=== PATIENT | female | born 1950 | race Caucasian/White ===

== ENCOUNTER 2020-08-22 07:05 | Outpatient (NON) | payer MEDICARE, BC, SELFPAY ==
[2020-08-22 18:30] LABS: SARS-CoV-2 RNA PCR Negative
== END 2020-08-22 07:06 ==
LOC: ANHCOVIDDT 07:19
PROVIDERS: Visit Provider Nurse Practitioner Adult Health
DX: R68.89 Other general symptoms and signs (principal); Z20.828 Contact with and (suspected) exposure to other viral communicable diseases
CPT/HCPCS: 87635; C9803; U0003

== ENCOUNTER → 2021-06-17 14:33 | Outpatient (CLI) | payer MEDICARE, BC, SELFPAY ==
--- NOTE | ~2021-06-17 | CT_ITS ---
EXAMINATION: CT lung screening DATE: 06/17/2021 14:50 INDICATION: Personal history of nicotine dependence, prior smoker with 96 pack year history and histo ry of prior left upper lobectomy TECHNIQUE: Computed tomography (CT) of the chest was performed without intravenous contrast. The dose -length product (DLP) was 138.64 mGy-cm. 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 COMPARISON: None FINDINGS: There are changes of left upper lobectomy. Scattered pulmonary nodules are present which me asure up to 3 mm in the right lung apex on image 20. There is moderate emphysema. The lungs are free of focal airspace opacities. There is no pleural effusion or pneumothorax. No pathologically enlarged thoracic lymph nodes are identified. The heart size is normal. Calcified coronary artery atheroscler osis is noted. There is moderate thoracic spondylosis. IMPRESSION: 1. Lung-RADS category 2: Benign appearance or behavior. Continue annual screening with noncontrast lo w-dose chest CT in 12 months. Reviewed, dictated and finalized at location A. IMPRESSION: 1. Lung-RADS category 2: Benign appearance or behavior. Continue annual screeni ng with noncontrast low-dose chest CT in 12 months.
== END ==
PROVIDERS: Visit Provider Nurse Practitioner
DX: Z12.2 Encounter for screening for malignant neoplasm of respiratory organs (principal); Z87.891 Personal history of nicotine dependence
CPT/HCPCS: 71271

== ENCOUNTER 2021-07-11 08:09 | Outpatient (CLI) | payer MEDICARE, BC, SELFPAY ==
--- NOTE | ~2021-07-11 | CT_ITS ---
EXAMINATION: CT sinus wo con DATE: 07/11/2021 08:30 INDICATION: Chronic sinusitis TECHNIQUE: Computed tomography (CT) of the paranasal sinuses was performed without intravenous contra st. The dose-length product was 286.08 mGy-cm. Automated exposure control and iterative reconstructio n technique were employed. COMPARISON: None FINDINGS: There is a small mucous retention cyst of the left maxillary sinus. There are surgical eden ges consistent with previous ostiomeatal unit resection. No air-fluid levels. No significant mucoperi osteal reaction. Rightward nasal septal deviation. Mastoids are pneumatized. IMPRESSION: 1. Small mucous retention cyst left maxillary sinus. Reviewed, dictated and finalized at location B.
== END 2021-07-11 08:10 | disposition home or self-care (01) ==
LOC: ANHIMG 08:15
PROVIDERS: PCP Nurse Practitioner Adult Health; Visit Provider Nurse Practitioner
DX: J32.9 Chronic sinusitis, unspecified (principal); J34.1 Cyst and mucocele of nose and nasal sinus
CPT/HCPCS: 70486

== ENCOUNTER 2021-12-20 06:36 | Emergency (ER) | payer MEDICARE, SELFPAY ==
[2021-12-20] VITALS (28 sets, daily range): BP systolic 73–195; BP diastolic 41–110; PULSE 68–106; RESP 8–23; TEMP 36.4; O2SAT 80–100
--- NOTE | 2021-12-20 06:47 | ECG_ITS ---
Measurements Intervals [place] Rate: 91 P: 74 MT: 165 QRS: 24 QRSD: 92 T: 52 QT: 371 QTc: 457 Interpretive Statements SINUS RHYTHM LOW QRS VOLTAGE IN PRECORDIAL LEADS [QRS DEFLECTION < 1.0 mV IN CHEST LEADS] INFERIOR MYOCARDIAL INFARCTION , PROBABLY OLD [40+ ms Q WAVE AND/OR ST/T ABNORMALITY IN II/aVF] ABNORMAL ECG NO PREVIOUS ECG AVAILABLE FOR COMPARISON Electronically Signed On 12-20-2021 16:54:17 CDT by Jose Perez M.D.
[2021-12-20] MEDS: ONDANSETRON INJ 4 MG/2 ML VIAL IV PUSH (06:58)
[2021-12-20] MEDS: SODIUM CHLORIDE 0.9% IV 1,000 ML 999 ML IV CONT ×2 (06:58→07:39)
--- NOTE | 2021-12-20 07:17 | PC.NURSE ---
Patient report received from ARMEN Mejia. All questions answered and care of patient assumed.
--- NOTE | 2021-12-20 07:21 | PC.NURSE ---
EDP at bedside to assess pt.
[2021-12-20 07:23] LABS: Alanine Aminotransferase 18 U/L (4-35); Albumin Level 4.2 g/dL (3.5-5.1); Alkaline Phosphatase 92 U/L (38-126); Anion Gap 7 mmol/L (8-16); Aspartate Amino Transferase 27 U/L (14-36); Bilirubin,Total 0.6 mg/dL (0.2-1.3); Blood Urea Nitrogen 31 mg/dL (7-17); Calcium 9.3 mg/dL (8.4-10.2); Carbon Dioxide 30 mmol/L (22-30); Chloride 99 mmol/L (98-107); Estimated CRCL calculation 37 ml/min; Estimated Glomerular Filt Rate 40; Glucose 195 mg/dL (65-110); Lipase 232 U/L (23-300); Sodium 136 mmol/L (137-145)
--- NOTE | 2021-12-20 07:23 | ED.NAVMDI ---
HPI - Nausea/Vomiting/Diarrhea General Chief complaint: Nausea/Vomiting/Diarrhea Stated complaint: N/V/D Time Seen by Provider: 12/20/21 06:55 History of Present Illness HPI Narrative: 71-year-old female presents to emergency room secondary to vomiting and diarrhea. She went to bed in her normal state of health last night. She woke up this morning went to the bathroom began having episodes of vomiting which was followed by diarrhea. She is extremely diaphoretic at the time. Her is here with her. He is not sick. She denies any chest pain or shortness of breath. No chills or fevers. She has had a prior hysterectomy as well as cholecystectomy. Denies any chills or fevers. Related Data Allergies Allergy/AdvReac Type Severity Reaction Status Date / Time Beta-Blockers Allergy Intermediate VASCULAR Verified 12/20/21 08:28 (Beta-Adrenergic Bloc MIGRAINES EYES cefdinir Allergy Intermediate HIVES Verified 12/20/21 08:28 doxycycline Allergy Intermediate DIFFICULTY Verified 12/20/21 08:28 BREATHING Penicillins Allergy Intermediate BREATHING Verified 12/20/21 08:28 DIFFICULTY hydrocodone Allergy Mild severe Verified 12/20/21 08:28 headache levofloxacin Allergy Mild DESTROYS Verified 12/20/21 08:28 GOOD COLON BACTERIA furosemide Allergy Unknown DEPLETES Verified 12/20/21 08:28 POTASSIUM COLON CLEANSES Allergy Intermediate CHRONIC Uncoded 01/17/18 10:01 KIDNEY DIS. Review of Systems Review of Systems: CONSTITUTIONAL: Denies fever, chills, or sweats. EYES: Denies visual changes, redness, or discharge. ENT: Denies rhinorrhea, congestion, sore throat, or otalgia. CARDIOVASCULAR: Denies chest pain, palpitations, or edema. RESPIRATORY: Denies cough or dyspnea. GASTROINTESTINAL: Patient denies any abdominal pain should get nausea, vomiting, and diarrhea. No blood in her stool or in her vomit.. GENITOURINARY: Denies dysuria or hematuria. SKIN: Denies rash or itching. MUSCULOSKELETAL: Denies back pain, joint pain, or myalgia. NEUROLOGIC: Denies headache, numbness, or weakness. PSYCHIATRIC: Denies anxiety or depression. [facility] Past Medical History Medical History (Updated 12/20/21 @ 08:32 by Castillo Phillip DO) Coronary artery disease FH: cholecystectomy Hypertension Surgical History Surgical History (Updated 12/20/21 @ 07:25 by Castillo Phillip DO) H/O: hysterectomy Social History Social History (Updated 12/20/21 @ 07:25 by Castillo Phillip DO) Social History: Patient denies smoking or alcohol Exam Narrative: APPEARANCE: No acute distress, nontoxic, resting in bed EYES: EOMI HEENT: Normocephalic, atraumatic, OMM RESPIRATORY: No respiratory distress Clear to auscultation bilaterally with no rhonchi wheezing or rales. CARDIOVASCULAR: Regular rate and rhythm without murmurs rubs or gallops. ABDOMINAL: Soft, nontender, nondistended, no rebound or guarding MUSCULOSKELETAl: Moves all extremities. No clubbing, cyanosis or edema. NEURO: Awake and alert. Following commands, speech normal, no focal deficits SKIN:: Warm, dry. No rashes lesions or abrasions PSYCHIATRIC: Normal affect/mood, Course Course Emergency Course: Patient given 2 L of normal saline IV. She had a slight episode of some hypotension which rebounded promptly with the IV fluids. She had one episode of vomiting after she arrived in emergency department. She was given IV Zofran as had no additional vomiting. Reevaluated the patient and she feels much better and eager to go home at this time. Explained to the patient that her potassium is little low. She is on a diuretic. We will give her some potassium supplements to help increase potassium over the next week. Vital Signs Vital signs: Vital Signs Temperature 97.6 F 12/20/21 06:37 Pulse Rate 105 H 12/20/21 06:37 Respiratory Rate 22 H 12/20/21 06:37 Pulse Oximetry 97 12/20/21 06:37 Temperature 97.6 F 12/20/21 06:37 Pulse Rate 87 04
[2021-12-20 07:26] LABS: Basophils Absolute Auto 0.1 K/mm3 (0.0-0.1); Eosinophils Absolute Auto 0.2 K/mm3 (0-0.3); Eosinophils Percent Auto 1.4 % (0-4.4); Hematocrit 50.5 % (37.0-47.0); Hemoglobin 15.8 g/dL (12.0-15.0); Immature Granulocyte Percent A 0.9 % (0-0.5); Lymphocytes Percent Auto 24.1 % (18.3-44.2); Mean Corpuscular HGB Conc 31.3 g/dl (32-36); Mean Corpuscular Hemoglobin 27.1 pg (26-34); Mean Corpuscular Volume 86.5 fl (80-100); Mean Platelet Volume 10.4 fl (7.4-10.4); Monocytes Absolute Auto 0.5 K/mm3 (0.1-0.6); Monocytes Percent Auto 4.2 % (2.6-8.5); Neutrophils Percent Auto 68.4 % (45.5-73.1); Platelet Count Result 452 k/mm3 (150-375); Red Blood Count 5.84 M/mm3 (4.2-5.4); Red Cell Distribution Width 14.8 % (11.5-14.5); White Blood Count 11.6 K/mm3 (4.5-10.0)
--- NOTE | 2021-12-20 07:40 | PC.NURSE ---
BP of 70s/80s systolic. MD made aware and verbal order received for second NS bolus.
--- NOTE | 2021-12-20 08:28 | PC.NURSE ---
Patient ambulatory with steady gait to the bathroom. Urine sample obtained.
[2021-12-20 08:35] LABS: Add Urine Microscopic? YES; Appearance Urine Cloudy (Clear); Bacteria Urine Trace /hpf; Bilirubin Urine Negative (Negative); Blood Urine Negative (Negative); Color Urine Yellow (Yellow); Glucose Urine UA Negative (Negative); Ketones Urine Negative (Negative); Leukocyte Esterase Ur 2+ LEU/UL (Negative); Nitrate Urine Negative (Negative); Protein Urine 2+ mg/dL (Negative); RBC Urine 0-2 /hpf (0-2); Specific Grav Ur 1.013 (1.001-1.035); Squamous Epithelial Cell Urine Many /hpf (Few); Urobilinogen Urine Negative mg/dL (<2.0)
== END 2021-12-20 09:05 | disposition home or self-care (01) ==
LOC: ANHED 08:43
PROVIDERS: Emergency Medicine; Emergency Provider Emergency Medicine; PCP Nurse Practitioner Adult Health
DX: K52.9 Noninfective gastroenteritis and colitis, unspecified (principal); E87.6 Hypokalemia; I25.10 Atherosclerotic heart disease of native coronary artery without angina pectoris; I10 Essential (primary) hypertension; R94.31 Abnormal electrocardiogram [ECG] [EKG]
CPT/HCPCS: 36415; 80053; 81001; 83690; 85025; 93005; 96361; 96374; 99284; J2405; J7030

== ENCOUNTER 2022-02-18 10:38 | Outpatient (CLI) | payer MEDICARE, SELFPAY ==
--- NOTE | 2022-02-18 17:34 | WPDPFTINT ---
PFT Procedure Performed PFT Procedure Performed Spirometry with Pre/Post Bronchodilator Plethysmography (Lung Vol) Diffusing Cap (DLCO) Flow Vol Loop PFT Interpretation This is a pulmonary function test with pre and post-bronchodilator spirometry, plethysmography and diffusing capacity. The test was performed and results interpreted in accordance with the 2019 and 2005 ATS/ERS Task Force guidelines respectively using the Global Lung Function Initiative-2012 reference equations. Patient demonstrated good effort and cooperation. Reproducibility criteria were met. The quality of the pre bronchodilator spirometry maneuver was Grade A and post bronchodilator spirometry maneuver was Grade A. Findings: Spirometry: There is decreased maximal expiratory airflow at all lung volumes with concave expiratory flow tracing. The contour the inspiratory flow tracing is normal. The pre bronchodilator FVC is 2.37 L, 85% predicted. The pre bronchodilator FEV1 is 1.17 L, 55% predicted. The pre bronchodilator FEV1: FVC ratio is 50%. The post bronchodilator FVC is 2.34 L, representing 1% decrease. The post bronchodilator FEV1 is 1.33 L, representing a 160 mL increase which corresponds to a 13% increase. Plethysmography: The total lung capacity is 4.83 L, 95% predicted. The functional residual capacity is 2.80 L, 96% predicted. The residual volume is 2.46 L, 109% predicted. Diffusing capacity: The diffusing capacity unadjusted for hemoglobin and carboxyhemoglobin is 12.2, 60% predicted. The diffusing capacity adjusted for alveolar volume is 3.71, 81% predicted. Impression: There is a moderately severe obstructive abnormality without significant improvement after inhaling a single dose of albuterol as the absolute increase in FEV1 was less than 200 mL. the lung volumes are normal. The diffusing capacity unadjusted for hemoglobin and carboxyhemoglobin is moderately decreased and normalizes when adjusted for alveolar volume. There are no prior studies for comparison
== END 2022-02-18 10:39 | disposition home or self-care (01) ==
LOC: ANHPFT 10:43
PROVIDERS: PCP Nurse Practitioner Adult Health; Visit Provider Nurse Practitioner
DX: J44.9 Chronic obstructive pulmonary disease, unspecified (principal)
CPT/HCPCS: 94060; 94726; 94729

== ENCOUNTER → 2022-07-01 08:40 | Outpatient (CLI) | payer MEDICARE, SELFPAY ==
--- NOTE | ~2022-07-01 | CT_ITS ---
EXAMINATION:CT diagnostic chest wo con DATE: 07/01/2022 09:07 INDICATION: Other nonspecific abnormal finding of lung field. Lung nodules. TECHNIQUE: Computed tomography (CT) of the chest was performed without intravenous contrast. Automate d exposure control and iterative reconstruction technique were employed. The dose-length product (DLP ) was 340.28 mGy-cm. COMPARISON: Chest CT 06/17/2021 FINDINGS: There is mild emphysema. There are changes of left upper lobectomy. There is mild atelectas is bilaterally. Again seen is a 3 mm nodule in right upper lobe. Again seen is a 3 mm nodule in right lower lobe. No pleural effusion. The heart size is normal. There are coronary artery calcifications. No pericardial effusion. There is a small sliding hiatal hernia. There is diffuse hepatic steatosis. There is severe thoracic spondylosis. There is mild chronic anterior wedging of multiple vertebral b odies. IMPRESSION: 1. Stable lung nodules, likely benign. 2. Mild emphysema. 3. Left upper lobectomy. Reviewed, dictated and finalized at location A.
== END ==
PROVIDERS: PCP Nurse Practitioner Adult Health; Visit Provider Nurse Practitioner
DX: R91.8 Other nonspecific abnormal finding of lung field (principal); R91.1 Solitary pulmonary nodule; J43.9 Emphysema, unspecified; Z90.2 Acquired absence of lung [part of]; K76.0 Fatty (change of) liver, not elsewhere classified; K44.9 Diaphragmatic hernia without obstruction or gangrene; I25.10 Atherosclerotic heart disease of native coronary artery without angina pectoris
CPT/HCPCS: 71250

== ENCOUNTER 2022-10-16 16:10 | Inpatient (IN) | payer MEDICARE, SELFPAY ==
[2022-10-16] VITALS (8 sets, daily range): BP systolic 120–135; BP diastolic 73–86; PULSE 75–97; RESP 13–20; TEMP 36.6–36.8; O2SAT 92–97; BMI 32.8
--- NOTE | 2022-10-16 16:32 | ED.GENADULT ---
HPI - General Adult General Chief complaint: Recheck/Abnormal Lab/Rx Stated complaint: abnormal labs, low potassium Time Seen by Provider: 10/16/22 16:19 History of Present Illness HPI narrative: 71-year-old female history of hypokalemia presenting to the emergency department for evaluation of low potassium. Patient reports that she had outpatient labs drawn on Wednesday and her potassium was 2.5. Patient was treated with p.o. potassium as outpatient and had a recheck potassium was up to 2.7. Patient was instructed to present to the emergency department for further evaluation. Patient reports she has had some issues with abdominal cramping but denies any chest pain shortness of breath or heart palpitations. Patient denies any other complaints. Patient states she has not having any abdominal cramping at this time. Patient denies any associated nausea or vomiting Related Data Allergies Allergy/AdvReac Type Severity Reaction Status Date / Time Beta-Blockers Allergy Intermediate VASCULAR Verified 12/20/21 08:28 (Beta-Adrenergic Bloc MIGRAINES EYES cefdinir Allergy Intermediate HIVES Verified 12/20/21 08:28 doxycycline Allergy Intermediate DIFFICULTY Verified 12/20/21 08:28 BREATHING Penicillins Allergy Intermediate BREATHING Verified 12/20/21 08:28 DIFFICULTY hydrocodone Allergy Mild severe Verified 12/20/21 08:28 headache levofloxacin Allergy Mild DESTROYS Verified 12/20/21 08:28 GOOD COLON BACTERIA furosemide Allergy Unknown DEPLETES Verified 12/20/21 08:28 POTASSIUM COLON CLEANSES Allergy Intermediate CHRONIC Uncoded 01/17/18 10:01 KIDNEY DIS. Review of Systems Review of Systems: CONSTITUTIONAL: Denies fever, chills, or sweats. EYES: Denies visual changes, redness, or discharge. ENT: Denies rhinorrhea, congestion, sore throat, or otalgia. CARDIOVASCULAR: Denies chest pain, palpitations, or edema. RESPIRATORY: Denies cough or dyspnea. GASTROINTESTINAL: Denies abdominal pain, nausea, vomiting, or diarrhea. GENITOURINARY: Denies dysuria or hematuria. SKIN: Denies rash or itching. MUSCULOSKELETAL: Denies back pain, joint pain, or myalgia. NEUROLOGIC: Denies headache, numbness, or weakness. [facility] Past Medical History Medical History (Updated 10/16/22 @ 17:47 by Quinton Phillip MD) Coronary artery disease FH: cholecystectomy Hypertension Surgical History Surgical History (Updated 12/20/21 @ 07:25 by Castillo Phillip DO) H/O: hysterectomy Social History Social History (Updated 12/20/21 @ 07:25 by Castillo Phillip DO) Social History: Patient denies smoking or alcohol Exam Narrative: APPEARANCE: Well appearing, no pain, no distress, well-nourished. HEAD: normocephalic, atraumatic. EYES: PERRLA/EOMI, conjunctivae clear. NOSE: Normal no drainage NECK: Supple. No adenopathy, no masses. RESPIRATORY: Airway patent, respirations nonlabored. Clear to auscultation bilaterally, no rales, rhonchi, wheezing. CARDIOVASCULAR: Regular rate and rhythm without murmurs rubs or gallops. ABDOMINAL: Soft, nontender, nondistended, normal bowel sounds MUSCULOSKELETAL: Moves all extremities. Strength/ROM intact, No edema, No calf tenderness. NEURO: Alert. Cranial nerves II through XII intact. Grossly intact SKIN: Warm, dry. Normal Color Course Course Emergency Course: Patient did fail outpatient treatment. Patient was ordered p.o. and IV potassium. EKG shows normal sinus rhythm. Patient's mag was also replaced as well. Case was discussed with hospitalist patient was admitted to [facility] with telemetry. Patient was updated on results of the work-up and plan for admission. All questions and concerns were addressed. Patient was stable at time of admission to telemetry. Vital Signs Vital signs: Vital Signs Temperature 98.2 F 10/16/22 16:14 Pulse Rate 97 10/16/22 16:14 Respiratory Rate 20 10/16/22 16:14 Blood Pressure 135/75 10/16/22 16:14 Pulse Oximetry
[2022-10-16 16:52] LABS: Basophils Absolute Auto 0.1 K/mm3 (0.0-0.1); Basophils Percent Auto 0.7 % (0.2-1.2); Eosinophils Absolute Auto 0.1 K/mm3 (0-0.3); Eosinophils Percent Auto 0.9 % (0-4.4); Hematocrit 36.1 % (37.0-47.0); Hemoglobin 11.9 g/dL (12.0-15.0); Immature Granulocyte Absolute 0.04 K/mm3 (0.00-0.031); Immature Granulocyte Percent A 0.4 % (0-0.5); Lymphocytes Percent Auto 17.4 % (18.3-44.2); Mean Corpuscular Hemoglobin 27.5 pg (26-34); Mean Corpuscular Volume 83.6 fl (80-100); Monocytes Absolute Auto 0.6 K/mm3 (0.1-0.6); Monocytes Percent Auto 5.9 % (2.6-8.5); Neutrophils Absolute Auto 7.3 K/mm3 (1.3-6.7); Neutrophils Percent Auto 74.7 % (45.5-73.1); Platelet Count Result 294 k/mm3 (150-375); Red Blood Count 4.32 M/mm3 (4.2-5.4); Red Cell Distribution Width 15.3 % (11.5-14.5); White Blood Count 9.8 K/mm3 (4.5-10.0)
[2022-10-16 16:55] LABS: Chloride 87 mmol/L (98-107)
[2022-10-16 16:56] LABS: Magnesium 1.7 mg/dL (1.6-2.3)
[2022-10-16 17:09] LABS: Anion Gap 7 mmol/L (8-16); Blood Urea Nitrogen 21 mg/dL (7-17); Calcium 8.9 mg/dL (8.4-10.2); Carbon Dioxide 38 mmol/L (22-30); Estimated CRCL calculation 37 ml/min; Estimated Glomerular Filt Rate 40; Glucose 251 mg/dL (65-110); Potassium 2.6 mmol/L (3.4-5.0); Sodium 132 mmol/L (137-145)
--- NOTE | 2022-10-16 17:09 | ECG_ITS ---
Measurements Intervals [place] Rate: 83 P: 76 [place]: 170 QRS: 10 QRSD: 101 T: 54 QT: 394 QTc: 464 Interpretive Statements SINUS RHYTHM LOW QRS VOLTAGE IN PRECORDIAL LEADS CONSIDER INFERIOR INFARCT, AGE INDETERMINATE BORDERLINE ST-T WAVE ABNORMALITY- ANT/HIGH LAT LEADS BASELINE ARTIFACT- II, III, AVR, AVL, AVF ABNORMAL ECG COMPARED TO ECG 12/20/2021 06:55:03 NO SIGNIFICANT CHANGES Electronically Signed On 10-16-2022 17:48:03 [employer]IRTUAL REALITY SPECIALIST by Andrea Chacon D.O.
[2022-10-16] MEDS: POTASSIUM CHLORIDE 20 MEQ PACKET (FOR LIQUID) 40 MEQ PO (17:36)
[2022-10-16] MEDS: MAGNESIUM SULF 1 GM/D5W 100 ML 1 GM/100 ML BAG IVPB (17:36)
[2022-10-16] MEDS: KCL 40 MEQ/WATER 100 ML 100 ML 25 ML IVPB (17:36)
[2022-10-16] MEDS: SODIUM CHLORIDE 0.9% IV 1,000 ML 999 ML IV CONT (17:47)
--- NOTE | 2022-10-16 18:03 | ADMGEN ---
This patient, Paty Lainez, was admitted to 2 Medical Room 258-01. Patient/family oriented to hospital policies and general routines including ID bracelet, bed and alarms, visiting hours, pain management, procedures, bathroom and other care routines, personal items, smoking policy, room service/diet, and visiting hours. Information on how to activate the Rapid Response Team has been discussed. Patient/Family are encouraged to report perceived risks to care and to ask questions if they do not understand what they are told or what they should do.
[2022-10-16 18:32] LABS: Influenza A QL RT-PCR Negative (Negative); Influenza B QL RT-PCR Negative (Negative); RSV RNA, RT-PCR Negative (Negative); SARS-CoV-2 RNA PCR Negative
[2022-10-17] VITALS (11 sets, daily range): BP systolic 133–137; BP diastolic 81–88; PULSE 74–106; RESP 14–20; TEMP 36.5–36.9; O2SAT 94–98
--- NOTE | 2022-10-17 00:03 | PM.IMHP ---
H&P: HPI History of Present Illness Date/Time: 10/16/22 2300 Chief Complaint: Abnormal labs Narrative: This is a 71-year-old female patient who has chronic hypokalemia. The patient has been taking oral supplements at home. However she still is having difficulty getting her potassium to rise up. The patient had outpatient labs drawn on Wednesday in her potassium is 2.5. She was treated with p.o. potassium outpatient and her potassium levels recheck on and was 2.7. The patient was instructed to go to the emergency room to have her potassium rechecked. Patient reports that she had some abdominal cramping. She denies any nausea vomiting or diarrhea. The patient stated she is not on any diuretics. Her H&H today is 11.9 and 36.1. Sodium 132 potassium 2.6. Creatinine 1.3 BUN is 21. Estimated GFR is 40 glucose is 251. The patient has 2+ leukocyte esterase in 4-6 wbc's but she has many squamous epithelial cells. So I suspect that this is a contaminant. The patient was negative for influenza A/B and COVID. The patient was given p.o. potassium and IV potassium and magnesium and IV fluids in the emergency room. The patient is being admitted to inpatient status on the date of service 10/16/2022 Review of Systems Review of Systems: See HPI All systems reviewed & are unremarkable except as noted in HPI and below Constitutional: Constitutional: Reports as per HPI and Reports no additional constitutional complaints Eyes: Eyes: Reports as per HPI and Reports no additional eye complaints ENT: Reports system reviewed and no additional complaints, except as documented and Reports Normal hearing present Cardiovascular: Cardiovascular: Reports no additional cardiovascular complaints Respiratory: Respiratory: Reports no additional respiratory complaints and Reports no additional respiratory complaints Gastrointestinal: Gastrointestinal: Reports as per HPI and Reports no additional gastrointestinal complaints Musculoskeletal: Musculoskeletal: Reports no additional musculoskeletal complaints Integumentary/Breasts: Skin/Breast: Reports system reviewed and no additional complaints, except as docu and Reports as per HPI Neurologic: Reports system reviewed and no additional complaints, except as documented, Reports as per HPI and Reports Normal hearing present Psychiatric: Psychiatric: Reports no additional psychiatric complaints and Reports as per HPI Endocrine: Endocrine: Reports no additional endocrine complaints Hematologic/Lymphatic: Hematologic/Lymphatic: Reports no additional hematologic/lymphatic complaints Allergic/Immunologic: Allergic/Immunologic: Reports no additional allergic/immunologic complaints PMFSH Past Medical History Medical History (Updated 10/17/22 @ 00:29 by Karley John NP) Acute hypokalemia Anxiety Chronic GERD Chronic renal disease COPD (chronic obstructive pulmonary disease) Coronary artery disease Degenerative disc disease Dementia Hyperlipidemia Hypertension Myocardial infarction No intervention. The patient stated that she grew collateral. The patient stated that she had 2 heart attacks but I believe that she had coronary order disease without any intervention. Osteoporosis Shingles Surgical History Surgical History (Updated 10/17/22 @ 00:29 by Karley John NP) H/O arthroscopic knee surgery H/O cardiac catheterization H/O hand surgery H/O: hysterectomy History of bladder surgery History of laparoscopic cholecystectomy History of lobectomy of lung Left upper lung due to benign nodules History of total knee arthroplasty S/P tonsillectomy and adenoidectomy Family History Family History (Updated 10/17/22 @ 00:17 by Karley John NP) Sibling Cancer Diabetes mellitus Hypertension Thyroid disease Father Cancer Mother COPD (chronic obstructive pulmonary disease) Social History Social History (Updated 10/17/22 @ 00:19 by Karley John NP) Social History: P
[2022-10-17] MEDS: DONEPEZIL HCL 10 MG TABLET PO ×2 (00:44→08:11)
[2022-10-17] MEDS: DULoxetine HCL 20 MG CAPSULE.DR PO ×3 (00:44→21:18)
[2022-10-17] MEDS: MEMANTINE 10 MG TABLET PO ×3 (00:44→16:45)
--- NOTE | 2022-10-17 01:39 | ECG_ITS ---
Measurements Intervals [place] Rate: 68 P: 83 [place]: 185 QRS: 17 QRSD: 104 T: 68 QT: 435 QTc: 463 Interpretive Statements SINUS RHYTHM ATRIAL PREMATURE COMPLEXES BORDERLINE T WAVE ABNORMALITY- ANTERIOR LEADS BASELINE WANDER- I, II, III, AVR, AVL, AVF, V1-V3 BORDERLINE ECG COMPARED TO ECG 10/16/2022 17:38:13 NO SIGNIFICANT CHANGES Electronically Signed On 10-17-2022 8:04:47 BASEBOARD HEATING INSTALLER by Andrea Chacon D.O.
[2022-10-17 01:48] LABS: Anion Gap 6 mmol/L (8-16); Blood Urea Nitrogen 23 mg/dL (7-17); Calcium 8.3 mg/dL (8.4-10.2); Carbon Dioxide 35 mmol/L (22-30); Chloride 93 mmol/L (98-107); Estimated CRCL calculation 47 ml/min; Estimated Glomerular Filt Rate 54; Glucose 305 mg/dL (65-110); Potassium 3.1 mmol/L (3.4-5.0); Sodium 134 mmol/L (137-145)
[2022-10-17 06:02] LABS: Basophils Absolute Auto 0.1 K/mm3 (0.0-0.1); Basophils Percent Auto 0.9 % (0.2-1.2); Eosinophils Absolute Auto 0.1 K/mm3 (0-0.3); Eosinophils Percent Auto 1.7 % (0-4.4); Hematocrit 34.1 % (37.0-47.0); Hemoglobin 10.9 g/dL (12.0-15.0); Immature Granulocyte Absolute 0.05 K/mm3 (0.00-0.031); Immature Granulocyte Percent A 0.6 % (0-0.5); Lymphocytes Absolute Auto 1.66 K/mm3 (0.9-3.2); Lymphocytes Percent Auto 20.3 % (18.3-44.2); Mean Corpuscular Hemoglobin 26.6 pg (26-34); Mean Corpuscular Volume 83.2 fl (80-100); Mean Platelet Volume 10.4 fl (7.4-10.4); Monocytes Absolute Auto 0.5 K/mm3 (0.1-0.6); Monocytes Percent Auto 6.1 % (2.6-8.5); Neutrophils Absolute Auto 5.8 K/mm3 (1.3-6.7); Neutrophils Percent Auto 70.4 % (45.5-73.1); Platelet Count Result 257 k/mm3 (150-375); Red Cell Distribution Width 15.3 % (11.5-14.5); White Blood Count 8.2 K/mm3 (4.5-10.0)
[2022-10-17 06:31] LABS: Alanine Aminotransferase 22 U/L (6-35); Albumin Level 3.5 g/dL (3.5-5.1); Alkaline Phosphatase 103 U/L (38-126); Anion Gap 7 mmol/L (8-16); Aspartate Amino Transferase 23 U/L (14-36); Bilirubin,Total 0.4 mg/dL (0.2-1.3); Blood Urea Nitrogen 21 mg/dL (7-17); Calcium 8.9 mg/dL (8.4-10.2); Carbon Dioxide 36 mmol/L (22-30); Chloride 95 mmol/L (98-107); Estimated CRCL calculation 47 ml/min; Estimated Glomerular Filt Rate 54; Glucose 197 mg/dL (65-110); Potassium 2.7 mmol/L (3.4-5.0); Sodium 138 mmol/L (137-145)
[2022-10-17] MEDS: POTASSIUM CHLORIDE 20 MEQ TABLET 40 MEQ PO (06:45)
[2022-10-17] MEDS: ASPIRIN 81 MG CHEWABLE TABLET PO (08:09)
[2022-10-17] MEDS: FAMOTIDINE 20 MG TABLET 40 MG PO (08:10)
[2022-10-17] MEDS: dilTIAZem HCL 30 MG TABLET PO (08:10)
[2022-10-17] MEDS: TORSEMIDE 20 MG TABLET 40 MG PO (08:10)
[2022-10-17] MEDS: POTASSIUM CHLORIDE 20 MEQ TABLET.ER PO ×2 (08:11)
[2022-10-17] MEDS: ROSUVASTATIN 10 MG TABLET PO (08:11)
--- NOTE | 2022-10-17 08:33 | PM.IMPN ---
Progress Note: A&P Assessment and Plan (1) Hypokalemia: Code(s): E87.6 - Hypokalemia Status: Acute Assessment and Plan: Potassium 2.5 on outpatient labs, 2.6 on admission. She was given 40 mEQ IV and PO in the ED. EKG without changes or abnormalities related to hypokalemia K 2.7 today 10/16/22. Patient is on chronic torsemide. Hold torsemide for now. Give 40 mEQ IV KCl x1, 60 mEQ PO KCl then increase home dose potassium 40 mEQ PO BID. Repeat potassium level 1400 and adjust medications as needed. (2) Dementia: Code(s): F03.90 - Unspecified dementia, unspecified severity, without behavioral disturbance, psychotic disturbance, mood disturbance, and anxiety Status: Chronic Assessment and Plan: Chronic, continue donepezil and memantine (3) Anxiety: Code(s): F41.9 - Anxiety disorder, unspecified Status: Chronic Assessment and Plan: Chronic, continue Cymbalta (4) Chronic GERD: Code(s): K21.9 - Gastro-esophageal reflux disease without esophagitis Status: Chronic Assessment and Plan: Chronic, continue famotidine (5) Hypertension: Code(s): I10 - Essential (primary) hypertension Status: Chronic Assessment and Plan: Chronic, stable. Monitor vital sign continue Cardizem. Hold torsemide as above. (6) Hyperlipidemia: Code(s): E78.5 - Hyperlipidemia, unspecified Status: Chronic Assessment and Plan: Chronic, continue Crestor (7) Chronic renal disease: Code(s): N18.9 - Chronic kidney disease, unspecified Status: Chronic Assessment and Plan: Chronic, stage 3b, renal function at baseline Monitor I/O Avoid nephrotoxic agents and control BP (8) COPD (chronic obstructive pulmonary disease): Code(s): J44.9 - Chronic obstructive pulmonary disease, unspecified Status: Chronic Assessment and Plan: as noted on PFT testing 03/11. Patient is not on maintenance and rescue inhalers. Not in acute exacerbation. Monitor respiratory status. Former smoker (9) Coronary artery disease: Code(s): I25.10 - Atherosclerotic heart disease of [place] coronary artery without angina pectoris Status: Chronic Assessment and Plan: Chronic, reportedly no coronary stents placed due to collateral perfusion Continue aspirin, crestor, and BP management. Patient is not on a beta-harman Time Spent With Patient Time with patient: 25 - 35 minutes Subjective Date/time seen: 10/17/22 08:33 Patient is a 71 yo female with hypertension, hyperlipidemia, COPD, GERD and dementia. She presented to the ED for evaluation of abnormal potassium level. She was found to have potassium level of 2.6 and was admitted for close monitoring. She denies muscle cramps currently, but does report issues with leg cramping for the past several months. No palpitations or arrhythmia on telemetry. She has severe arm pain when receiving IV KCl. She also reports 3 small loose stools today. No recently antibiotic therapy. No abd pain, N/V or constipation. Review of Systems Review of Systems: All systems reviewed & are unremarkable except as noted in HPI and below Exam Narrative: General: No acute distress.? Well-developed adult female lying in bed. Mental Status/Psych: Awake, alert and oriented x3 with clear speech. Neutral mood and affect. Pleasant and cooperative. Skin: Skin fair, warm, dry and intact without rashes or lesions. No open wounds. Good turgor.? HEENT: Normocephalic.Sclera is non-icteric. EOM intact. PERRL. Grossly normal hearing. Oral mucosa pink and moist. Tongue midline. Oropharynx within normal limits. Neck: Supple. Thyroid without nodularity. Trachea midline. No JVD. Heart: S1 and S2 regular rate and rhythm. No murmurs, gallops, or rubs auscultated. Chest: Respirations even and unlabored. Lung sounds are clear to auscultation in all lobes bilaterally without wheezes, rhonchi, or rales
[2022-10-17] MEDS: POTASSIUM CHLORIDE 20 MEQ TABLET PO (10:08)
[2022-10-17 14:19] LABS: Potassium 3.2 mmol/L (3.4-5.0)
[2022-10-17] MEDS: POTASSIUM CHLORIDE 20 MEQ TABLET.ER 40 MEQ PO (16:45)
[2022-10-18] VITALS (7 sets, daily range): BP systolic 141–142; BP diastolic 82–84; PULSE 65–87; RESP 16–18; TEMP 36.3–36.8; O2SAT 95–96
[2022-10-18 05:00] LABS: Anion Gap 6 mmol/L (8-16); Blood Urea Nitrogen 22 mg/dL (7-17); Calcium 8.7 mg/dL (8.4-10.2); Carbon Dioxide 33 mmol/L (22-30); Chloride 99 mmol/L (98-107); Estimated CRCL calculation 52 ml/min; Estimated Glomerular Filt Rate > 60; Glucose 216 mg/dL (65-110); Magnesium 1.8 mg/dL (1.6-2.3); Potassium 3.1 mmol/L (3.4-5.0); Sodium 138 mmol/L (137-145)
[2022-10-18] MEDS: MAGNESIUM SULF 1 GM/D5W 100 ML 1 GM/100 ML BAG IVPB (08:30)
[2022-10-18] MEDS: ROSUVASTATIN 10 MG TABLET PO (08:31)
[2022-10-18] MEDS: ASPIRIN 81 MG CHEWABLE TABLET PO (08:31)
[2022-10-18] MEDS: FAMOTIDINE 20 MG TABLET 40 MG PO (08:31)
[2022-10-18] MEDS: MEMANTINE 10 MG TABLET PO (08:31)
[2022-10-18] MEDS: POTASSIUM CHLORIDE 20 MEQ TABLET.ER 40 MEQ PO ×2 (08:31→12:23)
[2022-10-18] MEDS: dilTIAZem HCL 30 MG TABLET PO (08:32)
[2022-10-18] MEDS: SACCHAROMYCES BOULARDII 250 MG CAPSULE PO (08:32)
[2022-10-18] MEDS: DONEPEZIL HCL 10 MG TABLET PO (08:32)
[2022-10-18] MEDS: DULoxetine HCL 20 MG CAPSULE.DR PO (08:32)
[2022-10-18 09:04] LABS: Hemoglobin A1C 8.3 % (<5.7)
[2022-10-18 09:26] LABS: Toxigenic C. Diff NEGATIVE (NEGATIVE)
[2022-10-18 13:22] LABS: Potassium 3.3 mmol/L (3.4-5.0)
--- NOTE | 2022-10-18 15:34 | PM.DS ---
DS: Admitting Diagnosis Discharge Date 10/18/2022 1534 Admitting Diagnosis Hypokalemia DS: Discharge Diagnosis Discharge Diagnosis (1) Hypokalemia: Code(s): E87.6 - Hypokalemia Status: Acute Assessment and Plan: Potassium 2.5 on outpatient labs, 2.6 on admission. She was given 40 mEQ IV and PO in the ED. EKG without changes or abnormalities related to hypokalemia K 2.7 on 10/16/22. Patient is on chronic torsemide. Held torsemide inpatient Gave 40 mEQ IV KCl x1, 60 mEQ PO KCl then increase home dose potassium 40 mEQ PO BID 10/17/22. Repeat potassium level at 1400 3.2. 10/18 K 3.1, magnesium 1.8. increased KCl 40 mEQ TID PO. Given 1 gram Mag sulfate IVPB. Repeat K 3.3. Resume torsemide in 24-48 hours with repeat BMP in 2 days. c/o loose stool. cdiff negative. cultures pending. Appears chronic. (2) Dementia: Code(s): F03.90 - Unspecified dementia, unspecified severity, without behavioral disturbance, psychotic disturbance, mood disturbance, and anxiety Status: Chronic Assessment and Plan: Chronic, continue donepezil and memantine (3) Anxiety: Code(s): F41.9 - Anxiety disorder, unspecified Status: Chronic Assessment and Plan: Chronic, continue Cymbalta (4) Chronic GERD: Code(s): K21.9 - Gastro-esophageal reflux disease without esophagitis Status: Chronic Assessment and Plan: Chronic, continue famotidine (5) Hypertension: Code(s): I10 - Essential (primary) hypertension Status: Chronic Assessment and Plan: Chronic, stable. Monitor vital sign continue Cardizem. Hold torsemide as above. (6) Hyperlipidemia: Code(s): E78.5 - Hyperlipidemia, unspecified Status: Chronic Assessment and Plan: Chronic, continue Crestor (7) Chronic renal disease: Code(s): N18.9 - Chronic kidney disease, unspecified Status: Chronic Assessment and Plan: Chronic, stage 3b, renal function at baseline Monitor I/O Avoid nephrotoxic agents and control BP (8) COPD (chronic obstructive pulmonary disease): Code(s): J44.9 - Chronic obstructive pulmonary disease, unspecified Status: Chronic Assessment and Plan: as noted on PFT testing 03/11. Patient is not on maintenance and rescue inhalers. Not in acute exacerbation. Monitor respiratory status. Former smoker (9) Coronary artery disease: Code(s): I25.10 - Atherosclerotic heart disease of [place] coronary artery without angina pectoris Status: Chronic Assessment and Plan: Chronic, reportedly no coronary stents placed due to collateral perfusion Continue aspirin, crestor, and BP management. Patient is not on a beta-harman DS: Summary Hospital Course Reason for hospitalization: Abnormal labs Hospital Course: Paty Lainez is a 71-year-old female patient with COPD, HTN, HLD, CAD, anxiety, dementia and GERD. She presented to the ED for evaluation of abnormal potassium level. The patient reports recently starting to take oral supplements from her PCP starting 2-3 days prior to admission due to low potassium level 2.5. Her potassium level was recheck 2 days later and was 2.7.? The patient was instructed to go to the emergency room to have her potassium rechecked.? Patient reported that she had some abdominal and lower extremity cramping.? She denied nausea, vomiting, or diarrhea.? She takes furosemide PO daily. Her H&H today is 11.9 and 36.1.? Sodium 132 potassium 2.6.? Creatinine 1.3 BUN is 21.? Estimated GFR is 40 glucose is 251.? The patient has 2+ leukocyte esterase in 4-6 wbc's but she has many squamous epithelial cells; likely contaminated.?She was negative for influenza A/B and COVID.? She was given 40 mEQ p.o. potassium and IV potassium and magnesium and IV fluids in the emergency room.? She was admitted for further evaluation of hypokalemia. Telemetry was monitored and without arrhythmia or ectopy. K levels we
== END 2022-10-18 16:35 | disposition home or self-care (01) | DRG 641 ==
LOC: ANHED 17:47 → ANH2MED 17:56
PROVIDERS: Emergency Medicine; Nurse Practitioner; Physician Assistant; Admitting Provider Chiropractor; Emergency Provider Emergency Medicine; PCP Family Medicine; Visit Provider Nurse Practitioner Family
DX: E87.6 Hypokalemia (principal); I25.10 Atherosclerotic heart disease of native coronary artery without angina pectoris; I12.9 Hypertensive chronic kidney disease with stage 1 through stage 4 chronic kidney disease, or unspecified chronic kidney disease; N18.32 Chronic kidney disease, stage 3b; J44.9 Chronic obstructive pulmonary disease, unspecified; E78.5 Hyperlipidemia, unspecified; K21.9 Gastro-esophageal reflux disease without esophagitis; M81.0 Age-related osteoporosis without current pathological fracture; F41.9 Anxiety disorder, unspecified; F03.90 Unspecified dementia, unspecified severity, without behavioral disturbance, psychotic disturbance, mood disturbance, and anxiety; Z96.659 Presence of unspecified artificial knee joint; Z20.822 Contact with and (suspected) exposure to COVID-19; I25.2 Old myocardial infarction; Z90.2 Acquired absence of lung [part of]; Z87.891 Personal history of nicotine dependence; Z79.82 Long term (current) use of aspirin
CPT/HCPCS: 36415; 80048; 80053; 83036; 83735; 84132; 84443; 85025; 87045; 87269; 87272; 87427; 87493; 87637; 89055; 93005; 99285; A9270; J3475; J3480; J7030

== ENCOUNTER 2023-08-29 18:33 | Emergency (ER) | payer MEDICARE, SELFPAY ==
--- NOTE | ~2023-08-29 | CT_ITS ---
EXAMINATION: CT abdomen pelvis w con DATE: 08/29/2023 21:25 INDICATION: Vomiting TECHNIQUE: Computed tomography (CT) of the abdomen and pelvis was performed UK intravenous contrast. Automated exposure control and iterative reconstruction technique were employed. The dose-length prod uct was 859.54 mGy-cm. COMPARISON: 06/14/2015; CT chest 07/01/2022; PET/CT 10/21/2016. FINDINGS: Lower thorax: Dependent atelectasis/scar Liver: Diffuse fatty infiltration and hepatomegaly Biliary/Gallbladder: Gallbladder is absent. No bile duct dilation. Pancreas: No mass or duct dilation. Spleen: Normal. Adrenals:No mass. Kidneys: No suspicious mass, obstructing stone, or hydronephrosis. Bilateral cortical thinning. Simpl e exophytic left lower pole cyst GI tract: Distal esophageal and gastric wall edema No small or large bowel dilation. Normal appendix. Mesentery/Peritoneum: No ascites, mass, or free air. Retroperitoneum: No mass. Atherosclerotic abdominal aortic and/or arterial calcifications. Pelvis: Distended urinary bladder without wall thickening. Absent uterus.. Soft Tissues: Soft tissues and body wall unremarkable. Bones: No acute osseous finding. IMPRESSION: Mild esophagitis/gastritis. Hepatomegaly with steatosis. Distended urinary bladder, correlate for findings of urinary retention. Reviewed, dictated and finalized at location K. SHINGLER
[2023-08-29 18:34] VITALS: BP 156/101; PULSE 86; RESP 18; TEMP 36.1; O2SAT 99
--- NOTE | 2023-08-29 19:30 | ECG_ITS ---
Measurements Intervals [place] Rate: 75 P: 76 [place]: 183 QRS: 4 QRSD: 104 T: 49 QT: 317 QTc: 355 Interpretive Statements SINUS RHYTHM ST DEVIATION AND MODERATE T-WAVE ABNORMALITY, CONSIDER LATERAL ISCHEMIA [-0.1+ mV T WAVE IN I/aVL/V5/V6] ABNORMAL ECG COMPARED TO ECG 10/17/2022 07:51:24 NO SIGNIFICANT CHANGES Electronically Signed On 08-30-2023 12:44:08 SECOND FACING BASTER by Master Stout M.D.
--- NOTE | 2023-08-29 19:32 | ED.NAVMDI ---
HPI - Nausea/Vomiting/Diarrhea General Chief complaint: Nausea/Vomiting/Diarrhea Stated complaint: n/v/d Time Seen by Provider: 08/29/23 19:19 History of Present Illness HPI Narrative: This is a 72-year-old female, with history of coronary artery disease, GERD, COPD and presents emergency department with quick onset nausea and vomiting beginning approximately 4 hours ago. Patient states she was in her usual state of health she sat to eat. Shortly after beginning her meal she broke out into a cold sweat began vomiting without blood repeatedly. This was associated with abdominal cramping but no other pain. she states she has been able to pass gas and has had some loose, nonbloody stools. Related Data Home Medications Medication Instructions Recorded Confirmed aspirin 81 mg PO DAILY 10/16/22 08/29/23 cetirizine 10 mg PO DAILY 10/16/22 08/29/23 diltiazem HCl 30 mg tablet 30 mg PO DAILY 10/16/22 08/29/23 donepezil 10 mg tablet 10 mg PO DAILY 10/16/22 08/29/23 duloxetine 20 mg capsule,delayed 20 mg PO BID 10/16/22 08/29/23 release famotidine 40 mg tablet 40 mg PO DAILY 10/16/22 08/29/23 memantine 10 mg tablet 10 mg PO BID 10/16/22 08/29/23 rosuvastatin 10 mg tablet 10 mg PO DAILY 10/16/22 08/29/23 torsemide 20 mg tablet 40 mg PO DAILY 10/16/22 08/29/23 quetiapine 50 mg tablet 10 mg PO 08/29/23 Allergies Allergy/AdvReac Type Severity Reaction Status Date / Time Beta-Blockers Allergy Intermediate VASCULAR Verified 08/29/23 19:27 (Beta-Adrenergic Bloc MIGRAINES EYES cefdinir Allergy Intermediate HIVES Verified 08/29/23 19:27 doxycycline Allergy Intermediate DIFFICULTY Verified 08/29/23 19:27 BREATHING Penicillins Allergy Intermediate BREATHING Verified 08/29/23 19:27 DIFFICULTY hydrocodone Allergy Mild severe Verified 08/29/23 19:27 headache levofloxacin Allergy Mild DESTROYS Verified 08/29/23 19:27 GOOD COLON BACTERIA furosemide Allergy Unknown DEPLETES Verified 08/29/23 19:27 POTASSIUM COLON CLEANSES Allergy Intermediate CHRONIC Uncoded 01/17/18 10:01 KIDNEY DIS. Review of Systems Review of Systems: CONSTITUTIONAL: Denies fever, chills, or sweats. CARDIOVASCULAR: Denies chest pain, palpitations, or edema. RESPIRATORY: Denies cough or dyspnea. GASTROINTESTINAL: abdominal cramping, nausea and nonbloody vomiting Denies diarrhea. GENITOURINARY: Denies dysuria or hematuria. SKIN: Denies rash or itching. MUSCULOSKELETAL: Denies back pain, joint pain, or myalgia. NEUROLOGIC: Denies headache, numbness, dizziness, or weakness. PSYCHIATRIC: Denies anxiety or depression. [facility] Past Medical History Medical History Acute hypokalemia Anxiety Chronic GERD Chronic renal disease COPD (chronic obstructive pulmonary disease) Coronary artery disease Degenerative disc disease Dementia Hyperlipidemia Hypertension Myocardial infarction No intervention. The patient stated that she grew collateral. The patient stated that she had 2 heart attacks but I believe that she had coronary order disease without any intervention. Osteoporosis Shingles Surgical History Surgical History H/O arthroscopic knee surgery H/O cardiac catheterization H/O hand surgery H/O: hysterectomy History of bladder surgery History of laparoscopic cholecystectomy History of lobectomy of lung Left upper lung due to benign nodules History of total knee arthroplasty S/P tonsillectomy and adenoidectomy Family History Family History Sibling Cancer Diabetes mellitus Hypertension Thyroid disease Father Cancer Mother COPD (chronic obstructive pulmonary disease) Social History Social History Social History: Patient denies smoking or alcohol. The patient is . The patient has 3 c
[2023-08-29] MEDS: SODIUM CHLORIDE 0.9% IV 1,000 ML 999 ML IV CONT (19:43)
[2023-08-29 19:50] LABS: Basophils Absolute Auto 0.1 K/mm3 (0.0-0.1); Basophils Percent Auto 0.6 % (0.2-1.2); Eosinophils Percent Auto 0.3 % (0-4.4); Hematocrit 43.5 % (37.0-47.0); Hemoglobin 13.8 g/dL (12.0-15.0); Immature Granulocyte Absolute 0.05 K/mm3 (0.00-0.031); Immature Granulocyte Percent A 0.5 % (0-0.5); Lymphocytes Absolute Auto 1.17 K/mm3 (0.9-3.2); Lymphocytes Percent Auto 10.9 % (18.3-44.2); Mean Corpuscular HGB Conc 31.7 g/dl (32-36); Mean Corpuscular Hemoglobin 26.6 pg (26-34); Mean Corpuscular Volume 83.8 fl (80-100); Monocytes Absolute Auto 0.5 K/mm3 (0.1-0.6); Monocytes Percent Auto 4.4 % (2.6-8.5); Neutrophils Percent Auto 83.3 % (45.5-73.1); Platelet Count Result 246 k/mm3 (150-375); Red Blood Count 5.19 M/mm3 (4.2-5.4); Red Cell Distribution Width 14.5 % (11.5-14.5); White Blood Count 10.8 K/mm3 (4.5-10.0)
[2023-08-29 20:03] LABS: Lipase 113 U/L (23-300)
[2023-08-29 20:05] LABS: Lactic Acid Reflex 2.6 mmol/L (0.7-2.0)
[2023-08-29 20:13] LABS: Alanine Aminotransferase 44 U/L (6-35); Albumin Level 4.7 g/dL (3.5-5.1); Alkaline Phosphatase 116 U/L (38-126); Anion Gap 8 mmol/L (8-16); Aspartate Amino Transferase 50 U/L (14-36); Blood Urea Nitrogen 15 mg/dL (7-17); Calcium 9.3 mg/dL (8.4-10.2); Carbon Dioxide 37 mmol/L (22-30); Chloride 94 mmol/L (98-107); Estimated CRCL calculation 57 ml/min; Estimated Glomerular Filt Rate > 60; Glucose 332 mg/dL (65-110); Magnesium 1.5 mg/dL (1.6-2.3); Potassium 3.2 mmol/L (3.4-5.0); Sodium 139 mmol/L (137-145)
[2023-08-29 20:16] LABS: Troponin I < 0.012 ng/mL (0.000-0.034)
[2023-08-29 20:27] LABS: Influenza A QL RT-PCR Negative (Negative); Influenza B QL RT-PCR Negative (Negative); SARS-CoV-2 RNA PCR Negative (Negative)
[2023-08-29] MEDS: MAGNESIUM SULF 2 GM/WATER 50ML 2 GM/50 ML BAG IVPB (20:29)
--- NOTE | 2023-08-29 21:20 | PC.NURSE ---
Fluids and mag stopped at this time for pt to go to CT.
[2023-08-29 22:00] VITALS: BP 163/73; PULSE 92; RESP 20; O2SAT 95
[2023-08-29 22:48] LABS: Reflex Lactic Acid Yes or No Add Lactic
== END 2023-08-29 22:40 | disposition home or self-care (01) ==
PROVIDERS: Emergency Provider Preventive Medicine Aerospace Medicine; PCP Family Medicine
DX: K52.9 Noninfective gastroenteritis and colitis, unspecified (principal); E87.6 Hypokalemia; Z20.822 Contact with and (suspected) exposure to COVID-19; F03.90 Unspecified dementia, unspecified severity, without behavioral disturbance, psychotic disturbance, mood disturbance, and anxiety; I25.10 Atherosclerotic heart disease of native coronary artery without angina pectoris; I12.9 Hypertensive chronic kidney disease with stage 1 through stage 4 chronic kidney disease, or unspecified chronic kidney disease; N18.9 Chronic kidney disease, unspecified; J44.9 Chronic obstructive pulmonary disease, unspecified; I25.2 Old myocardial infarction; E78.5 Hyperlipidemia, unspecified; K21.9 Gastro-esophageal reflux disease without esophagitis; M81.0 Age-related osteoporosis without current pathological fracture; F41.9 Anxiety disorder, unspecified; Z87.891 Personal history of nicotine dependence; Z90.710 Acquired absence of both cervix and uterus; Z90.2 Acquired absence of lung [part of]
CPT/HCPCS: 36415; 74177; 80053; 83605; 83690; 83735; 84484; 85025; 87636; 93005; 96360; 96361; 99284; J3475; J7030; Q9967

== ENCOUNTER 2023-11-11 14:10 | Observation (INO) | payer MEDICARE, SELFPAY ==
[2023-11-11] VITALS (18 sets, daily range): BP systolic 107–159; BP diastolic 74–119; PULSE 87–132; RESP 13–24; TEMP 36.3–36.9; O2SAT 93–100
--- NOTE | ~2023-11-11 | XR_ITS ---
EXAMINATION: XR chest 1V portable DATE: 11/11/2023 15:19 INDICATION: Chronic obstructive pulmonary disease exacerbation. TECHNIQUE: A single frontal view of the chest was obtained. COMPARISON: Chest CT 07/01/2022, chest single view 11/11/2011 FINDINGS: There are changes of left upper lobectomy. No pneumonia, pleural effusion, or pneumothorax. The heart size is normal. IMPRESSION: 1. Left upper lobectomy. Reviewed, dictated and finalized at location E. ORARY RECEPTIONIST IMPRESSION: 1. Left upper lobectomy.
[2023-11-11 14:18] LABS: Glucose Point of Care > 500 mg/dl (65-105)
[2023-11-11 14:53] LABS: Basophils Absolute Auto 0.1 K/mm3 (0.0-0.1); Basophils Percent Auto 0.3 % (0.2-1.2); Eosinophils Absolute Auto 0.1 K/mm3 (0-0.3); Eosinophils Percent Auto 0.6 % (0-4.4); Hematocrit 46.9 % (37.0-47.0); Hemoglobin 15.6 g/dL (12.0-15.0); Immature Granulocyte Absolute 0.13 K/mm3 (0.00-0.031); Immature Granulocyte Percent A 0.8 % (0-0.5); Lymphocytes Absolute Auto 3.07 K/mm3 (0.9-3.2); Lymphocytes Percent Auto 18.7 % (18.3-44.2); Mean Corpuscular HGB Conc 33.3 g/dl (32-36); Mean Corpuscular Hemoglobin 27.2 pg (26-34); Mean Corpuscular Volume 81.7 fl (80-100); Mean Platelet Volume 11.1 fl (7.4-10.4); Monocytes Absolute Auto 0.8 K/mm3 (0.1-0.6); Monocytes Percent Auto 4.7 % (2.6-8.5); Neutrophils Absolute Auto 12.3 K/mm3 (1.3-6.7); Neutrophils Percent Auto 74.9 % (45.5-73.1); Platelet Count Result 345 k/mm3 (150-375); Red Blood Count 5.74 M/mm3 (4.2-5.4); Red Cell Distribution Width 14.5 % (11.5-14.5); White Blood Count 16.4 K/mm3 (4.5-10.0)
--- NOTE | 2023-11-11 14:54 | ED.GENADULT ---
HPI - General Adult General Chief complaint: Recheck/Abnormal Lab/Rx <Marquise Vargas PA-C - Last Filed: 11/11/23 19:30> Stated complaint: elv bs <Marquise Vargas PA-C - Last Filed: 11/11/23 19:30> Time Seen by Provider: 11/11/23 14:38 <Marquise Vargas PA-C - Last Filed: 11/11/23 19:30> Source: patient <Marquise Vargas PA-C - Last Filed: 11/11/23 19:30> Mode of arrival: ambulatory <Marquise Vargas PA-C - Last Filed: 11/11/23 19:30> Limitations: no limitations <Marquise Vargas PA-C - Last Filed: 11/11/23 19:30> History of Present Illness HPI narrative: This is a 72-year-old female with history of dementia who presents to the ED with chief complaint of nausea with elevated blood sugars. Patient reports she was diagnosed with type 2 diabetes about 6 weeks ago in [place]. She has been following up with her PCP has started weekly Ozempic injections and she is not on any other DM medications. Patient reports that she has been dealing with ?lung infection? over the past couple of weeks and has been on 2 different rounds of antibiotics and steroids per PCP. Reports she was told that she has bronchitis. She notes that her sugars have been over 600 at home and have not been under control ever since starting the Ozempic. Endorses wheezing, productive cough, nausea but no vomiting. Denies abdominal pain, chest pain, syncope, numbness, weakness, palpitations, leg swelling, fevers or chills. Former smoker quit in 2006. Has been using Trelegy and albuterol for known COPD with some relief. <Marquise Vargas PA-C - Last Filed: 11/11/23 19:30> Related Data Home medications: Home Medications Medication Instructions Recorded Confirmed aspirin 81 mg PO DAILY 10/16/22 08/29/23 cetirizine 10 mg PO DAILY 10/16/22 08/29/23 diltiazem HCl 30 mg tablet 30 mg PO DAILY 10/16/22 08/29/23 donepezil 10 mg tablet 10 mg PO DAILY 10/16/22 08/29/23 duloxetine 20 mg capsule,delayed 20 mg PO BID 10/16/22 08/29/23 release famotidine 40 mg tablet 40 mg PO DAILY 10/16/22 08/29/23 memantine 10 mg tablet 10 mg PO BID 10/16/22 08/29/23 rosuvastatin 10 mg tablet 10 mg PO DAILY 10/16/22 08/29/23 torsemide 20 mg tablet 40 mg PO DAILY 10/16/22 08/29/23 quetiapine 50 mg tablet 10 mg PO 08/29/23 <Marquise Vargas PA-C - Last Filed: 11/11/23 19:30> Allergies/adverse reactions: Allergies Allergy/AdvReac Type Severity Reaction Status Date / Time Beta-Blockers Allergy Intermediate VASCULAR Verified 11/11/23 14:23 (Beta-Adrenergic Bloc MIGRAINES EYES cefdinir Allergy Intermediate HIVES Verified 11/11/23 14:23 doxycycline Allergy Intermediate DIFFICULTY Verified 11/11/23 14:23 BREATHING Penicillins Allergy Intermediate BREATHING Verified 11/11/23 14:23 DIFFICULTY hydrocodone Allergy Mild severe Verified 11/11/23 14:23 headache levofloxacin Allergy Mild DESTROYS Verified 11/11/23 14:23 GOOD COLON BACTERIA furosemide Allergy Unknown DEPLETES Verified 11/11/23 14:23 POTASSIUM COLON CLEANSES Allergy Intermediate CHRONIC Uncoded 01/17/18 10:01 KIDNEY DIS. <Marquise Vargas PA-C - Last Filed: 11/11/23 19:30> Review of Systems Review of Systems: All systems as dictated in HPI <Marquise Vargas PA-C - Last Filed: 11/11/23 19:30> [facility] Past Medical History Medical History: Medical History Acute hypokalemia Anxiety Chronic GERD Chronic renal disease COPD (chronic obstructive pulmonary disease) Coronary artery disease Degenerative disc disease Dementia Hyperlipidemia Hypertension Myocardial infarction No intervention. The patient stated that she grew collateral. The patient stated that she had 2 heart attacks but I believe that she had coronary order disease without any intervention. Osteoporosis Shingles <Marquise Vargas PA-C - Last Filed: 11/11/23 19:30> Surgical History Surgical History: Surgic
[2023-11-11] MEDS: SODIUM CHLORIDE 0.9% IV 1,000 ML 999 ML IV CONT ×3 (15:05→18:06)
[2023-11-11 15:06] LABS: Alanine Aminotransferase 86 U/L (6-35); Albumin Level 4.4 g/dL (3.5-5.1); Alkaline Phosphatase 168 U/L (38-126); Anion Gap 10 mmol/L (8-16); Aspartate Amino Transferase 36 U/L (14-36); Bilirubin,Total 1.3 mg/dL (0.2-1.3); Blood Urea Nitrogen 32 mg/dL (7-17); Calcium 9.8 mg/dL (8.4-10.2); Carbon Dioxide 34 mmol/L (22-30); Chloride 83 mmol/L (98-107); Estimated CRCL calculation 39 ml/min; Estimated Glomerular Filt Rate 44; Glucose 584 mg/dL (65-110); Phosphorus 3.7 mg/dL (2.5-4.5); Potassium 3.3 mmol/L (3.4-5.0); Sodium 127 mmol/L (137-145)
[2023-11-11] MEDS: ALBUTEROL SULFATE NEB 2.5 MG/3 ML INH 10 MG INHALATION (15:36)
[2023-11-11] MEDS: IPRATROPIUM BR 0.02% INH SOLN 0.5 MG/2.5 ML VIAL 2 MG INHALATION (15:36)
[2023-11-11 15:43] LABS: Beta-Hydroxybutyrate/Acetoacetate 1.03 mmol/L (0.02-0.27)
[2023-11-11 16:22] LABS: Appearance Urine Clear (Clear); Bilirubin Urine Negative (Negative); Blood Urine Negative (Negative); Color Urine Yellow (Yellow); Glucose Urine UA 3+ mg/dL (Negative); Ketones Urine Negative (Negative); Leukocyte Esterase Ur Negative LEU/UL (Negative); Nitrate Urine Negative (Negative); Protein Urine Negative (Negative); Specific Grav Ur 1.016 (1.001-1.035); Urobilinogen Urine 0.2 mg/dL (<2.0)
[2023-11-11 16:30] LABS: Glucose Point of Care 441 mg/dl (65-105)
[2023-11-11 16:33] LABS: Add Urine Microscopic? NO
[2023-11-11 17:00] LABS: Glucose Point of Care 464 mg/dl (65-105)
[2023-11-11 17:43] LABS: Influenza A QL RT-PCR Negative (Negative); Influenza B QL RT-PCR Negative (Negative); RSV RNA, RT-PCR Negative (Negative); SARS-CoV-2 RNA PCR Negative (Negative)
--- NOTE | 2023-11-11 17:53 | ECG_ITS ---
Measurements Intervals [place] Rate: 109 P: 65 [place]: 148 QRS: 0 QRSD: 93 T: 72 QT: 359 QTc: 484 Interpretive Statements SINUS TACHYCARDIA INFERIOR MYOCARDIAL INFARCTION , OF INDETERMINATE AGE [40+ ms Q WAVE AND/OR ST/T ABNORMALITY IN II/aVF] NONSPECIFIC ST AND T ABNORMALITY ABNORMAL ECG COMPARED TO ECG 08/29/2023 19:48:53 HEART RATE IS INCREASED, NO OTHER SIGNIFICANT CHANGE Electronically Signed On 11-12-2023 12:28:54 STAFFING DIRECTOR by Mick Villa M.D.
[2023-11-11] MEDS: POTASSIUM CHLORIDE 20 MEQ PACKET (FOR LIQUID) 40 MEQ PO (18:06)
[2023-11-11 18:07] LABS: Alveolar/Arterial O2 Gradient 41.3 mmHg; Base Excess ABG 3.4 mEq/l (+/-2.0); Fractional Inspired Oxygen 21 %; HCO3 ABG 27.5 mEq/l (22.0-26.0); Oxygen Content ABG 19.5 %vol (16.0-22.0); Oxygen Saturation ABG 92.4 % (95.0-100.0); Oxyhemoglobin 89.6 % THb (90.0-100.0); PO2 ABG 60.5 mmHg (80.0-100.0); PO2 FiO2 Ratio Arterial Blood 2.88 %; Total Hemoglobin 15.5 g/dL (12.0-18.0); pH ABG 7.455 (7.350-7.450)
[2023-11-11] MEDS: INSULIN HUMAN REGULAR (*BKC) 100 UNITS/ML 10 UNITS IV PUSH (18:07)
[2023-11-11 18:09] LABS: Device ROOM AIR; Site Drawn RIGHT BRACHIAL
--- NOTE | 2023-11-11 18:25 | ECG_ITS ---
Measurements Intervals [place] Rate: 106 P: 66 [place]: 155 QRS: 11 QRSD: 91 T: 68 QT: 310 QTc: 412 Interpretive Statements SINUS TACHYCARDIA PREVIOUS iNFERIOR MYOCARDIAL INFARCTION , PROBABLY OLD [35 ms Q WAVE IN II/aVF] ABNORMAL ECG COMPARED TO ECG 11/11/2023 18:08:59 NO SIGNIFICANT CHANGES Electronically Signed On 11-12-2023 12:29:18 CUSTOMER SOLUTIONS ARCHITECT by Mick Villa M.D.
[2023-11-11 19:15] LABS: Glucose Point of Care 342 mg/dl (65-105)
[2023-11-11] MEDS: SODIUM CHLORIDE 0.9% IV 1,000 ML 125 ML IV CONT (19:44)
[2023-11-11] MEDS: IPRATROPIUM BR 0.02% INH SOLN 0.5 MG/2.5 ML VIAL INHALATION (20:59)
[2023-11-11] MEDS: ALBUTEROL SULFATE NEB 2.5 MG/3 ML INH INHALATION (20:59)
--- NOTE | 2023-11-11 22:26 | ADMGEN ---
This patient, Paty Lainez, was admitted to 3 [facility] Surg Room 324-02. Patient/family oriented to hospital policies and general routines including ID bracelet, bed and alarms, visiting hours, pain management, procedures, bathroom and other care routines, personal items, smoking policy, room service/diet, and visiting hours. Information on how to activate the Rapid Response Team has been discussed. Patient/Family are encouraged to report perceived risks to care and to ask questions if they do not understand what they are told or what they should do.
[2023-11-12] VITALS (18 sets, daily range): BP systolic 123–161; BP diastolic 71–83; PULSE 80–96; RESP 16–22; TEMP 36.6; O2SAT 94–99
[2023-11-12] MEDS: IPRATROPIUM BR 0.02% INH SOLN 0.5 MG/2.5 ML VIAL INHALATION ×2 (02:55→09:00)
[2023-11-12] MEDS: ALBUTEROL SULFATE NEB 2.5 MG/3 ML INH INHALATION ×2 (02:55→09:00)
[2023-11-12] MEDS: SODIUM CHLORIDE 0.9% IV 1,000 ML 125 ML IV CONT ×2 (03:44→12:53)
[2023-11-12 08:02] LABS: Glucose Point of Care 313 mg/dl (65-105)
[2023-11-12] MEDS: INSULIN ASPART (*BKC) 100 UNITS/ML SUB-Q ×4 (08:59→17:06)
[2023-11-12 11:08] LABS: Glucose Point of Care 321 mg/dl (65-105)
[2023-11-12 11:39] LABS: Fractional Inspired Oxygen 21 %; PO2 VBG 29.3 mmHg (35.0-45.0)
[2023-11-12 11:41] LABS: Device ROOM AIR
[2023-11-12 11:48] LABS: pH VBG 7.432 (7.300-7.400)
[2023-11-12 12:06] LABS: Basophils Percent Auto 0.2 % (0.2-1.2); Eosinophils Absolute Auto 0.1 K/mm3 (0-0.3); Eosinophils Percent Auto 1.5 % (0-4.4); Hematocrit 38.9 % (37.0-47.0); Hemoglobin 12.3 g/dL (12.0-15.0); Immature Granulocyte Absolute 0.08 K/mm3 (0.00-0.031); Immature Granulocyte Percent A 0.9 % (0-0.5); Lymphocytes Absolute Auto 1.95 K/mm3 (0.9-3.2); Lymphocytes Percent Auto 22.3 % (18.3-44.2); Mean Corpuscular HGB Conc 31.6 g/dl (32-36); Mean Corpuscular Hemoglobin 27.1 pg (26-34); Mean Corpuscular Volume 85.7 fl (80-100); Mean Platelet Volume 11.1 fl (7.4-10.4); Monocytes Absolute Auto 0.5 K/mm3 (0.1-0.6); Monocytes Percent Auto 5.3 % (2.6-8.5); Neutrophils Absolute Auto 6.1 K/mm3 (1.3-6.7); Neutrophils Percent Auto 69.8 % (45.5-73.1); Platelet Count Result 192 k/mm3 (150-375); Red Blood Count 4.54 M/mm3 (4.2-5.4); Red Cell Distribution Width 14.7 % (11.5-14.5); White Blood Count 8.7 K/mm3 (4.5-10.0)
[2023-11-12 12:16] LABS: Lactic Acid Reflex 2.1 mmol/L (0.7-2.0)
[2023-11-12 12:18] LABS: Alanine Aminotransferase 52 U/L (6-35); Albumin Level 3.2 g/dL (3.5-5.1); Alkaline Phosphatase 117 U/L (38-126); Anion Gap 2 mmol/L (8-16); Aspartate Amino Transferase 29 U/L (14-36); Bilirubin,Total 0.8 mg/dL (0.2-1.3); Blood Urea Nitrogen 18 mg/dL (7-17); Calcium 8.6 mg/dL (8.4-10.2); Carbon Dioxide 33 mmol/L (22-30); Chloride 97 mmol/L (98-107); Estimated CRCL calculation 51 ml/min; Estimated Glomerular Filt Rate > 60; Glucose 315 mg/dL (65-110); Magnesium 2.1 mg/dL (1.6-2.3); Sodium 132 mmol/L (137-145)
[2023-11-12 12:25] LABS: Hemoglobin A1C > 14.0 % (<5.7)
[2023-11-12 12:54] LABS: Procalcitonin 0.2 ng/mL
[2023-11-12] MEDS: IPRATROPIUM 0.5 MG/ALBUTEROL SULFATE 2.5 MG AMPUL.NEB 3 ML INHALATION ×2 (13:52→21:26)
[2023-11-12 15:05] LABS: Reflex Lactic Acid Yes or No Add Lactic
--- NOTE | 2023-11-12 15:41 | PM.IMHP ---
H&P: HPI History of Present Illness Date/Time: 11/12/23 15:41 Chief Complaint: Nausea vomiting shortness of breath cough wheezing sputum production Narrative: This is a pleasant 72-year-old female with a history of dementia, anxiety, coronary artery disease, GERD, hypertension, hyperlipidemia, COPD, recent diagnosis [id number] type 2 diabetes mellitus, prior lobectomy. The patient is accompanied by her . Within the recent months she was diagnosed with diabetes and was started on Ozempic. There were aware that her sugars are still not controlled so metformin was added but they were not able to start that just yet. She has had uncontrolled COPD exacerbation with cough wheezing and sputum production as well. She had been receiving steroids and antibiotics. She vomited once and has had nausea. Upon evaluation in room 324 she is sitting upright in bed eating and very comfortable. She and the reports her symptomatology she has greatly improved since she has been admitted. Review of Systems Review of Systems: All systems reviewed & are unremarkable except as noted in HPI and below (Subjective) [facility] Past Medical History Medical History (Updated 11/12/23 @ 15:47 by Mia Nails MD) Acute hypokalemia Anxiety Chronic GERD Chronic renal disease COPD (chronic obstructive pulmonary disease) Coronary artery disease Degenerative disc disease Dementia Diabetes mellitus Hyperlipidemia Hypertension Myocardial infarction No intervention. The patient stated that she grew collateral. The patient stated that she had 2 heart attacks but I believe that she had coronary order disease without any intervention. Osteoporosis Shingles Surgical History Surgical History H/O arthroscopic knee surgery H/O cardiac catheterization H/O hand surgery H/O: hysterectomy History of bladder surgery History of laparoscopic cholecystectomy History of lobectomy of lung Left upper lung due to benign nodules History of total knee arthroplasty S/P tonsillectomy and adenoidectomy Family History Family History Sibling Cancer Diabetes mellitus Hypertension Thyroid disease Father Cancer Mother COPD (chronic obstructive pulmonary disease) Social History Social History Social History: Patient denies smoking or alcohol. The patient is . The patient has 3 children. However she helped to raise her youngest sibling. Her is a durable power real estate associate attorney for healthcare. The patient is retired. She is a former smoker. Code status full code Smoking packs per day: 1 Smoking cigarettes per day: 20.0 Smoking status: Former smoker Tobacco type: cigarettes Alcohol intake: never Substance use: never Do You Feel Safe in your Home?: Yes Lack of Transportation: No Lack of Food: Never True Current Housing: I Have Housing Concerned About Future Housing: No Difficulty Paying Gas/Electric Bills: No Difficulty Paying for Meds: No Currently Unemployed: No Education: Don't Know Difficulty w/ Childcare or Family Care: No Spiritual care concerns: No Meds Home Medications and Allergies Home Medications Medication Instructions Recorded Confirmed Type diltiazem HCl 30 mg tablet 30 mg PO DAILY 10/16/22 11/11/23 History donepezil 10 mg tablet 10 mg PO DAILY 10/16/22 11/11/23 History duloxetine 20 mg capsule,delayed 20 mg PO BID 10/16/22 11/11/23 History release memantine 10 mg tablet 10 mg PO BID 10/16/22 11/11/23 History rosuvastatin 10 mg tablet 10 mg PO DAILY 10/16/22 11/11/23 History torsemide 20 mg tablet 40 mg PO DAILY 10/16/22 11/11/23 History quetiapine 50 mg tablet 50 mg PO DAILY 08/29/23 11/11/23 History aspirin 81 mg tablet 81 mg PO HS 11/11/23 11/11/23 History cetirizine 10 mg tablet 10 mg P
[2023-11-12 15:43] LABS: Lactic Acid 1.7 mmol/L (0.7-2.0)
[2023-11-12 16:23] LABS: Glucose Point of Care 301 mg/dl (65-105)
[2023-11-12] MEDS: MEMANTINE 10 MG TABLET PO (17:05)
[2023-11-12] MEDS: DULoxetine HCL 20 MG CAPSULE.DR PO (17:05)
[2023-11-12] MEDS: POTASSIUM CHLORIDE 20 MEQ ER TABLET 40 MEQ PO (17:05)
--- NOTE | 2023-11-12 20:08 | PC.NURSE ---
On 11/12/23, the RACE ENGINE BUILDER, Camelia, provided care and completed [employer] documentation on this patient. I have reviewed the RACE ENGINE BUILDER's documentation and agree with the findings.
[2023-11-12 20:38] LABS: Glucose Point of Care 203 mg/dl (65-105)
[2023-11-12] MEDS: ACETAMINOPHEN 500 MG TABLET PO (21:05)
[2023-11-12] MEDS: SENNA/DOCUSATE SODIUM TABLET 1 TAB PO (21:06)
[2023-11-12] MEDS: INSULIN GLARGINE (*BKC) 100 UNITS/ML 13 UNITS SUB-Q (21:06)
[2023-11-12] MEDS: QUEtiapine FUMARATE 25 MG TABLET 50 MG PO (21:06)
[2023-11-13] VITALS (18 sets, daily range): BP systolic 124–141; BP diastolic 86–97; PULSE 80–118; RESP 14–26; TEMP 36–36.7; O2SAT 98–100
[2023-11-13] MEDS: IPRATROPIUM 0.5 MG/ALBUTEROL SULFATE 2.5 MG AMPUL.NEB 3 ML INHALATION ×4 (03:02→20:01)
[2023-11-13 06:25] LABS: Hematocrit 39.6 % (37.0-47.0); Hemoglobin 12.3 g/dL (12.0-15.0); Mean Corpuscular HGB Conc 31.1 g/dl (32-36); Mean Corpuscular Hemoglobin 27.2 pg (26-34); Mean Corpuscular Volume 87.4 fl (80-100); Mean Platelet Volume 11.1 fl (7.4-10.4); Platelet Count Result 150 k/mm3 (150-375); Red Blood Count 4.53 M/mm3 (4.2-5.4); Red Cell Distribution Width 14.8 % (11.5-14.5); White Blood Count 5.8 K/mm3 (4.5-10.0)
[2023-11-13 06:56] LABS: Alanine Aminotransferase 46 U/L (6-35); Albumin Level 3.1 g/dL (3.5-5.1); Alkaline Phosphatase 110 U/L (38-126); Anion Gap 4 mmol/L (8-16); Aspartate Amino Transferase 31 U/L (14-36); Blood Urea Nitrogen 12 mg/dL (7-17); Calcium 8.8 mg/dL (8.4-10.2); Carbon Dioxide 30 mmol/L (22-30); Chloride 101 mmol/L (98-107); Estimated CRCL calculation 51 ml/min; Estimated Glomerular Filt Rate > 60; Glucose 202 mg/dL (65-110); Magnesium 2.1 mg/dL (1.6-2.3); Sodium 135 mmol/L (137-145)
[2023-11-13] MEDS: FLUTICASONE/UMECLIDIN/VILANTER 100-62.5-25 MCG ELLIPTA 1 PUFF INHALATION (07:39)
[2023-11-13 07:50] LABS: Glucose Point of Care 202 mg/dl (65-105)
[2023-11-13] MEDS: TORSEMIDE 20 MG TABLET 40 MG PO (08:31)
[2023-11-13] MEDS: MEMANTINE 10 MG TABLET PO ×2 (08:32→16:39)
[2023-11-13] MEDS: DONEPEZIL HCL 10 MG TABLET PO (08:32)
[2023-11-13] MEDS: AZITHROMYCIN 250 MG TABLET PO (08:32)
[2023-11-13] MEDS: dilTIAZem HCL 30 MG TABLET PO (08:32)
[2023-11-13] MEDS: CHOLECALCIFEROL 1,000 UNITS TABLET 1000 UNITS PO (08:32)
[2023-11-13] MEDS: LORATADINE 10 MG TABLET PO (08:32)
[2023-11-13] MEDS: ROSUVASTATIN 10 MG TABLET PO (08:33)
[2023-11-13] MEDS: POTASSIUM CHLORIDE 20 MEQ ER TABLET 40 MEQ PO ×2 (08:33→16:39)
[2023-11-13] MEDS: DULoxetine HCL 20 MG CAPSULE.DR PO ×2 (08:33→16:39)
[2023-11-13] MEDS: INSULIN ASPART (*BKC) 100 UNITS/ML SUB-Q ×6 (08:36→16:45)
[2023-11-13 11:36] LABS: Glucose Point of Care 331 mg/dl (65-105)
[2023-11-13] MEDS: POTASSIUM CHLORIDE 20 MEQ ER TABLET PO (12:34)
--- NOTE | 2023-11-13 12:46 | PM.IMPN ---
Progress Note: A&P Assessment and Plan (1) Chronic obstructive pulmonary disease with (acute) exacerbation: Code(s): J44.1 - Chronic obstructive pulmonary disease with (acute) exacerbation Status: Acute (2) Diabetes mellitus: Code(s): E11.9 - Type 2 diabetes mellitus without complications Status: Acute (3) Hyperglycemia: Code(s): R73.9 - Hyperglycemia, unspecified Status: Acute (4) Coronary artery disease: Code(s): I25.10 - Atherosclerotic heart disease of [place] coronary artery without angina pectoris Status: Chronic (5) Hypokalemia: Code(s): E87.6 - Hypokalemia Status: Acute (6) Chronic GERD: Code(s): K21.9 - Gastro-esophageal reflux disease without esophagitis Status: Chronic (7) Dementia: Code(s): F03.90 - Unspecified dementia, unspecified severity, without behavioral disturbance, psychotic disturbance, mood disturbance, and anxiety Status: Chronic (8) Anxiety: Code(s): F41.9 - Anxiety disorder, unspecified Status: Chronic (9) Hypertension: Code(s): I10 - Essential (primary) hypertension Status: Chronic (10) External hemorrhoid: Code(s): K64.4 - Residual hemorrhoidal skin tags Status: Acute Plan This is a pleasant 72-year-old female with a history of dementia, anxiety, coronary artery disease, GERD, hypertension, hyperlipidemia, COPD, recent diagnosis quy-odoosyo-irkaagrov type 2 diabetes mellitus, prior lobectomy.? The patient is accompanied by her .? Within the recent months she was diagnosed with diabetes and was started on Ozempic.? There were aware that her sugars are still not controlled so metformin was added but they were not able to start that just yet.? She has had uncontrolled COPD exacerbation with cough wheezing and sputum production as well.? She had been receiving steroids and antibiotics.? She vomited once and has had nausea. In the ER she received fluid resuscitation potassium replacement Zofran DuoNebs and 10 units regular insulin. She presents with metabolic alkalosis which is likely due to her vomiting.? She also has a beta hydroxybutyrate of 1.03 however lactic acid is 2.1 and the urinalysis demonstrates 3+ glucose but no ketones.? Will continue to treat as hyperglycemia.? The patient's hemoglobin A1c is 14% so obviously it is very under controlled and will start insulin 4 units t.i.d. and 13 units Lantus q.h.s..? She and the were in agreement to this. On 11/13 her metabolic alkalosis is improved. Increase insulin to 5 units t.i.d. and 15 units Lantus q.h.s. continue to monitor sugars her improvement. Continue to replace potassium and recheck in the morning. She is on torsemide. Continue telemetry. As for her COPD exacerbation is currently not wheezing but has diminished lung sounds and they report yellow productive sputum which is still persistent.? DC Zofran and start azithromycin 250 mg.? Will hold off on steroids in light of her hyperglycemia.? Continue DuoNebs scheduled. On 11/13 she is improving with scheduled nebs and azithromycin. Continue current treatment. Multiple skin tags and external hemorrhoid on rectal exam. He is not having active bleeding however we will institute Sitz baths and high-fiber diet. Continue Senokot. Advised weight loss as well. Hypertension controlled. Continue current management. FEN:? Saline lock IV, cardiac diabetic diet. GI prophylaxis:? Documented GERD but she is not complaining and she does not take PPI at home.? We can hold this for now. DVT prophylaxis:? Heparin 5000 units b.i.d. Lines:? Peripheral IV Code Status:? Full code Dispo:? Stable.? Continue telemetry. Home when sugars are controlled. She lives with . Subjective Date/time seen: 11/13/23 12:46 Interval history: No acute overnight events. Patient is accompanied by her and daughter in the room. She reports her breathing is better and
[2023-11-13 16:29] LABS: Glucose Point of Care 234 mg/dl (65-105)
[2023-11-13] MEDS: ACETAMINOPHEN 500 MG TABLET PO (16:39)
[2023-11-13 20:05] LABS: Glucose Point of Care 175 mg/dl (65-105)
[2023-11-13] MEDS: SENNA/DOCUSATE SODIUM TABLET 1 TAB PO (20:05)
[2023-11-13] MEDS: HEPARIN SODIUM 5,000 UNITS/ML VIAL 5000 UNITS SUB-Q (20:05)
[2023-11-13] MEDS: ASPIRIN 81 MG CHEWABLE TABLET PO (20:05)
[2023-11-13] MEDS: QUEtiapine FUMARATE 25 MG TABLET 50 MG PO (20:05)
[2023-11-13] MEDS: INSULIN GLARGINE (*BKC) 100 UNITS/ML 15 UNITS SUB-Q (20:10)
[2023-11-14] VITALS (16 sets, daily range): BP systolic 111–131; BP diastolic 77–83; PULSE 85–111; RESP 14–20; TEMP 35.7–36.8; O2SAT 96–100
[2023-11-14] MEDS: IPRATROPIUM 0.5 MG/ALBUTEROL SULFATE 2.5 MG AMPUL.NEB 3 ML INHALATION ×4 (02:43→20:46)
[2023-11-14 06:39] LABS: Basophils Percent Auto 0.5 % (0.2-1.2); Eosinophils Absolute Auto 0.1 K/mm3 (0-0.3); Eosinophils Percent Auto 1.4 % (0-4.4); Hematocrit 38.4 % (37.0-47.0); Hemoglobin 12.1 g/dL (12.0-15.0); Immature Granulocyte Absolute 0.09 K/mm3 (0.00-0.031); Immature Granulocyte Percent A 1.5 % (0-0.5); Lymphocytes Absolute Auto 1.88 K/mm3 (0.9-3.2); Lymphocytes Percent Auto 32.1 % (18.3-44.2); Mean Corpuscular HGB Conc 31.5 g/dl (32-36); Mean Corpuscular Hemoglobin 26.9 pg (26-34); Mean Corpuscular Volume 85.3 fl (80-100); Mean Platelet Volume 10.6 fl (7.4-10.4); Monocytes Absolute Auto 0.3 K/mm3 (0.1-0.6); Monocytes Percent Auto 5.5 % (2.6-8.5); Neutrophils Absolute Auto 3.5 K/mm3 (1.3-6.7); Platelet Count Result 156 k/mm3 (150-375); Red Cell Distribution Width 14.8 % (11.5-14.5); White Blood Count 5.9 K/mm3 (4.5-10.0)
[2023-11-14 07:03] LABS: Anion Gap 5 mmol/L (8-16); Blood Urea Nitrogen 18 mg/dL (7-17); Calcium 8.6 mg/dL (8.4-10.2); Carbon Dioxide 30 mmol/L (22-30); Chloride 97 mmol/L (98-107); Estimated CRCL calculation 51 ml/min; Estimated Glomerular Filt Rate > 60; Glucose 191 mg/dL (65-110); Magnesium 1.8 mg/dL (1.6-2.3); Potassium 2.9 mmol/L (3.4-5.0); Sodium 132 mmol/L (137-145)
[2023-11-14 07:34] LABS: Glucose Point of Care 212 mg/dl (65-105)
[2023-11-14] MEDS: HEPARIN SODIUM 5,000 UNITS/ML VIAL 5000 UNITS SUB-Q ×2 (07:35→21:05)
[2023-11-14] MEDS: TORSEMIDE 20 MG TABLET 40 MG PO (07:36)
[2023-11-14] MEDS: DULoxetine HCL 20 MG CAPSULE.DR PO ×2 (07:36→16:14)
[2023-11-14] MEDS: AZITHROMYCIN 250 MG TABLET PO (07:36)
[2023-11-14] MEDS: dilTIAZem HCL 30 MG TABLET PO (07:36)
[2023-11-14] MEDS: LORATADINE 10 MG TABLET PO (07:36)
[2023-11-14] MEDS: CHOLECALCIFEROL 1,000 UNITS TABLET 1000 UNITS PO (07:36)
[2023-11-14] MEDS: POTASSIUM CHLORIDE 20 MEQ ER TABLET 40 MEQ PO (07:36)
[2023-11-14] MEDS: MEMANTINE 10 MG TABLET PO ×2 (07:37→16:14)
[2023-11-14] MEDS: INSULIN ASPART (*BKC) 100 UNITS/ML SUB-Q ×5 (07:37→16:13)
[2023-11-14] MEDS: ROSUVASTATIN 10 MG TABLET PO (07:37)
[2023-11-14] MEDS: DONEPEZIL HCL 10 MG TABLET PO (07:37)
[2023-11-14] MEDS: FLUTICASONE/UMECLIDIN/VILANTER 100-62.5-25 MCG ELLIPTA 1 PUFF INHALATION (08:05)
[2023-11-14 11:38] LABS: Glucose Point of Care 176 mg/dl (65-105)
--- NOTE | 2023-11-14 13:47 | PM.IMPN ---
Progress Note: A&P Assessment and Plan (1) Chronic obstructive pulmonary disease with (acute) exacerbation: Code(s): J44.1 - Chronic obstructive pulmonary disease with (acute) exacerbation Status: Acute (2) Diabetes mellitus: Code(s): E11.9 - Type 2 diabetes mellitus without complications Status: Acute (3) Hyperglycemia: Code(s): R73.9 - Hyperglycemia, unspecified Status: Acute (4) Coronary artery disease: Code(s): I25.10 - Atherosclerotic heart disease of [place] coronary artery without angina pectoris Status: Chronic (5) Hypokalemia: Code(s): E87.6 - Hypokalemia Status: Acute (6) Chronic GERD: Code(s): K21.9 - Gastro-esophageal reflux disease without esophagitis Status: Chronic (7) Dementia: Code(s): F03.90 - Unspecified dementia, unspecified severity, without behavioral disturbance, psychotic disturbance, mood disturbance, and anxiety Status: Chronic (8) Anxiety: Code(s): F41.9 - Anxiety disorder, unspecified Status: Chronic (9) Hypertension: Code(s): I10 - Essential (primary) hypertension Status: Chronic (10) External hemorrhoid: Code(s): K64.4 - Residual hemorrhoidal skin tags Status: Acute Plan This is a pleasant 72-year-old female with a history of dementia, anxiety, coronary artery disease, GERD, hypertension, hyperlipidemia, COPD, recent diagnosis wgu-hissplc-spvgayoao type 2 diabetes mellitus, prior lobectomy.? The patient is accompanied by her .? Within the recent months she was diagnosed with diabetes and was started on Ozempic.? There were aware that her sugars are still not controlled so metformin was added but they were not able to start that just yet.? She has had uncontrolled COPD exacerbation with cough wheezing and sputum production as well.? She had been receiving steroids and antibiotics.? She vomited once and has had nausea. In the ER she received fluid resuscitation potassium replacement Zofran DuoNebs and 10 units regular insulin. She presents with metabolic alkalosis which is likely due to her vomiting.? She also has a beta hydroxybutyrate of 1.03 however lactic acid is 2.1 and the urinalysis demonstrates 3+ glucose but no ketones.? Will continue to treat as hyperglycemia.? The patient's hemoglobin A1c is 14% so obviously it is very under controlled and will start insulin 4 units t.i.d. and 13 units Lantus q.h.s..? She and the were in agreement to this. On 11/13 her metabolic alkalosis is improved. Increase insulin to 5 units t.i.d. and 15 units Lantus q.h.s. continue to monitor sugars her improvement. Continue to replace potassium and recheck in the morning. She is on torsemide. Continue telemetry. As for her COPD exacerbation is currently not wheezing but has diminished lung sounds and they report yellow productive sputum which is still persistent.? DC Zofran and start azithromycin 250 mg.? Will hold off on steroids in light of her hyperglycemia.? Continue DuoNebs scheduled. On 11/13 she is improving with scheduled nebs and azithromycin. Continue current treatment. Multiple skin tags and external hemorrhoid on rectal exam. He is not having active bleeding however we will institute Sitz baths and high-fiber diet. Continue Senokot. Advised weight loss as well. Hypertension controlled. Continue current management. November 14, 2023 update -the patient has persistent hypokalemia. Change KCL 40 mEq b.i.d. to 60 mEq p.o. b.i.d.. Patient refuses IV potassium. Stop torsemide. She had issues with hypokalemia in a previous admission to which torsemide was stopped and the hypokalemia resolved. It is unclear why she takes torsemide other than for blood pressure. Given this has been difficult to manage with adverse effect of hypokalemia it will be prudent to stop the torsemide ongoing. Blood pressure is well controlled so other blood pressure lowering medications c
[2023-11-14 15:30] LABS: Glucose Point of Care 206 mg/dl (65-105)
[2023-11-14] MEDS: POTASSIUM CHLORIDE 20 MEQ ER TABLET 60 MEQ PO (16:15)
[2023-11-14] MEDS: ACETAMINOPHEN 500 MG TABLET PO (18:08)
[2023-11-14] MEDS: QUEtiapine FUMARATE 25 MG TABLET 50 MG PO (21:04)
[2023-11-14] MEDS: SENNA/DOCUSATE SODIUM TABLET 1 TAB PO (21:05)
[2023-11-14] MEDS: ASPIRIN 81 MG CHEWABLE TABLET PO (21:05)
[2023-11-14] MEDS: INSULIN GLARGINE (*BKC) 100 UNITS/ML 15 UNITS SUB-Q (21:06)
[2023-11-14 21:17] LABS: Glucose Point of Care 228 mg/dl (65-105)
[2023-11-15] VITALS (10 sets, daily range): BP systolic 118–121; BP diastolic 69–80; PULSE 82–100; RESP 18–20; TEMP 35.9–36.5; O2SAT 96–99; BMI 31.7
[2023-11-15] MEDS: IPRATROPIUM 0.5 MG/ALBUTEROL SULFATE 2.5 MG AMPUL.NEB 3 ML INHALATION ×3 (02:28→13:34)
[2023-11-15 07:01] LABS: Anion Gap 6 mmol/L (8-16); Blood Urea Nitrogen 17 mg/dL (7-17); Calcium 8.7 mg/dL (8.4-10.2); Carbon Dioxide 30 mmol/L (22-30); Chloride 99 mmol/L (98-107); Estimated CRCL calculation 50 ml/min; Estimated Glomerular Filt Rate > 60; Glucose 176 mg/dL (65-110); Magnesium 1.8 mg/dL (1.6-2.3); Potassium 3.1 mmol/L (3.4-5.0); Sodium 135 mmol/L (137-145)
[2023-11-15 07:58] LABS: Glucose Point of Care 174 mg/dl (65-105)
[2023-11-15] MEDS: FLUTICASONE/UMECLIDIN/VILANTER 100-62.5-25 MCG ELLIPTA 1 PUFF INHALATION (08:47)
[2023-11-15] MEDS: POTASSIUM CHLORIDE 20 MEQ ER TABLET 60 MEQ PO (09:25)
[2023-11-15] MEDS: CHOLECALCIFEROL 1,000 UNITS TABLET 1000 UNITS PO (09:25)
[2023-11-15] MEDS: LORATADINE 10 MG TABLET PO (09:25)
[2023-11-15] MEDS: DONEPEZIL HCL 10 MG TABLET PO (09:26)
[2023-11-15] MEDS: MEMANTINE 10 MG TABLET PO (09:26)
[2023-11-15] MEDS: HEPARIN SODIUM 5,000 UNITS/ML VIAL 5000 UNITS SUB-Q (09:26)
[2023-11-15] MEDS: dilTIAZem HCL 30 MG TABLET PO (09:26)
[2023-11-15] MEDS: ROSUVASTATIN 10 MG TABLET PO (09:26)
[2023-11-15] MEDS: AZITHROMYCIN 250 MG TABLET PO (09:26)
[2023-11-15] MEDS: DULoxetine HCL 20 MG CAPSULE.DR PO (09:26)
[2023-11-15] MEDS: POTASSIUM CHLORIDE INJ 40 MEQ in SODIUM CHLORIDE 0.9% IV 500 ML 130 MEQ IVPB (09:27)
[2023-11-15] MEDS: SODIUM CHLORIDE 0.9% IV 250 ML BAG 30 ML IVPB (09:27)
[2023-11-15] MEDS: INSULIN ASPART (*BKC) 100 UNITS/ML SUB-Q ×3 (09:34→12:59)
[2023-11-15 11:29] LABS: Glucose Point of Care 242 mg/dl (65-105)
[2023-11-15 15:07] LABS: Anion Gap 5 mmol/L (8-16); Blood Urea Nitrogen 15 mg/dL (7-17); Carbon Dioxide 28 mmol/L (22-30); Chloride 105 mmol/L (98-107); Estimated CRCL calculation 46 ml/min; Estimated Glomerular Filt Rate 54; Glucose 140 mg/dL (65-110); Magnesium 1.8 mg/dL (1.6-2.3); Potassium 3.7 mmol/L (3.4-5.0); Sodium 138 mmol/L (137-145)
--- NOTE | 2023-11-15 15:50 | PM.DS ---
DS: Admitting Diagnosis Discharge Date November 15, 2023 Admitting Diagnosis Nausea DS: Discharge Diagnosis Discharge Diagnosis (1) External hemorrhoid: Code(s): K64.4 - Residual hemorrhoidal skin tags Status: Acute (2) Diabetes mellitus: Code(s): E11.9 - Type 2 diabetes mellitus without complications Status: Acute (3) Chronic obstructive pulmonary disease with (acute) exacerbation: Code(s): J44.1 - Chronic obstructive pulmonary disease with (acute) exacerbation Status: Acute (4) Hyperglycemia: Code(s): R73.9 - Hyperglycemia, unspecified Status: Acute (5) Hypokalemia: Code(s): E87.6 - Hypokalemia Status: Acute (6) Dementia: Code(s): F03.90 - Unspecified dementia, unspecified severity, without behavioral disturbance, psychotic disturbance, mood disturbance, and anxiety Status: Chronic DS: Summary Hospital Course Hospital Course: This is a pleasant 72-year-old female with a history of dementia, anxiety, coronary artery disease, GERD, hypertension, hyperlipidemia, COPD, recently diagnosed uyw-dehnxmc-knddtijel type 2 diabetes mellitus, prior lobectomy. The patient lives at home with her . She reports within the last few months he was diagnosed with diabetes and started on Ozempic which she has been taking. She was aware that her sugars were elevated still and was advised to start taking metformin but they did not have the chance to pick that up and subsequently the patient presented to [facility]. Patient reported 1 episode of large vomitus and persistent nausea as well. She had also been taking prednisone on 2 separate occasions in the past month for uncontrolled COPD exacerbation/bronchitis. She complained of some shortness of breath on admission as well. In the ER the patient was found to be in metabolic alkalosis along with a beta hydroxybutyrate of 1.03 and lactic acid 2.1 along with glucose in the urinalysis. Her blood sugar at that time over 500. Over the next few days it was evident that the patient would need insulin and she was up titrated to 15 units Lantus q.h.s. and 5 units lispro t.i.d.. Her hemoglobin A1c demonstrating greater than 14%. Oddly enough, her A1c in September of 2022 was 8.3. The patient and her family members were educated on keeping logs of her sugars and returning to PCP for further management on insulin, Ozempic, and metformin use. She was heavily educated on lifestyle management. She had been eating a lot of candy. On 11/15 she is stable for discharge to home with sugars much better controlled. Of note, the patient complained of a transient episode of bright red blood while wiping. Rectal exam conducted with nurse at bedside revealed multiple skin tags and external hemorrhoid. After instituting high-fiber diet along with laxative and Sitz bath she reported looser bowel movements and this did not occur again. Should be followed up with PCP. Of note, the patient had difficult to manage acute hypokalemia. She was on torsemide and KCl 40 mEq b.i.d. at home. On a previous admission this issue was prevalent as well and it resolved after torsemide was stopped but for some reason it was restarted. Upon further chart review the only reason for torsemide would be high blood pressure. I advised them with this being so difficult to manage that we should stop this and they were in agreement and will follow-up with cardiology. The hypokalemia did resolve upon discontinuation of torsemide and she will continue home with her usual KCl 40 mEq p.o. b.i.d. they were advised to keep blood pressure logs and if her blood pressure did elevate to high to notify PCP or Cardiology. As for her COPD exacerbation it did resolve rapidly with scheduled DuoNebs and azithromycin. Prednisone was avoided due to her hyperglycemia. She will be prescribed 1 more dose of azithromycin 250 mg p.o. to finish a 5 day course. Patient was full code during
[2023-11-15 16:32] LABS: Glucose Point of Care 127 mg/dl (65-105)
== END 2023-11-15 17:10 | disposition home or self-care (01) ==
LOC: ANHED 19:22 → ANH3MEDSUR 22:30
PROVIDERS: Emergency Medicine; Admitting Provider Internal Medicine; Emergency Provider Physician Assistant; PCP Family Medicine; Visit Provider General Practice
DX: E11.65 Type 2 diabetes mellitus with hyperglycemia (principal); J44.1 Chronic obstructive pulmonary disease with (acute) exacerbation; E87.6 Hypokalemia; I25.10 Atherosclerotic heart disease of native coronary artery without angina pectoris; I25.2 Old myocardial infarction; M81.0 Age-related osteoporosis without current pathological fracture; K21.9 Gastro-esophageal reflux disease without esophagitis; I12.9 Hypertensive chronic kidney disease with stage 1 through stage 4 chronic kidney disease, or unspecified chronic kidney disease; E11.22 Type 2 diabetes mellitus with diabetic chronic kidney disease; N18.9 Chronic kidney disease, unspecified; F03.90 Unspecified dementia, unspecified severity, without behavioral disturbance, psychotic disturbance, mood disturbance, and anxiety; E78.5 Hyperlipidemia, unspecified; F41.9 Anxiety disorder, unspecified; Z20.822 Contact with and (suspected) exposure to COVID-19; Z90.2 Acquired absence of lung [part of]; Z87.891 Personal history of nicotine dependence; Z79.82 Long term (current) use of aspirin; K64.4 Residual hemorrhoidal skin tags; Z79.51 Long term (current) use of inhaled steroids
CPT/HCPCS: 36415; 36600; 71045; 80048; 80053; 81003; 82010; 82803; 82805; 82948; 83036; 83605; 83735; 84100; 84145; 85025; 85027; 87637; 93005; 94640; 96361; 96372; 96374; 96375; 99285; A9270; G0378; J1644; J1815; J3480; J7030; J7040; J7050

== ENCOUNTER 2024-09-21 13:22 | Outpatient (CLI) | payer MEDICARE, SELFPAY ==
--- NOTE | ~2024-09-21 | US_ITS ---
CAROTID ULTRASOUND Ordering provider: Leatha Mckeon, IRRIGATOR GRAVITY FLOW History: . Occlusion and stenosis . Comparison: None. Technique: Grayscale and color Doppler ultrasound examination of the carotid and vertebral artery sys tems bilaterally. Maximum peak systolic velocity (PSV) / end diastolic velocity (EDV) measurements we re obtained. FINDINGS: RIGHT: --COMMON CAROTID ARTERY: PSV is 66.9 cm/s. EDV is 18.8 cm/s. --EXTERNAL CAROTID ARTERY: PSV is 106.2 cm/s. EDV is: 25.9 cm/S --INTERNAL CAROTID ARTERY PROXIMAL: PSV is 50.5 cm/s. EDV is 18.8 cm/s. --INTERNAL CAROTID ARTERY DISTAL: PSV is 57.1 cm/s. EDV is 22.1 cm/s. --VERTEBRAL ARTERY: PSV is 51.7 cm/s. EDV is 13.7 cm/S. Antegrade flow with normal waveform. --SYSTOLIC ICA/CCA: 0.9. LEFT: --COMMON CAROTID ARTERY: PSV is 7 3.5 cm/s. EDV is 19.6 cm/s. --EXTERNAL CAROTID ARTERY: PSV is 49.4 cm/s. --INTERNAL CAROTID ARTERY PROXIMAL: PSV is 60.3 cm/s. EDV is 23.5 cm/s. --INTERNAL CAROTID ARTERY DISTAL: PSV is 62.7 cm/s. EDV is 23.5 cm/s. --VERTEBRAL ARTERY: PSV is 40.9 cm/s. EDV 13.4 cm/S. Antegrade flow with normal waveform. --SYSTOLIC ICA/CCA: 0.9 --OTHER: None. IMPRESSION: 1. No significant Stenosis in both carotids. 2. Antegrade flow demonstrated within both vertebral arteries. Reviewed, dictated and finalized at location A. LE ENGINEER
== END 2024-09-21 13:23 | disposition home or self-care (01) ==
PROVIDERS: PCP Nurse Practitioner Family; Visit Provider Nurse Practitioner Family
DX: I65.29 Occlusion and stenosis of unspecified carotid artery (principal)
CPT/HCPCS: 93880

== ENCOUNTER 2025-01-01 07:46 | Outpatient (CLI) | payer MEDICARE, SELFPAY ==
--- NOTE | ~2025-01-01 | MM_ITS ---
EXAMINATION: MM screening albert BI w zee HISTORY: Screening TECHNIQUE: Craniocaudal and mediolateral oblique 3-D tomosynthesis images were obtained and synthetic 2-D images were generated. CAD analysis was submitted and interpreted. COMPARISON: No prior mammogram is available for comparison at this institution. BREAST PARENCHYMAL COMPOSITION: Dense: The breasts are heterogeneously dense, which may obscure small masses FINDINGS: There is a small focal hyperdense asymmetry in the right breast laterally, anterior-middle depth on CC view. There is a low-density mass inferiorly in the right breast on MLO view, middle thir d. The left breast is unremarkable without evidence for malignancy. IMPRESSION: 1. Focal right breast asymmetry and low-density mass. 2. Additional mammographic views and possible breast ultrasound are recommended. BI-RADS Category 0: Incomplete: Needs additional imaging evaluation. Reviewed, dictated and finalized at location [] IMPRESSION: 1. Focal right breast asymmetry and low-density mass. 2. Additional mammographic views and possible breast ultrasound are recommended . BI-RADS Category 0: Incomplete: Needs additional imaging evaluation.
--- NOTE | ~2025-01-01 | DEXA_ITS ---
Bone Density Report Name: JIMMY RASHEED Age: 74 Sex: Female Ethnicity: White Date of : 1950 Indication: postmenopausal; screening for osteoporosis; height loss; hysterectomy; Referring Provider: ARMANDO, RESHMA Study: Bone densitometry was performed. Exam Date: January 01, 2025 Accession number: [id number] Bone Density: Region BMD T-score Z-score Classification AP Spine(L1-L4) 1.315 2.4 4.9 Normal Femoral Neck (Left) 0.979 1.2 3.3 Normal Total Hip (Left) 1.087 1.2 3.0 Normal Femoral Neck (Right) 0.955 1.0 3.1 Normal Total Hip (Right) 1.156 1.8 3.6 Normal Femoral Neck Mean 0.967 1.1 3.2 Normal Total Hip Mean 1.121 1.5 3.3 Normal World Health Organization criteria for BMD impression classify patients as: Normal (T-score at or above -1.0), Osteopenia (T-score between -1.0 and -2.5), or Osteoporosis (T-score at or below -2.5). 10-year Fracture Risk: FRAX not reported because: All T-scores for Spine Total, Hip Total, Femoral Neck at or above -1.0 Clinical Information Provided by Patient: Has used the following medications: Calcium Has the following medical conditions: Hysterectomy Patient maximum height was 65 Menopause Age: 48 No regular weight bearing exercise Drinks caffeinated beverages Onset of menses at age 14 Number of children 3 Impression: The patient has normal bone mass. Discussion: LOW RISK OF FRACTURE; BONE DENSITY IS WELL ABOVE THE MINIMUM DESIRABLE LEVEL AND ABOVE AVERAGE FOR AGE AND SEX AT ALL SKELETAL SITES TESTED. This person's bone density is above expected limits for age and sex. This is rarely clinically significant, but should be pursued if there are significant musculoskeletal complaints. The patient should follow a healthful lifestyle (good nutrition with adequate calcium and vitamin D, and appropriate weight-bearing exercise). Follow-Up: Consider repeating this study in 5 years or sooner if there is some new clinical indication. Reported by: ETHAN on 01/01/2025 8:29:00 AM. Reviewed, dictated and finalized at location A.
--- OUTSIDE RECORDS SUMMARY | 2025-01-01 07:53 | XMS_ITS | Clinical Summary ---
Author Organization [facility] Address [address] [place] [address] Phone Care Team Providers Care Molding Press Operator Name Role Phone Minerva Luu MD Primary Care Provider [phone] Allergies Active Allergy Reactions Criticality Noted Date Comments Codeine Headache Low 05/30/2010 Doxycycline Shortness of Breath/Wheezing High 05/30/2010 Furosemide Other (See Comments) 05/30/2010 Drops K+--too much Levofloxacin Diarrhea Low 05/30/2010 Mold Extracts Shortness of Breath/Wheezing High 05/26/2012 Penicillins Shortness of Breath/Wheezing High 05/30/2010 Unclassified Drug Renal Dysfunctions High 08/18/2011 Anti inflammatories effects kidney functions Medications albuterol (VENTOLIN) 90 mcg/Actuation Inhalation Aero Take 2 Puffs by inhalation every 6 hours as needed. Active flunisolide (AEROBID) 250 mcg/Actuation Inhalation Aero Take 2 Puffs by inhalation 2 times daily. Active metoprolol succinate ER 24 hour (TOPROL XL) 25 mg Oral tablet Take 25 mg by mouth daily after lunch. 0 Active lisinopril (PRINIVIL) 5 mg Oral tablet Take 5 mg by mouth daily at bedtime. 0 Active diltiazem SR 24 hour (DILACOR XR) 120 mg Oral capsule Take 120 mg by mouth daily. Active triamterene-hydro chlorothiazide (DYAZIDE) 37.5-25 mg Oral capsule Take 1 Cap by mouth daily director food safety. Active rosuvastatin (CRESTOR) 10 mg Oral tablet Take 10 mg by mouth daily at bedtime. Active ALPRAZolam (XANAX) 0.5 mg Oral tablet Take 0.5 mg by mouth 3 times daily. 0 Active clopidogrel (PLAVIX) 75 mg Oral Tab Take 75 mg by mouth daily. Takes every other day Active Metronidazole (NORITATE) 1 % Topical Crea Apply to affected area. Active nitroglycerin (NITROLINGUAL) 0.4 mg/Dose TL [place] [address] 1 [place] under tongue every 5 minutes as needed. Active calcium-vitamin D3 (CALCIUM 600 + D,3,) 600 mg(1,500mg) -200 unit Oral Tab Take by mouth daily. 0 Active multivitamin (DAILY-MEENAKSHI) Oral tablet Take 1 Tab by mouth daily. Active BECLOMETHASONE DIPROPIONATE (QVAR INHALATION) Take by inhalation 2 times daily. Active dextromethorphan- guaiFENesin (MUCINEX DM) 30-600 mg Oral Tb12 Take 1 Tab by mouth 2 times daily as needed. Active Cholecalciferol, Vitamin D3, 2,000 unit Oral Cap Take 1 Tab by mouth daily. Active cetirizine (ZYRTEC) 10 mg Oral tablet Take 10 mg by mouth 1 time daily as needed. Active Fiber Oral Cap Take 1 Tab by mouth daily. Active fluticasone (FLONASE) 50 mcg/spray Both Nostril SpSn Administer 2 Sprays in each nostril daily. Active cyclobenzaprine (FLEXERIL) 10 mg tablet Take 10 mg by mouth 3 times daily as needed for Spasm. Active cycloSPORINE (RESTASIS) 0.05 % emulsion 1 Drop 2 times daily. Active oxyCODONE-acetami nophen (PERCOCET) 5-325 mg tablet Take 1-2 Tabs by mouth every 4 hours as needed for Pain. 1 Tab 0 3 Active warfarin (COUMADIN) 2 mg tablet Take 3 Tabs by mouth Daily LATE. 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 Immunizations Immunization Administration Dates Next Due (PREVNAR 13)(6 WKS UP) PNEUM OCOCCAL CONJUGATE (PCV13) 0.5 ML, IM 11/19/2007 Influenza Seasonal Unspecified Formulation IM Social History Tobacco Use Types Packs/Day Years Used Date Smoking Tobacco: Former Cigarettes 2 48 0 02/10/1959 - 02/10/2007 Smokeless Tobacco: Never Alcohol Use Standard Drinks/Week Comments No 0 (1 standard drink = 0.6 oz pur e alcohol) Comments No Sex and Gender Information Value Date Recorded Sex Assigned at Not on file Legal Sex Female 5:55 AM PLANT CONTROL AIDE Gender Identity Not on file Sexual Orientation Not on file Occupation Industry Job Start Date Job End Date Not on file Not on file Not on file Not on file Not on file Not on file Not on file Not on file Last Filed Vital Signs Vital Sign Reading Time Taken Comments Blood Pressure 117/67 09/08/2013 5:22 AM PLANT CONTROL AIDE Pulse 82 09/08/2013 5:22 AM PLANT CONTROL AIDE Temperature 36.9 C (98.5 F) 09/08/2013 5:22 AM PLANT CONTROL AIDE Respiratory Rate 12 09/08/2013 9:25 AM PLANT CONTROL AIDE Oxygen Saturation 97% 09/08/2013 5:22 AM PLANT CONTROL AIDE Inhaled Oxygen Concentration - - Weight 84.4 kg (186 lb) 09/06/2013 9:04 AM PLANT CONTROL AIDE Height 163.8 cm (5' 4.5 ) 08/31/2013 10:46 AM CS T Body Mass Index 31.43 08/31/2013 10:46 AM PLANT CONTROL AIDE Plan of Treatment Health Maintenance Due Date Last Done Comments DTAP/TDAP/TD VACCINES (1 - Tdap) 12/10/1967 COLORECTAL SCREENING 1993 Colorectal Cancer Screening 1993 FIT-DNA Q 3 years 1993 FIT/FOBT Q 1 year 1993 Flex Sig/CT Colonography Q 5 years 1993 ZOSTER VACCINE (1 of 2) 1998 PNEUMOCOCCAL VACCINE 50+ YEARS (2 of 2 - PPSV23) 11/1811/19/2007 OSTEOPOROSIS SCREENING 2013 RSV VACCINE (60+ or ) (1 - 1-dose 75+ series) 12/10/2023 INFLUENZA VACCINE (#1) 2024 07/03/2013 Medical Devices Implanted Type Area Top Executive Device Identifier Shelf Expiration Date Model / Serial / Lot Cement [place] G-Hv 40g [id number] - [id number] Implanted:Qty: 1 on 09/06/2013 by Mick Hamilton MD at [facility] Cement Right: Knee [employer] 03/09/2015 [id number] / / [id number] Comp Fem Vngrd Cr Intrlk Rt 65mm [id number] - [id number] Implanted:Qty: 1 on 09/06/[address] [facility] Knee Right: Knee [employer] 07/19/2023 [id number] / / [id number] Button Patella 31mm 1peg [id number] - [id number] Implanted:Qty: 1 on 09/06/[address] [facility] Knee Right: Knee [employer] 05/19/[id number] / / [id number] Comp Tib Cocr Finned 71mm [id number] - [id number] Implanted:Qty: 1 on 09/06/[address] [facility] Knee Right: Knee [employer] 07/19/2023 [id number] / / [id number] Brng Tib Vngrd Epoly As [id number] - [id number] Implanted:Qty: 1 on 09/06/[address] [facility] Knee Right: Knee [employer] 08/19/2018 [id number] / / [id number] Insurance [email or web address] PPO Advance Directives For more information, please contact: [phone] * Full Code (Latest Code Status on File) Date Activated Date Inactivated Comments 09/06/2013 1:54 PM 09/08/2013 3:54 PM * Full Code Date Activated Date Inactivated Comments 09/06/2013 8:57 AM 09/06/2013 1:54 PM * Full Code Date Activated Date Inactivated Comments 09/06/2013 8:51 AM 09/06/2013 8:57 AM * Full Code Date Activated Date Inactivated Comments 06/07/2012 10:25 AM 06/07/2012 3:55 PM * Full Code Date Activated Date Inactivated Comments 06/07/2012 8:05 AM 06/07/2012 10:25 AM Care Teams Molding Press Operator Relationship Specialty Start Date End Date Minerva Luu MD [address] [phone] PCP - General 09/06/15
--- OUTSIDE RECORDS SUMMARY | 2025-01-01 07:53 | XMS_ITS | Clinical Summary ---
Author Organization [facility] Address [address] [place] [address] Care Team Providers Care Micro Lab Analyst Name Role Phone Minerva Luu MD Primary Care Provider Source Comments [facility],non-owned Affiliates and Associated Physician Practices is amultiple site organization consisting of ambulatory clinics and hospital sitesin [place], [place], [place] and [place]. This disclosure is being madepursuant to the Care Everywhere program and may not contain all information available regarding this patient. Last updated 18.[facility] Allergies Active Allergy Reactions Criticality Noted Date Comments Penicillins Itching 09/24/2023 Medications * Be aware that medications may not be up to date on this document. Alwaysverify current medications with the patient. metFORMIN ER 24hr (Glucophage XR) 500 MG tablet Take 1 (one) tablet by mouth daily with dinner 15 tablet 09/24/2023 Active Social History Tobacco Use Types Packs/Day Years Used Date Smoking Tobacco: Never Assessed Comments Unknown Sex and Gender Information Value Date Recorded Sex Assigned at Not on file Legal Sex Female 7:16 PM JOB SERVICE SPECIALIST Gender Identity Not on file Sexual Orientation Not on file Last Filed Vital Signs Vital Sign Reading Time Taken Comments Blood Pressure 152/96 09/24/2023 12:35 PM JOB SERVICE SPECIALIST Pulse 93 09/24/2023 12:35 PM JOB SERVICE SPECIALIST Temperature 36.6 C (97.9 F) 09/24/2023 12:35 PM JOB SERVICE SPECIALIST Respiratory Rate 18 09/24/2023 12:35 PM JOB SERVICE SPECIALIST Oxygen Saturation 95% 09/24/2023 12:35 PM JOB SERVICE SPECIALIST Inhaled Oxygen Concentration - - Weight 83.7 kg (184 lb 8 oz) 09/24/2023 12:35 PM JOB SERVICE SPECIALIST Height 162.6 cm (5' 4 ) 09/24/2023 12:35 PM JOB SERVICE SPECIALIST Body Mass Index 31.67 09/24/2023 12:35 PM JOB SERVICE SPECIALIST Plan of Treatment Health Maintenance Due Date Last Done Comments BONE DENSITY TESTING 1948 COLOGUARD (AGES 45-75) - COLON CA SCREENING 1948 COLON MONITORING 1948 COLONOSCOPY - COLON CA SCREENING 1948 CT COLONOGRAPHY - COLON CA SCREENING 1948 Colorectal Cancer Screening 1948 FIT - COLON CA SCREENING 1948 FLEX SIG - COLON CA SCREENING 1948 LIPID TESTING 1948 HEPATITIS C SCREENING 12/05/1966 DTAP/TDAP/TD VACCINES (1 - Tdap) 12/10/1967 PNEUMOCOCCAL VACCINE 50+ (1 of 1 - PCV) 1998 ZOSTER VACCINE (1 of 2) 1998 MAMMOGRAM 08/25/2020 08/25/2018, 05/22, 06/05/2016, Additional history exists Respiratory Syncytial Virus (RSV) Vaccine Pt: or over 60 yrs (1 - 1-dose 75+ series) 12/10/2023 COVID-19 VACCINE ( season) 2024 07/14/2023, 08/31/2022, 04/05/2022, Additional history exists DEPRESSION SCREENING 09/20/2024 MEDICARE AWV CALENDAR YEAR 2024 INFLUENZA VACCINE (Season Ended) 2025 06/20/2023, 07/29/2022, 06/19/2021, Additional history exists HEPATITIS B VACCINE Aged Out No longe r eligible based on patient's age to complete this topic HIB VACCINE Aged Out No longer eligi ble based on patient's age to complete this topic HPV VACCINE Aged Out No longer eligi ble based on patient's age to complete this topic MENINGOCOCCAL (Group B) VACCINE SHARED DECISION-MAKING Aged Out No longer eligible based on patient's age to complete this topic MENINGOCOCCAL GROUPS A/C/Y/W VACCINE Aged Out No longer eligible based on patient's age to complete this topic Insurance [facility] MANAGED MEDICARE ADV Care Teams Micro Lab Analyst Relationship Specialty Start Date End Date Minerva Luu MD [address] [place] [phone] PCP - General 01/28/10
--- OUTSIDE RECORDS SUMMARY | 2025-01-01 07:54 | XMS_ITS | CONTINUITY OF CARE DOCUMENT ---
Author Name gilbetr hunt Address Unknown Organization [facility] Address [address] [place] [address] Phone [phone] Care Team Providers Care Administrative Assistant Receptionist Name Role Phone Jerel HANSEN, Alexandra Unavailable Mike PIECE WORKER, Alli Unavailable Mike PIECE WORKER, Alli Unavailable PROBLEMS Condition Status Date Provider Notes Dyslipidemia active Marcelino Issa MD C O P D active Alisia Herzog DYSLIPIDEMIA completed - Alexandra Beltrán MD TOBACCO ABUSE, quit 2006 active Alexandra antony MD CAD 100% RCA ON CATH IN 99,I NF WALL ISCHEMIA ON STRESS 2017 active Alexandra Beltrán MD HTN--03/11/21 ECHO EF 60% active Alexandra antony MD OBESITY active Alexandra Beltrán MD RENAL DISEASE, CHRONIC, MILD active Alexandra Beltrán MD Family History of Hypertension: completed - To kieran Beltrán MD Migraine active Alexandra Beltrán MD Lung nodule left upper lobe nodule benign s/p vats active Alexandra Beltrán MD Fluid retention active Alexandra Beltrán MD Alzheimer's dementia active Alexandra Beltrán MD Diabetes mellitus, type 2 active Alexandra haile MD Cardiology examination active Haider Gaytan ENCOUNTERS Date Type Provider Location Encounter Diag nosis - In-person encounter Office Visit Alexnadra Beltrán MD [facility] Cardiology examination - In-person encounter Office Visit Alexandra Beltrán MD [facility] - In-person encounter Office Visit Alexandra Beltrán MD [facility] - In-person encounter Office Visit Alexandra Beltrán MD [facility] Diabetes mellitus, type 2 - In-person encounter Office Visit Alexandra Beltrán MD [facility] - In-person encounter Office Visit Alexandra Beltrán MD [facility] - In-person encounter Office Visit Alexandra Beltrán MD [facility] - In-person encounter Office Visit Alexandra Beltrán MD [facility] - In-person encounter Office Visit Alexandra Beltrán MD [facility] - In-person encounter Office Visit Alexandra Beltrán MD [facility] - In-person encounter Office Visit Alexandra Beltrán MD [facility] - In-person encounter Office Visit Alexandra Beltrán MD [facility] HTN--03/11/21 ECHO EF 60% - In-person encounter Office Visit Alexandra Beltrán MD [facility] Fluid retentionAlzheimer's dementia - In-person encounter Office Visit Alexandra Beltrán MD [facility] - In-person encounter Office Visit Alexandra Beltrán MD [facility] - In-person encounter Office Visit Alexandra Beltrán MD [facility] - In-person encounter Office Visit Alexadnra Beltrán MD [facility] - In-person encounter Office Visit Alexandra Beltrán MD [facility] - In-person encounter Office Visit Alexandra Beltrán MD [facility] - In-person encounter Office Visit Alexandra Beltrán MD [facility] Lung nodule left upper lobe nodule benign s/p vats - In-person encounter Office Visit Alexandra Beltrán MD [facility] CAD 100% RCA ON CATH IN 99,INF WALL ISCHEMIA ON STRESS 2017Lung nodule left upper lobe nodule benign s/p vats - In-person encounter Office Visit Alexandra Beltrán MD [facility] - In-person encounter Office Visit Alexandra Beltrán MD [facility] DYSLIPIDEMIAMigraine - In-person encounter Office Visit Alexandra Beltrán MD [facility] - In-person encounter Office Visit Alexandra Beltrán MD [facility] TOBACCO ABUSE, quit 2007CAD 100% RCA ON CATH IN 99,INF WALL ISCHEMIA ON STRESS 2017HTN--03/11/21 ECHO EF 60%Family History of Hypertension: - In-person encounter Office Visit Alexandra Beltrán MD [facility] - In-person encounter Office Visit Alexandra Beltrán MD [facility] - In-person encounter Office Visit Alexandra Beltrán MD [facility] - In-person encounter Office Visit Alexandra Beltrán MD [facility] RENAL DISEASE, CHRONIC, MILD - In-person encounter Office Visit Alexandra Beltrán MD [facility] - In-person encounter Office Visit Alexandra Beltrán MD [facility] - In-person encounter Office Visit Alexandra Beltrán MD [facility] - In-person encounter Office Visit Alexandra Beltrán MD [facility] - In-person encounter Office Visit Alexandra [facility] CAD 100% RCA ON CATH IN 99,INF WALL ISCHEMIA ON STRESS 2017HTN--03/11/21 ECHO EF 60%OBESITY - In-person encounter Office Visit Alexandra [facility] [facility] VITAL SIGNS Date Observation Value Provider Body Mass Index (Ratio) 29.21 kg/m2 Haider Rollewesley blood pressure, diastolic 91 mm[Hg] Paige mckeon Christine blood pressure, systolic 133 mm[Hg] Vanessa ambrose Christine oxygen saturation, oximetry 91 % Venessa Christine pulse rate 71 /min Venessa Christine respiratory rate E&M 12 /min Venessa Victoria weight E&M 181 [lb_av] Venessa Christine height E&M 66 [in_i] [facility], [facility] regular linda Victoria Body Mass Index (Ratio) 30.18 kg/m2 Haider Gaytan blood pressure, diastolic 84 mm[Hg] Ned Polanco RN blood pressure, systolic 130 mm[Hg] Stacy Polanco RN oxygen saturation, oximetry 95 % Stacy Polanco RN respiratory rate E&M 18 /min Stacy aguilar RN pulse rate 93 /min Stacy Polanco RN weight E&M 187 [lb_av] Stacy Polanco RN Body Mass Index (Ratio) 30.02 kg/m2 Brian Beltrán MD blood pressure, cuff size regular Ja rret blood pressure, diastolic 88 mm[Hg] Ja rret blood pressure, systolic 127 mm[Hg] Jar ret pulse rate 86 /min Cedric oxygen saturation, oximetry 97 % Cedric respiratory rate E&M 18 /min weight E&M 186 [lb_av] Cedric height E&M 66 [in_i] Cedric Body Mass Index (Ratio) 29.70 kg/m2 Ambrose ntmelanie Cranmer blood pressure, diastolic 98 mm[Hg] Marlys nkLogic blood pressure, systolic 139 mm[Hg] Catrachita og blood pressure, cuff size regular Ja [facility] blood pressure, diastolic 98 mm[Hg] Ja [facility] blood pressure, systolic 139 mm[Hg] Becky guan pulse rate 113 /min Cedric oxygen saturation, oximetry 93 % Cedric respiratory rate E&M 16 /min Cedric weight E&M 184 [lb_av] Cedric height E&M 66 [in_i] Cedric Body Mass Index (Ratio) 31.95 kg/m2 Brian Beltrán MD pulse rate 90 /min Brigida Joan respiratory rate E&M 20 /min Brigida Franco oxygen saturation, oximetry 97 % Brigida Joan blood pressure, diastolic 87 mm[Hg] cherryroberth Joan blood pressure, systolic 142 mm[Hg] [facility] vineetroberth Franco blood pressure, cuff size regular acosta Franco weight E&M 198 [lb_av] Brigida Franco height E&M 66 [in_i] Brigida Franco Body Mass Index (Ratio) 31.79 kg/m2 Brian Beltrán MD blood pressure, diastolic -1 mm[Hg] Marlys zuñigaLogronald blood pressure, systolic 137 mm[Hg] Catrachita [facility] blood pressure, diastolic 84 mm[Hg] Paige contreras Collin blood pressure, systolic 137 mm[Hg] Any wil Collin oxygen saturation, oximetry 92 % Anna Collin pulse rate 82 /min Anna Collin blood pressure, cuff size large Paige contreras Collin weight E&M 197 [lb_av] Anna Collin height E&M 66 [in_i] Anna Collin Body Mass Index (Ratio) 32.28 kg/m2 Brian Beltrán MD blood pressure, diastolic 93 mm[Hg] Charisse morales [place] blood pressure, systolic 143 mm[Hg] Gavino letykareem [place] oxygen saturation, oximetry 96 % Kat [place] pulse rate 100 /min Kat bell weight E&M 200 [lb_av] Kat bell respiratory rate E&M 16 /min Marjan arrieta [place] blood pressure, cuff size 16 Al andrew [place] height E&M 66 [in_i] Kat bell Body Mass Index (Ratio) 33.57 kg/m2 Brian Beltrán MD blood pressure, diastolic 90 mm[Hg] Kaelyn Gaytan blood pressure, systolic 140 mm[Hg] Latisha jude Gaytan pulse rate 84 /min Haider Gaytan oxygen saturation, oximetry 90 % Haider Gaytan weight E&M 208 [lb_av] Haider Gaytan Body Mass Index (Ratio) 33.57 kg/m2 Brian Beltrán MD blood pressure, diastolic 81 mm[Hg] Sa ra Aponte blood pressure, systolic 125 mm[Hg] Watson a Aponte oxygen saturation, oximetry 93 % Clary Aponte respiratory rate E&M 16 /min Clary Si ms pulse rate 84 /min Clary Aponte weight E&M 208 [lb_av] Clary Aponte blood pressure, cuff size regular Sa ra Aponte height E&M 66 [in_i] Clary Aponte Body Mass Index (Ratio) 30.82 kg/m2 Trac y Lively blood pressure, diastolic 62 mm[Hg] Li nkLogic blood pressure, systolic 132 mm[Hg] Catrachita kLogic blood pressure, cuff size large Ke rri Gruenenfelder blood pressure, diastolic 62 mm[Hg] Ke rri Gruenenfelder blood pressure, systolic 132 mm[Hg] Ker ri Gruenenfelder oxygen saturation, oximetry 95 % Sarah Gruenenfelder respiratory rate E&M 16 /min Sarah G ruenenfelder pulse rate 64 /min Sarah Gruenenfe lder weight E&M 191 [lb_av] Sarah Gruenenfe lder height E&M 66 [in_i] Sarah Gruenenfe lder Body Mass Index (Ratio) 29.86 kg/m2 Brian Beltrán MD blood pressure, cuff size large Ke rri Gruenenfelder blood pressure, diastolic 80 mm[Hg] Ke rri Gruenenfelder blood pressure, systolic 120 mm[Hg] Ker ri Gruenenfelder oxygen saturation, oximetry 97 % Sarah Gruenenfelder respiratory rate E&M 16 /min Sarah G ruenenfelder pulse rate 90 /min Sarah Gruenenfe lder weight E&M 185 [lb_av] Sarah Gruenenfe er height E&M 66 [in_i] Sarah Hartmann [facility] Body Mass Index (Ratio) 27.76 kg/m2 Brian Beltrán MD blood pressure, diastolic 77 mm[Hg] Rh itzel Jaquelin blood pressure, systolic 121 mm[Hg] Rho nda Jaquelin oxygen saturation, oximetry 98 % Sylwiawil Hammer pulse rate 71 /min Sylwia Jaquelin blood pressure, resting Yes Rhon iglesia Hammer respiratory rate E&M 18 /min Sylwia Jaquelin blood pressure, cuff size regular Rh oniglesia Jaquelin weight E&M 172 [lb_av] Sylwiawil Hammer height E&M 66 [in_i] Sylwiawil Hammer Body Mass Index (Ratio) 27.76 kg/m2 Brian Beltrán MD oxygen saturation, oximetry 98 % Chastity Adriana blood pressure, diastolic 73 mm[Hg] Ch astity Adriana blood pressure, systolic 110 mm[Hg] Rosamaria stity Adriana respiratory rate E&M 16 /min Chastit y Adriana weight E&M 172 [lb_av] Chastity Adriana pulse rate 76 /min Chastity Adriana height E&M 66 [in_i] Chastity Adriana Body Mass Index (Ratio) 29.53 kg/m2 Brian Beltrán MD blood pressure, diastolic 81 mm[Hg] To nsha Majano blood pressure, systolic 121 mm[Hg] Ted Majano oxygen saturation, oximetry 97 % [facility] respiratory rate E&M 16 /min Tonsha Majano pulse rate 91 /min Tons Majano weight E&M 183 [lb_av] Tonsha Majano height E&M 66 [in_i] Lauraha Majano Body Mass Index (Ratio) 30.34 kg/m2 Kill een Larson blood pressure, diastolic 80 mm[Hg] Ned barreto Larson blood pressure, systolic 110 mm[Hg] Augusta coulter Larson oxygen saturation, oximetry 97 % Yale Larson respiratory rate E&M 16 /min Yale Larson pulse rate 72 /min Yale Larson weight E&M 188 [lb_av] Yale Larson height E&M 66 [in_i] Wil Larson Body Mass Index (Ratio) 30.18 kg/m2 Brian Beltrán MD blood pressure, cuff size regular [facility]ri [facility], diastolic 80 mm[Hg] Ke rri Nahed blood pressure, systolic 122 mm[Hg] eSlma Dockery oxygen saturation, oximetry 99 % Sarah Dockery respiratory rate E&M 20 /min Sarah gerard pulse rate 81 /min Sarah Hartmann er weight E&M 187 [lb_av] Sarah Hartmann er height E&M 66 [in_i] Sarah Hartmann er Body Mass Index (Ratio) 29.70 kg/m2 Brian Beltrán MD blood pressure, diastolic 70 mm[Hg] Da carla Meg blood pressure, systolic 102 mm[Hg] Dac ia Meg oxygen saturation, oximetry 97 % Mary Meg respiratory rate E&M 18 /min Mary V oss pulse rate 95 /min Mary Meg weight E&M 184 [lb_av] Mary Meg height E&M 66 [in_i] Mary Meg Body Mass Index (Ratio) 29.50 kg/m2 Brian Beltrán MD pulse rate 66 /min Wil Larson oxygen saturation, oximetry 94 % Wil Larson blood pressure, diastolic 80 mm[Hg] Ki llterrence Larson blood pressure, systolic 120 mm[Hg] Augusta coulter Larson respiratory rate E&M 16 /min Yale Larson weight E&M 182.8 [lb_av] Yale Larson blood pressure, resting Yes Kill een Larson height E&M 66 [in_i] Yale Larson Body Mass Index (Ratio) 29.86 kg/m2 Brian Beltrán MD blood pressure, diastolic 68 mm[Hg] Da carla Meg blood pressure, systolic 108 mm[Hg] Dac ia Meg oxygen saturation, oximetry 97 % Mary Meg respiratory rate E&M 16 /min Mary V oss pulse rate 88 /min Mary Meg weight E&M 185 [lb_av] Mary Meg height E&M 66 [in_i] Mary Meg Body Mass Index (Ratio) 30.34 kg/m2 Brian Beltrán MD blood pressure, cuff size regular Ke rri Jaydennenfjacquelineer blood pressure, diastolic 88 mm[Hg] Ke rri Gruenenfjacquelineer blood pressure, systolic 126 mm[Hg] Selma Dockery oxygen saturation, oximetry 95 % Sarah Dockery respiratory rate E&M 16 /min Sarah gerard pulse rate 95 /min Sarah Mary Kate lder weight E&M 188 [lb_av] Sarah Jaydenneyossi lder height E&M 66 [in_i] Sarah Jaydenneyossi lder blood pressure, diastolic 66 mm[Hg] Melissa Robertson blood pressure, systolic 126 mm[Hg] Alem Robertson pulse rate 80 /min Bubba foster oxygen saturation, oximetry 93 % Bubba Robertson respiratory rate E&M 16 /min Nicolas Robertson Body Mass Index (Ratio) 31.15 kg/m2 Ruby Robertson weight E&M 193 [lb_av] Bubba Feliciano nsjj blood pressure, diastolic 70 mm[Hg] Melissa sanchez [place] blood pressure, systolic 104 mm[Hg] Alem barger [place] pulse rate 69 /min Rachel O'[place] oxygen saturation, oximetry 96 % Rachel O'[place] respiratory rate E&M 16 /min Rachel O'[place] Body Mass Index (Ratio) 31.15 kg/m2 Gregor navarro [place] weight E&M 193 [lb_av] Rachel O'[place] oxygen saturation, oximetry 96 % Anum Brink blood pressure, diastolic 76 mm[Hg] Me gonzales Brink blood pressure, systolic 113 mm[Hg] Sameera avilez Brink pulse rate 72 /min Anum Brink respiratory rate E&M 15 /min Anum Brink Body Mass Index (Ratio) 31.47 kg/m2 Rama palomo Brink weight E&M 195 [lb_av] Anum Brink blood pressure, diastolic 82 mm[Hg] Melissa Robertson blood pressure, systolic 117 mm[Hg] Alem Robertson Body Mass Index (Ratio) 30.37 kg/m2 Ruby Robertson pulse rate 74 /min Bubba Feliciano adelitajj oxygen saturation, oximetry 92 % Bubba Robertson respiratory rate E&M 20 /min Nicolas Robertson weight E&M 188.2 [lb_av] Bubba brunson Body Mass Index (Ratio) 30.02 kg/m2 Rodriguez i Nahed blood pressure, diastolic 60 mm[Hg] Ke rri Nahed blood pressure, systolic 100 mm[Hg] Selma ri Nahed pulse rate 71 /min Sarah Mary Kate llaneser oxygen saturation, oximetry 90 % Sarah Nahed respiratory rate E&M 16 /min Sarah Obdulia gerard weight E&M 186 [lb_av] Sarah Mary Kate llaneser Body Mass Index (Ratio) 30.68 kg/m2 Dez Steve blood pressure, diastolic, left arm 79 mm [Hg] [facility], systolic, left arm 126 mm [Hg] [facility] blood pressure, diastolic, right arm 86 m m[Hg] [facility] blood pressure, systolic, right arm 125 m m[Hg] [facility] blood pressure, diastolic 79 mm[Hg] No blood pressure, systolic 126 mm[Hg] Jorge paige Steve pulse rate 67 /min [facility] oxygen saturation, oximetry 98 % [facility] respiratory rate E&M 16 /min [facility] weight E&M 189.38 [lb_av] [facility] E&M 66 [in_i] Jorgepaige Steve Body Mass Index (Ratio) 32.57 kg/m2 Rodriguez i Nahed blood pressure, diastolic 85 mm[Hg] Ke rri Nahed blood pressure, systolic 128 mm[Hg] Selma kaelyn Nahed pulse rate 87 /min Sarah Abimeenakshi barrie oxygen saturation, oximetry 92 % Sarah Nahed respiratory rate E&M 17 /min Sarah Steiner moustapha weight E&M 195 [lb_av] Sarah Mary Kate llanes height E&M 65 [in_i] Sarah Mary Kate llanes blood pressure, diastolic 85 mm[Hg] Rufino Larson blood pressure, systolic 114 mm[Hg] Janay Larson pulse rate 89 /min Christin Larson oxygen saturation, oximetry 99 % Chrsitin Larson respiratory rate E&M 16 /min Christin brunner weight E&M 215 [lb_av] Christin Larson blood pressure, diastolic 72 mm[Hg] No blood pressure, systolic 122 mm[Hg] Jorge Steve pulse rate 78 /min Dimas Steve oxygen saturation, oximetry 99 % Dimas Steve respiratory rate E&M 16 /min Dimas Steve weight E&M 227 [lb_av] Dimas Steve blood pressure, diastolic 91 mm[Hg] No blood pressure, systolic 143 mm[Hg] Jorge Steve pulse rate 74 /min Dimas Steve oxygen saturation, oximetry 100 % Dimas Steve respiratory rate E&M 16 /min Dimas Steve weight E&M 224 [lb_av] Dimas Steve blood pressure, diastolic 82 mm[Hg] Live Mauro blood pressure, systolic 132 mm[Hg] Pat sy Nj pulse rate 88 /min Hilda York respiratory rate E&M 16 /min Hildagiuliana sheridan weight E&M 226 [lb_av] Hilda Mauro blood pressure, diastolic, left arm 92 mm [Hg] [place] blood pressure, systolic, left arm 120 mm [Hg] Raymond [place] blood pressure, diastolic, right arm 95 m m[Hg] Raymond [place] blood pressure, systolic, right arm 132 m m[Hg] Raymond [place] blood pressure, diastolic 95 mm[Hg] Kami seph [place] blood pressure, systolic 132 mm[Hg] Fernandez eph [place] pulse rate 60 /min [place] oxygen saturation, oximetry 92 % [facility] E&M 16 /min [place] weight E&M 224 [lb_av] [place] blood pressure, diastolic 112 mm[Hg] Kmai seph [place] blood pressure, systolic 172 mm[Hg] Fernandez eph [place] pulse rate 58 /min [place] oxygen saturation, oximetry 97 % [place] respiratory rate E&M 16 /min [place] weight E&M 228 [lb_av] [place] blood pressure, diastolic 101 mm[Hg] Ekaterina Phillip MA blood pressure, systolic 146 mm[Hg] Stefany Phillip MA pulse rate 69 /min Petra Phillip MA oxygen saturation, oximetry 99 % Petra Phillip MA respiratory rate E&M 18 /min Petra Phillip MA weight E&M 236 [lb_av] Petra Phillip MA ALLERGIES Allergy Name Onset Date Reaction Criticality Status BETA BLOCKERS High Criticality activ e ANTIINFLAMS Low Criticality active LASIX Low Criticality active LEVAQUIN Low Criticality active CODEINE Low Criticality active DOXY-CAPS Low Criticality active PENICILLIN Low Criticality active RESULTS Date Observation Value Provider Reference Range Interpretation Location basophils as percent of blood leukocytes 1.2 % [facility] Normal eosinophils as percent of blood leukocytes 1.9 % [facility] Normal monocyte count, blood 7.2 % [facility] Normal lymphocyte count, blood 23.3 % [facility] Normal neutrophils as percent of blood leukocytes 66.4 % [facility] Normal basophils, absolute, manual 77 cells/mcL [facility] 0-200 Normal eosinophils, absolute, manual 122 cells/mcL [facility] 15-500 Normal monocytes, absolute, manual 461 cells/mcL [facility] 200-950 Normal lymphocytes, absolute 1491 CELLS/UL [facility] 850-3900 Normal Absolute Neutrophil count 4250 cells/mcL [facility] 4030-2881 Normal mean platelet volume 10.4 fL [facility] 7.5-12.5 Normal platelet count 250 THOUSAND/UL [facility] 140-400 Normal red blood cell distribution width 13.4 % [facility] 11.0-15.0 Normal mean corpuscular hemoglobin concentration, RBC 33.2 G/DL [facility] 32.0-36.0 Normal mean corpuscular hemoglobin, RBC 28.2 pg [facility] 27.0-33.0 Normal mean corpuscular volume, RBC 85.0 fL [facility] 80.0-100.0 Normal hematocrit, blood 37.3 % [facility] 35.0-45.0 Normal hemoglobin electrophoresis, blood 12.4 [facility] 11.7-15.5 Normal erythrocyte (RBC) count 4.39 MILLION/UL [facility] 3.80-5.10 Normal leukocyte (white blood cells) count, blood 6.4 THOUSAND/UL [facility] 3.8-10.8 Normal alanine aminotransferase (SGPT), serum 18 1/L [facility] 6-29 Normal aspartate aminotransferase (SGOT), serum 21 1/L [facility] 10-35 Normal alkaline phosphatase, serum 54 1/L [facility] 37-153 Normal bilirubin, serum, total 0.6 mg/dL [facility] 0.2-1.2 Normal albumin/globulin ratio, serum 2.1 (calc) [facility] 1.0-2.5 Normal globulins, serum, total 2.0 G/DL (CALC) [facility] 1.9-3.7 Normal albumin, serum 4.2 g/dL [facility] 3.6-5.1 Normal protein, total, serum 6.2 g/dL [facility] 6.1-8.1 Normal calcium, serum 9.2 mg/dL [facility] 8.6-10.4 Normal carbon dioxide, venous blood 31 mmol/L [facility] 20-32 Normal chloride, serum 102 mmol/L [facility] 98-110 Normal potassium, serum 3.9 mmol/L [facility] 3.5-5.3 Normal sodium, serum 140 mmol/L [facility] 135-146 Normal urea nitrogen/creatinine ratio, serum NOT APPLICABLE (calc) [facility] 6-22 Estimated Glomerular Filtration Rate (calc) 71 mL/min/{1.73_ m2} [facility] > OR = 60 Normal creatinine, serum 0.93 mg/dL [facility] 0.60-0.93 Normal urea nitrogen, blood 18 mg/dL [facility] 7-25 Normal blood glucose, random 106 mg/dL [facility] 65-99 High creatine kinase, serum 71 1/L [facility] 29-143 Normal alanine aminotransferase (SGPT), serum 14 1/L [facility] 6-29 Normal aspartate aminotransferase (SGOT), serum 16 1/L [facility] 10-35 Normal alkaline phosphatase, serum 70 1/L [facility] 33-130 Normal bilirubin, serum, indirect 0.5 MG/DL (CALC) [facility] 0.2-1.2 Normal bilirubin, serum, direct 0.2 mg/dL [facility] < OR = 0.2 Normal bilirubin, serum, total 0.7 mg/dL [facility] 0.2-1.2 Normal albumin/globulin ratio, serum 1.8 (calc) [facility] 1.0-2.5 Normal globulins, serum, total 2.4 G/DL (CALC) [facility] 1.9-3.7 Normal albumin, serum 4.3 g/dL [facility] 3.6-5.1 Normal protein, total, serum 6.7 g/dL [facility] 6.1-8.1 Normal calcium, serum 9.9 mg/dL [facility] 8.6-10.4 Normal carbon dioxide, venous blood 29 mmol/L [facility] 20-31 Normal chloride, serum 98 mmol/L [facility] 98-110 Normal potassium, serum 3.6 mmol/L [facility] 3.5-5.3 Normal sodium, serum 137 mmol/L [facility] 135-146 Normal urea nitrogen/creatinine ratio, serum 19 (calc) [facility] 6-22 Normal Estimated Glomerular Filtration Rate (calc) 64 mL/min/{1.73_ m2} [facility] > OR = 60 Normal creatinine, serum 1.05 mg/dL [facility] 0.50-0.99 High urea nitrogen, blood 20 mg/dL [facility] 7-25 Normal blood glucose, random 97 mg/dL [facility] 65-99 Normal cholesterol, non-HDL, total 85 MG/DL (CALC) [facility] Normal cholesterol/HDL ratio, serum, percent 2.7 (calc) [facility] < OR = 5.0 Normal LDL cholesterol, serum 55 MG/DL (CALC) [facility] <130 Normal triglyceride, serum, fasting 148 mg/dL [facility] <150 Normal HDL cholesterol, serum 49 mg/dL [facility] > OR = 46 Normal cholesterol, serum 134 mg/dL [facility] 125-200 Normal triglyceride, serum, fasting 133 mg/dL [facility] HDL cholesterol, serum 59 mg/dL [facility] cholesterol/HDL ratio, serum 2.7 [facility] lipoprotein, beta, serum, point, quantitative, calculated 73 mg/dL [facility] cholesterol, serum 159 mg/dL [facility] alanine aminotransferase (SGPT), serum 20 1/L [facility] aspartate aminotransferase (SGOT), serum 22 1/L [facility] blood glucose, random 94 mg/dL [facility] creatinine, serum 1.02 mg/dL [facility] urea nitrogen, blood 20 mg/dL [facility] potassium, serum 3.8 mmol/L [facility] sodium, serum 141 mmol/L [facility] lipoprotein, beta, serum, point, quantitative, calculated 60 mg/dL [facility] cholesterol, serum 141 mg/dL [facility] alanine aminotransferase (SGPT), serum 28 1/L [facility] aspartate aminotransferase (SGOT), serum 25 1/L [facility] creatinine, serum 1.11 mg/dL [facility] potassium, serum 3.3 mmol/L [facility] sodium, serum 138 mmol/L [facility] cholesterol/HDL ratio, serum 2.9 [facility] triglyceride, serum, fasting 216 mg/dL [facility] HDL cholesterol, serum 59 mg/dL [facility] LDL cholesterol, serum 72 mg/dL [facility] cholesterol, serum 174 mg/dL [facility] vitamin D 25-hydroxy, serum 37 ng/mL [facility] globulins, serum, total 2.4 g/dL [facility] Estimated Glomerular Filtration Rate (calc) 56 mL/min/{1.73_ m2} [facility] albumin/globulin ratio, serum 1.7 [facility] protein, total, serum 6.5 g/dL [facility] albumin, serum 4.1 g/dL [facility] bilirubin, serum, total 0.4 mg/dL [facility] alkaline phosphatase, serum 82 1/L [facility] alanine aminotransferase (SGPT), serum 23 1/L [facility] aspartate aminotransferase (SGOT), serum 18 1/L [facility] calcium, serum 9.9 mg/dL [facility] blood glucose, fasting 90 mg/dL [facility] creatinine, serum 1.07 mg/dL [facility] urea nitrogen, blood 23 mg/dL [facility] carbon dioxide, serum, total 31 mmol/L [facility] chloride, serum 104 mmol/L [facility] potassium, serum 4.1 mmol/L [facility] sodium, serum 143 mmol/L [facility] HISTORY OF MEDICATION USE Medication Status Instructions Dates Provider Indications Com ments Ozempic 1 mg/dose (4 mg/3 mL) pen injector active Haider Gaytan spironolactone 50 mg tablet active Take 1 tablet by mouth once a day Alexandra Beltrán MD memantine 10 mg tablet active Haider Gaytan potassium chloride 20 mEq tablet extended release active 2 tablets a day Haider Gaytan Humalog KwikPen Insulin 100 unit/mL insulin pen completed - Haider Gaytan Lantus Solostar U-100 Insulin 100 unit/mL (3 mL) insulin pen completed - Haider Gaytan torsemide 20 mg tablet completed TAKE 2 TABLETS BY MOUTH ONCE DAILY - Haiderjude Queenzai torsemide 20 mg tablet completed Take 2 tablet by mouth once a day - Cedric Hendricks Ellipta 100-62.5-25 mcg blister with device active Haider Gaytan memantine 5 mg tablet completed - Haider Rollewesley rosuvastatin 10 mg tablet active Haider Gaytan quetiapine 50 mg tablet active 0.5 tablet once a day Haider Rollewesley #180, 90 days supply, Prescribed by DANIELE RODRIGUEZ, Filled 12/26/2020 donepezil 10 mg tablet active Sylwia Hammer #90, 90 days supply, Prescribed by CHRISTOPHE WALKER, Filled 12/30/2020 duloxetine 20 mg capsule,delayed release(DR/EC) active twice a day Alexandra Beltrán MD #180, 90 days supply, Prescribed by DANIELE RODRIGUEZ, Filled 12/26/2020 VITAMIN D3 50 MCG (1999 UT) ORAL CAPSULE completed one by mouth daily - Sarah Dockery MONTELUKAST SODIUM 10 MG ORAL TABLET completed take 1 tab once daily - Sarah Dockery METHOCARBAMOL 750 MG ORAL TABLET completed take 1 tab at bedtime - Sylwia Root Ellipta 100-25 mcg/dose blister with device active once a day Sarah Dockrey IPRATROPIUM-ALBUT NESSA 0.5-2.5 (3) MG/3ML INHALATION SOLUTION completed 1 dose twice daily - Sarah Dockery Gentle Laxative (bisacodyl) 5 mg tablet,delayed release (DR/EC) completed 2 tablet once a day as needed - Haider Gaytan DOCUSATE SODIUM 100 MG ORAL TABLET completed 2 tabs daily prn - Sylwia MIRANDA XP SOLN completed 22 drop twice a day - Haider Gaytan albuterol sulfate 2.5 mg/3 mL (0.083 %) solution for nebulization active three times a day as needed Sarah Dockery aspirin 81 mg tablet,delayed release (DR/EC) active Take 1 once a day Sarah Dockery Cardizem 30 mg tablet active Take 1 tablet once a day Sarah Dockery cholecalciferol (vitamin D3) 75 mcg (3,000 unit) tablet active Take 1 once a day Sarah Dockery clindamycin HCl 150 mg capsule active 4 capsule Sarah Dockery RESTASIS 0.05 % OPHTHALMIC EMULSION completed 1 drop in each eye every 12 hours - iWl Larson ALL DAY ALLERGY 10 MG ORAL TABLET completed take one pill a day - Anum Brink SYSTANE BALANCE SOLUTION completed 2 drops each eye twice a day - Dimas Steve FIBER completed as needed - Sarah Dockery MULTIVITAMINS TABS completed take one a day - Dimas Steve VENTOLIN HFA AEROSOL SOLUTION completed 2 puffs 4x day as needed - Sylwia Hammer QVAR 80 MCG/ACT INHALATION AEROSOL SOLUTION completed twice a day - Wil Larson ALBUTEROL SULFATE NEBU completed as needed - Dimas Steve FLUTICASONE PROPIONATE 50 MCG/ACT NASAL SUSPENSION completed 1 spray twice a day - Dimas Steve TRAMADOL HCL 50 MG ORAL TABLET completed every 6hrs as needed - Sylwia Hammer CETIRIZINE HCL 10 MG ORAL TABLET completed as needed - Sylwia Hammer FISH OIL 1000 MG ORAL CAPSULE completed twice daily - Alexandra Beltrán MD Mucinex DM 30-600 mg tablet extended release 12 hr completed as needed - Haider Gaytan DARVOCET-N 100 100-650 MG TABS completed as needed - Sarah Dockery Crestor 10 mg tablet active 1 tablet once a day Sarah Dockery triamterene-hydro chlorothiazid 37.5-25 mg tablet completed once a day - Haider Gaytan VENTOLIN HFA 108 (90 Base) MCG/ACT INHALATION AEROSOL SOLUTION completed 2 puffs four times daily as needed - Dimas Steve NATURAL C completed once daily - Dimas Steve NITROLINGUAL 0.4 MG/SPRAY TRANSLINGUAL SOLUTION completed as needed - Sarah Dockery CALCIUM 600-D TABS completed once daily - Sarah Dockery ASPIRIN EC 81 MG ORAL TABLET DELAYED RELEASE completed once every other day - Alexandra Beltrán MD ZETIA 10 MG ORAL TABLET completed q hs - Petra Phillip MA OMEPRAZOLE 20 MG ORAL CAPSULE DELAYED RELEASE completed q hs - Petra Phillip MA DICLOFENAC POTASSIUM 50 MG ORAL TABLET completed daily - Petra Phillip MA ALPRAZOLAM 0.5 MG ORAL TABLET completed three times daily - Sylwia Hammer PLAVIX 75 MG ORAL TABLET completed once every other day - Anum Brink SPIRONOLACTONE 50 MG ORAL TABLET completed daily - Petra Phillip MA lisinopril 5 mg tablet completed twice a day - Haider Gaytan TOPROL XL 25 MG ORAL TABLET EXTENDED RELEASE 24 HOUR completed ONE TAB DAILY - Alexandra Beltrán MD ASTELIN SOLUTION completed 1 spray twice daily - Christin Larson NASACORT AQ AEROSOL completed - Petra Phillip MA AEROBID AERS completed 2 puffs twice daily - Christin Neo COONEY HFA AEROSOL SOLUTION completed 2 puffs QID - Petra Phillip MA ALBUTEROL AERS completed 2 puffs QID - Petra Phillip MA THEOPHYLLINE ER 200 MG ORAL TABLET EXTENDED RELEASE 12 HOUR completed BID - Petra Phillip MA SOCIAL HISTORY Date Observation Value Provider drug use none Haider Queenzai alcohol use no Hiader Queenzai passive cigarette sm rogers exposure yes Haider Rollewesley smoking, year quit 2006 Haiderjude Harrison dzai number of years as a smoker 40 a Haider Gaytan smoking history, tot al pack/year 126 Haider Rollewesley smoking history, tot al pack/day 0.5 Haider Rollei cigarette use yes Haider Rollei smoking status Former smoker Haider Rolle i drug use none Haiderjdue Rollei alcohol use no Haider Rollei passive cigarette sm rogers exposure yes Haider Gaytan smoking, year quit 2006 Ahiderjude Harrison dzai number of years as a smoker 40 a Haider Rollei smoking history, tot al pack/year 126 Haider Rollei smoking history, tot al pack/day 0.5 Haiderjude Queenzai cigarette use yes Haider Queenzai smoking status Former smoker Haider Rolle i drug use none Haider Queenzai alcohol use no Haiderjude Queenzai passive cigarette sm rogers exposure yes Haider Queenzai smoking, year quit 2006 Haider dzai number of years as a smoker 40 a Haider Gaytan smoking history, tot al pack/year 126 Haider Gaytan smoking history, tot al pack/day 0.5 Haider Gaytan cigarette use yes Haider Gaytan smoking status Former smoker Haider Rolle i drug use none Haider Gaytan alcohol use no Haider Gaytan passive cigarette sm rogers exposure yes Haider Gaytan smoking, year quit 2006 Haider snyder number of years as a smoker 40 a Haider Gaytan smoking history, tot al pack/year 126 Haider Gaytan smoking history, tot al pack/day 0.5 Haider Gaytan cigarette use yes Haider Gaytan smoking status Former smoker Haider Rolle i smoking, year quit 2006 Brigida Smith guerrero cigarette use yes Brigida Franco smoking status Former smoker Brigida Matt diaz social history reviewed E&M piyush deleoned - no changes required Alexandra Beltrán MD social history E&M Marital Statu s: L ellis with family/friends E thnicity: Smoking History: Nila fowler is a former smoker. Haider Bernicepaola physical exercise, f requency, days per week no Annawil Polanco caffeine use, averag e drinks per day no Annawil Polanco passive cigarette sm rogers exposure yes Anna Polanco smoking, year quit 2006 Anna Will iams number of years as a smoker 40 a Anna Polanco smoking history, tot al pack/year 126 Annawil Polanco smoking history, tot al pack/day 0.5 Anna Polanco cigarette use yes Anna Polanco smoking status Former smoker Anna gilmore social history reviewed E&M revi ewed - no changes required Alxeandra Beltrán MD physical exercise, f requency, days per week no Kat Jernigan caffeine use, averag e drinks per day no Kat Jernigan passive cigarette sm rogers exposure yes Kat Jernigan smoking, year quit 2006 Kat Jernigan number of years as a smoker 40 a Kat Jernigan smoking history, tot al pack/year 126 Kat Jernigan smoking history, tot al pack/day 0.5 Kat Jernigan cigarette use yes Kat Gaytan kylie smoking status Former smoker Kat moore social history reviewed E&M revi ewed - no changes required Haider Simonmedzai social history reviewed E&M revi ewed - no changes required Haider Simonmedzai social history reviewed E&M revi ewed - no changes required Haider Simonmedzai social history reviewed E&M revi ewed - no changes required Haider Simonmedzai social history reviewed E&M revi ewed - no changes required Haider Simonmedzai social history E&M Marital Statu s: L ellis with family/friends E thnicity: Smoking History: Nila fowler is a former smoker. Haider Ahmedzai physical exercise, f requency, days per week no Sarah Dockery caffeine use, averag e drinks per day no Sarah Dockery passive cigarette sm rogers exposure yes Sarah Dockery smoking, year quit 2006 Sarah gonsales number of years as a smoker 40 a Sarah Dockery smoking history, tot al pack/year 126 Sarah Dockery smoking history, tot al pack/day 0.5 Sarah Dockery cigarette use yes Sarah swenson smoking status Former smoker Sarah maza social history E&M Marital Statu s: L ellis with family/friends E thnicity: Smoking History: Nila fowler is a former smoker. Alexandra Beltrán MD social history reviewed E&M revi ewed - no changes required Alexandra Beltrán MD physical exercise, f requency, days per week no Sarah Alexleela caffeine use, averag e drinks per day no Sarah Dockery passive cigarette sm rogers exposure yes Sarah Alexleela smoking, year quit 2006 Sarah Hawkins dru number of years as a smoker 40 a Sarah Dockery smoking history, tot al pack/year 126 Sarah Dockery smoking history, tot al pack/day 0.5 Sarah Dockery cigarette use yes Sarah swenson smoking status Former smoker Sarah tranleela social history E&M Marital Statu s: L ellis with family/friends E thnicity: Smoking History: Nila fowler is a former smoker. Alexandra Beltrán MD social history reviewed E&M revi ewed - no changes required Alexandra Beltrán MD smoking status Former smoker Sylwia Jaquelin drug use none Castillo Harry alcohol use no Castillo Harry social history E&M Marital Statu s: L ellis with family/friends E thnicity: Smoking History: Nila fowler is a former smoker. Castillo Harry social history reviewed E&M revi ewed - no changes required Castillo Paniagua Piero physical exercise, f requency, days per week no Rosamariastity Adriana caffeine use, averag e drinks per day no Rosamariastity Adriana passive cigarette sm rogers exposure yes Giuseppeity Adriana smoking, year quit 2006 Giuseppeity Adriana number of years as a smoker 40 a Giuseppeity Adriana smoking history, tot al pack/year 126 Giuseppeity Adriana smoking history, tot al pack/day 0.5 Giuseppeity Adriana cigarette use yes Rosamairaity Adriana smoking status Former smoker Socorro grossman social history E&M Marital Statu s: L ellis with family/friends E thnicity: Smoking History: P atient is a former smoker. Alexandra Beltrán MD drug use none Castillo Siva Piero alcohol use no Castillo C [place] social history reviewed E&M revi ewed - no changes required Castillo Paniagua [place] physical exercise, f requency, days per week [facility] use, averag e drinks per day no Tons Majano passive cigarette sm rogers exposure yes Tons Majano smoking, year quit 2006 Tonsha Mo ss number of years as a smoker 40 a Tonsha Majano smoking history, tot al pack/year 126 Tonsha Majano smoking history, tot al pack/day 0.5 Tonsha Majano cigarette use yes Tons Majano smoking status Former smoker Tons Majano social history E&M Marital Statu s: L ellis with family/friends E thnicity: S moking History: Nila fowler is a former smoker. Alexandra Beltrán MD social history reviewed E&M revi ewed - no changes required Alexandra Beltrán MD social history E&M Marital Statu s: L ellis with family/friends E thnicity: Smoking History: Nila fowler is a former smoker. Alexandra Beltrán MD social history reviewed E&M revi ewed - no changes required Alexandra Beltrán MD physical exercise, f requency, days per week no Sarah Ferriser alcohol use, average drinks per day none Sarah Ferriser alcohol use no Sarah Hartmann lder caffeine use, averag e drinks per day no Sarah Ferriser drug use none Sarah Hartmann lder passive cigarette sm rogers exposure yes Sarah Dockery smoking, year quit 2006 Sarah Hawkins dru number of years as a smoker 40 a Sarah Dockery smoking history, tot al pack/year 126 Sarah Dockery smoking history, tot al pack/day 0.5 Sarah Ferriser cigarette use yes Sarah swenson smoking status Former smoker Sarah maza social history reviewed E&M revi ewed - no changes required Alexandra Beltrán MD physical exercise, f requency, days per week no Mary Meg alcohol use, average drinks per day none Mary Meg alcohol use no Mary Meg caffeine use, averag e drinks per day no Mary Meg drug use none Mary Meg passive cigarette sm rogers exposure yes Mary Meg smoking, year quit 2006 Mary Harry s number of years as a smoker 40 a Mary Meg smoking history, tot al pack/year 126 Mary Mge smoking history, tot al pack/day 0.5 Mary Meg cigarette use yes Mary Meg smoking status Former smoker Mary Meg social history E&M Marital Statu s: L ellis with family/friends E thnicity: Smoking History: Nila fowler is a former smoker. Alexandra Beltrán MD social history reviewed E&M revi ewed - no changes required Alexandra Beltrán MD number of grandchildren Alexandra Beltrán MD K gertrudis Gos[place] physical exercise, f requency, days per week no [facility] use, average drinks per day none [facility] alcohol use no [facility] caffeine use, averag e drinks per day no [facility] drug use none [facility] passive cigarette sm rogers exposure yes [facility] smoking, year [facility] number [facility] years as a [facility]oker 40 a [facility] smoking history, tot al pack/year 126 [facility] smoking history, tot al pack/day 0.5 [facility] cigarette use yes [facility] smoking status Former smoker Wil [facility] social history reviewed E&M revi ewed - no changes required Alexandra Beltrán MD physical exercise, f requency, days per week no Mary Meg alcohol use, average drinks per day none Mary Meg alcohol use no Mary Meg caffeine use, averag e drinks per day no Mary Meg drug use none Mary Meg passive cigarette sm rogers exposure yes Mary Meg smoking, year quit 2006 Mary Harry s number of years as a smoker 40 a Mary Meg smoking history, tot al pack/year 126 Mary Meg smoking history, tot al pack/day 0.5 Mary Meg cigarette use yes Mary Meg smoking status Former smoker Mary Meg social history reviewed E&M revi ewed - no changes required Alexandra Beltrán MD physical exercise, f requency, days per week no Sarah Dockery alcohol use, average drinks per day none Sarah Dockery alcohol use no Sarah Hartmann er caffeine use, averag e drinks per day no Sarah Dockery drug use none Sarah Hartmann er passive cigarette sm rogers exposure yes Sarah Dockery smoking, year quit 2006 Sarah Hawkins dru number of years as a smoker 40 a Sarah Dockery smoking history, tot al pack/year 126 Sarah Dockery smoking history, tot al pack/day 0.5 Sarah Dockery cigarette use yes Sarah [facility] status [facility] reviewed E&M revi ewed - no changes required Alexandra Beltrán MD physical exercise, f requency, days per week no Bubba Robertson alcohol use, average drinks per day none Bubba Robertson alcohol use no Bubba foster caffeine use, averag e drinks per day no Bubba Robertson drug use none Bubba ureñaon passive cigarette sm rogers exposure yes Bubba Robertson smoking, year quit 2006 Bubba Robertson number of years as a smoker 40 a Bubba Robertson smoking history, tot al pack/year 126 Bubba Robertson smoking history, tot al pack/day 0.5 Bubba Robertson cigarette use yes Bubba brunson smoking status Former smoker Bubba Marcelino social history reviewed E&M revi ewed - no changes required Alexandra Beltrán MD smoking status Former smoker Rachel hector social history reviewed E&M revi ewed - no changes required Alexandra Beltrán MD physical exercise, f requency, days per week no Anum Brink alcohol use, average drinks per day none Anum Brink alcohol use no Anum Brink caffeine use, averag e drinks per day no Anum Brink drug use none Anum Brink passive cigarette sm rogers exposure yes Anum Brink smoking, year quit 2006 Anum Maloney number of years as a smoker 40 a Anum Brink smoking history, tot al pack/year 126 Anum Brink smoking history, tot al pack/day 0.5 Anum Brink cigarette use yes Aunm Brink smoking status Former smoker Anum yeh social history reviewed E&M revi ewed - no changes required Alexandra Beltrán MD physical exercise, f requency, days per week no Bubba Robertson alcohol use, average drinks per day none Bubba Robertson caffeine use, averag e drinks per day no Bubba Robertson drug use none Bubba foster passive cigarette sm rogers exposure yes Bubba Robertson smoking/tobacco cess ation, patient education and counseling yes Bubba Robertson smoking, year quit 2006 Bubba Robertson number of years as a smoker 40 a Bubba Robertson smoking history, tot al pack/year 126 Bubba Robertson smoking history, tot al pack/day 0.5 Bubba Robertson cigarette use yes Bubba brunson smoking status Former smoker Bubbajose Marcelino social history reviewed E&M revi ewed - no changes required Alexandra Beltrán MD number of years as a smoker 40 a Sarah Nahed smoking history, tot al pack/day 0.5 Sarah Granadosavtar smoking, year quit 2006 Sarah Hawkins dru cigarette use yes Sarah Alex leela smoking status Former smoker Sarah tranleela social history reviewed E&M reviewed Alexandra eBltrán MD social history reviewed E&M reviewed Alexandra Beltrán MD drug use none Alexandra Beltrán MD passive cigarette sm rogers exposure yes Sarah Nahed smoking history, tot al pack/year 126 Sarah Nahed smoking, year quit 2005 Sarah Granadosjamel gonsales smoking status former smoker Sarah Carpenterchano maza smoking status former smoker Sukhwinder Christian social history reviewed E&M reviewed Alexandra Beltrán MD social history reviewed E&M reviewed Alexandra Beltrán MD social history reviewed E&M reviewed Alexandra Beltrán MD smoking/tobacco cess ation, patient education and counseling yes Sukhwinder Guzman RN social history reviewed E&M reviewed Sukhwinder Guzman RN social history reviewed E&M reviewed Alexandra Beltrán MD social history E&M Marital Statu s: L ellis with family/friends E thnicity: Alexandra Beltrán MD drug use none Alexandra Beltrán MD social history reviewed E&M reviewed Alexandra Beltrán MD physical exercise, f requency, days per week no [employer] caffeine use, averag e drinks per day no [employer] alcohol use, average drinks per day none [employer] number of years as a smoker 10 years or m ore [employer] smoking status Quit [employer] FUNCTIONAL STATUS Date Observation Value Provider HRA, CV Assess/Plan, Angina (inactive) Management Plan continue current therapy Haider Ahmedzai HRA, CV Assess/Plan, Angina (inactive) Management Plan continue current therapy Haider Ahmedzai HRA, CV Assess/Plan, Angina (inactive) Management Plan continue current therapy Haider Ahmedzai HRA, CV Assess/Plan, Angina (inactive) Management Plan continue current therapy Haider Ahmedzai HRA, CV Assess/Plan, Angina (inactive) Management Plan continue current therapy Haider Ahmedzai HRA, CV Assess/Plan, Angina (inactive) Management Plan continue current therapy Haider Ahmedzai HRA, CV Assess/Plan, Angina (inactive) Management Plan continue current therapy Haider Ahmedzai HRA, CV Assess/Plan, Angina (inactive) Management Plan continue current therapy Alexandra Beltrán MD HRA, CV Assess/Plan, Angina (inactive) Management Plan continue current therapy Alexandra Beltrán MD HRA, CV Assess/Plan, Angina (inactive) Management Plan continue current therapy Castillo Harry HRA, CV Assess/Plan, Angina (inactive) Management Plan continue current therapy Alexandra Beltrán MD HRA, CV Assess/Plan, Angina (inactive) Management Plan continue current therapy Alexandra Beltrán MD HRA, CV Assess/Plan, Angina (inactive) Management Plan continue current therapy Alexandra Beltrán MD HRA, CV Assess/Plan, Angina (inactive) Management Plan continue current therapy Alexandra Beltrán MD HRA, CV Assess/Plan, Angina (inactive) Management Plan continue current therapy Alexandra Beltrán MD MENTAL STATUS Date Observation Value Provider assessment of judgme nt and insight E&M Alert and oriented to time, place and person. Mood and affect are normal. Alexandra Beltrán MD assessment of judgme nt and insight E&M Alert and oriented to time, place and person. Mood and affect are normal. Alexandra Beltrán MD assessment of judgme nt and insight E&M Alert and oriented to time, place and person. Mood and affect are normal. Alexandra Beltrán MD assessment of judgme nt and insight E&M Alert and oriented to time, place and person. Mood and affect are normal. Alexandra Beltrán MD assessment of judgme nt and insight E&M Alert and oriented to time, place and person. Mood and affect are normal. Alexandra Beltrán MD assessment of judgme nt and insight E&M Alert and oriented to time, place and person. Mood and affect are normal. Sukhwnider Guzman RN assessment of judgme nt and insight E&M Alert and oriented to time, place and person. Mood and affect are normal. Alexandra Beltrán MD assessment of judgme nt and insight E&M Alert and oriented to time, place and person. Mood and affect are normal. Alexandra Beltrán MD assessment of judgme nt and insight E&M Alert and oriented to time, place and person. Mood and affect are normal. Alexandra Beltrán MD FAMILY HISTORY Family Member Condition Father Negative FH of Coron mickie Artery Disease Mother Family History of Hy pertension: INSURANCE PROVIDERS Payer name Policy type / Coverage type [place] red libertarian [employer] [id number] [employer] MEDICARE ADVANTAGE PLAN (PPO) Medicare [id number] ADVANCE DIRECTIVES Name Date DISCUSSED - NO DECISION MADE TREATMENT PLAN Date Name Performer [id number],SHaider i [id number],SHaider i [id number],SHaider i [id number],SHaider i [id number],SHaider i [id number],SHaider i [id number],SHaider i [id number],SHaidermedza i [id number],S, Haider medza i [id number],S, Haider medza i [id number],S, Haider medza i [id number],S, Haider medza i [id number],S, [id number],S[facility] [id number],S, Haider medza i [id number],S, Haider medza i [id number],S, Haider medza i [id number],S, Haider karissaza i [id number],S, Haider medza i [id number],S, Haider medza i [id number],S, Haider karissaza i [id number],S, Alexandra Beltrán MD [id number],S, Alexandra Beltrán MD [id number],S, Alexandra Beltrán MD [id number],S, Alexandra Beltrán MD [id number],S, Alexandra Beltrán MD [id number],S, Alexandra Beltrán MD Cardiology: H er updated medication list for this problem includes: Ozempic 1 Mg/dose (4 Mg/3 Ml) Pen Injector (Semaglutide) Aspirin 81 Mg Tablet,delayed Release (dr/ec) (Aspirin) ..... Take 1 once a day Alexandra Beltrán MD Cardiology Alexandra Beltrán MD Cardiology: H er updated medication list for this problem includes: Trelegy Ellipta 100-62.5-25 Mcg Blister With Device (Msszhhslruj-bthwsesfc-mttjczvw) Albuterol Sulfate 2.5 Mg/3 Ml (0.083 %) Solution For Nebulization (Albuterol sulfate) ..... Three times a day as needed Breo Ellipta 100-25 Mcg/dose Blister With Device (Fluticasone furoate-vilanterol) ..... Once a day Alexandra Beltrán MD Cardiology: H er updated medication list for this problem includes: Rosuvastatin 10 Mg Tablet (Rosuvastatin) Crestor 10 Mg Tablet (Rosuvastatin) ..... 1 tablet once a day Alexandra Beltrán MD Cardiology:This visi t has been a part of the consistent, comprehensive, and ongoing management of the chronic medical condition(s) listed above for the patient. BP today: 133/91 P rior BP: 130/84 (06/27/2024) Labs Reviewed: C reat: 0.93 (02/15/2021) C hol: 134 (08/22/2016) HDL: 49 (08/22/2016) LDL: 55 MG/DL (CALC) (08/22/2016) T (08/22/2016) Her updated medication list for this problem includes: Spironolactone 50 Mg Tablet (Spironolactone) ..... Take 1 tablet by mouth once a day Aspirin 81 Mg Tablet,delayed Release (dr/ec) (Aspirin) ..... Take 1 once a day Cardizem 30 Mg Tablet (Diltiazem hcl) ..... Take 1 tablet once a day Alexandra Beltrán MD Cardiology:This visi t has been a part of the consistent, comprehensive, and ongoing management of the chronic medical condition(s) listed above for the patient. Her updated medication list for this problem includes: Aspirin 81 Mg Tablet,delayed Release (dr/ec) (Aspirin) ..... Take 1 once a day Cardizem 30 Mg Tablet (Diltiazem hcl) ..... Take 1 tablet once a day Alexandra Beltrán MD Cardiology:This visi t has been a part of the consistent, comprehensive, and ongoing management of the chronic medical condition(s) listed above for the patient. Her updated medication list for this problem includes: Aspirin 81 Mg Tablet,delayed Release (dr/ec) (Aspirin) ..... Take 1 once a day Cardizem 30 Mg Tablet (Diltiazem hcl) ..... Take 1 tablet once a day Alexandra Beltrán MD Cardiology: H er updated medication list for this problem includes: Rosuvastatin 10 Mg Tablet (Rosuvastatin) Crestor 10 Mg Tablet (Rosuvastatin) ..... 1 tablet once a day [facility]: H er updated medication list for this problem includes: Trelegy Ellipta 100-62.5-25 Mcg Blister With Device (Czfdjnnxcgz-ilboejqpf-glqmrnny) Albuterol Sulfate 2.5 Mg/3 Ml (0.083 %) Solution For Nebulization (Albuterol sulfate) ..... Three times a day as needed Breo Ellipta 100-25 Mcg/dose Blister With Device (Fluticasone furoate-vilanterol) ..... Once a day [facility] Gay[facility] Cardiology: T he following medications were removed from the medication list: Lantus Solostar U-100 Insulin 100 Unit/ml (3 Ml) Insulin Pen (Insulin glargine) Her updated medication list for this problem includes: Ozempic 0.25 Mg Or 0.5 Mg (2 Mg/3 Ml) Pen Injector (Semaglutide) Aspirin 81 Mg Tablet,delayed Release (dr/ec) (Aspirin) ..... Take 1 once a day [facility] Cardiology: H er updated medication list for this problem includes: Aspirin 81 Mg Tablet,delayed Release (dr/ec) (Aspirin) ..... Take 1 once a day Cardizem 30 Mg Tablet (Diltiazem hcl) ..... Take 1 tablet once a day [facility] Cardiology: H er updated medication list for this problem includes: Spironolactone 50 Mg Tablet (Spironolactone) ..... Take 1 tablet by mouth once a day Aspirin 81 Mg Tablet,delayed Release (dr/ec) (Aspirin) ..... Take 1 once a day Cardizem 30 Mg Tablet (Diltiazem hcl) ..... Take 1 tablet once a day BP today: 130/84 P rior BP: 127/88 (12/21/2023) Labs Reviewed: C reat: 0.93 (02/15/2021) C hol: 134 (08/22/2016) HDL: 49 (08/22/2016) LDL: 55 MG/DL (CALC) (08/22/2016) T (08/22/2016) [facility] Cardiology: H er updated medication list for this problem includes: Aspirin 81 Mg Tablet,delayed Release (dr/ec) (Aspirin) ..... Take 1 once a day Cardizem 30 Mg Tablet (Diltiazem hcl) ..... Take 1 tablet [facility] a [facility]: T he following medications were removed from the medication list: Humalog Kwikpen Insulin 100 Unit/ml Insulin Pen (Insulin lispro) Her updated medication list for this problem includes: Ozempic 0.25 Mg Or 0.5 Mg (2 Mg/3 Ml) Pen Injector (Semaglutide) Lantus Solostar U-100 Insulin 100 Unit/ml (3 Ml) Insulin Pen (Insulin glargine) Aspirin 81 Mg Tablet,delayed Release (dr/ec) (Aspirin) ..... Take 1 once a day [facility]jude Gay[facility] Cardiology: H er updated medication list for this problem includes: Rosuvastatin 10 Mg Tablet (Rosuvastatin) Crestor 10 Mg Tablet (Rosuvastatin) ..... 1 tablet once a day [facility]: H er updated medication list for this problem includes: Trelegy Ellipta 100-62.5-25 Mcg Blister With Device (Kkrjavqeekp-urhhlnwij-fvjiyebf) Albuterol Sulfate 2.5 Mg/3 Ml (0.083 %) Solution For Nebulization (Albuterol sulfate) ..... Three times a day as needed Breo Ellipta 100-25 Mcg/dose Blister With Device (Fluticasone furoate-vilanterol) ..... Once a [facility] Cardiology: B P today: 127/88 P rior BP: 139/98 (11/23/2023) Labs Reviewed: C reat: 0.93 (02/15/2021) C hol: 134 (08/22/2016) HDL: 49 (08/22/2016) LDL: 55 MG/DL (CALC) (08/22/2016) T (08/22/2016) Her updated medication list for this problem includes: Spironolactone 50 Mg Tablet (Spironolactone) ..... Take 1 tablet by mouth once a day Aspirin 81 Mg Tablet,delayed Release (dr/ec) (Aspirin) ..... Take 1 once a day Cardizem 30 Mg Tablet (Diltiazem hcl) ..... Take 1 tablet once a day [facility]: B P today: 139/98 P rior BP: 142/87 (06/08/2023) Labs Reviewed: C reat: 0.93 (02/15/2021) C hol: 134 (08/22/2016) HDL: 49 (08/22/2016) LDL: 55 MG/DL (CALC) (08/22/2016) T (08/22/2016) Her updated medication list for this problem includes: Spironolactone 50 Mg Tablet (Spironolactone) ..... Take 1 tablet by mouth once a day Aspirin 81 Mg Tablet,delayed Release (dr/ec) (Aspirin) ..... Take 1 once a day Cardizem 30 Mg Tablet (Diltiazem hcl) ..... Take 1 tablet once a day [facility] Cardiology: H er updated medication list for this problem includes: Humalog Kwikpen Insulin 100 Unit/ml Insulin Pen (Insulin lispro) Lantus Solostar U-100 Insulin 100 Unit/ml (3 Ml) Insulin Pen (Insulin glargine) Lisinopril 5 Mg Tablet (Lisinopril) ..... Twice a day Aspirin 81 Mg Tablet,delayed Release (dr/ec) (Aspirin) ..... Take 1 once a day [facility]:Pt denies any CP or SOB. H er updated medication list for this problem includes: Aspirin 81 Mg Tablet,delayed Release (dr/ec) (Aspirin) ..... Take 1 once a day Cardizem 30 Mg Tablet (Diltiazem hcl) ..... Take 1 tablet [facility] a [facility]: H er updated medication list for this problem includes: Rosuvastatin 10 Mg Tablet (Rosuvastatin) Crestor 10 Mg Tablet (Rosuvastatin) ..... 1 tablet once a day [facility] Cardiology: H er updated medication list for this problem includes: Trelegy Ellipta 100-62.5-25 Mcg Blister With Device (Nfiuxmeymem-rtzlsxvwq-lrmskggb) Albuterol Sulfate 2.5 Mg/3 Ml (0.083 %) Solution For Nebulization (Albuterol sulfate) ..... Three times a day as needed Breo Ellipta 100-25 Mcg/dose Blister With Device (Fluticasone furoate-vilanterol) ..... Once a day [facility] Card[facility] Card[facility] Card[facility] Follow up [facility] Follow up [facility] Follow up [facility] Follow up [facility] Follow up [facility] Follow up Alexandra antony MD Cardiology Follow up Alexandra antony MD Cardiology Follow up Alexandra antony MD Cardiology Follow up Alexandra antony MD Cardiology Follow up Alexandra antony MD Cardiology Follow up Alexandra antony MD Cardiology - bill and letter Ted Beltrán MD Cardiology - bill and letter Ted Beltrán MD Cardiology - bill and letter Ted Beltrán MD Cardiology - bill and letter Ted Beltrán MD Cardiology Alexandra Beltrán MD Cardiology Alexandra Beltrán MD Cardiology [facility]: S table. Continue medical therapy [facility]: B P today: 110/73 P rior BP: 121/81 (04/30/2020) Labs Reviewed: C reat: 1.05 (08/22/2016) C hol: 134 (08/22/2016) HDL: 49 (08/22/2016) LDL: 55 MG/DL (CALC) (08/22/2016) T (08/22/2016) Her updated medication list for this problem includes: Aspirin 81 Mg Oral Tablet Delayed Release (Aspirin) ..... Take one pill a day Triamterene-hctz 37.5-25 Mg Oral Tablet (Triamterene-hctz) ..... Once daily Cardizem 30 Mg Oral Tablet (Diltiazem hcl) ..... Take 1 tablet once a day. Lisinopril 5 Mg Oral Tablet (Lisinopril) ..... One tablet at night [facility]:Stable. Continue medi tammie therapy [facility]:Will decr ease Lisinopril from 5mg BID to once a day. The pt was experiencing mental fatigue on 5mg BID. B P today: 121/81 P rior BP: 110/80 (05/02/2019) Labs Reviewed: C reat: 1.05 (08/22/2016) C hol: 134 (08/22/2016) HDL: 49 (08/22/2016) LDL: 55 MG/DL (CALC) (08/22/2016) T (08/22/2016) [facility] Alexandra Beltrán MD Cardiology Alexandra Beltrán MD Cardiology Alexandra Beltrán MD Cardiology Alexandra Beltrán MD Cardiology Alexandra Beltrán MD Cardiology Follow up Alexandra antony MD Cardiology Follow up Alexandra antony MD Cardiology Follow up Alexandra antony MD Cardiology Follow up Alexandra antony MD Cardiology Follow up Alexandra antony MD Cardiology follow up Alexandra antony MD Cardiology follow up Alexandra antony MD Cardiology follow up Alexandra antony MD Cardiology follow up Tediben antony MD Cardiology follow up Alexandra antony MD Cardiology Alexandra Beltrán MD Cardiology:Denies ch est pain. S tress test in 2017 showed reversible inf wall ischemia which is not new. S he is clear for surgery from a cardiovascular standpoint. Low risk. Alexandra Beltrán MD Cardiology: B P today: 120/80 P rior BP: 108/68 (05/03/2017) Labs Reviewed: C reat: 1.05 (08/22/2016) C hol: 134 (08/22/2016) HDL: 49 (08/22/2016) LDL: 55 MG/DL (CALC) (08/22/2016) T (08/22/2016) Alexandra Beltrán MD Cardiology Alexandra Beltrán MD Cardiology follow up Alexandra antony MD Cardiology follow up Alexandra antony MD Cardiology follow up Toniben antony MD Cardiology follow up Toniben antony MD Cardiology follow up Toniben antony MD Cardiology Follow u p Toniya Lawson haile MD Cardiology Follow u p Toniya Lawson haile MD Cardiology Follow u p Toniya Lawson haile MD Cardiology Follow u p:patient is scheduled for a bx Alexandra Beltrán MD Cardiology Follow u p Tediben haile MD Cardiology Alexandra Beltrán MD Cardiology Alexandra Beltrán MD Cardiology Alexandra Beltrán MD Cardiology Alexandra Beltrán MD Cardiology Alexandra Beltrán MD Cardiology Alexandra Beltrán MD Cardiology Alexandra Beltrán MD Cardiology Alexandra Beltrán MD Cardiology Alexandra Beltrán MD Cardiology Alexandra Beltrán MD Cardiology Alexandra Beltrán MD Cardiology Alexandra Beltrán MD Cardiology Alexandra Beltrán MD Cardiology Alexandra Beltrán MD Cardiology Alexandra Beltrán MD Cardiology Alexandra Beltrán MD fu: H er updated medication list for this problem includes: Lisinopril 5 Mg Tabs (Lisinopril) ..... Twice daily Toprol Xl 25 Mg Tb24 (Metoprolol succinate) ..... One tab daily Triamterene-hctz 37.5-25 Mg Tabs (Triamterene-hctz) ..... Once daily Alexandra Beltrán MD follow up: H er updated medication list for this problem includes: Toprol Xl 25 Mg Tb24 (Metoprolol succinate) ..... One half tab daily Lisinopril 5 Mg Tabs (Lisinopril) ..... Once a day Plavix 75 Mg Tabs (Clopidogrel bisulfate) ..... Once every other day Nitrolingual 0.4 Mg/spray Tl Soln (Nitroglycerin) ..... As needed Crestor 10 Mg Tabs (Rosuvastatin calcium) ..... One tab. daily Orders: E KG (CPT-26298) BP today: 126/79 Prior BP: 128/85 (08/16/2012) N uclear Stress Findings: 1. Regadenoson mediated myocardial perfusion study 2 . Normal left ventricular systolic function with a calculated ejection fraction of 51%. 3 . Myocardial scintigraphy demonstrates a small reversible inferior wall defect. Patient has a known rca occlusion since 2000 GC (06/03/2010) C ardiac Cath: MIldly decreased LVEDP. 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 T otol closure of the RCA. C oronary angioplasty to right coronary artery due to failure to cross the closed vessel. (12/18/2000) C HOL: 141 (05/24/2012) LDL: 60 (05/24/2012) HDL: 59 (01/07/2011) T (01/07/2011) B UN: 23 (01/07/2011) Creat: 1.11 (05/24/2012) Glucose: 90 (01/07/2011) N a+: 138 (05/24/2012) K+: 3.3 (05/24/2012) Cl: 104 (01/07/2011) Alexandra Beltrán MD follow up: H er updated medication list for this problem includes: Toprol Xl 25 Mg Tb24 (Metoprolol succinate) ..... One half tab daily Lisinopril 5 Mg Tabs (Lisinopril) ..... Once a day Triamterene-hctz 37.5-25 Mg Tabs (Triamterene-hctz) ..... Once daily BP today: 126/79 P rior BP: 128/85 (08/16/2012) Labs Reviewed: C reat: 1.11 (05/24/2012) C hol: 141 (05/24/2012) HDL: 59 (01/07/2011) LDL: 60 (05/24/2012) T (01/07/2011) Alexandra Beltrán MD follow up: L abs Reviewed: B UN: 23 (01/07/2011) Cr: 1.11 (05/24/2012) C a++: 9.9 (01/07/2011) T P: 6.5 (01/07/2011) Alb: 4.1 (01/07/2011) Alexandra Beltrán MD follow up: H er updated medication list for this problem includes: Crestor 10 Mg Tabs (Rosuvastatin calcium) ..... One tab. daily BP today: 128/85 Prior BP: 114/85 (01/18/2012) C HOL: 174 (01/07/2011) LDL: 72 (01/07/2011) HDL: 59 (01/07/2011) T (01/07/2011) Alexandra Beltrán MD follow up: H er updated medication list for this problem includes: Toprol Xl 25 Mg Tb24 (Metoprolol succinate) ..... One half tab daily Lisinopril 5 Mg Tabs (Lisinopril) ..... Once a day Plavix 75 Mg Tabs (Clopidogrel bisulfate) ..... Once every other day Nitrolingual 0.4 Mg/spray Tl Soln (Nitroglycerin) ..... As needed Crestor 10 Mg Tabs (Rosuvastatin calcium) ..... One tab. daily BP today: 128/85 Prior BP: 114/85 (01/18/2012) N uclear Stress Findings: 1. Regadenoson mediated myocardial perfusion study 2 . Normal left ventricular systolic function with a calculated ejection fraction of 51%. 3 . Myocardial scintigraphy demonstrates a small reversible inferior wall defect. Patient has a known rca occlusion since 2000 GC (06/03/2010) Cardiac Cath: MIldly decreased LVEDP. 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 T otol closure of the RCA. C oronary angioplasty to right coronary artery due to failure to cross the closed vessel. (12/18/2000) C HOL: 174 (01/07/2011) LDL: 72 (01/07/2011) HDL: 59 (01/07/2011) T (01/07/2011) B UN: 23 (01/07/2011) Creat: 1.07 (01/07/2011) Glucose: 90 (01/07/2011) N a+: 143 (01/07/2011) K+: 4.1 (01/07/2011) Cl: 104 (01/07/2011) Alexandra Beltrán MD follow up: H er updated medication list for this problem includes: Toprol Xl 25 Mg Tb24 (Metoprolol succinate) ..... One half tab daily Lisinopril 5 Mg Tabs (Lisinopril) ..... Once a day Triamterene-hctz 37.5-25 Mg Tabs (Triamterene-hctz) ..... Once daily BP today: 128/85 P rior BP: 114/85 (01/18/2012) Labs Reviewed: C reat: 1.07 (01/07/2011) C hol: 174 (01/07/2011) HDL: 59 (01/07/2011) LDL: 72 (01/07/2011) T (01/07/2011) Alexandra Beltrán MD follow up: L abs Reviewed: B UN: 23 (01/07/2011) Cr: 1.07 (01/07/2011) C a++: 9.9 (01/07/2011) T P: 6.5 (01/07/2011) Alb: 4.1 (01/07/2011) Alexandra Beltrán MD follow up: L abs Reviewed: B UN: 23 (01/07/2011) Cr: 1.07 (01/07/2011) C a++: 9.9 (01/07/2011) T P: 6.5 (01/07/2011) Alb: 4.1 (01/07/2011) Alexandra Beltrán MD follow up: T he following medications were removed from the medication list: Aerobid Aers (Flunisolide aers) ..... 2 puffs twice daily Her updated medication list for this problem includes: Albuterol Sulfate Nebu (Albuterol sulfate nebu) ..... As needed Qvar 80 Mcg/act Aers (Beclomethasone dipropionate) ..... Twice a day Ventolin Hfa Aers (Albuterol sulfate aers) ..... 2 puffs 4x day as needed Orders: E KG (CPT-[id number]) BP today: 114/85 Prior BP: 122/72 (07/13/2011) Pulmonary Functions Reviewed: O 2 sat: 99 (01/18/2012) Alexandra Beltrán MD follow up: H er updated medication list for this problem includes: Crestor 10 Mg Tabs (Rosuvastatin calcium) ..... One tab. daily BP today: 114/85 Prior BP: 122/72 (07/13/2011) C HOL: 174 (01/07/2011) LDL: 72 (01/07/2011) HDL: 59 (01/07/2011) T (01/07/2011) Alexandra Beltrán MD follow up: T he following medications were removed from the medication list: Aspirin Ec 81 Mg Tbec (Aspirin) ..... Once every other day Her updated medication list for this problem includes: Toprol Xl 25 Mg Tb24 (Metoprolol succinate) ..... One half tab daily Lisinopril 5 Mg Tabs (Lisinopril) ..... Once a day Triamterene-hctz 37.5-25 Mg Tabs (Triamterene-hctz) ..... Once daily BP today: 114/85 P rior BP: 122/72 (07/13/2011) Labs Reviewed: C reat: 1.07 (01/07/2011) C hol: 174 (01/07/2011) HDL: 59 (01/07/2011) LDL: 72 (01/07/2011) T (01/07/2011) Alexandra Beltrán MD follow up: T he following medications were removed from the medication list: Aspirin Ec 81 Mg Tbec (Aspirin) ..... Once every other day Her updated medication list for this problem includes: Toprol Xl 25 Mg Tb24 (Metoprolol succinate) ..... One half tab daily Lisinopril 5 Mg Tabs (Lisinopril) ..... Once a day Plavix 75 Mg Tabs (Clopidogrel bisulfate) ..... Once every other day Nitrolingual 0.4 Mg/spray Tl Soln (Nitroglycerin) ..... As needed Crestor 10 Mg Tabs (Rosuvastatin calcium) ..... One tab. daily BP today: 114/85 Prior BP: 122/72 (07/13/2011) N uclear Stress Findings: 1. Regadenoson mediated myocardial perfusion study 2 . Normal left ventricular systolic function with a calculated ejection fraction of 51%. 3 . Myocardial scintigraphy demonstrates a small reversible inferior wall defect. Patient has a known rca occlusion since 2000 GC (06/03/2010) C ardiac Cath: MIldly decreased LVEDP. 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 T otol closure of the RCA. C oronary angioplasty to right coronary artery due to failure to cross the closed vessel. (12/18/2000) C HOL: 174 (01/07/2011) LDL: 72 (01/07/2011) HDL: 59 (01/07/2011) T (01/07/2011) B UN: 23 (01/07/2011) Creat: 1.07 (01/07/2011) Glucose: 90 (01/07/2011) N a+: 143 (01/07/2011) K+: 4.1 (01/07/2011) Cl: 104 (01/07/2011) Alexandra Beltrán MD follow up: H er updated medication list for this problem includes: Crestor 10 Mg Tabs (Rosuvastatin calcium) ..... One tab. daily BP today: 122/72 Prior BP: 143/91 (01/13/2011) C HOL: 174 (01/07/2011) LDL: 72 (01/07/2011) HDL: 59 (01/07/2011) T (01/07/2011) Alexandra Beltrán MD follow up: H er updated medication list for this problem includes: Toprol Xl 25 Mg Tb24 (Metoprolol succinate) ..... One half tab daily Lisinopril 10 Mg Tabs (Lisinopril) ..... 1 tab daily Plavix 75 Mg Tabs (Clopidogrel bisulfate) ..... Once every other day Aspirin Ec 81 Mg Tbec (Aspirin) ..... Once every other day Nitrolingual 0.4 Mg/spray Tl Soln (Nitroglycerin) ..... As needed Crestor 10 Mg Tabs (Rosuvastatin calcium) ..... One tab. daily BP today: 122/72 Prior BP: 143/91 (01/13/2011) N uclear Stress Findings: 1. Regadenoson mediated myocardial perfusion study 2 . Normal left ventricular systolic function with a calculated ejection fraction of 51%. 3 . Myocardial scintigraphy demonstrates a small reversible inferior wall defect. Patient has a known rca occlusion since 2000 GC (06/03/2010) C ardiac Cath: MIldly decreased LVEDP. 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 T otol closure of the RCA. C oronary angioplasty to right coronary artery due to failure to cross the closed vessel. (12/18/2000) C HOL: 174 (01/07/2011) LDL: 72 (01/07/2011) HDL: 59 (01/07/2011) T (01/07/2011) B UN: 23 (01/07/2011) Creat: 1.07 (01/07/2011) Glucose: 90 (01/07/2011) N a+: 143 (01/07/2011) K+: 4.1 (01/07/2011) Cl: 104 (01/07/2011) Alexandra Beltrán MD follow up: H er updated medication list for this problem includes: Toprol Xl 25 Mg Tb24 (Metoprolol succinate) ..... One half tab daily Lisinopril 10 Mg Tabs (Lisinopril) ..... 1 tab daily Plavix 75 Mg Tabs (Clopidogrel bisulfate) ..... Once every other day Aspirin Ec 81 Mg Tbec (Aspirin) ..... Once every other day Nitrolingual 0.4 Mg/spray Tl Soln (Nitroglycerin) ..... As needed Crestor 10 Mg Tabs (Rosuvastatin calcium) ..... One tab. daily BP today: 122/72 Prior BP: 143/91 (01/13/2011) N uclear Stress Findings: 1. Regadenoson mediated myocardial perfusion study 2 . Normal left ventricular systolic function with a calculated ejection fraction of 51%. 3 . Myocardial scintigraphy demonstrates a small reversible inferior wall defect. Patient has a known rca occlusion since 2000 GC (06/03/2010) C ardiac Cath: MIldly decreased LVEDP. 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 T otol closure of the RCA. C oronary angioplasty to right coronary artery due to failure to cross the closed vessel. (12/18/2000) C HOL: 174 (01/07/2011) LDL: 72 (01/07/2011) HDL: 59 (01/07/2011) T (01/07/2011) B UN: 23 (01/07/2011) Creat: 1.07 (01/07/2011) Glucose: 90 (01/07/2011) N a+: 143 (01/07/2011) K+: 4.1 (01/07/2011) Cl: 104 (01/07/2011) Alexandra Beltrán MD follow up: H er updated medication list for this problem includes: Toprol Xl 25 Mg Tb24 (Metoprolol succinate) ..... One half tab daily Lisinopril 10 Mg Tabs (Lisinopril) ..... 1 tab daily Aspirin Ec 81 Mg Tbec (Aspirin) ..... Once every other day Triamterene-hctz 37.5-25 Mg Tabs (Triamterene-hctz) ..... Once daily BP today: 122/72 P rior BP: 143/91 (01/13/2011) L abs Reviewed: C reat: 1.07 (01/07/2011) C hol: 174 (01/07/2011) HDL: 59 (01/07/2011) LDL: 72 (01/07/2011) T (01/07/2011) Alexandra Beltrán MD follow up: H er updated medication list for this problem includes: Enalapril Maleate 20 Mg Tabs (Enalapril maleate) ..... 1 tablet by mouth daily Aspirin 325 Mg Tabs (Aspirin) ..... 1 tablet by mouth daily Alexandra Beltrán MD follow up: H er updated medication list for this problem includes: Crestor 10 Mg Tabs (Rosuvastatin calcium) ..... One tab. daily BP today: 143/91 Prior BP: 132/82 (06/02/2010) Alexandra Beltrán MD follow up: H er updated medication list for this problem includes: Toprol Xl 25 Mg Tb24 (Metoprolol succinate) ..... One half tab daily Lisinopril 10 Mg Tabs (Lisinopril) ..... 1 tab daily Aspirin Ec 81 Mg Tbec (Aspirin) ..... Once every other day Triamterene-hctz 37.5-25 Mg Tabs (Triamterene-hctz) ..... Once daily BP today: 143/91 P rior BP: 132/82 (06/02/2010) Alexandra Beltrán MD follow up: H er updated medication list for this problem includes: Toprol Xl 25 Mg Tb24 (Metoprolol succinate) ..... One half tab daily Lisinopril 10 Mg Tabs (Lisinopril) ..... 1 tab daily Plavix 75 Mg Tabs (Clopidogrel bisulfate) ..... Once every other day Aspirin Ec 81 Mg Tbec (Aspirin) ..... Once every other day Nitrolingual 0.4 Mg/spray Tl Soln (Nitroglycerin) ..... As needed Crestor 10 Mg Tabs (Rosuvastatin calcium) ..... One tab. daily BP today: 143/91 Prior BP: 132/82 (06/02/2010) N uclear Stress Findings: 1. Regadenoson mediated myocardial perfusion study 2 . Normal left ventricular systolic function with a calculated ejection fraction of 51%. 3 . Myocardial scintigraphy demonstrates a small reversible inferior wall defect. Patient has a known rca occlusion since 2000 GC (06/03/2010) C ardiac Cath: MIldly decreased LVEDP. 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 T otol closure of the RCA. C oronary angioplasty to right coronary artery due to failure to cross the closed vessel. (12/18/2000) Alexandra Beltrán MD surgery clearance : H er updated medication list for this problem includes: Aerobid Aers (Flunisolide aers) ..... 2 puffs twice daily Ventolin Hfa 108 (90 Base) Mcg/act Aers (Albuterol sulfate) ..... 2 puffs four times daily as needed BP today: 132/82 Prior BP: 132/95 (07/12/2009) Pulmonary Functions Reviewed: O 2 sat: 92 (07/12/2009) Alexandra Beltrán MD surgery clearance : H er updated medication list for this problem includes: Crestor 10 Mg Tabs (Rosuvastatin calcium) ..... One tab. daily BP today: 132/82 Prior BP: 132/95 (07/12/2009) Alexandra Beltrán MD surgery clearance : H er updated medication list for this problem includes: Crestor 10 Mg Tabs (Rosuvastatin calcium) ..... One tab. daily BP today: 132/82 Prior BP: 132/95 (07/12/2009) Alexandra Beltrán MD surgery clearance : H er updated medication list for this problem includes: Toprol Xl 50 Mg Tb24 (Metoprolol succinate) ..... One tab daily Lisinopril 40 Mg Tabs (Lisinopril) ..... One tab. daily Plavix 75 Mg Tabs (Clopidogrel bisulfate) ..... Once every other day Aspirin Ec 81 Mg Tbec (Aspirin) ..... Once every other day Nitrolingual 0.4 Mg/spray Tl Soln (Nitroglycerin) ..... As needed Crestor 10 Mg Tabs (Rosuvastatin calcium) ..... One tab. daily BP today: 132/82 Prior BP: 132/95 (07/12/2009) N uclear Stress Findings: EF - 60%. E xercise EKG shows 1mm ST segment depression consistent with ischemia. F air exercise tolerance. T est was terminated due to fatigue. M oderate sized reversible inferior wall defect consistent with ischemia. (07/03/2008) C ardiac Cath: MIldly decreased LVEDP. 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 T otol closure of the RCA. C oronary angioplasty to right coronary artery due to failure to cross the closed vessel. (12/18/2000) Alexandra Beltrán MD surgery clearance : H er updated medication list for this problem includes: Toprol Xl 50 Mg Tb24 (Metoprolol succinate) ..... One tab daily Lisinopril 40 Mg Tabs (Lisinopril) ..... One tab. daily Plavix 75 Mg Tabs (Clopidogrel bisulfate) ..... Once every other day Aspirin Ec 81 Mg Tbec (Aspirin) ..... Once every other day Nitrolingual 0.4 Mg/spray Tl Soln (Nitroglycerin) ..... As needed Crestor 10 Mg Tabs (Rosuvastatin calcium) ..... One tab. daily BP today: 132/82 Prior BP: 132/95 (07/12/2009) N uclear Stress Findings: EF - 60%. E xercise EKG shows 1mm ST segment depression consistent with ischemia. F air exercise tolerance. T est was terminated due to fatigue. M oderate sized reversible inferior wall defect consistent with ischemia. (07/03/2008) C ardiac Cath: MIldly decreased LVEDP. 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 T otol closure of the RCA. C oronary angioplasty to right coronary artery due to failure to cross the closed vessel. (12/18/2000) Alexandra Beltrán MD surgery clearance : H er updated medication list for this problem includes: Toprol Xl 50 Mg Tb24 (Metoprolol succinate) ..... One tab daily Lisinopril 40 Mg Tabs (Lisinopril) ..... One tab. daily Aspirin Ec 81 Mg Tbec (Aspirin) ..... Once every other day Triamterene-hctz 37.5-25 Mg Tabs (Triamterene-hctz) ..... Once daily BP today: 132/82 P rior BP: 132/95 (07/12/2009) Alexandra Beltrán MD 6 month follow-up wi th echo: H er updated medication list for this problem includes: Crestor 10 Mg Tabs (Rosuvastatin calcium) ..... One tab. daily BP today: 132/95 Prior BP: 172/112 (01/11/2009) Alexandra Beltrán MD 6 month follow-up with echo Brian Beltrán MD 6 month follow-up wi th echo: H er updated medication list for this problem includes: Toprol Xl 50 Mg Tb24 (Metoprolol succinate) ..... One tab daily Lisinopril 40 Mg Tabs (Lisinopril) ..... One tab. daily Plavix 75 Mg Tabs (Clopidogrel bisulfate) ..... Once every other day Aspirin Ec 81 Mg Tbec (Aspirin) ..... Once every other day Nitrolingual 0.4 Mg/spray Tl Soln (Nitroglycerin) ..... As needed Crestor 10 Mg Tabs (Rosuvastatin calcium) ..... One tab. daily BP today: 132/95 Prior BP: 172/112 (01/11/2009) N uclear Stress Findings: EF - 60%. E xercise EKG shows 1mm ST segment depression consistent with ischemia. F air exercise tolerance. T est was terminated due to fatigue. M oderate sized reversible inferior wall defect consistent with ischemia. (07/03/2008) C ardiac Cath: MIldly decreased LVEDP. 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 T otol closure of the RCA. C oronary angioplasty to right coronary artery due to failure to cross the closed vessel. (12/18/2000) Alexandra Beltrán MD 6 month follow-up wi th echo: H er updated medication list for this problem includes: Toprol Xl 50 Mg Tb24 (Metoprolol succinate) ..... One tab daily Lisinopril 40 Mg Tabs (Lisinopril) ..... One tab. daily Plavix 75 Mg Tabs (Clopidogrel bisulfate) ..... Once every other day Aspirin Ec 81 Mg Tbec (Aspirin) ..... Once every other day Nitrolingual 0.4 Mg/spray Tl Soln (Nitroglycerin) ..... As needed Crestor 10 Mg Tabs (Rosuvastatin calcium) ..... One tab. daily Orders: E KG ([id number]) BP today: 132/95 Prior BP: 172/112 (01/11/2009) N uclear Stress Findings: EF - 60%. E xercise EKG shows 1mm ST segment depression consistent with ischemia. F air exercise tolerance. T est was terminated due to fatigue. M oderate sized reversible inferior wall defect consistent with ischemia. (07/03/2008) C ardiac Cath: MIldly decreased LVEDP. 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 T otol closure of the RCA. C oronary angioplasty to right coronary artery due to failure to cross the closed vessel. (12/18/2000) Alexandra Beltrán MD FU: room 3: H er updated medication list for this problem includes: Toprol Xl 100 Mg Tb24 (Metoprolol succinate) ..... Daily Lisinopril 30 Mg Tabs (Lisinopril) ..... Daily Spironolactone 50 Mg Tabs (Spironolactone) ..... Daily Aspirin Ec Lo-dose Tbec (Aspirin tbec) ..... 81 mg daily BP today: 172/112 P rior BP: 146/101 (07/13/2008) Alexandra Beltrán MD FU: room 3 Alexandra Beltrán MD FU: room 3: H er updated medication list for this problem includes: Zetia 10 Mg Tabs (Ezetimibe) ..... Q hs BP today: 172/112 Prior BP: 146/101 (07/13/2008) Alexandra Beltrán MD FU: room 3: H er updated medication list for this problem includes: Theophylline Cr 200 Mg Tb12 (Theophylline) ..... Bid Albuterol Aers (Albuterol aers) ..... 2 puffs qid Atrovent Hfa Aers (Ipratropium bromide hfa aers) ..... 2 puffs qid Aerobid Aers (Flunisolide aers) ..... 2 puffs qid BP today: 172/112 Prior BP: 146/101 (07/13/2008) Pulmonary Functions Reviewed: O 2 sat: 97 (01/11/2009) Alexandra Beltrán MD FU: room 3: H er updated medication list for this problem includes: Toprol Xl 100 Mg Tb24 (Metoprolol succinate) ..... Daily Lisinopril 30 Mg Tabs (Lisinopril) ..... Daily Plavix 75 Mg Tabs (Clopidogrel bisulfate) ..... Daily Zetia 10 Mg Tabs (Ezetimibe) ..... Q hs Aspirin Ec Lo-dose Tbec (Aspirin tbec) ..... 81 mg daily BP today: 172/112 Prior BP: 146/101 (07/13/2008) N uclear Stress Findings: EF - 60%. E xercise EKG shows 1mm ST segment depression consistent with ischemia. F air exercise tolerance. T est was terminated due to fatigue. M oderate sized reversible inferior wall defect consistent with ischemia. (07/03/2008) C ardiac Cath: MIldly decreased LVEDP. 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 T otol closure of the RCA. C oronary angioplasty to right coronary artery due to failure to cross the closed vessel. (12/18/2000) Alexandra Beltrán MD FU: room 3: H er updated medication list for this problem includes: Toprol Xl 100 Mg Tb24 (Metoprolol succinate) ..... Daily Lisinopril 30 Mg Tabs (Lisinopril) ..... Daily Plavix 75 Mg Tabs (Clopidogrel bisulfate) ..... Daily Zetia 10 Mg Tabs (Ezetimibe) ..... Q hs Aspirin Ec Lo-dose Tbec (Aspirin tbec) ..... 81 mg daily BP today: 172/112 Prior BP: 146/101 (07/13/2008) N uclear Stress Findings: EF - 60%. E xercise EKG shows 1mm ST segment depression consistent with ischemia. F air exercise tolerance. T est was terminated due to fatigue. M oderate sized reversible inferior wall defect consistent with ischemia. (07/03/2008) C ardiac Cath: MIldly decreased LVEDP. 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 T otol closure of the RCA. C oronary angioplasty to right coronary artery due to failure to cross the closed vessel. (12/18/2000) Alexandra Beltrán MD ROUTINE: H er updated medication list for this problem includes: Theophylline Cr 200 Mg Tb12 (Theophylline) ..... Bid Albuterol Aers (Albuterol aers) ..... 2 puffs qid Atrovent Hfa Aers (Ipratropium bromide hfa aers) ..... 2 puffs qid Aerobid Aers (Flunisolide aers) ..... 2 puffs qid BP today: 146/101 Prior BP: / () Pulmonary Functions Reviewed: O 2 sat: 99 (07/13/2008) Alexandra Beltrán MD ROUTINE: H er updated medication list for this problem includes: Zetia 10 Mg Tabs (Ezetimibe) ..... Q hs Alexandra Beltrán MD ROUTINE: H er updated medication list for this problem includes: Zetia 10 Mg Tabs (Ezetimibe) ..... Q hs BP today: 146/101 Prior BP: / () Alexandra Beltrán MD ROUTINE Alexandra Beltrán MD ROUTINE: H er updated medication list for this problem includes: Toprol Xl 100 Mg Tb24 (Metoprolol succinate) ..... Daily Lisinopril 30 Mg Tabs (Lisinopril) ..... Daily Plavix 75 Mg Tabs (Clopidogrel bisulfate) ..... Daily Zetia 10 Mg Tabs (Ezetimibe) ..... Q hs Aspirin Ec Lo-dose Tbec (Aspirin tbec) ..... 81 mg daily BP today: 146/101 Prior BP: / () N uclear Stress Findings: EF - 60%. E xercise EKG shows 1mm ST segment depression consistent with ischemia. F air exercise tolerance. T est was terminated due to fatigue. M oderate sized reversible inferior wall defect consistent with ischemia. (07/03/2008) C ardiac Cath: MIldly decreased LVEDP. 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 T otol closure of the RCA. C oronary angioplasty to right coronary artery due to failure to cross the closed vessel. (12/18/2000) Alexandra Beltrán MD Date Name Complete Echo Complete Echo Complete Echo B TYPE NATRIURETIC P EPTIDE (BNP) CBC (H/H, RBC, INDIC ES, WBC, PLT) COMPREHENSIVE METABO LIC PANEL, W/EGFR Complete Echo Complete Echo HISTORY OF PROCEDURES Procedure Date Procedure Name Provider Procedure Notes S tatus Complex e/m visit add on Alexandra Beltrán MD completed EKG Alexandra Beltrán MD completed Complex e/m visit add on Alexandra Beltrán MD completed EKG Alexandra Beltrán MD completed EKG Alexandra Beltrán MD completed EKG Alexandra Beltrán MD completed EKG Alexandra Beltrán MD completed EKG Alexandra Beltrán MD completed SNOMED-CT: 795386113 [id number] Current Medications Documented Alexandra Beltrán MD completed SNOMED-CT: 61453310 Physical Exam, Performed: Pulse Exam of Foot Alexandra Beltrán MD completed EKG Alexandra Beltrán MD completed SNOMED-CT: 247297291 483114 Current Medications Documented Alexandra Beltrán MD completed SNOMED-CT: 72511014 Physical Exam, Performed: Pulse Exam of Foot Alexandra Beltrán MD completed SNOMED-CT: 240325625 952709 Current Medications Documented Alexandra Beltrán MD completed Stress EKG Alexandra Beltrán MD completed Regadenoson, 4 units Alexandra Beltrán MD completed Cardiolite, 2 units Alexandra Beltrán MD completed SPECT Images Alexandra Beltrán MD complet ed SNOMED-CT: 15947982 Physical Exam, Performed: Pulse Exam of Foot Alexandra Beltrán MD completed SNOMED-CT: 315709027 765509 Current Medications Documented Alexandra Beltrán MD completed SNOMED-CT: 41346542 Physical Exam, Performed: Pulse Exam of Foot Alexandra Beltrán MD completed SNOMED-CT: 461658248 917572 Current Medications Documented Alexandra Beltrán MD completed SNOMED-CT: 79314618 Physical Exam, Performed: Pulse Exam of Foot Alexandra Beltrán MD completed EKG Alexandra Beltrán MD completed SNOMED-CT: 060930380 236343 Current Medications Documented Alexandra Beltrán MD completed EKG Alexandra Beltrán MD completed EKG Alexandra Beltrán MD completed EKG Alexandra Beltrán MD completed EKG Alexandra Beltrán MD completed
--- OUTSIDE RECORDS SUMMARY | 2025-01-01 07:54 | XMS_ITS | Patient Health Record ---
Author Organization [facility] Address [address] [place], [place] [id number] Care Team Providers Care Financial Director Name Role Phone ODALYS ESPINOSA MD Primary Care Provider Darío Garcia Unavailable [phone] ALLERGIES Allergen (clinical drug ingredient) Drug/Non Drug Allergy documented on EMR Reaction Allergy Type Onset Date Status penicillin effects breathing Drug Allergy Active doxycycline doxycycline effects breathing Drug Allergy Active codeine codeine headaches Drug Allergy Active Levaquin destroys good bacteria in colon Drug Allergy Active furosemide Lasix depletes potassium Drug Allergy Active REASON FOR REFERRAL No Information MEDICATIONS Medication SIG (Take, Route, Frequency, Duration) Notes Start Date End Date Status alprazolam .5 1 tab(s) orally tid for 10 day(s) 09/20/2024 09/20/2024 Active Crestor 10 mg 1 tab(s) orally once a day (at bedtime) for 30 day(s) 09/20/2024 09/20/2024 Active Darvocet-N 100 napsylate 650 mg-100 mg 1 tab(s) orally qid for 5 day(s) 09/20/2024 09/20/2024 Active Plavix 75 mg 1 tab(s) orally once a day for 30 day(s) 09/20/2024 09/20/2024 Active Toprol-XL 100 mg 1 tab(s) orally once a day for 30 day(s) 09/20/2024 09/20/2024 Active Noritate 1% 1 mary applied topica lly once a day for 30 day(s) 09/20/2024 09/20/2024 Active calcium-vitamin D 600 mg 1 tab(s) orally for 30 day(s) 09/20/2024 09/20/2024 Active hydrochlorothiazide-triam terene 25 mg-37.5 mg 1 cap(s) orally once a day for 30 day(s) 09/20/2024 09/20/2024 Active lisinopril 40 mg 1 tab(s) orally once a day for 30 day(s) 09/20/2024 09/20/2024 Active Pepcid 20 mg 1 tab(s) orally bk y,prn for 30 day(s) 09/20/2024 09/20/2024 Active Ventolin HFA CFC free 90 mcg/inh 2 puff(s) inhaled 4 times a day for 30 day(s) 09/20/2024 09/20/2024 Active aspirin 81 mg 1 tab(s) orally once a day for 30 day(s) 09/20/2024 09/20/2024 Active Nitrolingual 0.4 mg 1 spray(s) sublingua lly prn for 3 dose(s) 09/20/2024 09/20/2024 Active Astelin 137 mcg/inh 1 spray(s) intranasa lly 2 times a day for 30 day(s) 09/20/2024 09/20/2024 Active AeroBid-M 250 mcg/inh 2 puff(s) inhaled 2 times a day for 30 day(s) 09/20/2024 09/20/2024 Active omega fish oil 09/20/2024 09/20/2024 Act vee SOCIAL HISTORY Sex Assigned At : Social History Observation Description Sex Assigned At Unknown PROBLEMS Problem Type ICD Code Onset Dates Problem Status W/U Status Risk SNOMED Code Notes Problem POLYARTHRITIS (716.59) Active confirmed Polyarthritis (231999987) Problem Osteoarthrosis (715.09) Active confirmed Osteoarthrosis (457722679) Problem 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 Porp hyria (836558555) PLAN OF TREATMENT No Information Insurance Providers Payer Name Payer Address Payer Phone Subscriber Number Group Number Insured Name Patient Relationship to Insured Coverage Start Date Coverage End Date [facility] [address] [place] [phone] [id number] AZEB LAINEZ Spouse - patient is the spouse of the insured 0 MEDICAL (GENERAL) HISTORY Medical History History ICD Code bruises easily migraine headache cataracts blurred vision ear ache sinus problems fibrocystic lumps in breasts hypertension swelling of ankles/feet pneumonia asthma bronchitis heart attack bloating gastritis Lack of bladder control frequent urination anxiety depression Surgical History Surgery Date(Month/Year) tonsillectomy 1963 hysterectomy vaginal 1988 ovary removal 1990 nasal septal deviation 1992 laparoscopic cholecystecmomy 1999 cardiac cath 2000 cataract removal, lens implant Right eye 2004 catatract removal, lens implant left eye 2005
--- OUTSIDE RECORDS SUMMARY | 2025-01-01 07:54 | XMS_ITS | Referral Summary ---
Author Organization [facility] Address [address] [facility] [place] [address] Care Team Providers Care Fan Engine Engineer Name Role Phone CarlMikayla HOME HEALTH SPECIALIST Unavailable [phone] Leatha Mckeon NP Primary Care Provider [phone] Encounters Date Type Department Care Team Description 12/06/2024 1:00 PM CDT Office Visit [facility] Pulmonary at [address] [place] [phone] Yulia Schumacher NP Asthma-COPD overlap syndrome (HCC) (Primary Dx) 11/08/2024 Orders Only [facility] Pulmonary at [address] [place] [phone] Yulia Schumacher NP from Last 3 Months Allergies Active Allergy Reactions Criticality Noted Date Comments Beta-Blockers (Beta-Adrenergic Blocking Agts) Unknown,Headache,O ther (See comments) Low 10/22/2016 Reaction: HEADACHE, Cefdinir Hives Medium 05/01/2019 Codeine Other (See comments),Headache ,Unknown High 01/10/2010 Reaction: HEADACHE, Other reaction(s): Causes severe headaches Reaction: HEADACHE, Causes severe headache Doxycycline Other (See comments),Unknown, Shortness of breath High 01/10/2010 Reaction: SHORT, Reaction: SHORT, Difficulty breathing Furosemide Unknown,Other (See comments) High 01/10/2010 Reaction: UNKNOWN, Drops K+--too much Depletes potassium Drops K+--too much Levofloxacin Other (See comments),Unknown, Diarrhea,Stomach upset High 01/11/2008 Reaction: DIARRHEA;, Reaction: DIARRHEA;, Destoys good bacteria in colon Mold Shortness of breath High 05/26/2012 Difficulty breathing Mold Extracts Shortness of breath High 05/26/2012 Nsaids (Non-Steroidal Anti-Inflammatory Drug) Other (See comments) High 03/26/2015 Reaction: OTHER, Reaction: Other Affects Kidney Function Penicillins Unknown,Other (See comments),Shortnes s of breath High 01/10/2010 Reaction: SHORT, Difficulty breathing Unclassified Drug Other (See comments) High 08/18/2011 Anti inflammatories effects kidney functions Medications aspirin 81 mg chewable tablet daily Acti ve albuterol HFA (PROVENTIL HFA,VENTOLIN HFA,PROAIR HFA) 90 mcg/actuation inhaler as needed Active dilTIAZem (CARDIZEM) 30 mg tablet 10/17/19 21 Active fluticasone furoate-vilantero L (BREO ELLIPTA) 100-25 mcg/dose diskus inhaler 10/31/19 19 Active cholecalciferol (VITAMIN D-3) 3,000 unit tablet 08/14/20 14 Active cycloSPORINE (RESTASIS) 0.05 % ophthalmic emulsion Administer into both eyes Active ipratropium-albut Malorie (DUO-NEB) 0.5-2.5 mg/3 mL nebulizer solution 08/20/20 20 Active lisinopriL (PRINIVIL,ZESTRIL ) 5 mg tablet 10/17/19 21 Active methocarbamoL (ROBAXIN) 750 mg tablet Take by mouth daily 05/02/20 19 Active montelukast (SINGULAIR) 10 mg tablet 05/02/20 19 Active rosuvastatin (CRESTOR) 10 mg tablet 10/17/19 21 Active triamterene-hydro CHLOROthiazide 37.5-25 mg per capsule 10/17/[address] (CYMBALTA) 20 mg capsule 12/27/19 21 Active QUEtiapine (SEROquel) 50 mg tablet 04/29/20 21 Active cetirizine (ZyrTEC) 10 mg tablet 06/05/20 21 Active ipratropium (ATROVENT) 42 mcg (0.06 %) nasal spray 06/20/20 21 Active fluticasone-umecl idin-vilanter (TRELEGY ELLIPTA) 100-62.5-25 mcg inhaler 09/20/18 70 Active nystatin 100,000 unit/mL suspension Active potassium chloride ER (KLOR-CON) 10 mEq CR tablet Active prednisoLONE acetate (PRED FORTE) 1 % ophthalmic suspension Active torsemide (DEMADEX) 20 mg tablet Take 2 tablets (40 mg total) by mouth daily 05/13/20 22 Active ondansetron ODT (ZOFRAN-ODT) 4 mg disintegrating tablet Active famotidine (PEPCID) 40 mg tablet 04/05/20 22 Active Ozempic 0.25 mg or 0.5 mg (2 mg/3 mL) pen injector injectionIndicati ons:type 2 diabetes mellitus Inject 1 mg under the skin once a week 09/22/19 24 Active gabapentin (NEURONTIN) 100 mg capsule Take 1 capsule (100 mg total) by mouth otolaryngology rep before breakfast 10/02/19 25 Active donepeziL (ARICEPT) 10 mg tabletIndications :Late onset Alzheimer's disease without behavioral disturbance (HCC) TAKE 1 TABLET BY MOUTH DAILY 90 tablet 12/27/19 25 Active memantine (NAMENDA) 10 mg tablet TAKE 1 TABLET BY MOUTH TWICE DAILY 180 tablet 12/27/19 25 Active donepeziL (ARICEPT) 10 mg tabletIndications :Late onset Alzheimer's disease without behavioral disturbance (HCC) TAKE 1 TABLET BY MOUTH DAILY 90 tablet 10/23/19 25 2024 Discontinued memantine (NAMENDA) 10 mg tablet TAKE 1 TABLET BY MOUTH TWICE DAILY 180 tablet 10/23/19 25 2024 Discontinued Active Problems Problem Noted Date Diagnosed Date CAP (community acquired pneumonia) 05/08/2024 Assessment & Plan (05/08/2024 10:01 PM CDT): Clinical symptoms resolved with antibiotic therapy Repeat CXR to ensure resolution Chronic obstructive pulmonar y disease with acute exacerbation 03/08/2024 Assessment & Plan (03/08/2024 5:35 PM CDT): Wheezing on exam today and dyspnea increased Start low dose prednisone and monitor glucose closely Start Azithromycin NAC to assist with mucous clearance Continue nebulized albuterol Chronic cough 03/08/2024 Assessment & Plan (03/08/2024 5:33 PM CDT): Persistent for 3 months requiring increased nebulizer use Check CXR Asthma-COPD overlap syndrome 03/08/2024 Assessment & Plan (12/06/2024 2:34 PM CDT): Continue Trelegy Ellipta 200 daily Albuterol as needed only, she is aware of indications for use I have advised she avoid her grandchildren when they are sick. Avoid triggers She and her are aware of signs and symptoms that would require earlier evaluation. Assessment & Plan (05/08/2024 10:00 PM CDT): Continue Trelegy Ellipta 100 daily Albuterol as needed only, she is aware of indications for use Assessment & Plan (03/08/2024 5:33 PM CDT): Continue Trelegy Ellipta 100 once daily. Continue albuterol as needed only. A1AT MM Late onset Alzheimer's disea se without behavioral disturbance 12/30/2020 Assessment & Plan (06/25/2021 11:25 AM CDT): Patient has history of dementia of Alzheimer's type for which she is using donepezil currently 10 mg daily. Her concurrent mental health provider has now placed her as well on memantine and increased her quetiapine because of progression in some cognitive difficulties in the adjustments in the quetiapine and addition of memantine have seem to help per patient's reporting. Based on examination there has been progression in her cognitive decline. Both patient and her have again been counseled that donepezil will not stop or reverse memory decline but rather may slow ongoing progressive decline relative to what it may be if left untreated. They wish to continue medication at this time. I have her renewed her donepezil as presently prescribed. At 10 mg daily. She will follow-up in neurology clinic in a year. Assessment & Plan (12/30/2020 11:48 AM CDT): Patient has progressive cognitive impairment with delusions clinically consistent with dementia of Alzheimer's type. Neuroimaging, EEG and laboratory assessment excluding alternate etiologies have proven normal. She is on quetiapine at this time with some improvement in the delusions. I will place her also on a escalating trial of donepezil 5 mg daily for 30 days 10 mg daily thereafter to potentially slow down ongoing progression. Patient and her have been counseled that the medication will not stop nor reverse cognitive loss but only slow down future progression potentially. I will see her back in office in 6 months time for reassessment. Impaired cognition 11/07/2020 Assessment & Plan (11/07/2020 4:09 PM GAMMA FACILITIES OPERATOR): Patient presents with reporting a 6+ month history of insidious onset progressive cognitive impairment manifest by delusions that television personality is a talking with her directly and she believes that people are in the house that she attempts to interact with. Her executive functions appear to be disproportionately affected relative to memory suggesting the possibility of frontal temporal dementia. MRI of has demonstrated chronic ischemic changes only. She is apparently being seen by psychiatrist in [place] who is adjusting and attempting to reduce some of her psychoactive medications. She was previously shown to have 2 urinary tract infections although her says follow-up examinations have demonstrated that they are no longer present. Those laboratories are unavailable for review today. I will obtain an EEG, TSH, T4, B12, treponemal antibody survey to screen for the potential of paroxysmal partial seizures, hypothyroidism, B12 deficiency, neurosyphilis as potential alternatives to what historically sounds most like frontal temporal dementia. I will see her back thereafter. Social History Tobacco Use Types Packs/Day Years Used Date Smoking Tobacco: Former Cigarettes 0.5 42 1 965 - 2007 Smokeless Tobacco: Never Tobacco Cessation:Counseling Given: Not Answered AUDIT-C Answer Date Recorded Q1: How often do you have a drink containing alcohol? Patient declined 12/06/2024 Q2: How many drinks containi ng alcohol do you have on a typical day when you are drinking? Patient does not drink Frequency of Binge Drinking Not on file 11/18 Comments Unknown Sex and Gender Information Value Date Recorded Sex Assigned at Not on file Legal Sex Female 9:09 AM GAMMA FACILITIES OPERATOR Gender Identity Not on file Sexual Orientation Not on file Last Filed Vital Signs Vital Sign Reading Time Taken Comments Blood Pressure 138/96 12/06/2024 12:56 PM CDT Pulse 84 12/06/2024 12:52 PM CDT Temperature 35.9 C (96.7 F) 12/06/2024 12:52 PM CDT Respiratory Rate 18 12/06/2024 12:52 PM CDT Oxygen Saturation 97% 12/06/2024 12:52 PM CDT Inhaled Oxygen Concentration - - Weight 82.7 kg (182 lb 4.8 oz) 12/06/2024 12:52 PM CDT Height 162.6 cm (5' 4 ) 12/06/2024 12:52 PM CDT Body Mass Index 31.29 12/06/2024 12:52 PM CDT Plan of Treatment Not on file Procedures Procedure Name Priority Date/Time Associated Diagnosis Comments SCREENING MAMMOGRAM BILATERAL W SHERMAN Schedule Routine, Read Routine (OP Routine) 08/25/2018 10:26 AM GAMMA FACILITIES OPERATOR Encounter for screening mammogram for malignant neoplasm of breast from Last 3 Months or Most Recently Relevant to Health Maintenance Results * Screening Mammogram Bilateral W Sherman (08/25/2018 10:26 AM GAMMA FACILITIES OPERATOR) Anatomical Region Laterality Modality Breast Bilateral Digital Radiogra phy Narrative 09/01/2018 1:16 PM GAMMA FACILITIES OPERATOR Mammogram Technique: Bilateral Digital Breast Tomosynthesis, Bilateral C-view 2D Screening mammogram. Views obtained: bilateral craniocaudal and bilateral mediolateral oblique. Computer Aided Detection was performed. Mammogram Findings: The present examination has been compared to prior imaging studies performed at [facility] on 03/14/2015, 06/05/2016 and 06/18/2017. The breasts are heterogeneously dense, which may obscure small masses. There is a focal asymmetry and an area of architectural distortion measuring 9 millimeters in the middle lower outer quadrant of the right breast located 7 centimeters from the nipple. There is no suspicious abnormality in the left breast. Impression: Focal asymmetry and area of architectural distortion in the right breast requires additional evaluation. Additional views are recommended. OVERALL FINAL ASSESSMENT: BI-RADS CATEGORY 0: Incomplete: Need additional imaging evaluation. Procedure Note Vicki Muhammad MD - 09/01/2018 Mammogram Technique: Bilateral Digital Breast Tomosynthesis, Bilateral C-view 2D Screening mammogram. Views obtained: bilateral craniocaudal and bilateral mediolateral oblique. Computer Aided Detection was performed. Mammogram Findings: The present examination has been compared to prior imaging studies performed at [facility] on 03/14/2015, 06/05/2016 and 06/18/2017. The breasts are heterogeneously dense, which may obscure small masses. There is a focal asymmetry and an area of architectural distortion measuring 9 millimeters in the middle lower outer quadrant of the right breast located 7 centimeters from the nipple. There is no suspicious abnormality in the left breast. Impression: Focal asymmetry and area of architectural distortion in the right breast requires additional evaluation. Additional views are recommended. OVERALL FINAL ASSESSMENT: BI-RADS CATEGORY 0: Incomplete: Need additional imaging evaluation. Raysa Blanco NP IMG MAMMO PROCEDURES Final Res ult from Last 3 Months or Most Recently Relevant to Health Maintenance Insurance [id number]IC[facility] ADVANTAGE [facility] MEDICARE ADVANTAGE [facility] MEDICARE ADVANTAGE Care Teams Fan Engine Engineer Relationship Specialty Start Date End Date Leatha Mckeon NP [address] [address] PCP - General Family Medicine 05/30/24 Mikayla Carl NP [address] [address] Nurse Practitioner Neurology 03/20/24
--- OUTSIDE RECORDS SUMMARY | 2025-01-01 07:54 | XMS_ITS | Clinical Summary ---
Author Organization [facility] Address [address] [facility] [place] [phone] Care Team Providers Care Television Picture Tube Rebuilder Name Role Phone CarlMikayla NP Unavailable [phone] Leatha Mcekon NP Primary Care Provider [phone] Allergies Active Allergy Reactions Criticality Noted Date [...] 1 capsule (100 mg total) by mouth early education teacher before breakfast 10/02/19 25 Active donepeziL (ARICEPT) [...] 11/07/2020 Assessment & Plan (11/07/2020 4:09 PM FOUR SLIDE MACHINE SETTER): Patient presents with reporting a 6+ month [...] is apparently being seen by psychiatrist in [place] who is adjusting and attempting to reduce [...] dementia. I will see her back thereafter. Encounters Date Type Department Care Team Description 12/06/2024 1:00 PM CDT Office Visit [facility] Pulmonary at [address] [place] [phone] Yulia Schumacher NP Asthma-COPD overlap syndrome (HCC) (Primary Dx) 11/08/2024 Orders Only [facility] Pulmonary at [address] [place] [phone] Yulia Schumacher NP from Last 3 Months Surgical History Surgery Date Site/Laterality Comments SINUS SURGERY Sinus Surgery - (Added by TW Conv) CA TONSILLECTOMY PRIMARY/SECONDARY <AGE 12 Tonsillectomy - (Added by TW Conv) CA STOT/TOT HYSTERECTOMY AFT ER DELIVERY Hysterectomy - (Added by TW Conv) CATARACT EXTRACTION Cataract Extraction - (Added by TW Conv) KNEE SURGERY Knee Surgery - (Added by TW Conv) CA ARTHROPLASTY KNEE TIBIAL PLATEAU Knee Replacement - (Added by TW Conv) HYSTERECTOMY GALLBLADDER SURGERY BLADDER REPAIR LUNG REMOVAL, PARTIAL Medical History Medical History Date Comments Anxiety disorder Anxiety - (Adde d by TW Conv) Personal history of other di seases of the respiratory system History of asthma - (Added b y TW Conv) Personal history of other di seases of the respiratory system History of bronchitis - (Add ed by TW Conv) Personal history of other di seases of the circulatory system History of hypertension - (A dded by TW Conv) Personal history of other en docrine, nutritional and metabolic disease History of hyperlipi demia - (Added by TW Conv) Personal history of other di seases of urinary system History of kidney disease - (Added by TW Conv) Raynaud's syndrome without gangrene Raynaud's disease - (Added by TW Conv) History of recurrent pneumonia H istory of pneumonia - (Added by TW Conv) Depression Hypertension High cholesterol Diabetes mellitus (HCC) Asthma-COPD overlap syndrome (HCC) 03/08/2024 Family History Medical History Relation Name Comments Lung cancer Brother 1 Family history of lung cancer - (Added by TW Conv) Cancer Brother 2 Stroke Brother 3 Heart attack Brother 4 Cancer Father COPD Mother Family history of chronic obstructive pulmonary disease - (Added by TW Conv) Lung cancer Sister 1 Family history of lung cancer - (Added by TW Conv) Cancer Sister 2 COPD Sister 3 murder Sister 4 Relation Name Status Comments Brother 1 Brother 2 Alive Brother 3 Alive Brother 4 Alive Father Mother Sister 1 Sister 2 Alive Sister 3 Alive Sister 4 Social History Tobacco Use Types Packs/Day Years [...] on file Legal Sex Female 9:09 AM FOUR SLIDE MACHINE SETTER Gender Identity Not on file Sexual Orientation Not on file Obstetrics History Last Filed Vital Signs Vital Sign Reading [...] 12/06/2024 12:52 PM CDT Plan of Treatment Health Maintenance Due Date Last Done Comments Depression Screening 1948 Fall Risk Assessment 1950 Hepatitis C Screening 1950 Osteoporosis Screening-Bone Density Scan 1948 Hepatitis B Screening 1966 Well Visit 65+ 2013 Covid-19 Vaccine (5 - 2023-2 5 season) 2024 08/19/2021, 01/05/2021, 01/03/2021, Additional history exists Zoster Vaccine (2 of 2) 08/17/2024 06/22/2024 DTaP/Tdap/Td Vaccine (3 - Td or Tdap) 03/17/2028 03/17/2018, 04/08/2009 Pneumococcal vaccine 65+ Completed 014, 07/11/2008, 11/19/2007 Breast Cancer Screening-Mammogram Discontinued 08/25/2018, 06/18/2017, 06/05/2016, Additional history exists Influenza Vaccine Completed 06/22/2024, , 07/12/2020, Additional history exists Procedures Procedure Name Priority Date/Time Associated Diagnosis Comments SCREENING MAMMOGRAM BILATERAL W SHERMAN Schedule Routine, Read Routine (OP Routine) 08/25/2018 10:26 AM FOUR SLIDE MACHINE SETTER Encounter for screening mammogram for malignant neoplasm of breast from Last 3 Months or Most Recently Relevant to Health Maintenance Results * Screening Mammogram Bilateral W Sherman (08/25/2018 10:26 AM FOUR SLIDE MACHINE SETTER) Anatomical Region Laterality Modality Breast Bilateral Digital Radiogra phy Narrative 09/01/2018 1:16 PM FOUR SLIDE MACHINE SETTER Mammogram Technique: Bilateral Digital Breast Tomosynthesis, Bilateral C-view 2D Screening mammogram. Views obtained: bilateral craniocaudal and bilateral mediolateral oblique. Computer Aided Detection was performed. Mammogram Findings: The present examination has been compared to prior imaging studies performed at [facility] on 03/14/2015, 06/05/2016 and 06/18/2017. The breasts [...] compared to prior imaging studies performed at [facility] on 03/14/2015, 06/05/2016 and 06/18/2017. The breasts [...] Most Recently Relevant to Health Maintenance Insurance [facility] MEDICARE ADVANTAGE [id number] MEDIC[facility] ADVANTAGE MEDICARE ADVANTAGE Care Teams Television Picture Tube Rebuilder Relationship Specialty Start Date End Date Leatha Mckeon NP [address] [facility] [place] [address] PCP - General Family Medicine 05/30/24 Mikayla Carl NP [address] [address] Nurse Practitioner Neurology 03/20/24
--- OUTSIDE RECORDS SUMMARY | 2025-01-01 07:54 | XMS_ITS | Data Portability ---
Author Organization [facility] [employer], Main Office Address [address] [place] [address] Assessment No assessment recorded. Plan of Treatment Reminders Order Date Submit Date Provider Last Modified By Organization Details Last Modified Time Details Appointments Follow Up 2024 01:30P Leyda verma MD Not available Not available Not available Any 15 2024 10:15A Leyda verma MD Not available Not available Not available Lab glycohem oglobin, total, blood [email or web address] (Lab), [address] [place], [address], 12/25/2024 17:21:39 microalb umin, urine 2024 025 [facility] (Lab), [address] [place], [address], 01/01/2025 04:24:18 lipid panel, serum 2024 025 [facility] (Lab), [address] [place], [address], 12/26/2024 19:28:36 CBC w/ auto diff 2024 025 [facility] (Lab), [address] [place], [address], 12/26/2024 19:28:39 TSH, serum or plasma 2024 025 [facility] (Lab), [address] [place], [address], 12/26/2024 19:28:40 CMP, serum or plasma 2024 025 [facility] (Lab), [address] [place], [address], 12/26/2024 19:28:38 vitamin D, 25-hydro xy, total, serum 2023 024 [email or web address] Not available 06/28/2024 08:51:05 HbA1c (hemoglo bin A1c), blood 2023 024 [email or web address] Not available 06/28/2024 08:51:05 lipid panel, serum 2023 024 [email or web address] Not available 06/28/2024 08:51:05 CMP, serum or plasma 2023 024 [email or web address] Not available 06/28/2024 08:51:05 CBC w/ auto diff 2023 024 [email or web address] Not available 06/28/2024 08:51:05 TSH, serum or plasma 2023 024 [email or web address] Not available 06/28/2024 08:51:05 hepatiti s C virus Ab, serum 2023 024 [email or web address] Not available 06/28/2024 08:51:04 Referral cardiolo gist referral - Please call patient to schedule an appointm ent. Thank you. 2024 025 JOANN Beltrán [place], [address] , [facility] [address], [place], [address], 12/25/2024 19:25:14 Procedures colonosc opy screenin g (PROC) - Please call patient to schedule an appointm ent. Thank you 2024 025 JOANN Galan MD, [address] [facility], [address], [place], [address], 12/25/2024 18:37:03 Surgeries None recorded . Imaging MAMMO, screenin g, gaby, jordan l - Please call patient to schedule . 2024 025 [facility], [address], [place], [address], 12/25/2024 17:20:26 bone density - Please call patient to schedule . 2024 025 [facility], [address], [place], [address], 12/25/2024 17:15:28 Medication Orders Zyrtec 10 mg tablet 2024 025 [facility]-[id number] 0 [facility], [address], [address], [place], [place], [id number], 12/11/2024 10:24:25 Ozempic 1 mg/dose (4 mg/3 mL) subcutan eous pen injector 2024 025 [place] [facility], [address], [address], [place], [place], [id number], 12/06/2024 11:09:29 duloxeti ne 20 mg capsule, delayed release 2024 025 [place] [facility], [address], [address], [place], [place], [id number], 12/06/2024 11:09:28 quetiapi ne 50 mg tablet 2024 025 [place] [facility], [address], [address], [place], [place], [id number], 12/06/2024 11:09:23 rosuvast atin 10 mg tablet 2024 025 [place] [facility], [address], [address], [place], [place], [id number], 12/06/2024 11:09:25 fenofibr ate 160 mg tablet 2024 025 [place] [facility], [address], [address], [place], [place], [id number], 12/06/2024 11:09:23 Vitamin D3 50 mcg (2,000 unit) capsule 2024 025 [place] [facility], [address], [address], [place], [place], [id number], 12/06/2024 11:09:33 gabapent in 100 mg capsule 2024 025 [facility], [address], [address], [place], [place], [id number], 12/06/2024 11:09:30 diltiaze m 30 mg tablet 2024 025 [place] [facility], [address], [address], [place], [place], [id number], 12/06/2024 11:09:32 Diflucan 150 mg tablet 2023 024 [facility] [place], [address], 08/07/2024 08:55:56 gabapent in 100 mg capsule 2023 [facility] [address] [place], [address], 07/10/2024 14:40:11 Patient TargetsNo targets recorded. Patient Instructions Encounter Date Encounter Id Patient Instructions Last Modified By Organization Details Last Modified Time 06/07/2024 [id number] diabetic foot exam* antonio Not available 06/21/2024 09:05:48 Follow up in 6 months Obtain labs Tests: Referral: Podiatry-Dr. Khan-diabetic foot exam Recommend: Influenza vaccine Pneumococcal vaccine Tetanus vaccine Shingles vaccine Not available 06/07/2024 11:06:32 12/06/2024 [id number] Follow up in [address] 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 Thank you. Referring Physician: Maria C Ku, Internal Medicine, Encounter Date: 12/25/2024 Results Created Date Observation Date Name Description Value Unit Range Abnormal Flag Note LastModifiedBy Organization Detail LastModifiedTime 09/26/1909/21/2024 US, emmanuelle gresham id arter y No observ ation record ed. [place] [id number] [facility] [address], [place], [address], 09/27/2024 13:58:00 Result Notes None recorded. Problems Name Problem SNOMED Code Status Onset Date Resolution Date Notes Provider Name and Address Organization Details Recorded Time Asthma-c hronic obstruct vee pulmonar y disease overlap syndrome [id number] 976852 Active 2018 Leatha Mckeon APRN [address], [place] [address], [place], [address] , [employer] 4 13:10:45 History of lung lobectom y 52883364681 078115 Active 2018 Leatha Mckeon APRN [address], [place] [address], [place], [address] , [employer] 4 13:11:23 Polycyth emia vera (clinica l) 704551994 Active Leatha Mckeon APRN [address], [address] [employer], [place], [address] , [employer] 4 13:11:51 Chronic obstruct vee pulmonar y disease 94236399 Active Leatha Mckeon APRN [address], [address], [place], [address] , [employer] 4 13:10:57 Body mass index 30+ - obesity 773272158 Active 2018 Leatha Mckeon APRN [address], [address], [place], [address] , [employer] 4 13:10:53 Raynaud' s disease 805785594 Active Leatha Mckeon APRN [address], [address], [place], [address] , [employer] 4 13:11:53 Acute exacerba tion of chronic obstruct vee pulmonar y disease 089267022 Active 2021 Not Available [facility] 3 06:02:26 Asthma 333700834 Active 2018 Leatha Mckeon APRN [address], [address], [place], [address] , [employer] 4 13:10:41 Anxiety disorder 211203711 Active Leatha Mckeon APRN [address], [address], [place], [address] , [employer] 4 13:10:37 Abdomina l pain 17516329 Completed Not Available [facility] 3 06:49:00 Patient advised about driving 404739743 Active 2020 Not Available [facility] 3 06:02:26 Moderate chronic obstruct vee pulmonar y disease 397301495 Active 2017 Leatha Mckeon APRN [address], [address], [place], [address] , [employer] 4 13:11:40 Bronchit is 33825499 Completed Anum Merrill MD [address], [address], [place], [address] , [employer] 4 14:33:25 Vitamin D deficien 33087117 Active Leatha Mckeon APRN [address], [address], [place], [address] , [employer] [facility] [employer] [facility] 4 13:11:56 Depressi ve disorder 13248204 Active 2021 Leatha Mckeon APRN [address], [address], [place], [address] , [employer] [facility] [employer] [facility] 4 13:11:07 Sinusiti s 74292667 Completed Not Available [facility] 3 06:49:01 Hyperten sive disorder 95992868 Active Leatha Mckeon APRN [address], [address], [place], [address] , [employer] [facility] [employer] [facility] 4 13:11:27 Memory impairme nt 821171995 Active 2020 Leatha Mckeon APRN [address], [address], [place], [address] , [employer] [facility] [employer] [facility] 4 13:11:38 Osteoart hritis 840966197 Active Leatha Mckeon APRN [address], [address], [place], [address] , [employer] [facility] [employer] [facility] 4 13:11:49 Chronic sinusiti s 71854817 Active 2021 Not Available [facility] 3 06:02:26 Pharyngi tis 136186406 Completed Not Available [facility] 3 06:49:02 Renal failure syndrome 88884741 Active Leatha Mckeon APRN [address], [address], [place], [address] , [employer] [facility] [employer] [facility] 4 13:12:07 Disorder of urinary bladder 79283103 Active Leatha Mckeon APRN [address], [address], [place], [address] , [employer] [facility] [employer] [facility] 4 13:11:12 Multiple nodules of lung 713568598 Active 2021 Leatha Mckeon APRN [address], [address], [place], [address] , [employer] [facility] [employer] [facility] 4 13:11:44 Cramp in lower limb 476146124 Active Not Available [facility] 3 06:02:26 Auditory hallucin ations 83491381 Active 2020 Leatha Mckeon APRN [address], [address], [place], [address] , [facility] 4 13:10:48 Periorbi duke edema 16465321 Completed Not Available [facility] 3 06:49:03 Dementia 84374081 Active 2020 Leatha Mckeon APRN [address], [address], [place], [address] , [facility] 4 13:11:04 Coronary arterios clerosis 02723387 Active Leatha Mckeon APRN [address], [address], [place], [address] , [facility] 4 13:11:02 Acute upper respirat ory infectio n 84392180 Completed Not Available [facility] 3 06:49:03 Hyperlip idemia 95229281 Active Leatha Mckeon APRN [address], [address], [place], [address] , [facility] 4 13:11:32 Essentia l hyperten educe 55790516 Active Leatha Mckeon APRN [address], [address], [place], [address] , [facility] 4 13:11:17 Dyspnea on exertion 01099639 Active 2021 Not Available [facility] 3 06:02:26 Allergic rhinitis 82762195 Active Leatha Mckeon APRN [address], [address], [place], [address] , [facility] 4 13:10:40 Iritis 28383378 Active 2021 Not Available [facility] 3 06:02:26 Urinary tract infectio us disease 55592183 Completed Not Available [facility] 3 06:49:05 Hallucin ations 6538661 Active 2020 Leatha Mckeon APRN [address], [address], [place], [address] , [employer] [facility] [employer] [facility] 4 13:11:20 Hemorrho ids 75097799 Active Not Available [facility] 3 06:02:27 Acute exacerba tion of asthma Active 2017 Not Available [facility] 3 06:02:27 Posterio r rhinorrh ea 55429232 Active 2021 Not Available [facility] 3 06:02:27 Candidia sis of mouth 15180465 Active 2021 Not Available [facility] 3 06:02:27 COVID-19 032820161 Active 2021 Not Available [facility] 3 06:02:27 Hypokale aiden 21469724 Active 2022 Not Available [facility] 3 06:02:26 Acute sinusiti s 99295807 Active 2022 Not Available [facility] 3 06:02:26 Cough 51336533 Active 2022 Not Available [facility] 3 06:02:26 Dysuria 90704619 Active 2022 Leatha Mckeon APRN [address], [address], [place], [address] , [employer] 4 13:11:15 Acute urinary tract infectio n 381658939 Active 2022 Anum Merrill MD [address], [address], [place], [address] , [employer] [facility] [employer] 3 11:07:37 Hypergly cemia 70501608 Active 2022 Leatha Mckeon APRN [address], [address], [place], [address] , [employer] [facility] [employer] 4 13:11:29 Diabetes mellitus 34939277 Active 2023 Leatha Mckeon APRN [address], [address], [place], [address] , [employer] 4 13:11:11 Bronchit is 95206652 Active 2023 Anum Merrill MD [address], [address], [place], [address] , [employer] 4 14:33:25 Cellulit is of lower limb 625396852 Active 2023 Anum Merrill MD [address], [address], [place], [address] , [employer] 4 09:18:46 Lobectom y Completed 201803/01/2024 Removal Reason: Possible lung cancer Leatha Mckeon APRN [address], [address], [place], [address] , [employer] 4 11:07:05 History of hysterec socorro 090793351 Active 2023 Leatha Mckeon APRN [address], [address], [place], [address] , [employer] 4 11:07:29 Low back pain 703036033 Active 2023 Leatha Mckeon APRN [address], [address], [place], [address] , [employer] 4 11:13:26 Onychomy cosis of toenails 474469251 Active 2023 VINH Betts null, [employer] 4 11:52:48 Pain in right foot 84586027087 9107 Active 2023 Tristin Peck DPM [address], [address], [place], [address] , [employer] 4 09:03:30 Pain in left foot 06164258081 9107 Active 2023 Tristin Peck DPM [address], [address], [place], [address] , [employer] [facility] [employer] 4 09:03:40 Peripher al neuropat hy due to type 2 diabetes mellitus 76841472307 07 Active 2023 Tristin Peck DPM [address], [address], [place], [address] , [employer] [facility] [employer] 4 09:04:09 Primary hypertri glycerid emia 915112556 Active 2023 Leatha Mckeon APRN [address], [address], [place], [address] , [employer] [facility] [employer] 4 19:13:24 Prediabe samantha 478391684 Active 2023 Leatha Mckeon APRN [address], [address], [place], [address] , [employer] [facility] [employer] 4 19:16:23 Alzheime r's disease 96613118 Active 2023 Leatha Mckeon APRN [address], [address], [place], [address] , [employer] [facility] [employer] 4 12:23:08 Carotid artery occlusio n without infarcti on 23251977868 4101 Active 2023 Leatha Mckeon APRN [address], [address], [place], [address] , [employer] [facility] [employer] 4 12:06:11 Environm ental allergy 688818932 Active 2024 Leatha Mckeon APRN [address], [address], [place], [address] , [employer] [facility] [employer] 5 11:04:53 Neuropat hy 845675030 Active 2024 Maria C de la torer MD [address], [address], [place], [address] , [employer] 20:25:10 Moderate recurren t major depressi on 81671198 Active 2024 Maria C de la torre MD [address], [address], [place], [address] , [employer] 16:58:53 Notes:Some problems listed i n Documents: #[id number], #[id number], #[id number] could not be added to this patient's chart. Please review these documents and add these problems to the patient's chart manually as needed. Problem Notes None recorded. Procedures Surgical History Date Name Laterality Status Provider Name and Address Organization Details Recorded Time 06/20/20 24 Nail Debridement completed Tristin Peck DPM [address], [address], [place], [address], [employer] 06/21/2024 09:03:15 06/20/20 24 Callus Debridement 2-4 completed Tristin Peck DPM [address] [facility], [address], [place], [address], [employer] 06/21/2024 09:03:22 03/01/20 24 Medicare Wellness CPT Code, subsequent completed Miguel Tapia LPN [employer] 03/01/2024 09:47:00 11/26/19 24 Transitional_Care_ Management completed Nora Collins RN [employer] 11/26/2023 14:03:34 Orthopedic Surgery completed Not Available [facility] 11/18/2022 06:40:59 [employer]UCATION [employer] WORKER Surgery completed Not Available [facility] 11/18/2022 06:40:59 Tonsillectomy completed Not Available [facility] 11/18/2022 06:40:59 Cholecystectomy completed Not Available [facility] 11/18/2022 06:40:59 repair of urinary bladder completed Not Available [facility] 11/18/2022 06:40:59 other completed Not Available [facility] 11/18/2022 06:40:59 Hysterectomy completed Not Available [facility] 11/18/2022 06:40:59 Colonoscopy completed Not Available [facility] 11/18/2022 06:40:59 Knee Replacement completed Not Available [facility] 11/18/2022 06:40:59 nasal septoplasty completed Not Available [facility] 11/18/2022 06:40:59 Sinus Surgery completed Not Available [facility] 11/18/2022 06:40:59 vitrectomy completed Angela Dickerson MA [employer] [facility] [employer] [facility] 06/07/2024 10:42:56 Eye Surgery completed VINH Gonzalez [employer] [facility] [employer] [facility] 12/25/2024 16:05:34 Imaging Results Imaging Date Name Status LastModified by Organiz ation Details LastModified Time 09/21/2024 US, duplex, carotid artery completed [place] [id number], [place], [address], 09/27/2024 13:58:00 Procedure Notes None recorded. Medical Equipment None Reported. Allergies Allergen ID Allergen Name Allergen Category Reaction Reaction Severity Criticality Documentation Date Start Date Code Code System Note Provider Name and Address Organization Details Recorded Time 52589 Product containin g penicilli n (product) medicatio n Not available Not available Not available 11/18/2022 96608 8001 SNOMED Other react ions and sever ities : 'Adve rse react ion to subst ance' . Leatha Mckeon APRN [address], [address], [place], [address], [employer] 4 12:44:52 02043 Non-stero idal anti-infl ammatory agent (product) medicatio n Not available Not available Not available 11/18/2022 89172 005 SNOMED Other react ions and sever ities : 'Adve rse react ion to subst ance' . Leatha Mckeon APRN [address], [address], [place], [address], [employer] [facility] [employer] [facility] 4 12:44:52 96965 Levaquin medicatio n Not available Not available Not available 11/18/2022 47269 2 RxNorm Not Available [facility] 06:59:57 01516 Lasix medicatio n Not available Not available Not available 11/18/2022 12956 1 RxNorm Not Available [facility] 3 06:59:57 52938 doxycycli ne Not available Not available Not available Not available 11/18/2022 3640 RxNorm Other react ions and sever ities : 'Adve rse react ion to subst ance' . Leatha Mckeon APRN [address], [address], [place], [address], [employer] 4 12:44:52 64302 codeine medicatio n Not available Not available Not available 11/18/2022 2670 RxNorm Other react ions and sever ities : 'Adve rse react ion to subst ance' . Leatha Mckeon APRN [address], [address], [place], [address], [employer] 4 12:44:52 98620 Product containin g beta adrenergi c receptor antagonis t (product) medicatio n Not available Not available Not available 11/18/2022 59043 009 SNOMED cause s nicol nued cough ing Not Available [facility] 3 06:59:58 76151 cefdinir medicatio n Not available Not available Not available 11/18/2022 14736 RxNorm Other react ions and sever ities : 'Adve rse react ion to subst ance' . Leatha Mckeon APRN [address], [facility] [address], [place], [address], [employer] 4 12:46:22 78153 furosemid e medicatio n Not available Not available Not available 03/01/2024 4603 RxNorm Other react ions and sever ities : 'Adve rse react ion to subst ance' . Leatha Mckeon APRN [address], [address], [place], [address], [employer] 4 12:44:52 24903 levofloxa deena medicatio n Not available Not available Not available 03/01/2024 82168 RxNorm Other react ions and sever ities : 'Adve rse react ion to subst ance' . Leatha Mckeon, [employer] [address] [facility], [address], [place], [address], [facility] [employer] 4 12:44:52 Medications Name Sig Start Date Stop Date Status Note LastModified by Organization Details LastModified Time quetiapine 25 mg tablet TAKE 1 2 (ONE HALF) TABLET BY MOUTH THREE TIMES DAILY NEEDED 12/15 completed Not Available Not Available Not Available cyclobenza eda 10 mg tablet Take 1 tablet 3 times a day by oral route for 90 days. active TAKES PRN Not Available Not Available Not Available clotrimazo le 10 mg lucille 11/21 completed Not Available Not Available Not Available Qvar 80 mcg/actuat ion Metered Aerosol oral inhaler USE 1 INHALATI ON TWICE A DAY 11/30 completed Not Available Not Available Not Available Proctosol HC 2.5 % rectal cream with applicator Insert 1 g twice a day by rectal route. active Not Available Not Available No t Available nystatin 100,000 unit/mL oral suspension SWISH AND SPIT 5 ML IN MOUTH 4 TIMES DAILY DIRECTED FOR 10 DAYS 08/16 completed Not Available Not Available Not Available potassium chloride ER 10 mEq capsule,ex tended release TAKE 1 CAPSULE BY MOUTH TWICE DAILY 10/12 completed Not Available Not Available Not Available prednisone 10 mg tablet Take 3 tablets every day by oral route in the morning for 5 days. active Not Available Not Available No t Available Toprol XL 25 mg tablet,ext ended release Take 1 tablet every day by oral route for 90 days. active Not Available Not Available No t Available ipratropiu m 0.5 mg-albuter ol 3 mg (2.5 mg base)/3 mL nebulizati on soln USE 1 AMPULE IN NEBULIZE R TWICE DAILY DIRECTED active Not Available Not Available No t Available donepezil 5 mg tablet TAKE 1 TABLET BY MOUTH ONCE DAILY 01/15 completed Not Available Not Available Not Available Carafate 100 mg/mL oral suspension Take 10 mL 4 times a day by oral route before meals for 7 days. 09/07 completed Not Available Not Available Not Available torsemide 20 mg tablet TAKE 2 TABLETS BY MOUTH ONCE DAILY 12/25 completed Not Available Not Available Not Available clindamyci n HCl 300 mg capsule TAKE 1 CAPSULE BY MOUTH TID DIRECTED FOR 7 DAYS active Not Available Not Available No t Available albuterol sulfate 2.5 mg/3 mL (0.083 %) solution for nebulizati on USE 1 VIAL IN NEBULIZE R 4 TIMES DAILY active Not Available Not Available No t Available nitroglyce rin 400 mcg/spray translingu al aerosol PLACE ONE SPRAY ONTO OR UNDER TONGUE AT FIRST SIGN OF ATTACK, DO NOT TAKE MORE THAN 3 SPRAYS IN A FIFTEEN MINUTE PERIOD 01/15 completed Not Available Not Available Not Available polyethyle ne glycol 3350 17 gram oral powder packet 11/16 completed Not Available Not Available Not Available azithromyc in 250 mg tablet TAKE 2 TABLETS BY MOUTH ON DAY 1, AND THEN TAKE 1 TABLET BY MOUTH ONCE A DAY ON DAY 2 THROUGH DAY 5 04/20 completed Not Available Not Available Not Available ofloxacin 0.3 % eye drops INSTILL 1 DROP INTO RIGHT EYE 4 TIMES DAILY 06/07 completed Not Available Not Available Not Available fluconazol e 150 mg tablet TAKE 2 TABLETS BY MOUTH NOW AND THEN 1 ONCE A WEEK 08/07 completed Not Available Not Available Not Available cephalexin 250 mg capsule TAKE 1 CAPSULE BY MOUTH TWICE DAILY FOR 5 DAYS 04/20 completed Not Available Not Available Not Available donepezil 10 mg tablet TAKE 1 TABLET BY MOUTH ONCE DAILY AT BEDTIME active Not Available Not Available No t Available famotidine 40 mg tablet Take 1 tablet every day by oral route at dinner for 90 days. active Not Available Not Available No t Available Medrol (Eduardo) 4 mg tablets in a dose pack Use as directed 12/06 completed Not Available Not Available Not Available prednisone 20 mg tablet TAKE 2 TABLETS BY MOUTH ONCE DAILY FOR 5 DAYS 04/20 completed Not Available Not Available Not Available clindamyci n HCl 150 mg capsule 10/17 completed Not Available Not Available Not Available Zyrtec 10 mg tablet Take 1 tablet every day by oral route. 2024 active otc Not Available Not Available Not Avai lable clopidogre l 75 mg tablet TAKE 1 TABLET EVERY OTHER DAY active Not Available Not Available No t Available prochlorpe razine maleate 10 mg tablet TAKE 1 TABLET BY MOUTH EVERY 8 HOURS NEEDED FOR NAUSEA AND VOMITING 03/01 completed Not Available Not Available Not Available tramadol 50 mg tablet Take 1 po bid active Not Available Not Available No t Available triamteren e 37.5 mg-hydroch lorothiazi de 25 mg capsule TAKE 1 CAPSULE DAILY 10/12 completed Not Available Not Available Not Available Kenalog 40 mg/mL suspension for injection active Not Available Not Available No t Available oxycodone- acetaminop hen 5 mg-325 mg tablet Take 1 tablet every 12 hours by oral route for 7 days. active PRN hasn't taken yet but has it if really needed Not Available Not Available Not Available alprazolam 0.5 mg tablet Take 1 tablet(s ) 3 times a day by oral route. active Not Available Not Available No t Available alprazolam 0.25 mg tablet TAKE 1 TABLET BY MOUTH TWICE DAILY 01/15 completed Not Available Not Available Not Available potassium chloride ER 20 mEq tablet,ext ended release(pa rt/cryst) 1 po qday active Not Available Not Available No t Available prednisolo ne acetate 1 % eye drops,susp ension INSTILL 1 DROP INTO RIGHT EYE 4 TIMES DAILY 12/25 completed Not Available Not Available Not Available methocarba mol 750 mg tablet Take 1 tablet every day by oral route for 30 days. active Not Available Not Available No t Available cephalexin 500 mg capsule TAKE 1 CAPSULE BY MOUTH TWICE DAILY FOR 7 DAYS 02/02 completed Not Available Not Available Not Available warfarin 2 mg tablet active Not Available Not Available No t Available lidocaine 5 % topical patch APPLY 1 PATCH BY TOPICAL ROUTE ONCE DAILY (MAY WEAR UP TO 12HOURS. ) active Not Available Not Available No t Available polymyxin B sulfate 10,000 unit-trime thoprim 1 mg/mL eye drops INSTILL 1 DROP INTO AFFECTED EYE(S) EVERY 6 HOURS active Not Available Not Available No t Available nitroglyce rin 400 mcg/spray translingu al PLACE ONE SPRAY ONTO OR UNDER TONGUE AT FIRST SIGN OF ATTACK DO NOT TAKE MORE THAN 3 SPRAYS IN A FIFTEEN MINUTE PERIOD 10/17 completed Not Available Not Available Not Available Valtrex 1 gram tablet Take 1 tablet 3 times a day by oral route. active Not Available Not Available No t Available aspirin 81 mg chewable tablet Chew 1 tablet every day by oral route. 2014 active Not Available Not Available Not Avai lable montelukas t 10 mg tablet Take 1 tablet every day by oral route in the evening for 90 days. 10/17 completed Not Available Not Available Not Available lisinopril 5 mg tablet TAKE 2 TABLETS DAILY active Not Available Not Available No t Available mupirocin 2 % topical ointment APPLY A SMALL AMOUNT TO THE AFFECTED AREA BY TOPICAL ROUTE 3 TIMES PER DAY active Not Available Not Available No t Available gabapentin 100 mg capsule Take 1 capsule every day by oral route. 2024 active Not Available Not Available Not Avai lable azelastine 137 mcg (0.1 %) nasal spray [place] 2 sprays twice a day by intranas al route as directed for 90 days. active Not Available Not Available No t Available warfarin 1 mg tablet active Not Available Not Available No t Available diltiazem 30 mg tablet TAKE 1 TABLET BY MOUTH AT BEDTIME 2024 active Not Available Not Available Not Avai lable ipratropiu m bromide 42 mcg (0.06 %) nasal spray [place] 2 sprays 3 times a day by intranas al route as directed for 30 days. 06/07 completed Not Available Not Available Not Available ondansetro n 4 mg disintegra ting tablet DISSOLVE 1 TABLET IN MOUTH EVERY 6 HOURS NEEDED FOR NAUSEA AND VOMITING 10/12 completed Not Available Not Available Not Available cefdinir 300 mg capsule TAKE 1 CAPSULE BY MOUTH TWICE DAILY DIRECTED FOR 7 DAYS 12/09 completed Not Available Not Available Not Available fluticason e propionate 50 mcg/actuat ion nasal spray,susp ension Inhale 2 sprays every day by intranas al route in the evening. active Not Available Not Available No t Available metformin ER 500 mg tablet,ext ended release 24 hr TAKE 1 TABLET BY MOUTH DAILY WITH DINNER 10/06 completed Not Available Not Available Not Available spironolac tone 50 mg tablet TAKE 1 TABLET BY MOUTH ONCE DAILY active Not Available Not Available No t Available Ventolin HFA 90 mcg/actuat ion aerosol inhaler Inhale 2 puffs every 4-6 hours by inhalati on route as needed for 90 days. 06/07 completed Not Available Not Available Not Available tobramycin 0.3 %-dexameth asone 0.1 % eye drops,susp ension active Not Available Not Available Not Available Bactrim DS 800 mg-160 mg tablet Take 1 tablet every 12 hours by oral route. 08/13 completed Not Available Not Available Not Available Restasis 0.05 % eye drops in a dropperett e Instill 1 drop twice a day by ophthalm ic route for 90 days. 08/09 completed Not Available Not Available Not Available rosuvastat in 10 mg tablet TAKE 1 TABLET BY MOUTH AT BEDTIME 2024 active Not Available Not Available Not Avai lable memantine 10 mg tablet TAKE 1 TABLET BY MOUTH TWICE DAILY active Not Available Not Available No t Available memantine 5 mg tablet TAKE ONE TABLET TWICE A DAY FOR SEVEN DAYS,THE N TAKE ONE TABLET IN THE MORNNING AND TWO IN THE EVENING FOR SEVEN DAYS, THEN TAKE TWO TABLETS TWICE DAILY. 10/12 completed Not Available Not Available Not Available nitrofuran toin monohydrat e/macrocry stals 100 mg capsule TAKE 1 CAPSULE BY MOUTH EVERY 12 HOURS FOR 7 DAYS 08/16 completed Not Available Not Available Not Available duloxetine 20 mg capsule,de layed release TAKE 1 CAPSULE BY MOUTH TWICE DAILY 2024 active Not Available Not Available Not Avai lable fenofibrat e 160 mg tablet Take 1 tablet every day by oral route as directed . 2024 active Not Available Not Available Not Avai lable albuterol 03/31 completed Not Available Not Available Not Available fiber 1 PO QD 12/18 completed Not Available Not Available Not Available Qvar 06/07 completed Not Available Not Available Not Available Mucinex DM 2013 active TAKES PRN Not Available Not Available Not Available quetiapine 50 mg tablet TAKE 1 TABLET BY MOUTH DAILY AT BEDTIME 2024 active Not Available Not Available Not Avai lable Lantus Solostar U-100 Insulin 100 unit/mL (3 mL) subcutaneo us pen INJECT 15 UNITS SUBCUTAN EOUSLY IN THE EVENING 04/20 completed Not Available Not Available Not Available Humalog KwikPen (U-100) Insulin 100 unit/mL subcutaneo us INJECT 5 UNITS SUBCUTAN EOUSLY THREE TIMES DAILY 12/09 completed Not Available Not Available Not Available cetirizine 10 mg capsule Take 1 capsule every day by oral route. 08/13 completed Not Available Not Available Not Available Vitamin D3 50 mcg (2,000 unit) capsule Take 1 capsule every day by oral route. 2024 active Not Available Not Available Not Avai lable OneTouch Verio test strips USE DIRECTED 02/02 completed Not Available Not Available Not Available ipratropiu m 0.5 mg-albuter ol 2.5 mg/2.5 mL solution for nebulizati on Inhale by inhalati on route. 11/21 completed Not Available Not Available Not Available Breo Ellipta 100 mcg-25 mcg/dose powder for inhalation USE 1 INHALATI ON DAILY DIRECTED active Not Available Not Available No t Available potassium chloride ER 20 mEq tablet,ext ended release Take 2 tablets twice a day by oral route for 90 days. 02/02 completed 2 po qAM, 1 po qhs Not Available Not Available Not Available OneTouch Verio Flex Meter USE DIRECTED 02/02 completed Not Available Not Available Not Available Trelegy Ellipta 100 mcg-62.5 mcg-25 mcg powder for inhalation USE 1 INHALATI ON BY MOUTH ONCE DAILY AT THE SAME TIME EACH DAY 2024 active Not Available Not Available Not Avai lable BD Nilsa 2nd Gen Pen Needle 32 gauge x USE DIRECTED 02/02 completed Not Available Not Available Not Available OneTouch Delica Plus Lancet 33 gauge USE DIRECTED 02/02 completed Not Available Not Available Not Available Fluad Quad 3020-8912( 65yr up)(PF) 60 mcg (15 mcg x 4)/0.5mL IM syringe ADM 0.5ML IM UTD 10/17 completed Not Available Not Available Not Available Ozempic 1 mg/dose (4 mg/3 mL) subcutaneo us pen injector Inject 1 mg every week by subcutan eous route as directed . 2024 active Not Available Not Available Not Avai lable BinaxNOW COVID-19 Ag Self Test kit Use as Directed on the Package 07/26 completed Not Available Not Available Not Available Paxlovid 300 mg (150 mg x 2)-100 mg tablets in a dose pack Use as directed 10/12 completed Not Available Not Available Not Available Ozempic 0.25 mg or 0.5 mg (2 mg/3 mL) subcutaneo us pen injector 0.5 mg sc qweek 12/25 completed Not Available Not Available Not Available albuterol 90 mcg-budeso nide 80 mcg/actuat ion HFA aerosol inhaler Inhale by inhalati on route. active Not Available Not Available No t Available Vitals Date Recorded Body height Body mass index (BMI) Body weight Body temperature Heart rate Oxygen saturation Oxygen saturation in Arterial blood by Pulse oximetry Pain severity - 0-10 verbal numeric rating [Score] - Reported Systolic blood pressure Diastolic blood pressure Provider Name and Address Organization Details Last Updated DateTime 4 162.56 cm 31.6 kg/m2 91609 g 96.7 [degF] 93 /min 85 % 85 % 0 198 mm[Hg] 66 mm[Hg] Angela Dickerson [place] [employer] [facility] [employer] 4 10:38:25 Date Recorded Body height Body mass index (BMI) Body weight Oxygen saturation Oxygen saturation in Arterial blood by Pulse oximetry Body temperature Heart rate Provider Name and Address Organization Details Last Updated DateTime 4 162.56 cm 31.6 kg/m2 46088 g 90 % 90 % 97.2 [degF] 88 /min VINH Betts [place] [employer] [facility] [employer] 4 11:58:58 Date Recorded Body height Provider Name an d Address Organization Details Last Updated DateTime 07/07/2024 162.56 cm Nora Collins RN [facility] [employer] 07/07/2024 12:49:20 Date Recorded Body height Body mass index (BMI) Body weight Body temperature Heart rate Oxygen saturation Oxygen saturation in Arterial blood by Pulse oximetry Systolic blood pressure Diastolic blood pressure Provider Name and Address Organization Details Last Updated DateTime 5 162.56 cm 31.1 kg/m2 64146.2 2 g 96.8 [degF] 85 /min 96 % 96 % 116 mm[Hg] 82 mm[Hg] Clary Coppola MA [employer] 5 10:43:32 Date Recorded Body height Body mass index (BMI) Body weight Body temperature Heart rate Systolic blood pressure Diastolic blood pressure Provider Name and Address Organization Details Last Updated DateTime 5 162.56 cm 31.2 kg/m2 92171.8 1 g 97.4 [degF] 84 /min 126 mm[Hg] 74 mm[Hg] Nora Rachel VIN[facility] [place] [facility] [place] [employer] [facility] 5 16:09:52 Social History Question Answer Notes LastModified by Organization Details LastModified Time Tobacco Smoking Status Former Smoker quit 2006 Not Available [employer] 11/18/2022 06:40:40 Do You Have An Advance Directive? Yes [email or web address] Information not available 03/01/2024 What Is Your Level Of Alcohol Consumption? None [id number] Information not available 11/18/2022 Are You Blind Or Do You Have Difficulty Seeing? No [email or web address] Information not available 03/01/2024 Is Blood Transfusion Acceptable In An Emergency? Yes Information not available 03/01/2024 What Is Your Level Of Caffeine Consumption? Moderate [id number] Information not available 11/18/2022 In The 14 Days Before Symptom Onset, Have You Had Close Contact With A Laboratory-confi rmed COVID-19 While That Case Was Ill? No [id number] Information not available 11/18/2022 In The 14 Days Before Symptom Onset, Have You Had Close Contact With A Person Who Is Under Investigation For COVID-19 While That Person Was Ill? No [id number] Information not available 11/18/2022 Are You Currently Employed? No [email or web address] Information not available 03/01/2024 Are You Deaf Or Do You Have Serious Difficulty Hearing? No [email or web address] Information not available 03/01/2024 What Type Of Diet Are You Following? REGULAR Information not available 03/01/2024 What Is The Highest Grade Or Level Of School You Have Completed Or The Highest Degree You Have Received? [id number] Information not available 03/01/2024 What Is Your Occupation? Retired [id number] Information not available 11/18/2022 Have There Been Any Changes To Your Family Or Social Situation? No Information not available 03/01/2024 What Is The Fluoride Status Of Your Home? Unknown [email or web address] Information not available 03/01/2024 When Did You Quit Smoking? 6-10yearssincelastc igarette [email or web address] Information not available 03/01/2024 Are There Any Guns Present In Your Home? Yes [email or web address] Information not available 03/01/2024 Do You Use Insect Repellent Routinely? No Information not available 03/01/2024 Where Do You Live? SingleLevelHouse Information not available 03/01/2024 Presence Of Domestic Violence No [email or web address] Information not available 03/01/2024 Guns Present In The Home? Yes [email or web address] Information not available 03/01/2024 Are You Able To Care For Yourself? Yes [email or web address] Information not available 03/01/2024 Are You Blind Or Do Yo Have Difficulty Seeing? No Information not available 03/01/2024 Are You Deaf Or Do You Have Serious Difficulty Hearing? No [email or web address] Information not available 03/01/2024 General Stress Level? Low Information not available 03/01/2024 Live Alone Of With Others? With Others [email or web address] Information not available 03/01/2024 Do You Have A Medical Power Of Brake Operator Sheet Metal? No [email or web address] Information not available 03/01/2024 What Was The Date Of Your Most Recent Tobacco Screening? 06/20/2024 Information not available 06/20/2024 How Many Children Do You Have? 3 [email or web address] Information not available 03/01/2024 Do You Have Any Pets? No Information not available 03/01/2024 What Is Your Relationship Status? Information not available 03/01/2024 Do You Use Your Seat Belt Or Car Seat Routinely? Yes Information not available 03/01/2024 Do You Have Smoke And Carbon Monoxide Detectors In Your Home? Yes Information not available 03/01/2024 At What Age Did You Start Smoking Tobacco? 8 [id number] Information not available 11/18/2022 Are You Passively Exposed To Smoke? No Information not available 03/01/2024 Are There Any Smokers In Your House? No Information not available 03/01/2024 How Much Tobacco Do You Smoke? 2 PPW [id number] Information not available 11/18/2022 What Types Of Sporting Activities Do You Participate In? None [email or web address] Information not available 03/01/2024 Do You Feel Stressed (tense, Restless, Nervous, Or Anxious, Or Unable To Sleep At Night)? [id number] Information not available 03/01/2024 Do You Use Any Illicit Or Recreational Drugs? No [email or web address] Information not available 03/01/2024 Do You Use Sunscreen Routinely? Yes [email or web address] Information not available 03/01/2024 Have You Recently Traveled Abroad? No [id number] Information not available 11/18/2022 Do You Have Any Dietary Restrictions? No Information not available 03/01/2024 Do You Or Have You Ever Used Any Other Forms Of Tobacco Or Nicotine? No [email or web address] Information not available 03/01/2024 Sex: Female Functional Status Question Answer Note LastModified by Organizat ion Details LastModified Time Do you have difficulty walking or climbing stairs? No Information not available 03/01/2024 Do you have transportation difficulties? No [email or web address] Information not available 03/01/2024 Are you able to walk? YESWOREST [email or web address] Information not available 03/01/2024 Do you have difficulty doing errands alone? No [email or web address] Information not available 03/01/2024 Are you able to care for yourself? Yes [email or web address] Information n ot available 03/01/2024 Do you have difficulty dressing or bathing? No [email or web address] Information not available 03/01/2024 What is your exercise level? Occasional [id number] Information not available 11/18/2022 Mental Status Question Answer Note LastModified by Organization D etails LastModified Time Do you have difficulty concentrating, remembering or making decisions? Yes [email or web address] Information no t available 03/01/2024 Family History Relationship Description Onset Age of this Age Resolved Age Notes LastModified by Organization Details LastModified Time Paternal Grandmother Malignant tumor of lung [id number] Not available 11/18/2022 06:41:02 Mother Chronic obstructive pulmonary disease [id number] Not available 11/18/2022 06:41:02 Father Angiosarcoma [id number] Not available 11/18/2022 06:41:02 Medical History Condition Response SLEEP APNEA N MRSA N ALLERGIES/HAYFEVER Y LUNG DISEASE/DISORDER N HISTORY OF DRUG ABUSE N INSOMNIA N RADIATION / CHEMOTHERAPY N COPD Y HIGH CHOLESTEROL / HYPERLIPIDEMIA Y HYPERTHYROIDISM N BLOOD DISEASES N EAR OR HEARING PROBLEMS N HYPOTHYROIDISM N SHINGLES N FEMALE PROBLEMS / INFECTIONS Y DEPRESSION (INCLUDING POST ) N HAVE YOU BEEN HOSPITALIZED OR SEEN IN [facility] IN THE PAST YEAR ? Y STROKE/TIA N ULCERS N OBESITY N ANEURYSM N HISTORY WITH COMPLICATIONS WITH ANESTHES IA ? N ARTHRITIS Y USE OF BLOOD THINNERS Y DIABETES, TYPE N PARATHYROID DISEASE N ENT N SEASONAL ALLERGIES Y HEARTBURN / REFLUX N ASTHMA Y HEPATITIS / LIVER DISEASE N SEIZURES/EPILEPSY N HEADACHES/MIGRAINES N CHF N PACEMAKER N DIZZINESS N AIDS/HIV N HEART DISEASE/HEART PROBLEMS Y FRACTURES N HYPERTENSION Y CANCER: SPECIFY N TOURETTE'S N ANXIETY DISORDER Y BLOOD TRANSFUSION N ANEMIA/BLOOD DISORDER N ANESTHESIA COMPLICATIONS N CHRONIC EAR INFECTIONS N TUBERCULOSIS N Gynecological History Statement/Question Response How many live births 3 Date of Last Mammogram 12/17/2022 Date of Last Colonoscopy Date of Last Mammogram Most Recent Bone Density Date of LMP Date of Last Pap Current Control Method Hysterectom y Obstetrics History GPAL:G 3 P 3 0 0 3 Type Value Multiple Births 0 Full Term 3 Induced 0 Spontaneous 0 Premature 0 Living 3 Ectopics 0 Total 3 Immunizations Vaccine Type Date Status Note Provider Nam e and Address Organization Details Recorded Time Influenza, high-dose, quadrivalent, PF 1 completed Leatha Mckeon APRN [address], [place], [address], [facility] 03/01/2024 12:45:24 Influenza, high-dose, quadrivalent, PF 3 completed Leatha Mckeon APRN [address], [address], [place], [address], [facility] 03/01/2024 12:45:24 Influenza, high-dose, quadrivalent, PF 2 completed Leatha Mckeon APRN [address], [address], [place], [address], [facility] 03/01/2024 12:45:24 Influenza, adjuvanted, quadrivalent, PF 0 completed Leatha Mckeon APRN [address], [address], [place], [address], [facility] 03/01/2024 12:45:24 COVID-19, mRNA, LNP-S, PF, 30 mcg/0.3 mL dose 1 completed Leatha Mckeon APRN [address], [address], [place], [address], [facility] 03/01/2024 12:45:24 COVID-19, mRNA, LNP-S, PF, 30 mcg/0.3 mL dose 1 completed Leatha Mckeon APRN [address], [address], [place], [address], [facility] 03/01/2024 12:45:24 COVID-19, mRNA, LNP-S, PF, 30 mcg/0.3 mL dose 1 [address], [place], [address], [facility] [employer] [facility] 03/01/2024 12:45:24 COVID-19, mRNA, LNP-S, PF, 30 mcg/0.3 mL dose, lidia-sucrose 2 completed Leatha Mckeon APRN [address], [address], [place], [address], [facility] 03/01/2024 12:45:24 COVID-19, mRNA, LNP-S, bivalent, PF, 30 mcg/0.3 mL dose 2 completed Leatha Mckeon APRN [address], [address], [place], [address], [facility] 03/01/2024 12:45:24 RSV, bivalent, protein subunit RSVpreF, diluent reconstituted, 0.5 mL, PF 3 completed Leatha Mckeon APRN [address], [place], [address], [facility] [employer] [facility] 03/01/2024 12:45:24 COVID-19, mRNA, LNP-S, PF, lidia-sucrose, 30 mcg/0.3 mL 3 completed Leatha Mckeon APRN [address], [address], [place], [address], [employer] [facility] [employer] [facility] 03/01/2024 12:45:24 zoster recombinant 4 completed [address]ERARDO [address], [place], [address], [employer] [facility] [employer] [facility] 12/06/2024 10:56:59 Pneumococcal conjugate PCV20, polysaccharide [id number] conjugate, adjuvant, PF 4 completed Leatha Mckeon APRN [address], [address], [place], [address], [employer] [facility] [facility] 12/06/2024 10:56:59 COVID-19, mRNA, LNP-S, PF, lidia-sucrose, 30 mcg/0.3 mL 4 completed [address], [place], [address], [employer] [facility] [facility] 12/06/2024 10:56:59 Influenza, high-dose, trivalent, PF 4 [address], [place], [address], [employer] [facility] [employer] [facility] 12/06/2024 10:56:59 Influenza, split virus, trivalent, preservative 3 completed Leatha Mckeon APRN [address], [address], [place], [address], [employer] [facility] [employer] [facility] 03/01/2024 12:45:24 COVID-19, mRNA, LNP-S, PF, 100 mcg/0.5mL dose or 50 mcg/0.25mL dose 1 completed Leatha Mckeon APRN [address], [address], [place], [address], [employer] [facility] [employer] [facility] 03/01/2024 12:45:24 COVID-19, mRNA, LNP-S, PF, 100 mcg/0.5mL dose or 50 mcg/0.25mL dose 1 completed Leatha Mckeon APRN [address], [place], [address], [employer] [facility] [employer] 03/01/2024 12:45:24 Influenza, split virus, quadrivalent, preservative 0 completed Leatha Mckeon APRN [address], [place], [address], [employer] [facility] [employer] [facility] 03/01/2024 12:45:24 Influenza, split virus, quadrivalent, preservative 9 completed Not Available [facility] 06/22/2023 06:02:28 DT (pediatric) 9 completed Not Available [facility] 06/22/2023 06:02:28 pneumococcal conjugate PCV 7 8 completed Not Available [facility] 06/22/2023 06:02:28 Influenza, high-dose, trivalent, PF 9 completed Not Available [facility] 06/22/2023 06:02:28 Influenza, high-dose, trivalent, PF 8 completed Not Available [facility] 06/22/2023 06:02:28 Tdap 8 completed Not Available [facility] 06/22/2023 06:02:28 Influenza, high-dose, trivalent, PF 7 completed Not Available [facility] 06/22/2023 06:02:28 Influenza, high-dose, trivalent, PF 6 completed Not Available [facility] 06/22/2023 06:02:28 Influenza, high-dose, trivalent, PF 5 completed Not Available [facility] 06/22/2023 06:02:28 Influenza, high-dose, trivalent, PF 4 completed Not Available [facility] 06/22/2023 06:02:28 pneumococcal polysaccharide PPV23 4 completed Not Available [facility] 06/22/2023 06:02:28 Past Encounters Encounter ID Performer Location Encounter Start Date Encounter Closed Date Diagnosis/Indication Diagnosis SNOMED-CT Code Diagnosis ICD10 Code Diagnosis Note [id number] [facility] [place] [address] [place] [address] 01/15/2021 00:00:00 01/15/2021 13:01:[id number] [place] [address] [address] 04/16/2021 00:00:00 04/16/2021 13:40:[id number] [facility] [place] [address] [address] 04/21/2021 00:00:00 04/21/2021 14:57:[id number] [place] [facility], [facility] [address] 05/15/2021 00:00:00 05/15/2021 13:58:12 [id number] [facility] [place] [address] [place] [address] 05/16/2021 00:00:00 05/16/2021 15:50:24 [id number] [facility] [place] [address], [address] [place] [address] 06/27/2021 00:00:00 06/27/2021 17:03:42 [id number] [facility] E[facility] [place] [address] [place] [address] 07/15/2021 00:00:00 07/15/2021 16:13:44 [id number] [facility] [place] [address] [place] [address] 09/10/2021 00:00:00 09/10/2021 21:42:[id number] [facility] [place] [address] [place] [address] 09/25/2021 00:00:00 09/25/2021 11:41:42 [id number] [facility] [place] [address] [place] [address] 10/07/2021 00:00:00 10/07/2021 14:36:20 [id number] [facility] [place] [address] , [place] [address] 12/15/2021 00:00:00 12/15/2021 16:24:54 [id number] [facility] [place] [address] , [place] [address] 12/24/2021 00:00:00 12/24/2021 15:36:16 [id number] [facility] [place] [address] [place] [address] 01/09/2022 00:00:00 01/09/2022 16:26:58 [id number] [facility] [place] [address] [place] [address] 04/30/2022 00:00:00 04/30/2022 14:16:36 [id number] [facility] [place] [address] [place] [address] 07/10/2022 00:00:00 07/10/2022 15:36:03 [id number] [facility] [place] [address], [address] [place] [address] 09/09/2022 00:00:00 09/10/2022 12:22:21 [id number] [facility] [place] [address] [place] [address] 10/12/2022 00:00:00 10/19/2022 18:16:32 [id number] [facility] [place] [address] [place] [address] 10/15/2022 00:00:00 10/19/2022 18:00:19 [id number] [facility] [place] [address] [facility] [address] [place] [address] 10/20/2022 00:00:00 10/20/2022 16:59:45 [id number] [facility] [place] [address] [facility] [address] [place] [address] 11/04/2022 00:00:00 11/15/2022 15:16:10 [id number] [facility] [address] [place] [address] [address] 11/21/2020 00:00:00 11/21/2020 11:59:30 [id number] [facility] [address] [place], [place] [address]meenakshi [address] [address] 12/26/2020 00:00:00 12/26/2020 11:46:34 [id number] [facility] [address] [place], [place] [address] [address] 03/31/2021 00:00:00 03/31/2021 19:45:43 [id number] [facility] [address] [address] 04/29/2021 00:00:00 04/29/2021 17:54:38 [id number] Yulia Schumacher, BILLING ADJUDICATOR- [facility] [place] [address] [place] [address] 02/08/2023 14:49:58 02/09/2023 08:38:48 Multiple nodules of lung 645468733 R91.8 Noted to RUL, measuring up to [address] completed ep eat in one year due 06/2023 Asthma-chr onic obstructive pulmonary disease overlap syndrome [id number] J44.9 Continue Trelegy Ellipta 100, this is covered by her insurance and she has good benefitIns tructed on techniqueR eviewed indication s for albuterol use, continue PRNDiscuss ed reportable signs and symptomsRT C in 4-6 months Posterior rhinorrhea 758 23799 R09.82 Continue ipratropiu m Dyspnea on exertion 6084 5006 R06.09 Alpha 1 normalRAST and IGE normalQuan tiferon GOLD negativeBN P normalIGG subclass 2 slightly low [id number] Anum Merrill MD [facility] Primary Care [facility] [address] [facility] [address] [place] [address] 03/11/2023 11:54:15 03/11/2023 12:46:08 Essential hypertension 48993785 I10 [id number] Arpita June BILLING ADJUDICATOR [facility] Primary [facility] [address] [facility] [address] [facility] [address] 07/13/2023 09:09:14 07/13/2023 10:42:33 [id number] Yulia Schumacher, [facility] Pul[facility] [place] [address] [place] [address] 07/26/2023 14:42:55 07/26/2023 15:26:57 Multiple nodules of lung 977335870 R91.8 Noted to RUL, measuring up to [address] completed ep eat 06/2023 stable Asthma-chr onic obstructive pulmonary disease overlap syndrome [id number] 9322874 J44.9 Continue Trelegy Ellipta 100, this is covered by her insurance and she has good benefitIns tructed on techniqueR eviewed indication s for albuterol use, continue PRNDiscuss ed reportable signs and symptomsAd vised vaccines this fall Posterior rhinorrhea 758 47770 R09.82 Continue ipratropiu m Dyspnea on exertion 6084 5006 R06.09 Alpha 1 normalRAST and IGE normalQuan tiferon GOLD negativeBN P normalIGG subclass 2 slightly lowIncreas e exercise, weight loss [id number] Anum Merrill MD [facility] Primary Care [facility] [address] [facility] [address] [place] [address] 08/16/2023 12:16:53 08/16/2023 13:21:16 Essential hypertension 64429232 I10 stablechec k labs Hyperlipidemia 32591426 E78.5 Z79.899 Vitamin D deficiency 347 70652 E55.9 [id number] Anum Merrill MD [facility] Primary Care [place] [address] [facility] [address] [place] [address] 09/03/2023 12:04:55 09/03/2023 12:33:39 [id number] Anum Merrill MD [facility] Primary Care [place] [address] [facility] [address] [place] [address] 10/06/2023 12:16:02 10/06/2023 12:52:10 Hypokalemia 09570157 E87.6 Diabetes mellitus 322303 09 E11.9 [id number] Anum Merrill MD [facility] Primary Care [place] [address] [facility] [address] [place] [address] 11/26/2023 13:58:59 11/26/2023 14:56:38 Transition of care 7396088922 105 Z75.8 Diabetes mellitus 327574 09 E11.9 increase lantus to 20 unitsd/c humalog after wednesday dinnerorde r freestyle meter for cgmf/u in 2 weeksplan ozempic restart in 2 weeks Essential hypertension 37141017 I10 stablechec k labs Vitamin D deficiency 347 60125 E55.9 Chronic ob structive pulmonary disease 67050220 J44.9 +wheezingp rednisone [id number] Anum Merrill MD [facility] Primary Care [place] [address] [facility] [address] [place] [address] 12/10/2023 08:59:56 12/10/2023 09:31:09 Diabetes mellitus 40936092 E11.9 restart ozempic 0.25 mg sc qweek and titrate up as toleratedo k to remain off humalogcon tinue lantus 20 units Essential hypertension 73466518 I10 check home readings 2x per weekf/u in 4 weeks Cellulitis of lower limb 461193051 L03.119 elevate leg when possiblece phalexin 500 mg po bid x 7 dayscall/r eturn if no improvemen t in 1-2 days or sooner if neededrevi ewed s/s that warrant urgent/malissa rgent eval in meantime Chronic ob structive pulmonary disease 83676889 J44.9 +wheezingp rednisone taper with foodf/u in 4 weeks or sooner if neededcall /return if no improvemen t in 1-2 days or sooner if neededrevi ewed s/s that warrant urgent/malissa rgent eval in meantime [id number] Anum Merrill MD [facility] [place] [facility] [address] [facility] [address] [place] [address] 01/10/2024 16:54:53 01/10/2024 17:38:01 Diabetes mellitus 09552458 E11.9 restart ozempic 0.25 mg sc qweek and titrate up as toleratedo k to remain off humalogcon tinue lantus 20 units 01/10/24: hold lantusincr ease ozempic to 0.5 mg sc qweekcall next week with AM fasting blood sugars 0683670 Leatha Mckeon APRN [facility] [address] [place] [address] [place] [address] 03/01/2024 10:31:21 03/01/2024 11:39:13 Adult health examination 142973060 Z00.00 Screening for disorder 238043188 Z13.9 Low back pain 431357531 M54.50 [id number] Leatha Mckeon APRN [facility], [address] [place] [address] 06/07/2024 10:25:17 06/07/2024 11:13:38 Hepatitis C screening 036003933 Z11.59 Diabetes mellitus 694079 09 E11.9 Vitamin D deficiency 347 56729 E55.9 Hyperlipidemia 19696081 E78.5 Z79.164 [id number] Tristin Peck DPM [facility] [address], [facility] [place] [address] 06/20/2024 10:50:45 06/21/2024 11:32:35 Onychomycosis of toenails 919148905 B35.1 Pain in right foot 92706 74613 28848 M79.671 neuropathy Pain in left foot 524837 8769 39965 M79.672 neuropathy Peripheral neuropathy due to type 2 diabetes mellitus 5466292970 107 E11.42 [id number] BANDAR Cintron [facility] Primary Care [address] [place] [address] 07/07/2024 12:21:37 07/07/2024 14:06:31 [id number] Leatha Mckeon APRN [facility] Internal Med [facility] [address] [facility], [facility] [address] [place] [address] 12/06/2024 10:24:13 12/06/2024 11:19:14 Essential hypertension 16901742 I10 Renewal of prescription 692977774 Z76.0 Primary hypertriglyceridemia 339543888 E78.1 Peripheral neuropathy due to type 2 diabetes mellitus 0415720431 107 E11.42 Diabetes mellitus 972898 09 E11.9 Hyperlipidemia 09273587 E78.5 Z79.899 Vitamin D deficiency 347 05321 E55.9 Environmental allergy 42 4336506 T78.49XD [id number] Maria C de la torre MD [facility] Primary Care [address] [address] 12/25/2024 15:33:54 12/25/2024 16:54:14 Screening - NAD 942313178 Z13.9 C-scope: Get this if not done, referred Mammogram: Get this DEXA: Get this PAP: Does not do this, no complaints Get yearly flu shot, get tdap if not doneCan do Shingrix vaccineCan do COVID 19 boostersCa n do RSV vaccineCan do prevnar #20 vaccine RTC in 3 months, do labs, ER if worse, she and her did verbalize his understand ing of the above Hyperlipidemia 34025355 E78.5 On rosuvastat in 10mg dailyOn fenofibrat e 160mg dailyGet labs Postmenopausal state 764 01966 Z78.0 Screening mammography 24 435062 Z12.31 Diabetes mellitus 445620 09 E11.39 Eye MD 12/20/2024 : Dr Kamar Mejia samantha that she has done very well on this, has to see her cardiologi st also Chronic ob structive pulmonary disease 67243071 J44.9 Yulia Schumacher NP 12/06/2024 , s/p CHARLES lobectomy On albuterol HHNsOn albuterol HFAOn ipratropiu m-albutero Alicia trelegyOn zyrtec Coronary arteriosclerosis 06065856 I25.10 On diltiazem 30mg dailyOn aldactoneO n K Dr Beltrán SL 06/27/2024 Dementia 01237435 F03.90 11/01/2023 : Vicki Carl PRODUCTION CLERK: Neurology: MRI to be done for Leqembi evaluation , to be on namenda and donezepil Neuropathy 298577685 G62 .9 On gabapentin 100mg daily Screening for malignant neoplasm of colon 293144764 Z12.11 Moderate r ecurrent major depression 40734632 F33.1 Hx of Alzhiemer' s dementiaOn duloxetine 20mg bidOn Qutiapine 50mg at bedtimeSta samantha that she is doing very well, as per is seeing neurologis t, not suicidal or homicidal and declined any psyciatry referrals Health Concerns Section Related Observation LastModified by Organization Detai ls LastModified Time None Recorded Concern Status LastModified by Organization Details LastModified Time None Recorded Advance Directives Directive Y: Payers Encounter Date Sequence Insurance Name Policy Number Policy Sorto Covered Member ID Sorto Member ID Guarantor Name 06/07/2024 1 [employer] (MEDICARE REPLACEMENT/A DVANTAGE - PPO) [id number] Paty F Fatou [id number] Paty Leal Fatou 06/20/2024 1 [employer] (MEDICARE REPLACEMENT/A DVANTAGE - PPO) [id number] Paty Lainez [id number] Paty F Fatou 07/07/2024 1 [employer] (MEDICARE REPLACEMENT/A DVANTAGE - PPO) [id number] Paty Mel Fatou [id number] Paty Mel Fatou 12/06/2024 1 [employer] (MEDICARE REPLACEMENT/A DVANTAGE - PPO) [id number] Paty Mel Fatou [id number] Paty Lainez 12/25/2024 1 [facility] (MEDICARE REPLACEMENT/A DVANTAGE - PPO) [id number] Paty Lainez [id number] Paty Lainez Notes Date Note Type Note Provider Name and Address Organization Details Recorded Time 06/07/2024 text/html Paty presents today for 6 month follow up. She has been to dementia clinic at [facility] and has been tested and is currently on the proper medication. She was at the eye doctor and she has eye surgery due to blood behind her eye. 03/01/2024Paty presents today to establish care as her provider has left the area. She states that she had an issue that her grandchildren come over and she will have an asthmatic reaction to colognes/perfumes. She states that she is using her inhaler and Duoneb nebulizer. She sees Yulia Schumacher for her pulmonary issues. She states that she has been having some low back pain that she had not mentioned to her previous provider. Leatha Mckeon APRN [address], [place], [address], [employer] 06/07/2024 11:10:33 06/20/2024 text/html NIDDM RTC for routine nail care and callus reduction. Also, evaluation of neuro and circulatory. Routine preventative care and evaluation of risk. Tristin Peck DPM [address], [place], [address], [employer] 06/21/2024 09:05:19 12/06/2024 text/html Paty presents today for 6 month follow up. They state that they have been treated for the blood in her eye. Her dementia is ongoing and she answers appropriately in the office. She has completed most of her quality measures. 06/07/2024Paty presents today for 6 month follow up. She has been to dementia clinic at [facility] and has been tested and is currently on the proper medication. She was at the eye doctor and she has eye surgery due to blood behind her eye. 03/01/2024Paty presents today to establish care as her provider has left the area. She states that she had an issue that her grandchildren come over and she will have an asthmatic reaction to colognes/perfumes. She states that she is using her inhaler and Duoneb nebulizer. She sees Yulia Schumacher for her pulmonary issues. She states that she has been having some low back pain that she had not mentioned to her previous provider. 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
--- OUTSIDE RECORDS SUMMARY | 2025-01-01 07:54 | XMS_ITS | Clinical Summary ---
Author Organization [facility] Address [address] [place] [address] Phone Care Team Providers Care Plasterer Stucco Name Role Phone Raysa Blanco NP Primary Care Provider [phone] Allergies Active Allergy Reactions Criticality Noted Date Comments Beta Adrenergic Blockers 05/01/2019 Cefdinir Hives 05/01/2019 Codeine Headache,Other (see comments) High 05/30/2010 Reaction: HEADACHE, Causes severe headache Doxycycline Other (see comments),Shortness of breath High 05/30/2010 Reaction: SHORT, Difficulty breathing Furosemide Other (see comments) High 05/30/2010 Drops K+--too much Depletes potassium Levofloxacin Diarrhea,Other (see comments) High 05/30/2010 Reaction: DIARRHEA;, Destoys good bacteria in colon Molds & Smuts Shortness of breath High 05/26/2012 Difficulty breathing Nsaids High 03/26/2015 Affects Kidney Function Penicillins Shortness of breath High 05/30/2010 Difficulty breathing Medications triamterene-hy droCHLOROthiaz bunny (MAXZIDE-25) 37.5-25 MG per tablet 1 tab qday 04/12/20 12 Active dilTIAZem (CARDIZEM) 30 MG immediate release tablet diltiazem 30 mg tablet Active ipratropium-al buterol (DUO-NEB) 0.5-2.5 mg/3 mL nebulizer solution ipratropium-albuterol 0.5 mg-3 mg(2.5 mg base)/3 mL nebulization soln USE 1 AMPULE IN NEBULIZER TWICE DAILY DIRECTED Active montelukast (SINGULAIR) 10 MG tablet montelukast 10 mg tablet Active Multiple Vitamin (MULTIVITAMIN) capsule Take by mouth Active nitroglycerin (NITROLINGUAL) 0.4 MG/SPRAY spray Nitrolingual 400 mcg/spray PLACE 1 SPRAY (0.4 MG) BY TRANSLINGUAL ROUTE ONTO OR UNDER THE TONGUEAT THE FIRST SIGN OF AN ATTACK; NO MORE THAN 3 SPRAYS ARE RECOMMENDEDWITHIN A 15 MINUTE PERIOD. 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 Hypertensive disorder 03/21/2012 Hyperlipidemia 03/21/2012 Overview (05/01/2019): Converted unresolved ICD9, potential mismatch. Immunizations Immunization Administration Dates Next Due DT 04/08/2009 Influenza Split High Dose Pr eservative Free IM 07/12/2019,07/15/2017,06/22/2016,07/03,06/22/2014 Influenza TIV (IM) 07/18/2014,07/03/2013 Influenza, Injectable, Quadrivalent 07/12/2019 Pneumococcal Conjugate 07/11/2008 Pneumococcal Conjugate 13-Valent 11/19/2007 Pneumococcal Polysaccharide 08/13/2014 Tdap 03/17/2018 Family History Medical History Relation Comments Kidney disease Mother Kidney stone Sibling Relation Status Comments Mother Sibling Social History Tobacco Use Types Packs/Day Years Used Date Smoking Tobacco: Former Smokeless Tobacco: Never Alcohol Use Standard Drinks/Week Comments Not Currently 0 (1 standard drink = 0.6 oz pur e alcohol) Comments Unknown Sex and Gender Information Value Date Recorded Sex Assigned at Not on file Legal Sex Female 7:57 AM MST Gender Identity Not on file Sexual Orientation Not on file Last Filed Vital Signs Vital Sign Reading Time Taken Comments Blood Pressure 128/74 05/29/2019 8:50 AM CDT Pulse - - Temperature 36.2 C (97.2 F) 05/29/2019 8:50 AM CDT Respiratory Rate - - Oxygen Saturation - - Inhaled Oxygen Concentration - - Weight 84.8 kg (187 lb) 05/29/2019 8:50 AM CDT Height 165.1 cm (5' 5 ) 05/29/2019 8:50 AM CDT Body Mass Index 31.12 05/29/2019 8:50 AM CDT Plan of Treatment Health Maintenance Due Date Last Done Comments Influenza Vaccine (Season Ended) 2025 07/18/20 14, 07/03/2013 Pneumococcal PPSV23/PCV13 65 + Years / Low and Medium Risk Completed 08/13/2014, 11/19/2007 Insurance [employer] MEDICARE ADVANTAGE Care Teams Plasterer Stucco Relationship Specialty Start Date End Date Raysa Blanco NP [address] [address] PCP - General Internal Medicine 04/06/19
--- OUTSIDE RECORDS SUMMARY | 2025-01-01 07:54 | XMS_ITS | Clinical Summary ---
Author Organization [facility] Address [facility] [place] [address] Care Team Providers Care Slide Maker Name Role Phone Unavailable Primary Care Provider Unavailabl e Social History Tobacco Use Types Packs/Day Years Used Date Smoking Tobacco: Never Assessed Comments Unknown Sex and Gender Information Value Date Recorded Sex Assigned at Not on file Legal Sex Female 7:36 PM CDT Gender Identity Not on file Sexual Orientation Not on file Plan of Treatment Health Maintenance Due Date Last Done Comments Hepatitis C 1966 DTaP, Tdap and Td Vaccines ( 1 - Tdap) 12/10/1967 Zoster Vaccines (1 of 2) 1998 Dexa Scan (General) 2013 Pneumococcal Vaccine: 50+ Ye ars (1 of 1 - PCV) 2013 RSV Immunization or 60+ Years (1 - 1-dose 75+ series) 12/10/2023 COVID-19 Vaccine ( - 2023-2 5 season) 2024 Meningococcal B Vaccine Aged Out No l onger eligible based on patient's age to complete this topic Meningococcal Vaccine Aged Out No benjy simon eligible based on patient's age to complete this topic RSV Immunizations Under 20 Months Aged Out No longer eligible based on patient's age to complete this topic
== END 2025-01-01 07:47 | disposition home or self-care (01) ==
LOC: CHSIMG 07:49
PROVIDERS: PCP Nurse Practitioner Family; Visit Provider Internal Medicine
DX: Z12.31 Encounter for screening mammogram for malignant neoplasm of breast (principal); Z78.0 Asymptomatic menopausal state; R92.8 Other abnormal and inconclusive findings on diagnostic imaging of breast
CPT/HCPCS: 77063; 77067; 77080

== ENCOUNTER 2025-02-01 09:10 | Outpatient (CLI) | payer MEDICARE, SELFPAY ==
--- NOTE | ~2025-02-01 | MMUS_ITS ---
EXAMINATION: US breast RT limited, MM diagnostic albert RT w zee HISTORY: Follow-up right breast mass and asymmetry TECHNIQUE: Additional 3-D tomosynthesis images of the right breast were performed and synthetic 2-D i mages were generated. CAD analysis was submitted and interpreted. High resolution Limited right breas t ultrasound was performed. COMPARISON: 01/01/2025 BREAST PARENCHYMAL COMPOSITION: Dense: The breasts are heterogeneously dense, which may obscure small masses FINDINGS: MAMMOGRAPHIC FINDINGS: There is a small low-density laterally in the right breast on CC view and inferiorly on the medial la teral view. There are no suspicious calcifications or architectural distortion. ULTRASOUND: Limited right breast ultrasound: In the subareolar location the right breast there is a 6 mm cyst. At 9:00, 4 cm from the nipple there is a 5 mm cyst. At 10:00, 5 cm from the nipple there is a cyst. The re is gaseous masses in the right breast to suggest malignancy. IMPRESSION: 1. No evidence for malignancy in the right breast. Benign findings. 2. Routine yearly screening mammogram and regular clinical breast examination are recommended. BI-RADS Category 2: Benign finding(s). Reviewed, dictated and finalized at location A. IMPRESSION: 1. No evidence for malignancy in the right breast. Benign findings. 2. Routine yearly screening mammogram and regular clinical breast examination a re recommended. BI-RADS Category 2: Benign finding(s).
--- OUTSIDE RECORDS SUMMARY | 2025-02-01 09:17 | XMS_ITS | Clinical Summary ---
Author Organization [facility] Address [address] [place] [address] Care Team Providers Care Weaver Axminster Name Role Phone Minerva Luu MD Primary Care Provider Source Comments [facility],non-owned Affiliates and Associated Physician Practices is amultiple site organization consisting of ambulatory clinics and hospital sitesin [place], [place], [place] and [place]. This disclosure is being madepursuant to the Care Everywhere program and may not contain all information available regarding this patient. Last updated 18.[facility] Allergies Active Allergy Reactions Criticality Noted Date [...] on file Legal Sex Female 7:16 PM CHAIN MAKER MACHINE Gender Identity Not on file Sexual Orientation Not on file Last Filed Vital Signs Vital Sign Reading Time Taken Comments Blood Pressure 152/96 09/24/2023 12:35 PM CHAIN MAKER MACHINE Pulse 93 09/24/2023 12:35 PM CHAIN MAKER MACHINE Temperature 36.6 C (97.9 F) 09/24/2023 12:35 PM CHAIN MAKER MACHINE Respiratory Rate 18 09/24/2023 12:35 PM CHAIN MAKER MACHINE Oxygen Saturation 95% 09/24/2023 12:35 PM CHAIN MAKER MACHINE Inhaled Oxygen Concentration - - Weight 83.7 kg (184 lb 8 oz) 09/24/2023 12:35 PM CHAIN MAKER MACHINE Height 162.6 cm (5' 4 ) 09/24/2023 12:35 PM CHAIN MAKER MACHINE Body Mass Index 31.67 09/24/2023 12:35 PM CHAIN MAKER MACHINE Plan of Treatment Health Maintenance Due Date Last Done Comments BONE DENSITY TESTING 1950 HEPATITIS C SCREENING 12/05/1966 DTAP/TDAP/TD VACCINES (1 - Tdap) 12/10/1967 PNEUMOCOCCAL VACCINE 50+ (1 of 1 - PCV) 1998 ZOSTER VACCINE (1 of 2) 1998 Respiratory Syncytial Virus (RSV) Vaccine Pt: or over 60 yrs (1 - 1-dose 75+ series) 12/10/2023 COVID-19 VACCINE ( season) 2024 07/14/2023, 08/31/2022, 04/05/2022, Additional history exists DEPRESSION SCREENING 09/20/2024 INFLUENZA VACCINE (Season Ended) 2025 06/20/2023, 07/29/2022, [...] patient's age to complete this topic Insurance Care Teams Weaver Axminster Relationship Specialty Start Date End Date Minerva Luu MD [address] [place] [phone] PCP - General 01/28/10
--- OUTSIDE RECORDS SUMMARY | 2025-02-01 09:17 | XMS_ITS | Clinical Summary ---
Author Organization [facility] Address [address] [place] [address] Phone Care Team Providers Care Home Appliance Tech Name Role Phone Minerva Luu MD Primary Care Provider [phone] Allergies Active Allergy Reactions Criticality Noted Date [...] capsule Take 1 Cap by mouth daily food technician. Active rosuvastatin (CRESTOR) 10 mg Oral tablet [...] area. Active nitroglycerin (NITROLINGUAL) 0.4 mg/Dose TL [address] [place] under tongue every 5 minutes as needed. [...] on file Legal Sex Female 5:55 AM WILDLIFE ENFORCEMENT MAJOR Gender Identity Not on file Sexual Orientation Not on file Occupation Industry Job Start Date Job End Date Not on file Not on file Not on file Not on file Not on file Not on file Not on file Not on file Last Filed Vital Signs Vital Sign Reading Time Taken Comments Blood Pressure 117/67 09/08/2013 5:22 AM WILDLIFE ENFORCEMENT MAJOR Pulse 82 09/08/2013 5:22 AM WILDLIFE ENFORCEMENT MAJOR Temperature 36.9 C (98.5 F) 09/08/2013 5:22 AM WILDLIFE ENFORCEMENT MAJOR Respiratory Rate 12 09/08/2013 9:25 AM WILDLIFE ENFORCEMENT MAJOR Oxygen Saturation 97% 09/08/2013 5:22 AM WILDLIFE ENFORCEMENT MAJOR Inhaled Oxygen Concentration - - Weight 84.4 kg (186 lb) 09/06/2013 9:04 AM WILDLIFE ENFORCEMENT MAJOR Height 163.8 cm (5' 4.5 ) 08/31/2013 10:46 AM CS T Body Mass Index 31.43 08/31/2013 10:46 AM WILDLIFE ENFORCEMENT MAJOR Plan of Treatment Health Maintenance Due Date Last Done Comments DTAP/TDAP/TD VACCINES (1 - Tdap) 12/10/1967 ZOSTER VACCINE (1 of 2) 1998 PNEUMOCOCCAL VACCINE 50+ YEARS (2 of 2 - PPSV23) 11/1811/19/2007 OSTEOPOROSIS SCREENING 2013 RSV VACCINE (60+ or ) (1 - 1-dose 75+ series) 12/10/2023 INFLUENZA VACCINE (#1) 2024 07/03/2013 Medical Devices Implanted Type Area Head Screen Worker Device Identifier Shelf Expiration Date Model / Serial / Lot Cement [place] G-Hv 40g [id number] - [id number] Implanted:Qty: 1 on 09/06/2013 by Mick Hamilton MD at [facility] Cement Right: Knee [employer] 03/09/2015 [id number] / / [id number] Comp Fem Vngrd Cr Intrlk Rt 65mm [id number] - [id number] Implanted:Qty: 1 on 09/06/2013 at [facility] Knee Right: Knee [employer] 07/19/2023 [id number] / / [id number] Button Patella 31mm 1peg [id number] - [id number] Implanted:Qty: 1 on 09/06/2013 at [facility] Knee Right: Knee [employer] 05/19/2018 [id number] / / [id number] Comp Tib Cocr Finned 71mm [id number] - [id number] Implanted:Qty: 1 on 09/06/2013 at [facility] Knee Right: Knee [employer] 07/19/2023 [id number] / / [id number] Brng Tib Vngrd Epoly As [id number] - [id number] Implanted:Qty: 1 on 09/06/2013 at [facility] Knee Right: Knee [employer] 08/19/2018 [id number] / / [id number] Insurance [email or web address] PPO Advance Directives For more information, please contact: [phone] * Full Code (Latest Code Status on [...] 8:05 AM 06/07/2012 10:25 AM Care Teams Home Appliance Tech Relationship Specialty Start Date End Date Minerva Luu MD [address] [phone] PCP - General 09/06/15
--- OUTSIDE RECORDS SUMMARY | 2025-02-01 09:18 | XMS_ITS | Continuity of Care Document ---
Author Organization [place] - [facility], [facility] [place] Address [address] [facility] [address] [place] [address] Assessment Encounter Date Assessment Date Assessment LastModified by Organization Details LastModified Time 01/31/2025 01/31/2025 12/26/2024: BUN/Cr/GFR 36/1.28/43 Not available 01/31/2025 16:54:02 Plan of Treatment Reminders Order Date Submit Date Provider Last Modified By Organization Details Last Modified Time Details Appointments Follow Up 15 2024 01:30P Leyda verma MD Not available Not available Not available Any 15 2024 10:15A M Maria C verma MD Not available Not available Not available Lab glycohemo globin, total, blood 2024 025 [employer] [facility], [address], [place], [address], 01/31/2025 17:22:36 microalbu min, urine 2024 025 [employer] [facility], [address], [place], [address], 01/31/2025 17:22:37 lipid panel, serum 2024 025 [employer] [facility], [address], [place], [address], 01/31/2025 17:22:37 CBC w/ auto diff 2024 025 [facility], [address], [place], [address], 01/31/2025 17:22:37 TSH, serum or plasma 2024 025 [facility], [address], [place], [address], 01/31/2025 17:22:37 CMP, serum or plasma 2024 025 [email or web address], [address], [place], [address], 01/31/2025 17:22:36 Referral nephrolog ist referral - Please call patient to schedule an appointme nt. Thank you. 2024 025 JOANN Lin MD, [address] [facility] [address], [place], [address], 02/01/2025 10:01:51 cardiolog ist referral - Please call patient to schedule an appointme nt. Thank you. 2024 025 JOANN Beltrán MD, [address] [facility] [place], [address], [place], [address], 02/01/2025 09:53:30 Procedures colonosco py screening (PROC) - Please call patient to schedule an appointme nt. Thank you 2024 025 JOANN Galan MD, [address] [facility], [address], [place], [address], 02/01/2025 09:54:30 Surgeries None recorded. Imaging MAMMO, diagnosti c, digital, unilatera l 2024 025 [email or web address] [facility] ([facility]), [address], [place], [address], 01/31/2025 17:18:45 US, breast, unilatera l 2024 025 [email or web address] [facility] ([facility]), [address] [place], [address], 01/31/2025 17:19:06 Medication Orders None recorded. Patient TargetsNo targets recorded. Patient InstructionsNo instructions recorded. Reason for Referral Whizzer Referral for Co ronary arteriosclerosis Please call patient to schedule an appointment. Thank you. Referring Physician: Maria C Ku, Internal Medicine, Encounter Date: 01/31/2025 Consumer Safety Officer Referral for Ch ronic kidney disease Please call patient to schedule an appointment. Thank you. Referring Physician: Maria C Ku, Internal Medicine, Encounter Date: 01/31/2025 Results Created Date Observation Date Name Description Value Unit Range Abnormal Flag Note LastModifiedBy Organization Detail LastModifiedTime 01/02/20 25 01/01/2025 MAMMO , scree jesus, digit al, bilat eral No observ ation record ed. [email or web address] [facility] [address] [place], [address], 01/30/2025 10:11:34 01/02/20 25 01/01/2025 MAMMO , scree jesus, digit al, bilat eral No observ ation record ed. [email or web address] [facility] [address] [place], [address], 01/03/2025 10:06:36 01/06/20 25 01/01/2025 bone densi ty No observ ation record ed. [facility] [address] [place], [address], 01/05/2025 09:42:06 01/06/20 25 01/01/2025 bone densi ty No observ ation record ed. [facility] Scheduling [address] [place], [address], 01/05/2025 10:36:53 Result Notes None recorded. Problems Name Problem SNOMED Code Status Onset Date Resolution Date Notes Provider Name and Address Organization Details Recorded Time Asthma-c hronic obstruct vee pulmonar y disease overlap syndrome 34564212238 278071 Active 2018 Leatha Mckeon APRN [address], [address], [place], [address] , [employer] 4 13:10:45 History of lung lobectom y 68151727074 020016 Active 2018 Leatha Mckeon APRN [address], [address], [place], [address] , [employer] 4 13:11:23 Polycyth emia vera (clinica l) 591930986 Active Leatha Mckeon APRN [address], [address], [place], [address] , [employer] 4 13:11:51 Chronic obstruct vee pulmonar y disease 75059809 Active Leatha Mckeon APRN [address], [address], [place], [address] , [employer] 4 13:10:57 Body mass index 30+ - obesity 811018783 Active 2018 Leatha Mckeon APRN [address], [address], [place], [address] , [employer] 4 13:10:53 Raynaud' s disease 850026143 Active Leatha Mckeon APRN [address], [address], [place], [address] , [employer] 4 13:11:53 Acute exacerba tion of chronic obstruct vee pulmonar y disease 929704067 Active 2021 Not Available [employer] 3 06:02:26 Asthma 499022577 Active 2018 Leatha Mckeon APRN [address], [address], [place], [address] , [employer] 4 13:10:41 Anxiety disorder 219220882 Active Leatha Mckeon APRN [address], [address], [place], [address] , [facility] [employer] [facility] [employer] 4 13:10:37 Abdomina l pain 89450678 Completed Not Available [facility] 3 06:49:00 Patient advised about driving 734868270 Active 2020 Not Available [facility] 3 06:02:26 Moderate chronic obstruct vee pulmonar y disease 082493420 Active 2017 Leatha Mckeon APRN [address], [address], [place], [address] , [employer] [facility] [employer] 4 13:11:40 Bronchit is 48973819 Completed Anum Merrill MD [address], [address], [place], [address] , [email or web address] [facility] 3TEN[employer] 4 14:33:25 Vitamin D deficien cy 68103493 Active Leatha Mckeon APRN [address], [address], [place], [address] , [employer] [facility] [employer] [facility] 4 13:11:56 Depressi ve disorder 10173564 Active 2021 Leatha Mckeon APRN [address], [address], [place], [address] , [employer] [facility] [employer] 4 13:11:07 Sinusiti s 49593704 Completed Not Available [facility] 3 06:49:01 Hyperten sive disorder 33666260 Active Leatha Mckeon APRN [address], [address], [place], [address] , [facility] [employer] [facility] [employer] 4 13:11:27 Memory impairme nt 720030325 Active 2020 Leatha Mckeon APRN [address], [address], [place], [address] , [facility] - [facility] 4 13:11:38 Osteoart hritis 885717935 Active GERARDO [address], [address], [place], [address] , [facility] - [facility] 4 13:11:49 Chronic sinusiti s 69023087 Active 2021 Not Available [facility] 3 06:02:26 Pharyngi tis 086469888 Completed Not Available [facility] 3 06:49:02 Renal failure syndrome 49394333 Active GERARDO [address], [address], [place], [address] , [facility] 4 13:12:07 Disorder of urinary bladder 83242122 Active GERARDO [address], [address], [place], [address] , [employer] - [facility] 4 13:11:12 Multiple nodules of lung 918710597 Active 2021 GERARDO Goodman [address], [address], [place], [address] , [employer] - [facility] 4 13:11:44 Cramp in lower limb 617231460 Active Not Available [facility] 3 06:02:26 Auditory hallucin ations 95805733 Active 2020 GERARDO [address], [address], [place], [address] , [employer] - [facility] 4 13:10:48 Periorbi duke edema 33185477 Completed Not Available [facility] 3 06:49:03 Dementia 95368539 Active 2020 GERARDO Goodman [address], [address], [place], [address] , [facility] - [facility] 4 13:11:04 Coronary arterios clerosis 60742032 Active Leatha Mckeon APRN [address], [address], [place], [address] , [employer] [facility] [employer] [facility] 4 13:11:02 Acute upper respirat ory infectio n 07234703 Completed Not Available [facility] 3 06:49:03 Hyperlip idemia 15033172 Active Leatha Mckeon APRN [address], [address], [place], [address] , [facility] [employer] [facility] [email or web address] [facility] 4 13:11:32 Essentia l hyperten deuce 95249275 Active Leatha Mckeon APRN [address], [address], [place], [address] , [employer] [facility] [employer] [facility] 4 13:11:17 Dyspnea on exertion 03052389 Active 2021 Not Available [facility] 3 06:02:26 Allergic rhinitis 30759720 Active Leatha Mckeon APRN [address], [address], [place], [address] , [employer] [facility] [employer] [facility] 4 13:10:40 Iritis 98213607 Active 2021 Not Available [facility] 3 06:02:26 Urinary tract infectio us disease 83594885 Completed Not Available [facility] 3 06:49:05 Hallucin ations 8619650 Active 2020 Leatha Mckeon APRN [address] [facility], [address], [place], [address] , [employer] [facility] [employer] [facility] 4 13:11:20 Hemorrho ids 13707997 Active Not Available [facility] 3 06:02:27 Acute exacerba tion of asthma Active 2017 Not Available [employer] 3 06:02:27 Posterio r rhinorrh ea 07392382 Active 2021 Not Available [facility] 3 06:02:27 Candidia sis of mouth 07814861 Active 2021 Not Available [employer] 3 06:02:27 COVID-19 989199531 Active 2021 Not Available [facility] 3 06:02:27 Hypokale aiden 73244002 Active 2022 Not Available [facility] 3 06:02:26 Acute sinusiti s 42101004 Active 2022 Not Available [facility] 3 06:02:26 Cough 09531483 Active 2022 Not Available [facility] 3 06:02:26 Dysuria 95538500 Active 2022 Leatha Mckeon APRN [address], [address], [place], [address] , [employer] 4 13:11:15 Acute urinary tract infectio n 204410137 Active 2022 Anum Merrill MD [address], [address], [place], [address] , [email or web address] [facility] [employer] 3 11:07:37 Hypergly cemia 27061020 Active 2022 Leatha Mckeon APRN [address], [address], [place], [address] , [employer] 4 13:11:29 Diabetes mellitus 33921458 Active 2023 Leatha Mckeon APRN [address], [address], [place], [address] , [email or web address] [facility] [employer] 4 13:11:11 Bronchit is 28914474 Active 2023 Anum Merrill MD [address], [address], [place], [address] , [email or web address] [facility] [employer] 4 14:33:25 Cellulit is of lower limb 112200398 Active 2023 Anum Merrill MD [address], [address], [place], [address] , [employer] 4 09:18:46 Lobectom y Completed 201803/01/2024 Removal Reason: Possible lung cancer Leatha Mckeon, GERARDO [address], [address], [place], [address] , [employer] 4 11:07:05 History of hysterec socorro 600166511 Active 2023 Leatha Mckeon APRN [address], [address], [place], [address] , [employer] 4 11:07:29 Low back pain 897300769 Active 2023 Leatha Mckeon APRN [address], [address], [place], [address] , [employer] 4 11:13:26 Onychomy cosis of toenails 118021426 Active 2023 VINH Betts, [employer] 4 11:52:48 Pain in right foot 44301784995 9107 Active 2023 Tristin Peck DPM [address], [address], [place], [address] , [employer] 4 09:03:30 Pain in left foot 50584671741 9107 Active 2023 Tristin Peck DPM [address], [address], [place], [address] , [employer] 4 09:03:40 Peripher al neuropat hy due to type 2 diabetes mellitus 68103926785 07 Active 2023 Tristin Peck DPM [address], [address], [place], [address] , [employer] 4 09:04:09 Primary hypertri glycerid emia 093352686 Active 2023 Leatha Mckeon APRN [address], [address], [place], [address] , [employer] 4 19:13:24 Prediabe samantha 300974605 Active 2023 Leatha Mckeon APRN [address], [address], [place], [address] , [employer] [facility] [employer] [facility] 4 19:16:23 Alzheime r's disease 91623332 Active 2023 Leatha Mckeon APRN [address], [address], [place], [address] , [employer] [facility] [employer] [facility] 4 12:23:08 Carotid artery occlusio n without infarcti on 03898638538 4101 Active 2023 Leatha Mckeon APRN [address], [address], [place], [address] , [employer] [facility] [employer] 4 12:06:11 Environm ental allergy 215414615 Active 2024 Leatha Mckeon APRN [address], [address], [place], [address] , [employer] [facility] [employer] 5 11:04:53 Neuropat hy 853152742 Active 2024 Maria C de la torre MD [address], [address], [place], [address] , [employer] [facility] [employer] 5 20:25:10 Moderate recurren t major depressi on 72940210 Active 2024 Maria C de la torre MD [address], [address], [place], [address] , [employer] [facility] [employer] 5 16:58:53 Mammogra phy abnormal 397161983 Active 2024 VINH Gonzalez null, [place] [employer] [facility] [employer] [facility] 5 10:14:18 Chronic kidney disease 022477388 Active 2024 Maria C de la torre MD [address], [address], [place], [address] , [employer] [facility] [employer] 5 16:47:07 Notes:Some problems listed i n Documents: #[id number], #[id number], #[id number] could not be added to this patient's chart. Please review these documents and add these problems to the patient's chart manually as needed. Problem Notes None recorded. Procedures Surgical History Date Name Laterality Status Provider Name and Address Organization Details Recorded Time 06/20/20 24 Nail Debridement completed Tristin Peck DPM [address], [address], [place], [address], [employer] 06/21/2024 09:03:15 06/20/20 24 Callus Debridement 2-4 completed Tristin Peck DPM [address], [address], [place], [address], [employer] 06/21/2024 09:03:22 03/01/20 24 Medicare Wellness CPT Code, subsequent completed Miguel Tapia LPN [place] [employer] [facility] 03/01/2024 09:47:00 11/26/19 24 Transitional_Care_ Management completed Nora Collins RN [employer] 11/26/2023 14:03:34 Orthopedic Surgery completed Not Available [facility] 11/18/2022 06:40:59 CUSTOMER RELATIONS ADVISOR Surgery completed Not Available [facility] 11/18/2022 06:40:59 Tonsillectomy completed Not Available [facility] 11/18/2022 06:40:59 Cholecystectomy completed Not Available [facility] 11/18/2022 06:40:59 repair of urinary bladder completed Not Available [facility] 11/18/2022 06:40:59 other completed Not Available [facility] 11/18/2022 06:40:59 Hysterectomy completed Not Available [facility] 11/18/2022 06:40:59 Colonoscopy completed Not Available [facility] 11/18/2022 06:40:59 Knee Replacement completed Not Available [facility] 11/18/2022 06:40:59 nasal septoplasty completed Not Available [facility] 11/18/2022 06:40:59 Sinus Surgery completed Not Available [facility] 11/18/2022 06:40:59 vitrectomy completed Angela Dickerson MA [place] [employer] [facility] [employer] 06/07/2024 10:42:56 Eye Surgery completed VINH Gonzalez [employer] [facility] [employer] [facility] 12/25/2024 16:05:34 Imaging Results None recorded. Procedure Notes None recorded. Medical Equipment None Reported. Allergies Allergen ID Allergen Name Allergen Category Reaction Reaction Severity Criticality Documentation Date Start Date Code Code System Note Provider Name and Address Organization Details Recorded Time 90736 Product containin g penicilli n (product) medicatio n Not available Not available Not available 11/18/2022 25627 8001 SNOMED Other react ions and sever ities : 'Adve rse react ion to subst ance' . Leatha Mckeon APRN [address], [address], [place], [address], [employer] [facility] 4 12:44:52 81150 Non-stero idal anti-infl ammatory agent (product) medicatio n Not available Not available Not available 11/18/2022 95266 005 SNOMED Other react ions and sever ities : 'Adve rse react ion to subst ance' . Leatha Mckeon APRN [address], [address], [place], [address], [facility] 4 12:44:52 48298 Levaquin medicatio n Not available Not available Not available 11/18/2022 29130 2 RxNorm Not Available [facility] 3 06:59:57 74489 Lasix medicatio n Not available Not available Not available 11/18/2022 82347 1 RxNorm Not Available [facility] 3 06:59:57 78802 doxycycli ne Not available Not available Not available Not available 11/18/2022 3640 RxNorm Other react ions and sever ities : 'Adve rse react ion to subst ance' . Leatha Mckeon APRN [address], [address], [place], [address], [employer] [facility] [employer] [facility] 4 12:44:52 19845 codeine medicatio n Not available Not available Not available 11/18/2022 2670 RxNorm Other react ions and sever ities : 'Adve rse react ion to subst ance' . Leatha Mckeon APRN [address], [address], [place], [address], [employer] 4 12:44:52 73206 Product containin g beta adrenergi c receptor antagonis t (product) medicatio n Not available Not available Not available 11/18/2022 60089 009 SNOMED cause s nicol nued cough ing Not Available [employer] 3 06:59:58 80486 cefdinir medicatio n Not available Not available Not available 11/18/2022 23593 RxNorm Other react ions and sever ities : 'Adve rse react ion to subst ance' . Leatha Mckeon APRN [address], [address], [place], [address], [employer] 4 12:46:22 16114 furosemid e medicatio n Not available Not available Not available 03/01/2024 4603 RxNorm Other react ions and sever ities : 'Adve rse react ion to subst ance' . Leatha Mckeon APRN [address], [address], [place], [address], [employer] 4 12:44:52 76905 levofloxa deena medicatio n Not available Not available Not available 03/01/2024 95183 [employer] Other react ions and sever ities : 'Adve rse react ion to subst ance' . Leatha Mckeon APRN [address], [address], [place], [address], [employer] 4 12:44:52 Medications Name Sig Start Date [...] 7 DAYS 02/02 completed Not Available Not 400082|[id number]|2025-02-01 09:19:00|2025-02-01 09:17:00|XMS_ITS|BKG DAANGELITOON|External Medical Summaries|[id number]|" Data Portability Created on: February 01, 2025 Paty Lainez .[id number] : 1950 Sex: Female Author Organization [place] - [facility]TEN[facility], Main Office Address [address] [place] [address] Assessment Encounter Date Assessment Date Assessment LastModified by Organization Details LastModified Time 01/31/2025 01/31/2025 12/26/2024: BUN/Cr/GFR 36/1.28/43 Not available 01/31/2025 16:54:02 Plan of Treatment Reminders Order Date Submit Date Provider Last Modified By Organization Details Last Modified Time Details Appointments Follow Up 2024 01:30P Leyda verma MD Not available Not available Not available Any 15 2024 10:15A Leyda verma MD Not available Not available Not available Lab glycohem oglobin, total, blood 2024 025 [facility], [address], [place], [address], 01/31/2025 17:22:36 microalb umin, urine 2024 025 [facility], [address], [place], [address], 01/31/2025 17:22:37 lipid panel, serum 2024 025 [facility], [address], [place], [address], 01/31/2025 17:22:37 CBC w/ auto diff 2024 025 [facility], [address], [place], [address], 01/31/2025 17:22:37 TSH, serum or plasma 2024 025 [facility], [address], [place], [address], 01/31/2025 17:22:37 CMP, serum or plasma 2024 025 [facility], [address], [place], [address], 01/31/2025 17:22:36 glycohem oglobin, total, blood 2024 025 [email or web address] (Lab), [address] [place], [address], 12/25/2024 17:21:39 microalb umin, urine [email or web address] [place] [address] (Lab), [address] [place], [address], 01/04/2025 10:00:31 lipid panel, serum 2024 025 [facility] (Lab), [address] [place], [address], 12/26/2024 19:28:36 CBC w/ auto diff 2024 025 [facility] (Lab), [address] [place], [address], 12/26/2024 19:28:39 TSH, serum or plasma 2024 025 [facility] (Lab), [address] [place], [address], 12/26/2024 19:28:40 CMP, serum or plasma 2024 025 [facility] (Lab), [address] [place], [address], 12/26/2024 19:28:38 Referral nephrolo gist referral - Please call patient to schedule an appointm ent. Thank you. 2024 025 JOANN Lin MD, [address] [facility] [address], [place], [address], 02/01/2025 10:01:51 cardiolo gist referral - Please call patient to schedule an appointm ent. Thank you. 2024 025 JOANN Beltrán [place], [address] Demetria Thomas, [address], [address], 02/01/2025 09:53:30 cardiolo gist referral - Please call patient to schedule an appointm ent. Thank you. 2024 025 JOANN Beltrán [place], [address] Demetria Thomas, [address] [place], [address], 12/25/2024 19:25:14 Procedures colonosc opy screenin g (PROC) - Please call patient to schedule an appointm ent. Thank you 2024 025 JOANN Galan MD, [address] [facility], [facility], [place], [address], 02/01/2025 09:54:30 colonosc opy screenin g (PROC) - Please call patient to schedule an appointm ent. Thank you 2024 025 JOANN Galan MD, [address] [facility], [facility], [place], [address], 12/25/2024 18:37:03 Surgeries None recorded . Imaging MAMMO, diagnost ic, digital, unilater al [address] ([facility]), [address] [place], [address], 01/31/2025 17:18:45 US, breast, unilater al [address] ([facility]), [address] [place], [address], 01/31/2025 17:19:06 MAMMO, screenin g, digital, bilatera l - Please call patient to schedule . 2024 025 [facility], [address] [place] [address] [address], [place], [address], 01/01/2025 09:48:48 bone density - Please call patient to schedule . 2024 025 [facility], [address] [place] [address] [address], [place], [address], 01/05/2025 09:42:06 Medication Orders Zyrtec 10 mg tablet 2024 025 [facility]-[id number] 0 [facility], [address], [address], [place], [place], [id number], 12/11/2024 10:24:25 Ozempic 1 mg/dose (4 mg/3 mL) subcutan eous pen injector 2024 025 AMANDA [facility], [address], [address], [place], [place], [id number], 12/06/2024 11:09:29 duloxeti ne 20 mg capsule, delayed release 2024 025 AMANDA [facility], [address], [address], [place], [place], [id number], 12/06/2024 11:09:28 quetiapi ne 50 mg tablet 2024 025 AMANDA [facility], [address], [address], [place], [place], [id number], 12/06/2024 11:09:23 rosuvast atin 10 mg tablet 2024 025 AMANDA [facility], [address], [address], [place], [place], [id number], 12/06/2024 11:09:25 fenofibr ate 160 mg tablet 2024 025 AMANDA [facility], [address], [address], [place], [place], [id number], 12/06/2024 11:09:23 Vitamin D3 50 mcg (2,000 unit) capsule 2024 025 AMANDA [facility], [address], [address], [place], [place], [id number], 12/06/2024 11:09:33 gabapent in 100 mg capsule 2024 025 AMANDA [facility], [address], [address], [place], [place], [id number], 12/06/2024 11:09:30 diltiaze m 30 mg tablet 2024 025 AMANDA [facility], [address] [place] [address], [address], [place], [place], [id number], 12/06/2024 11:09:32 Diflucan 150 mg tablet 2023 024 rldino [facility], [address] [facility], [place], [address], 08/07/2024 08:55:56 gabapent in 100 mg capsule 2023 024 [facility], [address] [facility], [place], [address], 07/10/2024 14:40:11 Patient TargetsNo targets recorded. Patient Instructions Encounter Date Encounter Id Patient Instructions Last Modified By Organization Details Last Modified Time 12/06/2024 [id number] Follow up in [address] Ku Tests: Referral: Recommend: chi Not available 12/06/2024 11:09:14 Reason for Referral Whizzer Referral for Co ronary arteriosclerosis Please call patient to schedule an appointment. Thank you. Referring Physician: Maria C Ku, Internal Medicine, Encounter Date: 12/25/2024 Whizzer Referral for Co ronary arteriosclerosis Please call patient to schedule an appointment. Thank you. Referring Physician: Maria C Ku, Internal Medicine, Encounter Date: 01/31/2025 Consumer Safety Officer Referral for Ch ronic kidney disease Please call patient to schedule an appointment. Thank you. Referring Physician: Maria C Ku, Internal Medicine, Encounter Date: 01/31/2025 Results Created Date Observation Date Name Description Value Unit Range Abnormal Flag Note LastModifiedBy Organization Detail LastModifiedTime 09/26/1909/21/2024 US, kia joy carajose id arter y No observ ation record ed. [facility] [address], [place], [address], 09/27/2024 13:58:00 01/02/2001/01/2025 MAMMO , scree jesus, digit al, bilat eral No observ ation record ed. [email or web address] [facility] [address] [place], [address], 01/30/2025 10:11:34 01/02/2001/01/2025 MAMMO , scree jesus, digit al, bilat eral No observ ation record ed. [email or web address] [facility] [address] [place], [address], 01/03/2025 10:06:36 01/06/2001/01/2025 bone densi ty No observ ation record ed. [facility] [address] [place], [address], 01/05/2025 09:42:06 01/06/2001/01/2025 bone densi ty No observ ation record ed. [facility] Scheduling [address] [facility], [place], [address], 01/05/2025 10:36:53 Result Notes None recorded. Problems Name Problem SNOMED Code Status Onset Date Resolution Date Notes Provider Name and Address Organization Details Recorded Time Asthma-c hronic obstruct vee pulmonar y disease overlap syndrome 96064311384 390086 Active 2018 Leatha Mckeon APRN [address], [address], [place], [address] , [facility] [employer] 4 13:10:45 History of lung lobectom y 73120429618 701165 Active 2018 Leatha Mckeon APRN [address], [address], [place], [address] , [employer] 4 13:11:23 Polycyth emia vera (clinica l) 877165689 Active Leatha Mckeon APRN [address], [address], [place], [address] , [employer] 4 13:11:51 Chronic obstruct vee pulmonar y disease 71699394 Active GERARDO [address], [place], [address] , [employer] 4 13:10:57 Body mass index 30+ - obesity 149585914 Active 2018 Leatha Mckeon APRN [address], [address], [place], [address] , [employer] 4 13:10:53 Raynaud' s disease 244832028 Active GERARDO [address], [place], [address] , [employer] 4 13:11:53 Acute exacerba tion of chronic obstruct vee pulmonar y disease 087190617 Active 2021 Not Available [facility] 3 06:02:26 Asthma 932188402 Active [address], [place], [address] , [employer] 4 13:10:41 Anxiety disorder 871394801 Active GERARDO [address], [place], [address] , [employer] 4 13:10:37 Abdomina l pain 42279085 Completed Not Available [facility] 3 06:49:00 Patient advised about driving 672017436 Active 2020 Not Available [facility] 3 06:02:26 Moderate chronic obstruct vee pulmonar y disease 781235790 Active 2017 Leatha Mike, BAGMAN/WOMAN [address], [address], [place], [address] , [employer] [facility] [employer] [facility] 4 13:11:40 Bronchit is 46420846 Completed Anum Merrill MD [address], [address], [place], [address] , [employer] [facility] [employer] [facility] 4 14:33:25 Vitamin D deficien cy 16039214 Active Leatha Mckeon APRN [address], [address], [place], [address] , [employer] [facility] [employer] [facility] 4 13:11:56 Depressi ve disorder 87902714 Active 2021 Leatha Mckeon APRN [address], [address], [place], [address] , [employer] [facility] [employer] [facility] 4 13:11:07 Sinusiti s 00619340 Completed Not Available [facility] 3 06:49:01 Hyperten sive disorder 61635848 Active Leatha Mckeon APRN [address], [address], [place], [address] , [employer] [facility] 4 13:11:27 Memory impairme nt 876007450 Active 2020 Leatha Mckeon APRN [address], [address], [place], [address] , [facility] [employer] [facility] 4 13:11:38 Osteoart hritis 720687935 Active Leatha Mckeon APRN [address], [address], [place], [address] , [employer] [facility] [employer] [facility] 4 13:11:49 Chronic sinusiti s 06820050 Active 2021 Not Available [facility] 3 06:02:26 Pharyngi tis 404558166 Completed Not Available [facility] 3 06:49:02 Renal failure syndrome 17711130 Active Leatha Mckeon APRN [address], [address], [place], [address] , [facility] [facility] 4 13:12:07 Disorder of urinary bladder 39614353 Active Leatha Mckeon APRN [address], [address], [place], [address] , [facility] - [facility] 4 13:11:12 Multiple nodules of lung 060209913 Active 2021 Leatha Mckeon APRN [address], [address], [place], [address] , [facility] - [facility] 4 13:11:44 Cramp in lower limb 574195766 Active Not Available [facility] 3 06:02:26 Auditory hallucin ations 42782323 Active 2020 Leatha Mckeon APRN [address], [address], [place], [address] , [employer] [facility] 4 13:10:48 Periorbi duke edema 59315852 Completed Not Available [facility] 3 06:49:03 Dementia 62378806 Active 2020 Leatha Mckeon APRN [address], [address], [place], [address] , [email or web address] [facility] 4 13:11:04 Coronary arterios clerosis 90545204 Active Leatha Mckeon APRN [address], [address], [place], [address] , [employer] [facility] 4 13:11:02 Acute upper respirat ory infectio n 75385129 Completed Not Available [facility] 3 06:49:03 Hyperlip idemia 85021304 Active Leatha Mckeon APRN [address], [address], [place], [address] , [facility] - [facility] 4 13:11:32 Essentia l hyperten deuce 92026098 Active Leatha Mckeon APRN [address], [address], [place], [address] , [employer] [facility] [employer] [facility] 4 13:11:17 Dyspnea on exertion 62895323 Active 2021 Not Available [employer] 3 06:02:26 Allergic rhinitis 99004356 Active Leatha Mckeon APRN [address], [address], [place], [address] , [facility] 4 13:10:40 Iritis 17967759 Active 2021 Not Available [facility] 3 06:02:26 Urinary tract infectio us disease 94718058 Completed Not Available [facility] 3 06:49:05 Hallucin ations 1050847 Active 2020 Leatha Mckeon APRN [address], [address], [place], [address] , [facility] 4 13:11:20 Hemorrho ids 14202104 Active Not Available [facility] 3 06:02:27 Acute exacerba tion of asthma Active 2017 Not Available [facility] 3 06:02:27 Posterio r rhinorrh ea 67725358 Active 2021 Not Available [facility] 3 06:02:27 Candidia sis of mouth 20903668 Active 2021 Not Available [facility] 3 06:02:27 COVID-19 540952235 Active 2021 Not Available [facility] 3 06:02:27 Hypokale aiden 83342428 Active 2022 Not Available [facility] 3 06:02:26 Acute sinusiti s 15633561 Active 2022 Not Available [employer] 3 06:02:26 Cough 22529258 Active 2022 Not Available [employer] 3 06:02:26 Dysuria 85755788 Active 2022 Leatha Mckeon APRN [address], [address], [place], [address] , [facility] 4 13:11:15 Acute urinary tract infectio n 627401319 Active 2022 Anum Merrill MD [address], [address], [place], [address] , [employer] 3 11:07:37 Hypergly cemia 62627045 Active 2022 Leatha Mckeon APRN [address], [address], [place], [address] , [employer] 4 13:11:29 Diabetes mellitus 71419677 Active 2023 Leatha Mckeon APRN [address], [address], [place], [address] , [employer] 4 13:11:11 Bronchit is 99974103 Active 2023 Anum Merrill MD [address], [address], [place], [address] , [employer] 4 14:33:25 Cellulit is of lower limb 630186648 Active 2023 Anum Merrill MD [address], [address], [place], [address] , [employer] 4 09:18:46 Lobectom y Completed 201803/01/2024 Removal Reason: Possible lung cancer Leatha Mckeon APRN [address], [place], [address] , [employer] 4 11:07:05 History of hysterec socorro 962871877 Active 2023 Leatha Mckeon APRN [address], [place], [address] , [employer] 4 11:07:29 Low back pain 882247035 Active 2023 Leatha Mckeon APRN [address], [address], [place], [address] , [employer] 4 11:13:26 Onychomy cosis of toenails 891243631 Active 2023 Spike Tesfaye, RMA null, [facility] [employer] [facility] 4 11:52:48 Pain in right foot 63771145955 9107 Active 2023 Tristin Peck DPM [address], [address], [place], [address] , [facility] [employer] [facility] [employer] [facility] 4 09:03:30 Pain in left foot 37799764708 9107 Active 2023 Tristin Peck DPM [address], [address], [place], [address] , [facility] [employer] [facility] [employer] [facility] 4 09:03:40 Peripher al neuropat hy due to type 2 diabetes mellitus 78246243678 07 Active 2023 Tristin Peck DPM [address], [address], [place], [address] , [facility] [employer] [facility] [employer] [facility] 4 09:04:09 Primary hypertri glycerid emia 204150652 Active 2023 Leatha Mckeon APRN [address], [address], [place], [address] , [facility] [employer] [facility] [employer] [facility] 4 19:13:24 Prediabe samantha 534647412 Active 2023 Leatha Mckeon APRN [address], [address], [place], [address] , [facility] [employer] [facility] 4 19:16:23 Alzheime r's disease 15807492 Active 2023 Leatha Mckeon APRN [address], [address], [place], [address] , [facility] [employer] [facility] 4 12:23:08 Carotid artery occlusio n without infarcti on 01201490742 4101 Active 2023 Leatha Mckeon APRN [address], [place], [address] , [facility] [employer] [facility] 4 12:06:11 Environm ental allergy 093712400 Active 2024 Leatha Mckeon APRN [address], [place], [address] , [facility] [employer] [facility] 5 11:04:53 Neuropat hy 308775470 Active 2024 Maria C de la torre MD [address], [place], [address] , [facility] [employer] [facility] [employer] [facility] 5 20:25:10 Moderate recurren t major depressi on 29675361 Active 2024 Maria C de la torre MD [address], [place] [address], [place], [address] , [facility] [employer] [facility] 5 16:58:53 Mammogra phy abnormal 534917127 Active 2024 VINH Gonzalez null, [facility] [employer] [facility] 5 10:14:18 Chronic kidney disease 152079131 Active 2024 Maria C de la torre MD [address], [address], [address] , [facility] [employer] [facility] 5 16:47:07 Notes:Some problems listed i n Documents: #[id number], #[id number], #[id number] could not be added to this patient's chart. Please review these documents and add these problems to the patient's chart manually as needed. Problem Notes None recorded. Procedures Surgical History Date Name Laterality Status Provider Name and Address Organization Details Recorded Time 06/20/20 24 Nail Debridement completed Tristin Peck DPM [address], [address], [place], [address], [facility] [employer] [facility] 06/21/2024 09:03:15 06/20/20 24 Callus Debridement 2-4 completed Tristin Peck DPM [address], [place], [address], [facility] [employer] [facility] 06/21/2024 09:03:22 03/01/20 24 Medicare Wellness CPT Code, subsequent completed Miguel Tapia LPN [facility] [employer] [facility] 03/01/2024 09:47:00 11/26/19 24 Transitional_Care_ Management completed Nora Collins RN [facility] [employer] [facility] 11/26/2023 14:03:34 Orthopedic Surgery completed Not Available [facility] 11/18/2022 06:40:59 CUSTOMER RELATIONS ADVISOR Surgery completed Not Available [facility] 11/18/2022 06:40:59 Tonsillectomy completed Not Available [facility] 11/18/2022 06:40:59 Cholecystectomy completed Not Available [facility] 11/18/2022 06:40:59 repair of urinary bladder completed Not Available [facility] 11/18/2022 06:40:59 other completed Not Available [facility] 11/18/2022 06:40:59 Hysterectomy completed Not Available [facility] 11/18/2022 06:40:59 Colonoscopy completed Not Available [facility] 11/18/2022 06:40:59 Knee Replacement completed Not Available [facility] 11/18/2022 06:40:59 nasal septoplasty completed Not Available [facility] 11/18/2022 06:40:59 Sinus Surgery completed Not Available [facility] 11/18/2022 06:40:59 vitrectomy completed Angela Dickerson MA [facility] [employer] [facility] 06/07/2024 10:42:56 Eye Surgery completed VINH Gonzalez [facility] [employer] [facility] 12/25/2024 16:05:34 Imaging Results Imaging Date Name Status LastModified by Organiz ation Details LastModified Time 09/21/2024 US, duplex, carotid artery completed [facility] [address] [facility] [address], [address], 09/27/2024 13:58:00 01/01/2025 MAMMO, screening, digital, bilateral completed [email or web address] [facility] [address] [place], [address], 01/30/2025 10:11:34 01/01/2025 MAMMO, screening, digital, bilateral active [email or web address] [facility] [address] [place], [address], 01/03/2025 10:06:36 01/01/2025 bone density active [facility] [address] [place], [address], 01/05/2025 09:42:06 01/01/2025 bone density active [facility] Scheduling [address] [place], [address], 01/05/2025 10:36:53 Procedure Notes None recorded. Medical Equipment None Reported. Allergies Allergen ID Allergen Name Allergen Category Reaction Reaction Severity Criticality Documentation Date Start Date Code Code System Note Provider Name and Address Organization Details Recorded Time 46501 Product containin g penicilli n (product) medicatio n Not available Not available Not available 11/18/2022 34237 8001 SNOMED Other react ions and sever ities : 'Adve rse react ion to subst ance' . Leatha Mckeon APRN [address], [place], [address], [employer] 4 12:44:52 56426 Non-stero idal anti-infl ammatory agent (product) medicatio n Not available Not available Not available 11/18/2022 90257 005 SNOMED Other react ions and sever ities : 'Adve rse react ion to subst ance' . Leatha Mckeon APRN [address], [address], [place], [address], [employer] 4 12:44:52 31326 Levaquin medicatio n Not available Not available Not available 11/18/2022 73665 2 RxNorm Not Available [facility] 3 06:59:57 49505 Lasix medicatio n Not available Not available Not available 11/18/2022 64180 1 RxNorm Not Available [facility] 3 06:59:57 04609 doxycycli ne Not available Not available Not available Not available 11/18/2022 3640 RxNorm Other react ions and sever ities : 'Adve rse react ion to subst ance' . Leatha Mckeon APRN [address], [address], [place], [address], [employer] [facility] 4 12:44:52 07162 codeine medicatio n Not available Not available Not available 11/18/2022 2670 RxNorm Other react ions and sever ities : 'Adve rse react ion to subst ance' . Leatha Mckeon APRN [address], [address], [place], [address], [employer] 4 12:44:52 83183 Product containin g beta adrenergi c receptor antagonis t (product) medicatio n Not available Not available Not available 11/18/2022 58111 009 SNOMED cause s nicol nued cough ing Not Available [employer] 3 06:59:58 57806 cefdinir medicatio n Not available Not available Not available 11/18/2022 48047 RxNorm Other react ions and sever ities : 'Adve rse react ion to subst ance' . Leatha Mckeon APRN [address], [address], [place], [address], [employer] 4 12:46:22 50561 furosemid e medicatio n Not available Not available Not available 03/01/2024 4603 RxNorm Other react ions and sever ities : 'Adve rse react ion to subst ance' . Leatha Mckeon APRN [address], [address], [place], [address], [employer] 4 12:44:52 47402 levofloxa deena medicatio n Not available Not available Not available 03/01/2024 67618 [employer] Other react ions and sever ities : 'Adve rse react ion to subst ance' . Leatha Mckeon APRN [address], [address], [place], [address], [facility] 4 12:44:52 Medications
--- OUTSIDE RECORDS SUMMARY | 2025-02-01 09:19 | XMS_ITS | Referral Summary ---
Author Organization [facility] Address [address] [facility] VIKTORIYA Frost [address] Care Team Providers Care Skating Rink Manager Name Role Phone Mikayla Carl TYPER Unavailable [phone] Leatha Mckeon NP Primary Care Provider [phone] Encounters Date Type Department Care Team Description 01/15/2025 11:30 AM CDT Office Visit [facility] Neurology [address] [place] [address] Mikayla Carl NP Late onset Alzheimer's disease without behavioral disturbance (HCC) (Primary Dx) 12/06/2024 1:00 PM CDT Office Visit [facility] Pulmonary at [address] [place] [phone] Yulia Schumacher NP Asthma-COPD overlap syndrome (HCC) (Primary Dx) 11/08/2024 Orders Only [facility] Pulmonary at [address] [place] [phone] Yulia Schumacher NP from Last 3 Months [...] 30 mg tablet 10/17/19 21 Active fluticasone furoate-vilanteroL (BREO ELLIPTA) 100-25 mcg/dose diskus inhaler 10/31/19 19 Active cholecalciferol (VITAMIN D-3) 3,000 unit tablet 08/14/20 14 Active cycloSPORINE (RESTASIS) 0.05 % ophthalmic emulsion Administer into both eyes Active ipratropium-albute roL (DUO-NEB) 0.5-2.5 mg/3 mL nebulizer solution 08/20/20 20 Active lisinopriL (PRINIVIL,ZESTRIL) 5 mg tablet 10/17/19 21 Active methocarbamoL (ROBAXIN) 750 mg tablet Take by mouth daily 05/02/20 19 Active montelukast (SINGULAIR) 10 mg tablet 05/02/20 19 Active rosuvastatin (CRESTOR) 10 mg tablet 10/17/19 21 Active triamterene-hydroC HLOROthiazide 37.5-25 mg per capsule 10/17/[address] (CYMBALTA) 20 mg capsule 12/27/19 21 Active QUEtiapine (SEROquel) 50 mg tablet 04/29/20 21 Active cetirizine (ZyrTEC) 10 mg tablet 06/05/20 21 Active ipratropium (ATROVENT) 42 mcg (0.06 %) nasal spray 06/20/20 21 Active fluticasone-umecli din-vilanter (TRELEGY ELLIPTA) 100-62.5-25 mcg inhaler 09/20/18 70 Active nystatin 100,000 unit/mL suspension A ctive potassium chloride ER (KLOR-CON) 10 mEq CR tablet Active prednisoLONE acetate (PRED FORTE) 1 % ophthalmic suspension Active torsemide (DEMADEX) 20 mg tablet Take 2 tablets (40 mg total) by mouth daily 05/13/20 22 Active ondansetron ODT (ZOFRAN-ODT) 4 mg disintegrating tablet Active famotidine (PEPCID) 40 mg tablet 04/05/20 22 Active Ozempic 0.25 mg or 0.5 mg (2 mg/3 mL) pen injector injectionIndicatio ns:type 2 diabetes mellitus Inject 1 mg under the skin once a week 09/22/19 24 Active gabapentin (NEURONTIN) 100 mg capsule Take 1 capsule (100 mg total) by mouth auto brake technician before breakfast 11 10/02/19 25 Active lidocaine (LIDODERM) 5 % 01/04/20 25 Active spironolactone (ALDACTONE) 50 mg tablet Take 1 tablet (50 mg total) by mouth daily Active donepeziL (ARICEPT) 10 mg tabletIndications: Late onset Alzheimer's disease without behavioral disturbance (HCC) Take 1 tablet (10 mg total) by mouth daily 90 tablet 3 01/16/20 25 026 Active memantine (NAMENDA) 10 mg tablet Take 1 tablet (10 mg total) by mouth 2 (two) times a day 180 tablet 3 01/16/20 25 026 Active donepeziL (ARICEPT) 10 mg tabletIndications: Late onset Alzheimer's disease without behavioral disturbance (HCC) TAKE 1 TABLET BY MOUTH DAILY 90 tablet 12/27/19 25 025 Discontin ued(Reord er) memantine (NAMENDA) 10 mg tablet TAKE 1 TABLET BY MOUTH TWICE DAILY 180 tablet 12/27/19 025 Discontin ued(Reord er) Active Problems Problem Noted Date Diagnosed Date [...] 11/07/2020 Assessment & Plan (11/07/2020 4:09 PM BELT LACER): Patient presents with reporting a 6+ month [...] is apparently being seen by psychiatrist in [place] who is adjusting and attempting to reduce [...] 1 965 - 2007 Smokeless Tobacco: Never AUDIT-C Answer Date Recorded Q1: How often [...] on file Legal Sex Female 9:09 AM BELT LACER Gender Identity Not on file Sexual Orientation Not on file Last Filed Vital Signs Vital Sign Reading Time Taken Comments Blood Pressure 120/80 01/15/2025 11:22 AM CDT Pulse 84 01/15/2025 11:22 AM CDT Temperature 35.9 C (96.7 F) 12/06/2024 12:52 PM CDT Respiratory Rate 20 01/15/2025 11:22 AM CDT Oxygen Saturation 97% 01/15/2025 11:22 AM CDT Inhaled Oxygen Concentration - - Weight 84.8 kg (187 lb) 01/15/2025 11:22 AM CDT Height 162.6 cm (5' 4 ) 01/15/2025 11:22 AM CDT Body Mass Index 32.1 01/15/2025 11:22 AM CDT Plan of Treatment Not on file Procedures Procedure Name Priority Date/Time Associated Diagnosis Comments SCREENING MAMMOGRAM BILATERAL W SHERMAN Schedule Routine, Read Routine (OP Routine) 08/25/2018 10:26 AM BELT LACER Encounter for screening mammogram for malignant neoplasm of breast from Last 3 Months or Most Recently Relevant to Health Maintenance Results * Screening Mammogram Bilateral W Sherman (08/25/2018 10:26 AM BELT LACER) Anatomical Region Laterality Modality Breast Bilateral Digital Radiogra phy Narrative 09/01/2018 1:16 PM BELT LACER Mammogram Technique: Bilateral Digital Breast Tomosynthesis, Bilateral C-view 2D Screening mammogram. Views obtained: bilateral craniocaudal and bilateral mediolateral oblique. Computer Aided Detection was performed. Mammogram Findings: The present examination has been compared to prior imaging studies performed at [facility] on 03/14/2015, 06/05/2016 and [...] compared to prior imaging studies performed at [facility] on 03/14/2015, 06/05/2016 and [...] Most Recently Relevant to Health Maintenance Insurance [facility] MEDICARE ADVANTAGE [facility] Address: [address] [address] [place] [address] [facility] MEDICARE ADVANTAGE [facility] Address: [address] [address] [place] [address] Care Teams Skating Rink Manager Relationship Specialty Start Date End Date Leatha Mckeon NP [address] [address] PCP - General Family Medicine 05/30/24 Mikayla Carl NP [address] [address] Nurse Practitioner Neurology 03/20/24
--- OUTSIDE RECORDS SUMMARY | 2025-02-01 09:19 | XMS_ITS | Clinical Summary ---
Author Organization [facility] Address [address] [address] Care Team Providers Care Extender Name Role Phone CarlMikayla NP Unavailable [phone] Leatha Mckeon NP Primary Care Provider [phone] Allergies Active Allergy Reactions Criticality Noted Date [...] 1 capsule (100 mg total) by mouth refuse and recycling worker before breakfast 11 10/02/19 25 Active lidocaine [...] MOUTH TWICE DAILY 180 tablet 12/27/19 25 025 Discontin ued(Reord er) Active Problems Problem [...] 11/07/2020 Assessment & Plan (11/07/2020 4:09 PM PLATING DEPARTMENT HELPER): Patient presents with reporting a 6+ month [...] is apparently being seen by psychiatrist in [place] who is adjusting and attempting to reduce [...] Description 01/15/2025 11:30 AM CDT Office Visit [facility] Neurology [address] [place] [address] Mikayla Carl NP Late onset Alzheimer's disease without behavioral disturbance (HCC) (Primary Dx) 12/06/2024 1:00 PM CDT Office Visit [facility] Pulmonary at [address] [place] [phone] Yulia Schumacher NP Asthma-COPD overlap syndrome (HCC) (Primary Dx) 11/08/2024 Orders Only [facility] Pulmonary at [address] [place] [phone] Winsome, Yulia M., PROCESS HELPER from Last 3 Months Surgical History Surgery Date Site/Laterality Comments SINUS SURGERY Sinus Surgery - (Added by TW Conv) [place] TONSILLECTOMY PRIMARY/SECONDARY <AGE 12 Tonsillectomy - (Added by TW Conv) [place] STOT/TOT HYSTERECTOMY AFT ER DELIVERY Hysterectomy - (Added by TW Conv) CATARACT EXTRACTION Cataract Extraction - (Added by TW Conv) KNEE SURGERY Knee Surgery - (Added by TW Conv) [place] ARTHROPLASTY KNEE TIBIAL PLATEAU Knee Replacement - [...] Former Cigarettes 0.5 42 1 965 - 2006 Smokeless Tobacco: Never AUDIT-C Answer Date Recorded [...] on file Legal Sex Female 9:09 AM PLATING DEPARTMENT HELPER Gender Identity Not on file Sexual Orientation [...] 01/15/2025 11:22 AM CDT Plan of Treatment Health Maintenance [...] Read Routine (OP Routine) 08/25/2018 10:26 AM PLATING DEPARTMENT HELPER Encounter for screening mammogram for malignant neoplasm of breast from Last 3 Months or Most Recently Relevant to Health Maintenance Results * Screening Mammogram Bilateral W Sherman (08/25/2018 10:26 AM PLATING DEPARTMENT HELPER) Anatomical Region Laterality Modality Breast Bilateral Digital Radiogra phy Narrative 09/01/2018 1:16 PM PLATING DEPARTMENT HELPER Mammogram Technique: Bilateral Digital Breast Tomosynthesis, Bilateral C-view 2D Screening mammogram. Views obtained: bilateral craniocaudal and bilateral mediolateral oblique. Computer Aided Detection was performed. Mammogram Findings: The present examination has been compared to prior imaging studies performed at [facility] on 03/14/2015, 06/05/2016 and 06/18/2017. The breasts [...] compared to prior imaging studies performed at [facility] on 03/14/2015, 06/05/2016 and 06/18/2017. The breasts [...] Most Recently Relevant to Health Maintenance Insurance [employer] MEDICARE ADVANTAGE [facility] MEDICARE Address: [facility] [address] [address] [employer]HC MEDICARE ADVANTAGE [facility] MEDICARE Address: [facility] [address] [address] [employer]HC MEDICARE ADVANTAGE [facility] MEDICARE Address: [facility] [address] [place] [address] Care Teams Extender Relationship Specialty Start Date End Date Leatha Mckeon NP [address] [address] PCP - General Family Medicine 05/30/24 Mikayla Carl NP [facility] [address] [address] Nurse Practitioner Neurology 03/20/24
--- OUTSIDE RECORDS SUMMARY | 2025-02-01 09:19 | XMS_ITS | Clinical Summary ---
Author Organization [facility] Address [facility] [place] [address] Care Team Providers Care Street Car Mechanic Name Role Phone Unavailable Primary Care Provider [...] Td Vaccines ( 1 - Tdap) 12/10/1967 Pneumococcal Vaccine: 50+ Ye ars (1 of 1 - PCV) 1998 Zoster Vaccines (1 of 2) 1998 Dexa Scan (General) 2013 RSV Immunization or 60+ Years (1 - 1-dose 75+ series) 12/10/2023 COVID-19 Vaccine (2023-2 5 season) 2024 Meningococcal B Vaccine Aged Out No l onger eligible based on patient's age to complete this topic Meningococcal Vaccine Aged Out No benjy simon eligible based on patient's age to complete this topic RSV Immunizations Under 20 Months Aged Out No longer eligible based on patient's age to complete this topic
--- OUTSIDE RECORDS SUMMARY | 2025-02-01 09:19 | XMS_ITS | Clinical Summary ---
Author Organization [facility] Address [address] [place] [address] Phone Care Team Providers Care Salt Manager Name Role Phone Raysa Blanco NP Primary Care Provider [phone] Allergies Active Allergy Reactions Criticality Noted Date [...] 11/19/2007 Insurance [employer] MEDICARE ADVANTAGE Care Teams Salt Manager Relationship Specialty Start Date End Date Raysa Blanco NP [address] [address] PCP - General Internal Medicine 04/06/19
--- OUTSIDE RECORDS SUMMARY | 2025-02-01 09:19 | XMS_ITS | Patient Health Record ---
Author Organization [facility] Address [address] [place], [place] [address] Care Team Providers Care Concrete Products Dispatcher Name Role Phone ODALYS ESPINOSA MD Primary Care Provider Darío Garcia Unavailable [phone] ALLERGIES Allergen (clinical drug ingredient) Drug/Non Drug Allergy documented on EMR Reaction Allergy Type Onset Date Status doxycycline doxycycline effects breathing Drug Allergy Active codeine codeine headaches Drug Allergy Active Levaquin destroys good bacteria in colon Drug Allergy Active furosemide Lasix depletes potassium Drug Allergy Active penicillin effects breathing Drug Allergy Active REASON FOR REFERRAL No [...] Notes Problem POLYARTHRITIS (716.59) Active confirmed Polyarthritis (901847839) Problem Osteoarthrosis (715.09) Active confirmed 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
== END 2025-02-01 09:11 | disposition home or self-care (01) ==
LOC: CHSIMG 09:15
PROVIDERS: PCP Internal Medicine; Visit Provider Internal Medicine
DX: R92.8 Other abnormal and inconclusive findings on diagnostic imaging of breast (principal)
CPT/HCPCS: 76642; 77061; 77065; G0279

== ENCOUNTER 2025-06-05 11:31 | Outpatient (CLI) | payer MEDICARE, SELFPAY ==
[2025-06-05 12:17] LABS: Total Protein Urine Random < 5 mg/dL; Ur Ttl Prot Creatinine Ratio < 0.06 mg/mg (0-0.20)
[2025-06-05 12:19] LABS: Albumin Level 4.3 g/dL (3.5-5.1); Anion Gap 8 mmol/L (4-12); Blood Urea Nitrogen 26 mg/dL (7-17); Calcium 9.7 mg/dL (8.4-10.2); Carbon Dioxide 30 mmol/L (22-30); Chloride 99 mmol/L (98-107); Estimated Glomerular Filt Rate 53; Glucose 139 mg/dL (65-110); Potassium 4.6 mmol/L (3.4-5.0); Sodium 137 mmol/L (137-145)
[2025-06-05 12:31] LABS: Parathyroid Intact 39.1 pg/mL (14.5-75.2)
--- OUTSIDE RECORDS SUMMARY | 2025-06-05 13:34 | XMS_ITS | Clinical Summary ---
Author Organization [facility] Address [address] [place] [address] Phone Care Team Providers Care Commercial Relief Driver Name Role Phone Minerva Luu MD Primary Care Provider [phone] Allergies Active Allergy Reactions Criticality Noted Date [...] capsule Take 1 Cap by mouth daily booth cashier. Active rosuvastatin (CRESTOR) 10 mg Oral tablet [...] area. Active nitroglycerin (NITROLINGUAL) 0.4 mg/Dose TL [address] [place] under tongue every 5 minutes as needed. [...] on file Legal Sex Female 5:55 AM PIPE FITTER HELPER Gender Identity Not on file Sexual Orientation Not on file Occupation Industry Job Start Date Job End Date Not on file Not on file Not on file Not on file Not on file Not on file Not on file Not on file Last Filed Vital Signs Vital Sign Reading Time Taken Comments Blood Pressure 117/67 09/08/2013 5:22 AM PIPE FITTER HELPER Pulse 82 09/08/2013 5:22 AM PIPE FITTER HELPER Temperature 36.9 C (98.5 F) 09/08/2013 5:22 AM PIPE FITTER HELPER Respiratory Rate 12 09/08/2013 9:25 AM PIPE FITTER HELPER Oxygen Saturation 97% 09/08/2013 5:22 AM PIPE FITTER HELPER Inhaled Oxygen Concentration - - Weight 84.4 kg (186 lb) 09/06/2013 9:04 AM PIPE FITTER HELPER Height 163.8 cm (5' 4.5) 08/31/2013 10:46 AM CS T Body Mass Index 31.43 08/31/2013 10:46 AM PIPE FITTER HELPER Plan of Treatment Health Maintenance Due Date Last Done Comments DTAP/TDAP/TD VACCINES (1 - Tdap) 12/10/1967 ZOSTER VACCINE (1 of 2) 1998 PNEUMOCOCCAL VACCINE 50+ YEA RS (2 of 2 - PCV20 or PCV21) 11/18/2008 11/19/2007 OSTEOPOROSIS SCREENING 2013 RSV VACCINE (60+ or ) (1 - 1-dose 75+ series) 12/10/2023 INFLUENZA VACCINE (#1) 2025 07/03/2013 Medical Devices Implanted Type Area Nurse Esthetician Device Identifier Shelf Expiration Date Model / Serial / Lot Cement [place] G-Hv 40g [id number] - [id number] Implanted:Qty: 1 on 09/06/2013 by Mick Hamilton MD at [facility] Cement Right: Knee [employer] 03/09/2015 [id number] / / [id number] Comp Fem Vngrd Cr Intrlk Rt 65mm [id number] - [id number] Implanted:Qty: 1 on 09/06/2013 at [facility] Knee Right: Knee [employer] 07/19/2023 [id number] / / [id number] Button Patella 31mm 1peg [id number] - [id number] Implanted:Qty: 1 on 09/06/2013 at [facility] Knee Right: Knee [employer] 05/19/2018 [id number] / / [id number] Comp Tib Cocr Finned 71mm [id number] - [id number] Implanted:Qty: 1 on 09/06/2013 at [facility] Knee Right: Knee [employer] 07/19/2023 [id number] / / [id number] Brng Tib Vngrd Epoly As [id number] - [id number] Implanted:Qty: 1 on 09/06/2013 at [facility] Knee Right: Knee [employer] 08/19/2018 [id number] / / [id number] Insurance [employer] (formerly [employer] PPO Advance Directives For more information, please contact: [phone] * Full Code (Latest Code Status on [...] 8:05 AM 06/07/2012 10:25 AM Care Teams Commercial Relief Driver Relationship Specialty Start Date End Date Minerva Luu MD [address] [address] PCP - General 09/06/15
--- OUTSIDE RECORDS SUMMARY | 2025-06-05 13:34 | XMS_ITS | Clinical Summary ---
Author Organization [facility] Address Count includes the [facility] [place] [address] Care Team Providers Care Marine Water Tender Name Role Phone Unavailable Primary Care Provider [...] series) 12/10/2023 COVID-19 Vaccine (2023-2 5 season) 2025 Meningococcal B Vaccine Aged Out No l onger eligible based on patient's age to complete this topic Meningococcal Vaccine Aged Out No benjy simon eligible based on patient's age to complete this topic RSV Immunizations Under 20 Months Aged Out No longer eligible based on patient's age to complete this topic
--- OUTSIDE RECORDS SUMMARY | 2025-06-05 13:34 | XMS_ITS | Clinical Summary ---
Author Organization [facility] Address [address] [facility] [place] [address] Care Team Providers Care Mgmt Specialist Name Role Phone Minerva Luu MD Primary Care Provider [phone] Source Comments [facility],non-owned Affiliates and Associated Physician Practices is amultiple site organization consisting of ambulatory clinics and hospital sitesin [place], [place], [place] and [place]. This disclosure is being madepursuant to the Care Everywhere program and may not contain all information available regarding this patient. Last updated 18.[facility] Allergies Active Allergy Reactions Criticality Noted Date [...] on file Legal Sex Female 7:16 PM HEALTH SAFETY SPECIALIST Gender Identity Not on file Sexual Orientation Not on file Last Filed Vital Signs Vital Sign Reading Time Taken Comments Blood Pressure 152/96 09/24/2023 12:35 PM HEALTH SAFETY SPECIALIST Pulse 93 09/24/2023 12:35 PM HEALTH SAFETY SPECIALIST Temperature 36.6 C (97.9 F) 09/24/2023 12:35 PM HEALTH SAFETY SPECIALIST Respiratory Rate 18 09/24/2023 12:35 PM HEALTH SAFETY SPECIALIST Oxygen Saturation 95% 09/24/2023 12:35 PM HEALTH SAFETY SPECIALIST Inhaled Oxygen Concentration - - Weight 83.7 kg (184 lb 8 oz) 09/24/2023 12:35 PM HEALTH SAFETY SPECIALIST Height 162.6 cm (5' 4) 09/24/2023 12:35 PM HEALTH SAFETY SPECIALIST Body Mass Index 31.67 09/24/2023 12:35 PM HEALTH SAFETY SPECIALIST Plan of Treatment Health Maintenance Due Date Last Done Comments BONE DENSITY TESTING 1950 HEPATITIS C SCREENING 12/05/1966 DTAP/TDAP/TD VACCINES (1 - Tdap) 12/10/1967 PNEUMOCOCCAL VACCINE 50+ (1 of 1 - PCV) 1998 ZOSTER VACCINE (1 of 2) 1998 Respiratory Syncytial Virus (RSV) Vaccine Pt: or over 60 yrs (1 - 1-dose 75+ series) 12/10/2023 DEPRESSION SCREENING 09/20/2024 COVID-19 VACCINE (2024- season) 2025 07/14/2023, 08/31/2022, 04/05/2022, Additional history exists INFLUENZA VACCINE (#1) 2025 , 06/20/2023, 07/29/2022, Additional history exists HEPATITIS B VACCINE Aged [...] to complete this topic Insurance Care Teams Mgmt Specialist Relationship Specialty Start Date End Date Minerva Luu MD [address] [place] [phone] PCP - General 01/28/10
--- OUTSIDE RECORDS SUMMARY | 2025-06-05 13:35 | XMS_ITS | Clinical Summary ---
Author Organization [facility] Address [address] [place] [address] Phone Care Team Providers Care Beauty Shop Manager Name Role Phone Raysa Blanco NP Primary Care Provider [phone] Allergies Active Allergy Reactions Criticality Noted Date [...] 8:50 AM CDT Height 165.1 cm (5' 5) 05/29/2019 8:50 AM CDT Body Mass Index 31.12 05/29/2019 8:50 AM CDT Plan of Treatment Health Maintenance Due Date Last Done Comments Influenza Vaccine (#1) 2025 07/18/2014, 2012 Pneumococcal PPSV23/PCV13 65 + Years / Low and Medium Risk Completed 08/13/2014, 11/19/2007 Insurance [employer] MEDICARE ADVANTAGE Care Teams Beauty Shop Manager Relationship Specialty Start Date End Date Raysa Blanco NP [address] [address] PCP - General Internal Medicine 04/06/19
--- OUTSIDE RECORDS SUMMARY | 2025-06-05 13:35 | XMS_ITS | Patient Health Record ---
Author Organization [facility] Address 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
--- OUTSIDE RECORDS SUMMARY | 2025-06-05 13:35 | XMS_ITS | Clinical Summary ---
Author Organization [facility] Address [address] [place] [address] Care Team Providers Care Bliss Press Operator Name Role Phone Mikayla Carl Charlene GRAY Unavailable [phone] Leatha Mckeon NP Primary Care Provider [phone] Allergies Active Allergy Reactions Criticality Noted Date [...] needed Active dilTIAZem (CARDIZEM) 30 mg tablet 1 Active fluticasone furoate-vilanteroL (BREO ELLIPTA) 100-25 mcg/dose diskus inhaler 9 Active cholecalciferol (VITAMIN D-3) 3,000 unit tablet 4 Active cycloSPORINE (RESTASIS) 0.05 % ophthalmic emulsion Administer into both eyes Active ipratropium-albute roL (DUO-NEB) 0.5-2.5 mg/3 mL nebulizer solution 0 Active lisinopriL (PRINIVIL,ZESTRIL) 5 mg tablet 1 Active methocarbamoL (ROBAXIN) 750 mg tablet Take by mouth daily 9 Active montelukast (SINGULAIR) 10 mg tablet 9 Active rosuvastatin (CRESTOR) 10 mg tablet 1 Active triamterene-hydroC HLOROthiazide 37.5-25 mg per capsule [address] (CYMBALTA) 20 mg capsule 1 Active QUEtiapine (SEROquel) 50 mg tablet 1 Active cetirizine (ZyrTEC) 10 mg tablet 1 Active ipratropium (ATROVENT) 42 mcg (0.06 %) nasal spray 1 Active fluticasone-umecli din-vilanter (TRELEGY ELLIPTA) 100-62.5-25 mcg inhaler 0 Active nystatin 100,000 unit/mL suspension A ctive potassium chloride ER (KLOR-CON) 10 mEq CR tablet Active prednisoLONE acetate (PRED FORTE) 1 % ophthalmic suspension Active torsemide (DEMADEX) 20 mg tablet Take 2 tablets (40 mg total) by mouth daily 2 Active ondansetron ODT (ZOFRAN-ODT) 4 mg disintegrating tablet Active famotidine (PEPCID) 40 mg tablet 2 Active Ozempic 0.25 mg or 0.5 mg (2 mg/3 mL) pen injector injectionIndicatio ns:type 2 diabetes mellitus Inject 1 mg under the skin once a week 4 Active gabapentin (NEURONTIN) 100 mg capsule Take 1 capsule (100 mg total) by mouth broadband engineer before breakfast 11 5 Active lidocaine (LIDODERM) 5 % 5 Active spironolactone (ALDACTONE) 50 mg tablet Take 1 tablet (50 mg total) by mouth daily Active donepeziL (ARICEPT) 10 mg tabletIndications: Late onset Alzheimer's disease without behavioral disturbance (HCC) Take 1 tablet (10 mg total) by mouth daily 90 tablet 3 5 026 Active memantine (NAMENDA) 10 mg tablet Take 1 tablet (10 mg total) by mouth 2 (two) times a day 180 tablet 3 5 026 Active Active Problems Problem Noted Date Diagnosed [...] 11/07/2020 Assessment & Plan (11/07/2020 4:09 PM SCHOOL RESOURCE OFFICER): Patient presents with reporting a 6+ month [...] is apparently being seen by psychiatrist in [place] who is adjusting and attempting to reduce [...] dementia. I will see her back thereafter. Surgical History Surgery Date Site/Laterality Comments SINUS SURGERY Sinus Surgery - (Added by TW Conv) [place] TONSILLECTOMY PRIMARY/SECONDARY <AGE 12 Tonsillectomy - (Added by TW Conv) MO STOT/TOT HYSTERECTOMY AFT ER DELIVERY Hysterectomy - (Added by TW Conv) CATARACT EXTRACTION Cataract Extraction - (Added by TW Conv) KNEE SURGERY Knee Surgery - (Added by TW Conv) MO ARTHROPLASTY KNEE TIBIAL PLATEAU Knee Replacement - [...] on file Legal Sex Female 9:09 AM SCHOOL RESOURCE OFFICER Gender Identity Not on file Sexual Orientation [...] 11:22 AM CDT Height 162.6 cm (5' 4) 01/15/2025 11:22 AM CDT Body Mass Index 32.1 01/15/2025 11:22 AM CDT Plan of Treatment Health Maintenance Due Date Last Done Comments Depression Screening 1948 Fall Risk Assessment 1950 Hepatitis C Screening 1950 Osteoporosis Screening-Bone Density Scan 1950 Hepatitis B Screening 1966 Well Visit 65+ 2013 Zoster Vaccine (2 of 2) 08/17/2024 06/22/2024 Covid-19 Vaccine (5 - 2024-2 6 season) 2025 08/19/2021, 01/05/2021, 01/03/2021, Additional history exists Influenza Vaccine (#1) 2025 4, 07/13/2020, 07/12/2020, Additional history exists DTaP/Tdap/Td Vaccine (3 - Td or Tdap) 03/17/2028 03/17/2018, 04/08/2009 Pneumococcal vaccine 65+ Completed 014, 07/11/2008, 11/19/2007 Breast Cancer Screening-Mammogram Discontinued 08/25/2018, 06/18/2017, 06/05/2016, Additional history exists Procedures Procedure Name Priority Date/Time Associated Diagnosis Comments SCREENING MAMMOGRAM BILATERAL W SHERMAN Schedule Routine, Read Routine (OP Routine) 08/25/2018 10:26 AM SCHOOL RESOURCE OFFICER Encounter for screening mammogram for malignant neoplasm of breast from Last 3 Months or Most Recently Relevant to Health Maintenance Results * Screening Mammogram Bilateral W Sherman (08/25/2018 10:26 AM SCHOOL RESOURCE OFFICER) Anatomical Region Laterality Modality Breast Bilateral Digital Radiogra phy Narrative 09/01/2018 1:16 PM SCHOOL RESOURCE OFFICER Mammogram Technique: Bilateral Digital Breast Tomosynthesis, Bilateral C-view 2D Screening mammogram. Views obtained: bilateral craniocaudal and bilateral mediolateral oblique. Computer Aided Detection was performed. Mammogram Findings: The present examination has been compared to prior imaging studies performed at [facility] on 03/14/2015, 06/05/2016 and 06/18/2017. The breasts [...] compared to prior imaging studies performed at [facility] on 03/14/2015, 06/05/2016 and 06/18/2017. The breasts [...] Most Recently Relevant to Health Maintenance Insurance [id number] Address: [address] [address] [facility] Address: [facility] [address] [place] [address] [facility] Address: [facility] [address] [place] [address] Care Teams Bliss Press Operator Relationship Specialty Start Date End Date Leatha Mckeon NP [address] [address] PCP - General Family Medicine 05/30/24 Mikayla Carl NP [address] [address] Nurse Practitioner Neurology 03/20/24
== END 2025-06-05 11:32 | disposition home or self-care (01) ==
LOC: ANHLAB 11:33
PROVIDERS: PCP Internal Medicine; Visit Provider Internal Medicine Nephrology
DX: E11.22 Type 2 diabetes mellitus with diabetic chronic kidney disease (principal); N25.81 Secondary hyperparathyroidism of renal origin; I12.9 Hypertensive chronic kidney disease with stage 1 through stage 4 chronic kidney disease, or unspecified chronic kidney disease; N18.32 Chronic kidney disease, stage 3b; E55.9 Vitamin D deficiency, unspecified
CPT/HCPCS: 36415; 80069; 82306; 82570; 83970; 84156

== ENCOUNTER 2025-07-14 11:00 | Outpatient (CLI) | payer MEDICARE, SELFPAY ==
--- OUTSIDE RECORDS SUMMARY | 2005-11-21 03:30 | XMS_ITS | Continuity of Care Document ---
Author Organization [facility] Address [id number] [place] [address] [address] [place] [address] Phone Care Team Providers Care Plush Finisher Name Role Phone Webb OD, Castillo Unavailable Unavailable Advance Directives Directive Yes / No Effective Date File Name No Information Encounters Encounter Description Practice Location Reason(s) For Visit Diagnoses Date Provider Providers Copied on Encounter [facility], [id number] [place] [address] [address], [place], [place], [id number], [place] tel:[phone] [facility] [place] No Information Mar-0 4-200 6 Webb OD Castillo. [address] , [address], [place], [address], [place]. tel:[phone] Family History Family Member Type Diagnosis Age At Onset No Information Payers Payer name Insurance type Covered republican ID Authoriza tion(s) No Information Social History Type Description Quantity Date Captured Comments Sex Female Smoking Status No Information Chief Complaint And Reason For Visit No Information Reason For Referral Reason For Referral No Information History Of Present Illness Encounter Date Complaint History Of Prese nt Illness No Information Functional Status Date Functional Assessmen t No Information Instructions Date Instruction Additional Infor mation No Information Assessments Type Assessment Date No Information Patient Care Teams Name Effective Dates (start - stop) Status Members No Information
--- OUTSIDE RECORDS SUMMARY | 2018-10-10 04:18 | XMS_ITS | Continuity of Care Document ---
Author Organization [facility] Address [address] [place] [address] Phone Care Team Providers Care Clinical Scientist Name Role Phone Epi Sebastian MD Unavailable Unavailable Allergies, Adverse Reactions, Alerts Substance Reaction Status Criticality NSAIDS (Non-Steroidal Anti-Inflammatory Drug) EFFECTS KIDNEY FUNCTIONS Active No Informat ion levofloxacin Active No Information Penicillins Active No Information furosemide Active No Information doxycycline Active No Information codeine Active No Information Medications Medication Instructions Dosage Effective Dates (start - stop) Status Comments DILTIAZEM HCL (unknown strength) Not Available - Active ASPIRIN EC (unknown strength) Not Available - Active CLINDAMYCIN HCL (unknown strength) Not Available - Active VENTOLIN HFA (unknown strength) Not Available - Active QVAR (unknown strength) Not Available - Active LISINOPRIL (unknown strength) Not Available - Active DYRENIUM (unknown strength) Not Available - Active CRESTOR (unknown strength) Not Available - Active ALPRAZOLAM INTENSOL (unknown strength) Not Available - Active NITROLINGUAL (unknown strength) place 1 spray by translingual route onto or under the tongue at the first sign of an attack; no more than3 sprays are recommended within a 15 minute period. Not Available - Active MUCINEX (unknown strength) Not Available - Active VITAMIN D3 (unknown strength) Not Available - Active FIBER (unknown strength) Not Available - Active HALLS (unknown strength) Not Available - Active Procedures Procedure Date OFFICE/OUTPATIENT VISIT EST OFFICE/OUTPATIENT VISIT NEW OFFICE/OUTPATIENT VISIT EST OFFICE/OUTPATIENT VISIT EST OFFICE/OUTPATIENT VISIT EST OFFICE/OUTPATIENT VISIT EST OFFICE/OUTPATIENT VISIT EST OFFICE/OUTPATIENT VISIT EST OFFICE/OUTPATIENT VISIT EST POSTOP FOLLOW-UP VISIT POSTOP FOLLOW-UP VISIT POSTOP FOLLOW-UP VISIT OFFICE/OUTPATIENT VISIT EST Advance Directives Directive Yes / No Effective Date File Name No Information Encounters Encounter Description Practice Location Reason(s) For Visit Diagnoses Date Provider Providers Copied on Encounter [facility], [address] [place] [address], [address], [phone] [facility] [address] No Information 9 Jaz Núñezel. [address] [place], [place], [id number] . tel: [phone] OFFICE/OUTPA TIENT VISIT EST [facility], [address] [place] [address], [address], tel:[phone] [facility] History of total right knee replacementAfte rcare following right knee joint replacement surgery 8 Keron Andrade. [address] [facility] [employer] [address], [place], [place], [id number] . tel: [phone] OFFICE/OUTPA TIENT VISIT [facility], [address] [place] [address], [place], [address], [place] tel:[phone] [facility] Bilateral low back pain without sciaticaBody mass index (BMI) 30.0-30.9, adult 8 Elder Christenseny. [address] [facility] [employer] [address], [place], [place], [id number] . tel: [phone] OFFICE/OUTPA TIENT VISIT EST [facility], [address] [place] [address], [address], [place] tel:[phone] [facility] Follow Up of RT TKA (chief complaint) Body mass index (BMI) 29.0-29.9, adultHistory of total right knee replacement 7 Keron Andrade. [address] [facility] [employer] [address], [place], [place], [id number] . tel: [phone] OFFICE/OUTPA TIENT VISIT [facility], [address] [place] [address], [place], [address], [place] [phone] [facility] History of total right knee replacementPrim mickie osteoarthritis of right knee 6 Joy Mick. [address] [place] [address], [id number] . tel: [phone] OFFICE/OUTPA TIENT VISIT [facility], [address] [place] [address], [place], [address], [place] [phone] [facility] right knee f/u (chief complaint) History of total right knee replacement 5 Keron Andrade. [address] [facility] [address], [place], [place], [id number] . tel: [phone] OFFICE/OUTPA TIENT VISIT [facility], [address] [place] [address], [place], [address], [place] [phone] [facility] [place] lumbar spine (chief complaint) LumbagoSciatica Sacroiliitis 5 Deshawn Kim. [address] [place] [address], [id number] . tel: [phone] Referring Provider: Minerva Luu M, [address], [place], [address] . tel:[phone] [facility], [address] [place] [address], [place], [address], [place] [phone] [facility] Total knee replacement status 4 Joy Barton. [address] [place] [address], [id number] . tel: [phone] OFFICE/OUTPA TIENT VISIT [facility], [address] [place] [address] [address], [place], [address], [place] [phone] [facility] Total knee replacement status 4 Keron Andrade. [address], [place], [place], [id number] . tel: [phone] OFFICE/OUTPA TIENT VISIT EST [facility], [address], [place], [address], [place] tel:[phone] [facility] Total knee replacement status 4 Keron Andrade. [address], [place], [place], [id number] . tel: [phone] OFFICE/OUTPA TIENT VISIT EST [facility], [address], [place], [address], [place] tel:[phone] [facility] Total knee replacement status 4 Kreon Andrade. [address], [place], [place], [id number] . tel: [phone] [facility], [address], [place], [address], [place] tel:[phone] [facility] Total knee replacement status 4 Scegena Andrade. [address], [place], [place], [id number] . tel: [phone] [facility], [address], [place], [address], [place] tel:[phone] [facility] Total knee replacement status 4 Keron Andrade. [address], [place], [place], [id number] . tel: [phone] [facility], [address], [place], [address], [place] tel:[phone] [facility] Total knee replacement status 4 Scegena Andrade. [address], [place], [place], [id number] . tel: [phone] OFFICE/OUTPA TIENT VISIT EST [facility], [address], [place], [address], [place] tel:[phone] [facility] Arthritis of knee, degenerative 3 Joy Barton. [address] [place] [address], [id number] . tel: [phone] Family History Family Member Type Diagnosis Age At Onset Mother Problem (finding) Mother Problem (finding) hypertension Mother Problem (finding) hypertension Immunizations Vaccine Date Status Comments Pneumo (2 yrs or older)(PPV) administered Source: Other Provider Payers Payer name Insurance type Covered green party ID Authoriza tion(s) No Information Social History Type Description Quantity Date Captured Comments Alcohol Use Details Unknown Caffeine Use Details Unknown Tobacco Use Status No Information Smoking Status No Information Sex Female Chief Complaint And Reason For Visit No Information Reason For Referral Reason For Referral No Information Plan Of Treatment Date Type Action Status Referral Ordered: RADEX KNE 3 VIEWS RT ordered Referral Ordered: RADEX KNE COMPL 4/MORE VIEWS RT ordered Nutrition Recommendation Nutrition / feed ing management completed History Of Present Illness Encounter Date Complaint History Of Prese nt Illness Follow Up of RT TKA right knee f/u lumbar spine Functional Status Date Functional Assessmen t No Information Instructions Date Instruction Additional Infor mation Take antibiotics as directed for dental work. Related to History of total right knee replacement Watch for signs of infection. Re lated to History of total right knee replacement Take medications as ordered Rela nicole to History of total right knee replacement Activity as tolerated Related to History of total right knee replacement Giving encouragement to exercise Related to Body mass index (BMI) 30.0-30.9, adult Take medication as prescribed. R elated to Bilateral low back pain without sciatica Avoid prolonged bed rest. Relate d to Bilateral low back pain without sciatica Activity as tolerated. Related t o Bilateral low back pain without sciatica Giving encouragement to exercise Related to Body mass index (BMI) 29.0-29.9, adult wear proper footwear Related to History of total right knee replacement activity as tolerated Related to Primary osteoarthritis of right knee Physical activity counseling Rel ated to Dietary Surveillance Counseling Physical activity counseling Rel ated to Dietary Surveillance Counseling Assessments Type Assessment Date No Information Patient Care Teams Name Effective Dates (start - stop) Status Members No Information
--- OUTSIDE RECORDS SUMMARY | 2018-10-21 08:30 | XMS_ITS | Continuity of Care Document ---
Author Organization [facility] Address [address] [place] [address] [address] [place] [address] Phone Care Team Providers Care Undercover Cop Name Role Phone Rony Mccord DPT Unavailable Unavailabl e Procedures Procedure Date Progress Note Therapeutic Exercise Therapeutic Activities Manual Therapy Therapeutic Exercise Therapeutic Activities Neuromuscular Re-Ed Manual Therapy Therapeutic Exercise Therapeutic Activities Neuromuscular Re-Ed Manual Therapy Therapeutic Exercise Therapeutic Activities Neuromuscular Re-Ed Manual Therapy Therapeutic Exercise Therapeutic Activities Neuromuscular Re-Ed Manual Therapy Hot or Cold Pack Therapeutic Exercise Therapeutic Activities Neuromuscular Re-Ed Hot or Cold Pack Therapeutic Exercise Therapeutic Activities Neuromuscular Re-Ed Therapeutic Exercise Therapeutic Activities Neuromuscular Re-Ed Therapeutic Exercise Neuromuscular Re-Ed Manual Therapy Therapeutic Exercise Neuromuscular Re-Ed Manual Therapy Therapeutic Exercise Neuromuscular Re-Ed Manual Therapy PT Evaluation Moderate Complexity Therapeutic Exercise Neuromuscular Re-Ed Manual Therapy PT RE-EVALUATION THERAPEUTIC EXERCISES NEUROMUSCULAR RE-ED MANUAL THERAPY FUNC ACTIVITY 15 MIN HOT/COLD PACK ELECTRIC STIMULATION UNATT Mobility: Walking And Moving Limitations -Curent Mobility: Walking And Moving Limitation- Goal Medications Name Dose Freq Route DOC January THERAPEUTIC EXERCISES NEUROMUSCULAR RE-ED MANUAL THERAPY FUNC ACTIVITY 15 MIN HOT/COLD PACK ELECTRIC STIMULATION UNA Medications Name Dose Freq Route DOC January THERAPEUTIC EXERCISES NEUROMUSCULAR RE-ED MANUAL THERAPY FUNC ACTIVITY 15 MIN HOT/COLD PACK ELECTRIC STIMULATION UNA PT RE-EVALUATION THERAPEUTIC EXERCISES NEUROMUSCULAR RE-ED MANUAL THERAPY FUNC ACTIVITY 15 MIN HOT/COLD PACK ELECTRIC STIMULATION UNA Mobility: Walking And Moving Limitations -Curent Mobility: Walking And Moving Limitation- Goal THERAPEUTIC EXERCISES NEUROMUSCULAR RE-ED MANUAL THERAPY FUNC ACTIVITY 15 MIN HOT/COLD PACK ELECTRIC STIMULATION UNA THERAPEUTIC EXERCISES NEUROMUSCULAR RE-ED MANUAL THERAPY FUNC ACTIVITY 15 MIN HOT/COLD PACK ELECTRIC STIMULATION UNA THERAPEUTIC EXERCISES NEUROMUSCULAR RE-ED MANUAL THERAPY FUNC ACTIVITY 15 MIN HOT/COLD PACK ELECTRIC STIMULATION THERAPEUTIC EXERCISES NEUROMUSCULAR RE-ED MANUAL THERAPY FUNC ACTIVITY 15 MIN HOT/COLD PACK ELECTRIC STIMULATION UNA THERAPEUTIC EXERCISES NEUROMUSCULAR RE-ED MANUAL THERAPY FUNC ACTIVITY 15 MIN HOT/COLD PACK ELECTRIC STIMULATION THERAPEUTIC EXERCISES NEUROMUSCULAR RE-ED MANUAL THERAPY FUNC ACTIVITY 15 MIN HOT/COLD PACK ELECTRIC STIMULATION THERAPEUTIC EXERCISES NEUROMUSCULAR RE-ED MANUAL THERAPY FUNC ACTIVITY 15 MIN HOT/COLD PACK ELECTRIC STIMULATION PT RE-EVALUATION THERAPEUTIC EXERCISES NEUROMUSCULAR RE-ED MANUAL THERAPY FUNC ACTIVITY 15 MIN HOT/COLD PACK ELECTRIC STIMULATION Mobility: Walking And Moving Limitations -Curent Mobility: Walking And Moving Limitation- Goal THERAPEUTIC EXERCISES NEUROMUSCULAR RE-ED MANUAL THERAPY FUNC ACTIVITY 15 MIN /COLD PACK ELECTRIC STIMULATION THERAPEUTIC EXERCISES NEUROMUSCULAR RE-ED MANUAL THERAPY FUNC ACTIVITY 15 MIN /COLD PACK ELECTRIC STIMULATION PT RE-EVALUATION THERAPEUTIC EXERCISES NEUROMUSCULAR RE-ED MANUAL THERAPY FUNC ACTIVITY 15 MIN HOT/COLD PACK ELECTRIC STIMULATION THERAPEUTIC EXERCISES NEUROMUSCULAR RE-ED MANUAL THERAPY FUNC ACTIVITY 15 MIN HOT/COLD PACK ELECTRIC STIMULATION UNA THERAPEUTIC EXERCISES NEUROMUSCULAR RE-ED MANUAL THERAPY FUNC ACTIVITY 15 MIN HOT/COLD PACK ELECTRIC STIMULATION UNA THERAPEUTIC EXERCISES NEUROMUSCULAR RE-ED MANUAL THERAPY FUNC ACTIVITY 15 MIN HOT/COLD PACK ELECTRIC STIMULATION UNA THERAPEUTIC EXERCISES NEUROMUSCULAR RE-ED MANUAL THERAPY FUNC ACTIVITY 15 MIN HOT/COLD PACK ELECTRIC STIMULATION THERAPEUTIC EXERCISES NEUROMUSCULAR RE-ED MANUAL THERAPY FUNC ACTIVITY 15 MIN HOT/COLD PACK ELECTRIC STIMULATION UNA THERAPEUTIC EXERCISES NEUROMUSCULAR RE-ED MANUAL THERAPY FUNC ACTIVITY 15 MIN HOT/COLD PACK ELECTRIC STIMULATION UNA THERAPEUTIC EXERCISES NEUROMUSCULAR RE-ED MANUAL THERAPY FUNC ACTIVITY 15 MIN HOT/COLD PACK ELECTRIC STIMULATION UNA THERAPEUTIC EXERCISES NEUROMUSCULAR RE-ED MANUAL THERAPY FUNC ACTIVITY 15 MIN HOT/COLD PACK ELECTRIC STIMULATION UNA THERAPEUTIC EXERCISES NEUROMUSCULAR RE-ED MANUAL THERAPY FUNC ACTIVITY 15 MIN HOT/COLD PACK ELECTRIC STIMULATION UNA PT RE-EVALUATION THERAPEUTIC EXERCISES NEUROMUSCULAR RE-ED MANUAL THERAPY FUNC ACTIVITY 15 MIN HOT/COLD PACK ELECTRIC STIMULATION UNATT THERAPEUTIC EXERCISES NEUROMUSCULAR RE-ED MANUAL THERAPY FUNC ACTIVITY 15 MIN HOT/COLD PACK ELECTRIC STIMULATION UNATT THERAPEUTIC EXERCISES MANUAL THERAPY FUNC ACTIVITY 15 MIN HOT/COLD PACK ELECTRIC STIMULATION UNATT THERAPEUTIC EXERCISES MANUAL THERAPY FUNC ACTIVITY 15 MIN HOT/COLD PACK ELECTRIC STIMULATION UNA THERAPEUTIC EXERCISES MANUAL THERAPY FUNC ACTIVITY 15 MIN HOT/COLD PACK ELECTRIC STIMULATION UNA PT EVALUATION THERAPEUTIC EXERCISES MANUAL THERAPY HOT/COLD PACK ELECTRIC STIMULATION UNATT OT RE-EVALUATION THERAPEUTIC EXERCISES MANUAL THERAPY FUNC ACTIVITY 15 MIN ULTRASOUND THERAPY PARAFFIN BATH VASOPNEUMATIC DEVICE ATTEND FUNC ACTIVITY 15 MIN PARAFFIN BATH THERAPEUTIC EXERCISES MANUAL THERAPY FUNC ACTIVITY 15 MIN ULTRASOUND THERAPY PARAFFIN BATH VASOPNEUMATIC DEVICE ATTEND FUNC ACTIVITY 15 MIN PARAFFIN BATH THERAPEUTIC EXERCISES MANUAL THERAPY FUNC ACTIVITY 15 MIN ULTRASOUND THERAPY PARAFFIN BATH VASOPNEUMATIC DEVICE ATTEND FUNC ACTIVITY 15 MIN PARAFFIN BATH THERAPEUTIC EXERCISES MANUAL THERAPY FUNC ACTIVITY 15 MIN ULTRASOUND THERAPY PARAFFIN BATH VASOPNEUMATIC DEVICE ATTEND FUNC ACTIVITY 15 MIN PARAFFIN BATH THERAPEUTIC EXERCISES MANUAL THERAPY FUNC ACTIVITY 15 MIN ULTRASOUND THERAPY PARAFFIN BATH VASOPNEUMATIC DEVICE ATTEND FUNC ACTIVITY 15 MIN PARAFFIN BATH THERAPEUTIC EXERCISES MANUAL THERAPY FUNC ACTIVITY 15 MIN ULTRASOUND THERAPY PARAFFIN BATH VASOPNEUMATIC DEVICE ATTEND FUNC ACTIVITY 15 MIN PARAFFIN BATH THERAPEUTIC EXERCISES MANUAL THERAPY FUNC ACTIVITY 15 MIN ULTRASOUND THERAPY PARAFFIN BATH VASOPNEUMATIC DEVICE ATTEND FUNC ACTIVITY 15 MIN PARAFFIN BATH THERAPEUTIC EXERCISES MANUAL THERAPY FUNC ACTIVITY 15 MIN ULTRASOUND THERAPY PARAFFIN BATH VASOPNEUMATIC DEVICE ATTEND FUNC ACTIVITY 15 MIN PARAFFIN BATH THERAPEUTIC EXERCISES MANUAL THERAPY FUNC ACTIVITY 15 MIN ULTRASOUND THERAPY PARAFFIN BATH VASOPNEUMATIC DEVICE ATTEND FUNC ACTIVITY 15 MIN PARAFFIN BATH THERAPEUTIC EXERCISES MANUAL THERAPY FUNC ACTIVITY 15 MIN ULTRASOUND THERAPY PARAFFIN BATH VASOPNEUMATIC DEVICE ATTEND FUNC ACTIVITY 15 MIN PARAFFIN BATH Advance Directives Directive Yes / No Effective Date File Name No Information Encounters Encounter Description Practice Location Reason(s) For Visit Diagnoses Date Provider Providers Copied on Encounter [facility], [address] [address], [place], [place], [id number], [place] tel:[phone] [facility] Low back painMuscle weakness (generalized)Oth er specified disorders of muscleUnspecifie d abnormalities of gait and mobilityOther abnormalities of gait and mobility 0 9 Flex Uribe. [address] [facility] [place], [address], [place]. tel:[phone] [facility], [place], [place], [id number], [place] tel:[phone] [place] Low back painMuscle weakness (generalized)Oth er specified disorders of muscleUnspecifie d abnormalities of gait and mobilityOther abnormalities of gait and mobility 9 Kellydamaris Uribe. [address] [facility] [place], [address], [place]. tel:[phone] [facility], [place], [place], [address], [place] tel:[phone] [facility] Low back painMuscle weakness (generalized)Oth er specified disorders of muscleUnspecifie d abnormalities of gait and mobilityOther abnormalities of gait and mobility 9 Flex Uribe. [address] [place], [address], [place]. tel:[phone] [facility], [place], [place], [id number], [place] tel:[phone] [facility] Low back painMuscle weakness (generalized)Ot er specified disorders of muscleUnspecifie d abnormalities of gait and mobilityOther abnormalities of gait and mobility 9 Flex Uribe. [address] [facility] [place], [address], [place]. tel:[phone] [facility], [place], [address], [place] tel:[phone] [place] Low back painMuscle weakness (generalized)Oth er specified disorders of muscleUnspecifie d abnormalities of gait and mobilityOther abnormalities of gait and mobility 9 Flex Uribe. [address] [facility] [place], [address], [place]. tel: [phone] [facility], [place], [place], [address], [place] tel:[phone] [place] Low back painMuscle weakness (generalized)Oth er specified disorders of muscleUnspecifie d abnormalities of gait and mobilityOther abnormalities of gait and mobility 0 8-201 9 Flex Uribe. [address] [place], [address], [place]. tel: [phone] [facility], [place], [place], [address], [place] tel:[phone] [place] Low back painMuscle weakness (generalized)Oth er specified disorders of muscleUnspecifie d abnormalities of gait and mobilityOther abnormalities of gait and mobility 0 3-201 9 Flex Uribe. [address] [place], [address], [place]. tel: [phone] [facility], [place], [place], [address], [place] tel:[phone] [facility] Low back painMuscle weakness (generalized)Oth er specified disorders of muscleUnspecifie d abnormalities of gait and mobilityOther abnormalities of gait and mobility Aug-3 1-201 8 Flex Uribe. [address] [place], [address], [place]. tel: [phone] [facility], [place], [place], [address], [place] tel:[phone] [place] Low back painMuscle weakness (generalized)Oth er specified disorders of muscleUnspecifie d abnormalities of gait and mobilityOther abnormalities of gait and mobility Dec-2 7-201 8 Flex Uribe. [address] [place], [address], [place]. tel: [phone] [facility], [place], [place], [address], [place] tel:[phone] [facility] Low back painMuscle weakness (generalized)Oth er specified disorders of muscleUnspecifie d abnormalities of gait and mobilityOther abnormalities of gait and mobility Dec- 4 8 Flex Uribe. [address] [place], [address], [place]. tel: [phone] [facility] [facility] [address], [address], [place] tel:[phone] [place] Low back painMuscle weakness (generalized)Oth er specified disorders of muscleUnspecifie d abnormalities of gait and mobilityOther abnormalities of gait and mobility Dec- 0 8 Flex Uribe. [address] [place], [address], [place]. tel: [phone] [facility] [address] [address], [place], [place], [address], [place] tel:[phone] [place] Low back painMuscle weakness (generalized)Oth er specified disorders of muscleUnspecifie d abnormalities of gait and mobilityOther abnormalities of gait and mobility Dec- 3 8 Kellydamaris Uribe. [address] [place], [address], [place]. tel: [phone] [facility] [facility] [place] [address], [id number], [place] tel:[phone] [facility] No Information 4 Pepper Spencer. [address] [facility], [facility] [address], [place], [facility], [place]. tel: [phone] Referring Provider: Jyoti Flaherty [facility] [address], [place], [address]. tel:[phone] [facility] [facility], [place], [place], [address], [place] tel:[phone] [facility] No Information 4 Pepper Spencer. [address] [facility], [address] [address], [place]. [phone] Referring Provider: Mick Leal, [address], [place], [address]. tel:[phone], [id number], tel:[phone] [facility] [place] No Information May-0 5-201 4 Vidales-Doe es Tj. [address] [place] [address], [facility] [address], [place], [facility], . tel:[phone] Referring Provider: Mick Leal, [address], [place], [address]. tel:[phone], [id number], tel:[phone] [facility] No Information Apr-2 2-201 4 Vidalse-Doe es Tj. [address] [place] [address], [address], [place], [facility], . tel:[phone] Referring Provider: Mick Leal, [address] [facility] [address], [place], [address]. tel:[phone], [id number], tel:[phone] [facility] No Information Apr-0 4-201 4 Vidales-Doe es Tj. [address] [place] [address], [address], [facility], . tel:[phone] Referring Provider: Mick Leal, [address], [place], [place], [facility]. tel:[phone], [id number], tel:[phone] [facility] No Information Apr-0 1-201 4 Vidales-Doe es Tj. [address] [place] [address], [address] [address], . tel:[phone] Referring Provider: Mick Leal, [address], [place], [address]. tel:[phone], [id number], tel:[phone] [facility] No Information Mar-2 8-201 4 Vidales-Doe es Tj. [address] [place] [address], [address], [facility], . tel:[phone] Referring Provider: Mick Leal, [address] [facility] [address], [place], [address]. tel:[phone], [id number], tel:[phone] [facility] No Information Mar-2 5-201 4 Vidales-Doe es Tj. [address] [place] [address], [address], [facility], . [phone] Referring Provider: Mick Leal, [address] [place] [address] [address], [place], [address]. tel:[phone], [id number], tel:[phone] [facility] No Information Mar-1 4-201 4 Vidales-Doe es Tj. [address] [place] [address], [address], [facility], . tel:[phone] Referring Provider: Mick Leal, [address] [facility] [address], [place], [address]. tel:[phone], [id number], tel:[phone] [facility] No Information Mar-1 1-201 4 Vidales-Doe es Tj. [address] [place] [address], [address], [facility], . [phone] Referring Provider: Mick Leal, [address] [facility] [address], [place], [address]. tel:[phone] [address], [place], [address], tel:[phone] [facility] No Information Mar-0 7-201 4 Vidales-Doe es Tj. [address] [place] [address], [address], [facility], . tel:[phone] Referring Provider: Mick Leal, [address] [place] [address] [address], [place], [place], [facility]. tel:[phone] [address], [place], [place], [address], tel:[phone] [facility] No Information Mar-0 4-201 4 Vidales-Doe es Tj. [address] [place] [address], [address], [facility], . tel:[phone] Referring Provider: Mick Leal, [address] [place] [address] [address], [place], [place], [facility]. tel:[phone] [place] [address], [id number], tel:[phone] [facility] No Information Feb-2 8-201 4 Vidales-Doe es Tj. [address] [place] [address], [address], [place], [facility], . tel:[phone] Referring Provider: Mick Leal, [address] [place] [address] [address], [place], [address]. tel:[phone] [address] [place] [address], [id number], tel:[phone] [facility] No Information Feb-2 5-201 4 Vidales-Doe es Tj. [address] [place] [address], [address], [place], [facility], . tel:[phone] Referring Provider: Mick Leal, [address] [place] [address] [address], [place], [address]. tel:[phone] [address], [place], [place], [address], tel:[phone] [facility] No Information 0 4 Vidales-Doe es Tj. [address] [place] [address], [address], [place], [facility], . tel:[phone] Referring Provider: Mick Leal, [address] [place] [address] [address], [place], [address]. tel:[phone] [address], [place], [place], [address], tel:[phone] [facility] No Information 4 Vidales-Doe es Tj. [address] [place] [address], [address], [place], [facility], . tel:[phone] Referring Provider: Mick Leal, [address] [place] [address] Suite [facility], [place], [address]. tel:[phone] [place] [address], [id number], tel:[phone] [facility] [place] No Information 4 Vidales-Doe es Tj. [address] [place] [address], [address], [place], [facility], . tel:[phone] Referring Provider: Mick Leal, [address] [place] [address] [address], [place], [address]. tel:[phone] [address], [place], [id number], tel:[phone] [facility] [place] No Information 4 Vidales-Doe es Tj. [address] [place] [address], [address], [place], [facility], . tel:[phone] Referring Provider: Mick Leal, [address] [place] [address] [address], [place], [address]. tel:[phone] [address] [address] [facility] [address] [place] [address], [id number], [place] tel:[phone] [place] No Information 4 Vidales-Doe es Tj. [address] [place] [address], [address], [place], [facility], . tel:[phone] Referring Provider: Mick Leal, [address] [facility] [address], [place], [address]. tel:[phone] [address], [place], [place], [address], tel:[phone] [place] No Information 4 Vidales-Doe es Tj. [address] [place] [address], [address], [place], [facility], . tel:[phone] Referring Provider: Mick Leal, [address] [place] [address] [address], [place], [address]. tel:[phone] [address], [place], [place], [id number], tel:[phone] [place] No Information 4 Vidales-Doe es Tj. [address] [place] [address], [address], [place], [facility], . tel:[phone] Referring Provider: Mick Leal, [address] [place] [address] [address], [place], [address]. tel:[phone] [facility] [address] [facility], [place], [place], [address], tel:[phone] [place] No Information 4 Vidales-Doe es Tj. [address] [place] [address], [address], [place], [facility], . tel:[phone] Referring Provider: Mick Leal, [address] [facility] [address], [place], [address]. tel:[phone] [facility], [address] [facility], [place], [place], [address], tel:[phone] [place] No Information 4 Vidales-Doe es Tj. [address] [place] [address], [address], [place], [facility], . tel:[phone] Referring Provider: Mick Leal, [address] [facility] [address], [place], [address]. tel:[phone] [address], [place], [place], [address], [place] tel:[phone] [place] [facility] No Information - 4 Vdiales-Doe es Tj. [address] [place] [address], [address], [place], [facility], [place]. tel:[phone] Referring Provider: Mick Leal, [address] [facility] [address], [place], [place], [facility]. tel:[phone] [address], [place], [place], [id number], [place] tel:[phone] [place] No Information 4 Vidales-Doe es Tj. [address] [place] [address], [address], [place], [facility], [place]. tel:[phone] Referring Provider: Mick Leal, [address] [facility] [address], [place], [address]. tel:[phone] [address], [place], [place], [id number], [place] tel:[phone] [place] No Information 0 4 Vidales-Doe es Tj. [address] [place] [address], [address], [place], [facility], [place]. tel:[phone] Referring Provider: Mick Leal, [address] [facility] [address], [place], [address]. tel:[phone] [address], [place], [place], [id number], [place] tel:[phone] [place] No Information 4 Vidales-Doe es Tj. [address] [place] [address], [address], [place], [facility], . tel:[phone] Referring Provider: Mick Leal, [address] [facility] [address] [facility], [place], [address]. tel:[phone], [id number], tel:[phone] [place] No Information 4 Pepper Spencer. [address] [place] [address], [address], [place], [facility], . tel:[phone] Referring Provider: Mick Leal, [address] [facility] [address], [place], [address]. tel:[phone], [id number], tel:[phone] [place] No Information 4 Pepper Spencer. [address] [place] [address], [address], [place], [facility], . tel:[phone] Referring Provider: Mick Leal, [address] [facility] [address], [place], [address]. tel:[phone], [id number], tel:[phone] [place] Pain in joint involving lower leg 4 Pepper Spencer. [address] [place] [address], [address], [place], [facility], [place]. tel:[phone] Referring Provider: Mick Leal, [address] [facility] [address], [place], [address]. tel:[phone], [id number], tel:[phone] [place] No Information 3 Chele Beavers. [address] [place] [address], [address], [place], [facility], . tel:[phone] Referring Provider: Ted Villa, [address] [facility] [address], [place], [address]. tel:[phone] [address], [place], [place], [address], tel:[phone] [place] No Information Sukhwinder-0 7-201 3 Elaine Ruthann. [address] [place] [address], [address], [place], [facility], . tel:[phone] Referring Provider: Ted Villa, [address] [facility] [address], [place], [address]. tel:[phone] [address], [place], [place], [id number], tel:[phone] [place] No Information Sukhwinder-0 4-201 3 Elaine Ruthann. [address] [place] [address], [address], [place], [facility], . tel:[phone] Referring Provider: Ted Villa, [address] [facility] [address], [place], [address]. tel:[phone] [address], [place], [place], [id number], tel:[phone] [place] No Information Sukhwinder-0 2-201 3 Elaine Ruthann. [address] [place] [address], [address], [place], [facility], . tel:[phone] Referring Provider: Ted Villa, [address] [facility] [address], [place], [address]. tel:[phone] [address], [place], [place], [address], tel:[phone] [place] No Information Aug-2 8-201 2 Elaine Ruthann. [address] [place] [address], [address], [place], [facility], . tel:[phone] Referring Provider: Ted Villa, [address] [facility] [address], [place], [address]. tel:[phone], [place], [place], [id number], tel:[phone] [place] No Information Dec-2 1-201 2 Elaine Ruthann. [address] [place] [address], [address], [place], [facility], . tel:[phone] Referring Provider: Ted Villa, [address] [facility] [address], [place], [address]. tel:[phone], [place], [place], [address], tel:[phone] [place] No Information Dec-1 9-201 2 Elaine Ruthann. [address] [place] [address], [address], [place], [facility], . tel: [phone] Referring Provider: Ted Villa, [address] [facility] [address], [place], [place], [address]. tel:[phone] [address], [place], [place], [id number], tel:[phone] [place] No Information Dec-1 7-201 2 Elaine Ruthann. [address] [place] [address], [address], [place], [facility], . tel:[phone] Referring Provider: Ted Villa, [address], [place], [address]. tel:[phone], [place], [place], [id number], tel:[phone] [place] No Information Dec-1 4-201 2 Elaine Ruthann. [address] [place] [address], [address], [place], [facility], . tel: [phone] Referring Provider: Ted Villa, [address], [place], [address]. tel:[phone] [address], [place], [place], [id number], [place] tel:[phone] [place] Pain in joint involving hand 0201 2 Chele Beavers. [address] [facility], [address], [place], [address], [place]. tel: [phone] Referring Provider: [address], [place], [address]. tel:[phone] Family History Family Member Type Diagnosis Age At Onset No Information Payers Payer name Insurance type Covered libertarian ID Authoriza brandon(s) [employer] Medicare Replacement CI [id number] Social History Type Description Quantity Date Captured [...]
--- NOTE | ~2025-07-14 | XR_ITS ---
EXAMINATION: XR chest 2V, 07/14/2025 11:35 CDT HISTORY: Posterior Uvetis COMPARISON: No comparisons available. Technique: 2 views obtained. Findings: Minimal COPD changes with chronic changes otherwise the lungs are clear No pneumothorax. Heart is normal size. Mediastinal and hilar contours are within normal limits. Bony thorax no acute abnormality. Impression: No acute cardiopulmonary abnormality. Reviewed, dictated and finalized at location P. Impression: No acute cardiopulmonary abnormality.
--- OUTSIDE RECORDS SUMMARY | 2025-07-14 11:15 | XMS_ITS | Clinical Summary ---
Author Organization [facility] Address [address] [place] [address] Phone Care Team Providers Care Washer Machine Name Role Phone Minerva Luu MD Primary Care Provider [phone] Allergies Active Allergy Reactions Criticality Noted Date [...] capsule Take 1 Cap by mouth daily garden implement mechanic. Active rosuvastatin (CRESTOR) 10 mg Oral tablet [...] area. Active nitroglycerin (NITROLINGUAL) 0.4 mg/Dose TL Pa[address] Place 1 Everly under tongue every 5 minutes as needed. [...] on file Legal Sex Female 5:55 AM DENTAL CLAIMS PROCESSOR Gender Identity Not on file Sexual Orientation Not on file Occupation Industry Job Start Date Job End Date Not on file Not on file Not on file Not on file Not on file Not on file Not on file Not on file Last Filed Vital Signs Vital Sign Reading Time Taken Comments Blood Pressure 117/67 09/08/2013 5:22 AM DENTAL CLAIMS PROCESSOR Pulse 82 09/08/2013 5:22 AM DENTAL CLAIMS PROCESSOR Temperature 36.9 C (98.5 F) 09/08/2013 5:22 AM DENTAL CLAIMS PROCESSOR Respiratory Rate 12 09/08/2013 9:25 AM DENTAL CLAIMS PROCESSOR Oxygen Saturation 97% 09/08/2013 5:22 AM DENTAL CLAIMS PROCESSOR Inhaled Oxygen Concentration - - Weight 84.4 kg (186 lb) 09/06/2013 9:04 AM DENTAL CLAIMS PROCESSOR Height 163.8 cm (5' 4.5) 08/31/2013 10:46 AM CS T Body Mass Index 31.43 08/31/2013 10:46 AM DENTAL CLAIMS PROCESSOR Plan of Treatment Health Maintenance Due Date Last Done Comments DTAP/TDAP/TD VACCINES (1 - Tdap) 12/10/1967 ZOSTER VACCINE (1 of 2) 1998 PNEUMOCOCCAL VACCINE 50+ YEA RS (2 of 2 - PCV20 or PCV21) 11/18/2008 11/19/2007 OSTEOPOROSIS SCREENING 2013 RSV VACCINE (60+ or ) (1 - 1-dose 75+ series) 12/10/2023 INFLUENZA VACCINE (#1) 2025 07/03/2013 Medical Devices Implanted Type Area Package Winder Device Identifier Shelf Expiration Date Model / Serial / Lot Cement [place] G-Hv 40g [id number] - [id number] Implanted:Qty: 1 on 09/06/2013 by Mick Hamilton MD at [facility] Cement Right: Knee [employer] 03/09/2015 [id number] / / [id number] Comp Fem Vngrd Cr Intrlk Rt 65mm [id number] - [id number] Implanted:Qty: 1 on 09/06/2013 at [facility] Knee Right: Knee [employer] 07/19/2023 [id number] / / [id number] Button Patella 31mm 1peg [id number] - [id number] Implanted:Qty: 1 on 09/06/2013 at [facility] Knee Right: Knee [employer] 05/19/2018 [id number] / / [id number] Comp Tib Cocr Finned 71mm [id number] - [id number] Implanted:Qty: 1 on 09/06/2013 at [facility] Knee Right: Knee [employer] 07/19/2023 [id number] / / [id number] Brng Tib Vngrd Epoly As [id number] - [id number] Implanted:Qty: 1 on 09/06/2013 at [facility] Knee Right: Knee [employer] 08/19/2018 [id number] / / [id number] Insurance [employer] PPO Advance Directives For more information, please contact: [phone] * Full Code (Latest Code Status on [...] 8:05 AM 06/07/2012 10:25 AM Care Teams Washer Machine Relationship Specialty Start Date End Date Minerva Luu MD [address] [address] PCP - General 09/06/15
--- OUTSIDE RECORDS SUMMARY | 2025-07-14 11:16 | XMS_ITS | Data Portability ---
Author Organization [facility], Main Office Address [address] [place] [address] Assessment Encounter Date Assessment Date Assessment LastModified by Organization Details LastModified Time 01/31/2025 01/31/2025 12/26/2024: BUN/Cr/GFR 36/1.28/43 Not available 01/31/2025 16:54:02 05/02/2025 05/02/2025 12/26/2024: BUN/Cr/GFR 36/1.28/43 04/26/2025: A1C 6.1 Gluc 147, BUN/Cr/GFR 25/0.98/60 TG 234, LDL 101 45 minutes spent with the patient and her from 2.25pm till 3.10pm and labs discussed and multiple questions answered as posed by her , refills sent Not available 05/02/2025 18:17:10 Plan of Treatment Reminders Order Date Submit Date Provider Last Modified By Organization Details Last Modified Time Details Appointments Follow Up 15 2024 01:15P Leyda verma MD Not available Not available Not available Lab microalbu min, urine 2024 025 [facility], [address], [place], [address], 06/08/2025 21:30:01 HbA1c (hemoglob in A1c), blood 2024 025 [facility], [address], [place], [address], 06/08/2025 21:30:04 lipid panel, serum 2024 025 [facility], [address], [place], [address], 06/08/2025 21:30:00 CBC w/ auto diff 2024 025 [facility], [address], [place], [address], 06/08/2025 21:30:01 TSH, serum or plasma 2024 025 [facility], [address], [place], [address], 06/08/2025 21:30:03 CMP, serum or plasma 2024 025 [facility], [address], [place], [address], 06/05/2025 16:57:34 T4, free, serum 2024 025 [facility], [address], [place], [address], 06/08/2025 21:30:02 glycohemo globin, total, blood 2024 025 [email or web address] [employer] [facility], [address], [place], [address], 04/26/2025 15:45:37 microalbu min, urine 2024 025 [facility], [address], [place], [address], 04/27/2025 19:46:38 lipid panel, serum 2024 025 [facility], [address], [place], [address], 04/27/2025 19:46:35 CBC w/ auto diff 2024 025 [facility], [address], [place], [address], 04/27/2025 19:46:39 TSH, serum or plasma 2024 025 [facility], [address], [place], [address], 04/27/2025 19:46:40 CMP, serum or plasma 2024 025 [facility], [address], [place], [address], 04/27/2025 19:46:36 glycohemo globin, total, blood [address] (Lab), [address] [place], [address], 06/25/2025 14:42:12 microalbu min, urine [address] (Lab), [address] [place], [address], 07/10/2025 09:10:30 lipid panel, serum 2024 025 [facility] (Lab), [address] [place], [address], 12/26/2024 19:28:36 CBC w/ auto diff 2024 025 [facility] (Lab), [address] [place], [address], 12/26/2024 19:28:39 TSH, serum or plasma 2024 025 [facility] (Lab), [address] [place], [address], 12/26/2024 19:28:40 CMP, serum or plasma 2024 025 [facility] ([facility]), [address], [place], [address], 12/26/2024 19:28:[address] referral - Please call patient to schedule an appointme nt. Thank you. 2024 025 JOANN Carl TEST BORER, [address] [facility] , [address], [place], [address], 05/03/2025 11:17:11 podiatris t referral - Please call patient to schedule an appointme nt. Thank you. 2024 025 AMANDA ROSALESM, [address] [facility], [address], [place], [address], 05/03/2025 11:03:00 cardiolog ist referral - Please call patient to schedule an appointme nt. Thank you. 2024 025 JOANN Beltrán [place], [address] [address], [address], [place], [address], 05/03/2025 11:16:38 nephrolog ist referral - Please call patient to schedule an appointme nt. Thank you. 2024 025 milena Lin MD, [address] [facility] [address], [address], [place], [address], 05/02/2025 10:27:34 cardiolog ist referral - Please call patient to schedule an appointme nt. Thank you. 2024 025 milena Beltrán [place], [address] [address], [address], [place], [address], 05/02/2025 10:27:33 cardiolog ist referral - Please call patient to schedule an appointme nt. Thank you. 2024 025 juliet Beltrán [place], [address] [facility], [facility] [address], [place], [address], 03/26/2025 16:22:16 Procedures colonosco py screening (PROC) - Please call patient to schedule an appointme nt. Thank you 2024 025 AMANDARodriguez tinsley MD, [address], [address], [place], [address], 05/03/2025 11:16:24 colonosco py screening (PROC) - Please call patient to schedule an appointme nt. Thank you 2024 025 [email or web address] Gaurang tinsley MD, [address], [address], [place], [address], 05/14/2025 08:36:55 colonosco py screening (PROC) - Please call patient to schedule an appointme nt. Thank you 2024 025 [email or web address] Levi Galan MD, [address] [facility], [address], [place], [address], 03/26/2025 08:48:14 Surgeries None recorded. Imaging MAMMO, diagnosti c, digital, unilatera l [address] ([facility]), [address] [place], [address], 01/31/2025 17:18:45 US, breast, unilatera l [address] ([facility]), [address] [place], [address], 01/31/2025 17:19:06 MAMMO, screening , digital, bilateral - Please call patient to schedule. 2024 025 [facility], [address] [place] [address] [address], [place], [address], 01/01/2025 09:48:48 bone density - Please call patient to schedule. 2024 025 [facility], [address] [place] [address] [address], [place], [address], 01/05/2025 09:42:06 Medication Orders lidocaine 5 % topical patch 2024 025 [place] [facility], [address] [place] [address], [address], [place], [place], [id number], 05/02/2025 16:08:03 Ozempic 1 mg/dose (4 mg/3 mL) subcutane ous pen injector 2024 025 [place] [facility], [address] [place] [address], [address], [place], [place], [id number], 05/02/2025 16:08:03 rosuvasta tin 10 mg tablet 2024 025 [place] [facility], [address] [place] [address], [address], [place], [place], [id number], 05/02/2025 16:08:46 Patient TargetsNo targets recorded. Patient InstructionsNo instructions recorded. Reason for Referral Electronics Mechanic Apprentice Referral for Co ronary arteriosclerosis Please call patient to schedule an appointment. Thank you. Referring Physician: Maria C Ku Internal Medicine, Encounter Date: 12/25/2024 Electronics Mechanic Apprentice Referral for Co ronary arteriosclerosis Please call patient to schedule an appointment. Thank you. Referring Physician: Maria C Ku [facility], Encounter Date: 01/31/2025 Access Services Librarian Referral for Ch ronic kidney disease Please call patient to schedule an appointment. Thank you. Referring Physician: Maria C Ku [facility], Encounter Date: 01/31/2025 Electronics Mechanic Apprentice Referral for Co ronary arteriosclerosis Please call patient to schedule an appointment. Thank you. Referring Physician: Maria C Ku, Internal Medicine, Encounter Date: 05/02/2025 Margin Clerk Referral for Diab etes mellitus Please call patient to schedule an appointment. Thank you. Referring Physician: Maria C Ku, Internal Medicine, Encounter Date: 05/02/2025 Neurologist Referral for Dem entia Please call patient to schedule an appointment. Thank you. Referring Physician: Maria C Ku, Internal Medicine, Encounter Date: 05/02/2025 Results Created Date Observation Date Name Description Value Unit Range Abnormal Flag Note LastModifiedBy Organization Detail LastModifiedTime 06/08/2006/08/2025 LIPID PANEL , STAND SINDY cholesterol, total 211 mg/dL <200 high Not Available [employer] [address] [place], [address], 06/08/2025 21:29:59 06/08/2006/08/2025 LIPID PANEL , STAND SINDY HDL cholesterol 50 mg/dL > or = 50 normal Not Available [employer] [address], [address], 06/08/2025 21:29:59 06/08/2006/08/2025 LIPID PANEL , STAND SINDY triglyceride s 332 mg/dL <150 high If a non-f astin g speci men was colle cted, consi royce repea t trigl yceri de testi ng on a fasti ng speci men if clini deny indic ated. Joaquín hdz et al. J. of Clin. Lipid ol. 2015; 9:129 -169. Not Available [employer] [facility] [address] [place], [place] [address], [place], [address], 06/08/2025 21:29:59 06/08/2006/08/2025 LIPID PANEL , STAND SINDY LDL-choleste rol 114 mg/dL _(tammie c) high Refer ence range : <100 Solitario able range <100 mg/dL for prima ry preve ntion ; <70 mg/dL for patie nts with CHD or diabe tic patie nts with > or = 2 CHD risk facto rs. LDL-C is now calcu lated using the Amirah n-Hop kins aviu darryl n, which is a valid ated novel metho d provi anai robert r accur acy than the Fried carrillo equat ion in the estim ation of LDL-C . Amirah garcia SS et al. RADHA. 2013; 310(1 9): 2061- 2068 (http ://ed ucati on.Qu estDi WiLinx. com/f aq/FA Q164) Not Available [employer] [address], [address], 06/08/2025 21:29:59 06/08/20 25 06/08/2025 LIPID PANEL , STAND SINDY chol/HDLC ratio 4.2 (calc ) <5.0 normal Not Available [employer] [address], [address], 06/08/2025 21:29:59 06/08/20 25 06/08/2025 LIPID PANEL , STAND SINDY non HDL cholesterol 161 mg/dL _(tammie c) <130 high For patie nts with diabe samantha plus 1 major ASCVD risk facto r, treat ing to a non-H DL-C goal of <100 mg/dL (LDL- C of <70 mg/dL ) is consi dered a thera peaaliyah c optio n. Not Available [employer] [facility] [address] [place] [address], [address], 06/08/2025 21:29:59 06/08/2006/08/2025 COMPR EHENS PRANAV METAB OLIC PANEL glucose 156 mg/dL 65-99 high Fasti ng refer ence inter dana For someo ne witho ut known diabe samantha, a gluco se value >125 mg/dL indic ates that they may have diabe samantha and this shoul d be confi rmed with a follo w-up test. Not Available [employer] [place] [address] [address] [place], [address], 06/08/2025 21:30:00 06/08/20 25 06/08/2025 COMPR EHENS PRANAV METAB OLIC PANEL urea nitrogen (BUN) 24 mg/dL 7-25 normal Not Available [address], [address], 06/08/2025 21:30:00 06/08/20 25 06/08/2025 COMPR EHENS PRANAV METAB OLIC PANEL creatinine 1.01 mg/dL 0.60-1 .00 high Not Available [address], [address], 06/08/2025 21:30:00 06/08/20 25 06/08/2025 COMPR EHENS PRANAV METAB OLIC PANEL eGFR 58 mL/mi n/1.7 3m2 > or = 60 low Not Available [address], [address], 06/08/2025 21:30:00 06/08/20 25 06/08/2025 COMPR EHENS PRANAV METAB OLIC PANEL BUN/creatini ne ratio 24 (calc ) 6-22 high Not Available [address], [address], 06/08/2025 21:30:00 06/08/20 25 06/08/2025 COMPR EHENS PRANAV METAB OLIC PANEL sodium 138 mmol/ L 135-14 6 normal Not Available [address], [address], 06/08/2025 21:30:00 06/08/20 25 06/08/2025 COMPR EHENS PRANAV METAB OLIC PANEL potassium 4.4 mmol/ L 3.5-5. 3 normal Not Available [address], [address], 06/08/2025 21:30:00 06/08/20 25 06/08/2025 COMPR EHENS PRANAV METAB OLIC PANEL chloride 101 mmol/ L 98-110 normal Not Available [address], [address], 06/08/2025 21:30:00 06/08/20 25 06/08/2025 COMPR EHENS PRANAV METAB OLIC PANEL carbon dioxide 29 mmol/ L 20-32 normal Not Available [address], [address], 06/08/2025 21:30:00 06/08/20 25 06/08/2025 COMPR EHENS PRANAV METAB OLIC PANEL calcium 9.9 mg/dL 8.6-10 .4 normal Not Available [address], [address], 06/08/2025 21:30:00 06/08/20 25 06/08/2025 COMPR EHENS PRANAV METAB OLIC PANEL protein, total 6.7 g/dL 6.1-8. 1 normal Not Available [address], [address], 06/08/2025 21:30:00 06/08/20 25 06/08/2025 COMPR EHENS PRANAV METAB OLIC PANEL albumin 4.3 g/dL 3.6-5. 1 normal Not Available [address], [address], 06/08/2025 21:30:00 06/08/20 25 06/08/2025 COMPR EHENS PRANAV METAB OLIC PANEL globulin 2.4 g/dL_ (calc ) 1.9-3. 7 normal Not Available [address], [address], 06/08/2025 21:30:00 06/08/20 25 06/08/2025 COMPR EHENS PRANAV METAB OLIC PANEL albumin/glob ulin ratio 1.8 (calc ) 1.0-2. 5 normal Not Available [address], [address], 06/08/2025 21:30:00 06/08/20 25 06/08/2025 COMPR EHENS PRANAV METAB OLIC PANEL bilirubin, total 0.4 mg/dL 0.2-1. 2 normal Not Available [address], [address], 06/08/2025 21:30:00 06/08/20 25 06/08/2025 COMPR EHENS PRANAV METAB OLIC PANEL alkaline phosphatase 83 U/L 37-153 normal Not Available [facility] [employer] [address], [address], 06/08/2025 21:30:00 06/08/20 25 06/08/2025 COMPR EHENS PRANAV METAB OLIC PANEL AST 15 U/L 10-35 normal Not Available [address], [address], 06/08/2025 21:30:00 06/08/20 25 06/08/2025 COMPR EHENS PRANAV METAB OLIC PANEL ALT 10 U/L 6-29 normal Not Available [address], [address], 06/08/2025 21:30:00 06/08/20 25 06/08/2025 ALBUM IN, RANDO M URINE W/O CREAT ININE albumin, urine <0.2 mg/dL see note: normal Refer ence Range : Refer ence Range Not estab lishe d Not Available [address], [address], 06/08/2025 21:30:01 06/08/20 25 06/08/2025 ALBUM IN, RANDO M URINE W/O CREAT ININE JUSTIN The ADA defin es abnor malit ies in album in excre tion as follo ws: Album inuri a Categ ory Resul t (mg/g creat inine ) Annette l to Mildl y incre ased <30 Moder ately incre ased 30-29 9 Sever triston incre ased > OR = 300 The ADA recom mends that at least two of three speci mens colle cted withi n a 3-6 month perio d be abnor mal befor e consi gretchen g a patie nt to be withi n a diagn ostic categ ory. Not Available [address], [address], 06/08/2025 21:30:06/08/2006/08/2025 CBC (INCL UDES DIFF/ PLT) white blood cell count 7.0 thous and/u L 3.8-10 .8 normal Not Available [address], [address], 06/08/2025 21:30:06/08/2006/08/2025 CBC (INCL UDES DIFF/ PLT) red blood cell count 4.52 giancarlo on/uL 3.80-5 .10 normal Not Available [address], [address], 06/08/2025 21:30:06/08/2006/08/2025 CBC (INCL UDES DIFF/ PLT) hemoglobin 12.3 g/dL 11.7-1 5.5 normal Not Available [address], [address], 06/08/2025 21:30:01 06/08/2006/08/2025 CBC (INCL UDES DIFF/ PLT) hematocrit 40.3 % 35.0-4 5.0 normal Not Available [address], [address], 06/08/2025 21:30:06/08/2006/08/2025 CBC (INCL UDES DIFF/ PLT) MCV 89.2 fL 80.0-1 00.0 normal Not Available [address] [place], [address], 06/08/2025 21:30:06/08/2006/08/2025 CBC (INCL UDES DIFF/ PLT) MCH 27.2 pg 27.0-3 3.0 normal Not Available [address], [address], 06/08/2025 21:30:06/08/2006/08/2025 CBC (INCL UDES DIFF/ PLT) MCHC 30.5 g/dL 32.0-3 6.0 low For adult s, a sligh t decre ase in the calcu lated MCHC value (in the range of 30 to 32 g/dL) is most likel y not clini deny signi fican t; sebastian er, it shoul d be inter prete d with cauti on in [facility] lat n with other red cell padmaja eters and the patie nt's clini tammie condi tion. Not Available [address], [address], 06/08/2025 21:30:06/08/2006/08/2025 CBC (INCL UDES DIFF/ PLT) RDW 14.4 % 11.0-1 5.0 normal Not Available [address], [address], 06/08/2025 21:30:06/08/2006/08/2025 CBC (INCL UDES DIFF/ PLT) platelet count 260 thous and/u L 140-40 0 normal Not Available [address], [address], 06/08/2025 21:30:01 06/08/2006/08/2025 CBC (INCL UDES DIFF/ PLT) MPV 11.4 fL 7.5-12 .5 normal Not Available [facility] [address], [address], 06/08/2025 21:30:01 06/08/20 25 06/08/2025 CBC (INCL UDES DIFF/ PLT) absolute neutrophils 4725 cells /uL 1500-7 800 normal Not Available [address], [address], 06/08/2025 21:30:01 06/08/20 25 06/08/2025 CBC (INCL UDES DIFF/ PLT) absolute lymphocytes 1645 cells /uL 850-39 00 normal Not Available [address], [address], 06/08/2025 21:30:01 06/08/2006/08/2025 CBC (INCL UDES DIFF/ PLT) absolute monocytes 420 cells /uL 200-95 0 normal Not Available [address], [address], 06/08/2025 21:30:01 06/08/20 25 06/08/2025 CBC (INCL UDES DIFF/ PLT) absolute eosinophils 112 cells /uL 15-500 normal Not Available [address], [address], 06/08/2025 21:30:01 06/08/20 25 06/08/2025 CBC (INCL UDES DIFF/ PLT) absolute basophils 98 cells /uL 0-200 normal Not Available [address], [address], 06/08/2025 21:30:01 06/08/2006/08/2025 CBC (INCL UDES DIFF/ PLT) neutrophils 67.5 % normal Not Available [address], [address], 06/08/2025 21:30:01 06/08/20 25 06/08/2025 CBC (INCL UDES DIFF/ PLT) lymphocytes 23.5 % normal Not Available [address], [address], 06/08/2025 21:30:01 06/08/2006/08/2025 CBC (INCL UDES DIFF/ PLT) monocytes 6.0 % normal Not Available [address], [address], 06/08/2025 21:30:01 06/08/2006/08/2025 CBC (INCL UDES DIFF/ PLT) eosinophils 1.6 % normal Not Available [address], [address], 06/08/2025 21:30:01 06/08/2006/08/2025 CBC (INCL UDES DIFF/ PLT) basophils 1.4 % normal Not Available [address], [address], 06/08/2025 21:30:01 06/08/2006/08/2025 T4, FREE T4, free 0.9 NG/dL 0.8-1. 8 normal Not Available [address], [address], 06/08/2025 21:30:02 06/08/2006/08/2025 TSH TSH 1.99 mIU/L 0.40-4 .50 normal Not Available [address], [address], 06/08/2025 21:30:03 06/08/2006/08/2025 HEMOG LOBIN A1C hemoglobin A1C 6.6 % <5.7 high For someo ne witho ut known diabe samantha, a hemog lobin A1c value of 6.5% or great er indic ates that they may have diabe samantha and this shoul d be confi rmed with a follo w-up test. For someo ne with known diabe samantha, a value <7% indic ates that their diabe samantha is well contr olled and a value great er than or equal to 7% indic ates subop timal contr ol. A1c targe ts shoul d be indiv idual ized based on durat ion of diabe samantha, age, comor bid condi tions , and other consi derat ions. Curre ntly, no conse nsus exist s andreina ospina use of hemog lobin A1c for diagn osis of diabe samantha for child eduardo. NO COLLE CTION DATE RECEI STANTON. WE HAVE USED THE DATE THE SPECI MEN WAS RECEI STANTON BY THIS LABOR ATORY THE COLLE CTION DATE. IF THIS IS INCOR RECT, PLEAS E CONTA CT CLIEN T SERVI VALDEMAR. PHONE NUMBE R: [phone] Not Available [facility] [address] , [place], [address], 06/08/2025 21:30:03 01/02/20 25 01/01/2025 MAMMO , scree jesus, digit al, bilat eral No observ ation record ed. [email or web address] [facility] [address] [place], [address], 01/30/2025 10:11:34 01/02/20 25 01/01/2025 MAMMO , scree jesus, digit al, bilat eral No observ ation record ed. [email or web address] [facility] [address] [place], [address], 01/03/2025 10:06:36 01/06/20 25 01/01/2025 bone densi ty No observ ation record ed. [facility] [address] [place], [address], 01/05/2025 09:42:06 01/06/20 25 01/01/2025 bone densi ty No observ ation record ed. [facility] Scheduling [address] [place], [address], 01/05/2025 10:36:53 02/02/20 25 02/01/2025 MAMMO , diagn ostic , digit al, unila teral No observ ation record ed. [facility] ([facility]) [address] [place], [address], 03/01/2025 18:28:53 Result Notes None recorded. Problems Name Problem SNOMED Code Status Onset Date Resolution Date Notes Provider Name and Address Organization Details Recorded Time Polycyth emia vera (clinica l) 623258914 Jacobo Mckeon APRN [address], [address], [place], [address] , [employer] [facility] [employer] 4 13:11:51 Chronic obstruct pranav pulmonar y disease 55695408 Jacobo Mckeon APRN [address], [address], [place], [address] , [employer] [facility] Verified Identity [employer] 4 13:10:57 Raynaud' s disease [id number] Jacobo Mckeon APRN [address] [facility] [address], [place], [address] , [employer] [facility] 4 13:11:53 Anxiety disorder 263589086 Jacobo Mckeon APRN [address], [place] [address], [place], [address] , [employer] [facility] 4 13:10:37 Abdomina l pain 02470455 Completed Not Available [facility] 3 06:49:00 Bronchit is [id number] Completed Anum Merrill MD [address], [place] [address], [place], [address] , [employer] [facility] 4 14:33:25 Vitamin D deficien cy 40081711 Jacobo Mkceon APRN [address], [place] [address], [place], [address] , [employer] [facility] 4 13:11:56 Sinusiti s 00981660 Completed Not Available [facility] 3 06:49:01 Hyperten sive disorder 98265139 Jacobo Mckeon APRN [address], [address] , [facility] 4 13:11:27 Osteoart hritis 214709652 Active Leatha Mckeon APRN [address], [address], [place], [address] , [facility] 4 13:11:49 Pharyngi tis 205189101 Completed Not Available [facility] 3 06:49:02 Renal failure syndrome 59118401 Active Leatha Mckeon APRN [address], [address], [place], [address] , [facility] 4 13:12:07 Disorder of urinary bladder 40773198 Jacobo Mckeon APRN [address], [address], [place], [address] , [facility] GROUP [facility] 4 13:11:12 Cramp in lower limb 795932845 Active Not Available [facility] 3 06:02:26 Periorbi duke edema 89397715 Completed Not Available [facility] 3 06:49:03 Coronary arterios clerosis 97553639 Jacobo Mckeon APRN [address], [address], [place], [address] , [facility] 4 13:11:02 Acute upper respirat ory infectio n 65932092 Completed Not Available [facility] 3 06:49:03 Hyperlip idemia 82872743 Jacobo Mckeon APRN [address], [address], [place], [address] , [facility] 4 13:11:32 Essentia l hyperten deuce 57542759 Jacobo Mckeon APRN [address], [address], [place], [address] , [facility] 4 13:11:17 Allergic rhinitis 70180635 Jacobo Mckeon APRN [address], [address], [place], [address] , [facility] 4 13:10:40 Urinary tract infectio us disease 25263918 Completed Not Available [facility] 3 06:49:05 Hemorrho ids 34893480 Active Not Available [facility] 3 06:02:27 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 903477972 Active [address], [place], [address] , [employer] 4 13:11:40 Acute exacerba tion of asthma Active 2017 Not Available [facility] 3 06:02:27 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 76809169207 457689 Active 2018 [address], [address], [place], [address] , [facility] 4 13:10:45 History of lung lobectom y 69715632951 880484 Active 2018 [address], [address], [place], [address] , [employer] 4 13:11:23 Body mass index 30+ - obesity 647082797 Active 2018 [address], [address], [place], [address] , [facility] 4 13:10:53 Asthma 260886661 Active [address], [place], [address] , FRAMED 4 13:10:41 Lobectom y Completed 201803/01/2024 Removal Reason: Possible lung cancer GERARDO Goodman, [address], [place], [address] , FRAMED 4 11:07:05 Memory impairme nt 904186179 Active 2020 Leatha Mckeon APRN [address], [address], [place], [address] , FRAMED 4 13:11:38 Auditory hallucin ations 59622321 Active 2020 Leatha Mckeon APRN [address], [place] [address], [place], [address] , [employer] 4 13:10:48 Patient advised about driving [id number] Active 2020 Not Available [facility] 3 06:02:26 Dementia 16193112 Active 2020 Leatha Mckeon APRN [address], [address], [place], [address] , [employer] 4 13:11:04 Hallucin ations 7241307 Active 2020 Leatha Mckeon APRN [address], [address], [place], [address] , [facility] 4 13:11:20 COVID-19 559117129 Active 2021 Not Available [facility] 3 06:02:27 Depressi ve disorder 71813657 Active 2021 Leatha Mckeon APRN [address], [address], [place], [address] , [facility] 4 13:11:07 Iritis 86662160 Active 2021 Not Available [facility] 3 06:02:26 Chronic sinusiti s 74195499 Active 2021 Not Available [facility] 3 06:02:26 Multiple nodules of lung 290509041 Active 2021 Leatha Mckeon APRN [address], [address], [place], [address] , [facility] 4 13:11:44 Posterio r rhinorrh ea 69359500 Active 2021 Not Available [facility] 3 06:02:27 Candidia sis of mouth 77376069 Active 2021 Not Available [facility] 3 06:02:27 Acute exacerba tion of chronic obstruct pranav pulmonar y disease 913302174 Active 2021 Not Available [facility] 3 06:02:26 Dyspnea on exertion 11716724 Active 2021 Not Available [facility] 3 06:02:26 Hypokale aiden 50395535 Active 2022 Nora Ramos, VINH martinez, [facility] 5 11:46:08 Acute sinusiti s 75175601 Active 2022 Not Available [facility] 3 06:02:26 Cough 04174437 Active 2022 Not Available [facility] 3 06:02:26 Dysuria 49534212 Active 2022 Leatha Mckeon APRN [address], [address], [place], [address] , [facility] 4 13:11:15 Acute urinary tract infectio n 506534407 Active 2022 Anum Merrill MD [address], [address], [place], [address] , [facility] 3 11:07:37 Hypergly cemia 16625162 Active 2022 Leatha Mckeon APRN [address], [address], [place], [address] , [facility] 4 13:11:29 Diabetes mellitus 01711584 Active 2023 Leatha Mckeon APRN [address], [place], [address] , [facility] 4 13:11:11 Bronchit is 49175525 Active 2023 Anum Merrill MD [address], [place], [address] , [employer] [facility] [employer] 4 14:33:25 Cellulit is of lower limb 120839872 Active 2023 Anum Merrill MD [address], [place], [address] , [facility] [email or web address] [facility] [employer] 4 09:18:46 History of hysterec socorro 303070941 Active 2023 Leatha Mckeon APRN [address], [place], [address] , [facility] [email or web address] [facility] [employer] 4 11:07:29 Low back pain 464172494 Active 2023 Leatha Mckeon APRN [address], [place], [address] , [facility] [email or web address] [facility] [employer] 4 11:13:26 Onychomy cosis of toenails 018589704 Active 2023 VINH Betts null, [employer] [facility] [employer] 4 11:52:48 Pain in right foot 63978848643 9107 Active 2023 Tristin Peck DPM [address], [address], [place], [address] , [employer] [facility] [employer] 4 09:03:30 Pain in left foot 25030391910 9107 Active 2023 Tristin Peck DPM [address], [place], [address] , [employer] [facility] 4 09:03:40 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 4 19:13:24 Prediabe samantha 327133267 Active 2023 Leatha Mckeon APRN [address], [place], [address] , [facility] [email or web address] [facility] [employer] [facility] 4 19:16:23 Alzheime r's disease 00720656 Active 2023 Leatha Mckeon APRN [address], [place], [address] , [employer] [facility] [employer] [facility] 4 12:23:08 Carotid artery occlusio n without infarcti on 85028440363 4101 Active 2023 Leatha Mckeon APRN [address], [place], [address] , [employer] [facility] [employer] [facility] 4 12:06:11 Environm ental allergy 330674630 Active 2024 Leatha Mckeon APRN [address], [place], [address] , [employer] [facility] [employer] [facility] 5 11:04:53 Neuropat hy 018255294 Active 2024 Maria C de la torre MD [address], [place], [address] , [employer] [facility] [employer] [facility] 5 20:25:10 Moderate recurren t major depressi on 12728530 Active 2024 Maria C de la torre MD [address], [place], [address] , [employer] [facility] [employer] [facility] 5 16:58:53 Mammogra phy abnormal 848937835 Active 2024 VINH Gonzalez, [facility] [employer] [facility] 5 10:14:18 Chronic kidney disease 585323313 Active 2024 Maria C de la torre MD [address], [place], [address] , [employer] 16:47:07 Notes:Some problems listed i n Documents: #[id number], #[id number], #[id number] could not be added to this patient's chart. Please review these documents and add these problems to the patient's chart manually as needed. Problem Notes None recorded. Procedures Surgical History Date Name Laterality Status Provider Name and Address Organization Details Recorded Time 06/20/20 24 Nail Debridement completed Tristin Peck DPM [address], [address], [place], [address], [employer] 06/21/2024 09:03:15 06/20/20 24 Callus Debridement 2-4 completed Tristin Peck DPM [address], [place], [address], [employer] 06/21/2024 09:03:22 03/01/20 24 Medicare Wellness CPT Code, subsequent completed Miguel Tapia LPN [employer] 03/01/2024 09:47:00 11/26/19 24 Transitional_Care_ Management completed Nora Collins RN [employer] 11/26/2023 14:03:34 Orthopedic Surgery completed Not Available [facility] 11/18/2022 06:40:59 MEETING FACILITATOR Surgery completed Not Available [facility] 11/18/2022 06:40:59 Tonsillectomy completed Not Available [facility] 11/18/2022 06:40:59 Cholecystectomy completed Not Available [facility] 11/18/2022 06:40:59 repair of urinary bladder completed Not Available [facility] 11/18/2022 06:40:59 other completed Not Available [facility] 11/18/2022 06:40:59 Hysterectomy completed Not Available [facility] 11/18/2022 06:40:59 Colonoscopy completed Not Available [facility] 11/18/2022 06:40:59 Knee Replacement completed Not Available [employer] 11/18/2022 06:40:59 nasal septoplasty completed Not Available [employer] 11/18/2022 06:40:59 Sinus Surgery completed Not Available [facility] 11/18/2022 06:40:59 vitrectomy completed Angela Dickerson MA [employer] [facility] [employer] [facility] 06/07/2024 10:42:56 Eye Surgery completed VINH Gonzalez [employer] [facility] [employer] [facility] 12/25/2024 16:05:34 Imaging Results None recorded. Procedure Notes None recorded. Medical Equipment None Reported. Allergies Allergen ID Allergen Name Allergen Category Reaction Reaction Severity Criticality Documentation Date Start Date Code Code System Note Provider Name and Address Organization Details Recorded Time 40022 Product containin g penicilli n (product) medicatio n Not available Not available Not available 11/18/2022 45819 8001 SNOMED Other react ions and sever ities : 'Adve rse react ion to subst ance' . Leatha Mckeon APRN [address], [address], [place], [address], [employer] [facility] [employer] [facility] 4 12:44:52 08845 Non-stero idal anti-infl ammatory agent (substanc e) medicatio n Not available Not available Not available 11/18/2022 08192 5008 SNOMED Other react ions and sever ities : 'Adve rse react ion to subst ance' . Leatha Mckeon APRN [address], [address], [place], [address], [employer] [facility] 4 12:44:52 96090 Levaquin medicatio n Not available Not available Not available 11/18/2022 15269 2 RxNorm Not Available [facility] 3 06:59:57 84721 Lasix medicatio n Not available Not available Not available 11/18/2022 09263 1 RxNorm Not Available [facility] 3 06:59:57 52829 doxycycli ne Not available Not available Not available Not available 11/18/2022 3640 RxNorm Other react ions and sever ities : 'Adve rse react ion to subst ance' . Leatha Mckeon APRN [address], [address], [place], [address], [employer] [facility] [employer] 4 12:44:52 10388 codeine medicatio n Not available Not available Not available 11/18/2022 2670 RxNorm Other react ions and sever ities : 'Adve rse react ion to subst ance' . Leatha Mckeon APRN [address], [place], [address], [employer] [facility] [employer] [facility] 4 12:44:52 01641 Product containin g beta adrenergi c receptor antagonis t (product) medicatio n Not available Not available Not available 11/18/2022 21746 009 SNOMED cause s nicol nued cough ing Not Available [facility] 3 06:59:58 08142 cefdinir medicatio n Not available Not available Not available 11/18/2022 99352 RxNorm Other react ions and sever ities : 'Adve rse react ion to subst ance' . Leatha Mckeon APRN [address], [place], [address], [employer] [facility] [employer] [facility] 4 12:46:22 24200 furosemid e medicatio n Not available Not available Not available 03/01/2024 4603 RxNorm Other react ions and sever ities : 'Adve rse react ion to subst ance' . Leatha Mckeon APRN [address], [place], [address], [employer] [facility] [employer] [facility] 4 12:44:52 77773 levofloxa deena medicatio n Not available Not available Not available 03/01/2024 67135 RxNorm Other react ions and sever ities : 'Adve rse react ion to subst ance' . Leatha Mckeon APRN [address], [place], [address], [employer] [facility] [employer] [facility] 4 12:44:52 Medications Name Sig Start Date Stop Date Status Note LastModified by Organization Details LastModified Time quetiapin e 25 mg tablet TAKE 1 2 (ONE HALF) TABLET BY MOUTH THREE TIMES DAILY NEEDED 12/15 completed Not Available Not Available Not Available cyclobenz aprine 10 mg tablet Take 1 tablet 3 times a day by oral route for 90 days. active TAKES PRN Not Available Not Available Not Available clotrimaz ole 10 mg lucille 11/21 completed Not Available Not Available Not Available Qvar 80 mcg/actua tion Metered Aerosol oral inhaler USE 1 INHALATI ON TWICE A DAY 11/30 completed Not Available Not Available Not Available Proctosol HC 2.5 % rectal cream with applicato r Insert 1 g twice a day by rectal route. active Not Available Not Available No t Available nystatin 100,000 unit/mL oral suspensio n SWISH AND SPIT 5 ML IN MOUTH 4 TIMES DAILY DIRECTED FOR 10 DAYS 08/16 completed Not Available Not Available Not Available potassium chloride ER 10 mEq capsule,e xtended release TAKE 1 CAPSULE BY MOUTH TWICE DAILY 10/12 completed Not Available Not Available Not Available prednison e 10 mg tablet Take 3 tablets every day by oral route in the morning for 5 days. active Not Available Not Available No t Available Toprol XL 25 mg tablet,ex tended release Take 1 tablet every day by oral route for 90 days. active Not Available Not Available No t Available ipratropi um 0.5 mg-albute rol 3 mg (2.5 mg base)/3 mL nebulizat ion soln USE 1 AMPULE IN NEBULIZE R TWICE DAILY DIRECTED active Not Available Not Available No t Available donepezil 5 mg tablet TAKE 1 TABLET BY MOUTH ONCE DAILY 01/15 completed Not Available Not Available Not Available Carafate 100 mg/mL oral suspensio n Take 10 mL 4 times a day by oral route before meals for 7 days. 09/07 completed Not Available Not Available Not Available torsemide 20 mg tablet TAKE 2 TABLETS BY MOUTH ONCE DAILY 12/25 completed Not Available Not Available Not Available clindamyc in HCl 300 mg capsule TAKE 1 CAPSULE BY MOUTH TID DIRECTED FOR 7 DAYS active Not Available Not Available No t Available albuterol sulfate 2.5 mg/3 mL (0.083 %) solution for nebulizat ion USE 1 VIAL IN NEBULIZE R 4 TIMES DAILY active Not Available Not Available No t Available nitroglyc myriam 400 mcg/spray transling ual aerosol PLACE ONE SPRAY ONTO OR UNDER TONGUE AT FIRST SIGN OF ATTACK, DO NOT TAKE MORE THAN 3 SPRAYS IN A FIFTEEN MINUTE PERIOD 01/15 completed Not Available Not Available Not Available polyethyl ahmet glycol 3350 17 gram oral powder packet 11/16 completed Not Available Not Available Not Available azithromy deena 250 mg tablet TAKE 2 TABLETS BY MOUTH ON DAY 1, AND THEN TAKE 1 TABLET BY MOUTH ONCE A DAY ON DAY 2 THROUGH DAY 5 04/20 completed Not Available Not Available Not Available ofloxacin 0.3 % eye drops INSTILL 1 DROP INTO RIGHT EYE 4 TIMES DAILY 06/07 completed Not Available Not Available Not Available fluconazo le 150 mg tablet TAKE 2 TABLETS BY MOUTH NOW AND THEN 1 ONCE A WEEK 08/07 completed Not Available Not Available Not Available cephalexi n 250 mg capsule TAKE 1 CAPSULE BY MOUTH TWICE DAILY FOR 5 DAYS 04/20 completed Not Available Not Available Not Available donepezil 10 mg tablet TAKE 1 TABLET BY MOUTH ONCE DAILY AT BEDTIME active Not Available Not Available No t Available famotidin e 40 mg tablet Take 1 tablet every day by oral route at dinner for 90 days. active Not Available Not Available No t Available Medrol (Eduardo) 4 mg tablets in a dose pack Use as directed 12/06 completed Not Available Not Available Not Available prednison e 20 mg tablet TAKE 2 TABLETS BY MOUTH ONCE DAILY FOR 5 DAYS 04/20 completed Not Available Not Available Not Available clindamyc in HCl 150 mg capsule 10/17 completed Not Available Not Available Not Available Zyrtec 10 mg tablet Take 1 tablet every day by oral route. 2024 active otc Not Available Not Available Not Avai lable clopidogr el 75 mg tablet TAKE 1 TABLET EVERY OTHER DAY active Not Available Not Available No t Available prochlorp erazine maleate 10 mg tablet TAKE 1 TABLET BY MOUTH EVERY 8 HOURS NEEDED FOR NAUSEA AND VOMITING 03/01 completed Not Available Not Available Not Available tramadol 50 mg tablet Take 1 po bid active Not Available Not Available No t Available triamtere ne 37.5 mg-hydroc hlorothia zide 25 mg capsule TAKE 1 CAPSULE DAILY 10/12 completed Not Available Not Available Not Available Kenalog 40 mg/mL suspensio n for injection active Not Available Not Available No t Available oxycodone -acetamin ophen 5 mg-325 mg tablet Take 1 tablet every 12 hours by oral route for 7 days. active PRN hasn't taken yet but has it if really needed Not Available Not Available Not Available alprazola m 0.5 mg tablet Take 1 tablet(s ) 3 times a day by oral route. active Not Available Not Available No t Available alprazola m 0.25 mg tablet TAKE 1 TABLET BY MOUTH TWICE DAILY 01/15 completed Not Available Not Available Not Available potassium chloride ER 20 mEq tablet,ex tended release(p art/cryst ) 1 po qday active Not Available Not Available No t Available prednisol one acetate 1 % eye drops,mahi pension INSTILL 1 DROP INTO RIGHT EYE 4 TIMES DAILY 12/25 completed Not Available Not Available Not Available methocarb arya 750 mg tablet Take 1 tablet every day by oral route for 30 days. active Not Available Not Available No t Available cephalexi n 500 mg capsule TAKE 1 CAPSULE BY MOUTH TWICE DAILY FOR 7 DAYS 02/02 completed Not Available Not Available Not Available warfarin 2 mg tablet active Not Available Not Available Not Available lidocaine 5 % topical patch APPLY 1 PATCH BY TOPICAL ROUTE ONCE DAILY (MAY WEAR UP TO 12 HOURS.) 2024 active Approved lidocain e patch. Valid: 03/01/24- 09/19/24 . AL# [id number] . Not Available Not Available Not Available polymyxin B sulfate 10,000 unit-trim ethoprim 1 mg/mL eye drops INSTILL 1 DROP INTO AFFECTED EYE(S) EVERY 6 HOURS active Not Available Not Available No t Available nitroglyc myriam 400 mcg/spray transling ual PLACE ONE SPRAY ONTO OR UNDER TONGUE [...] active Not Available Not Available Not Avai marcus mont[facility] st 10 mg tablet Take 1 tablet every day by oral route in the evening for 90 days. 10/17 completed Not Available Not Available Not Available lisinopri l 5 mg tablet TAKE 2 TABLETS DAILY active Not Available Not Available No t Available mupirocin 2 % topical ointment APPLY A SMALL AMOUNT TO THE AFFECTED AREA BY TOPICAL ROUTE 3 TIMES PER DAY active Not Available Not Available No t Available gabapenti n 100 mg capsule Take 1 capsule every day by oral route. 2024 active Not Available Not Available Not Avai lable azelastin e 137 mcg (0.1 %) nasal spray [place] 2 sprays twice a day by intranas al route as directed for 90 days. active Not Available Not Available No t Available warfarin 1 mg tablet active Not Available Not Available Not Available diltiazem 30 mg tablet TAKE 1 TABLET BY MOUTH AT BEDTIME active Not Available Not Available No t Available ipratropi um bromide 42 mcg (0.06 %) nasal spray [place] 2 sprays 3 times a day by intranas al route as directed for 30 days. 06/07 completed Not Available Not Available Not Available ondansetr on 4 mg disintegr ating tablet DISSOLVE 1 TABLET IN MOUTH EVERY 6 HOURS NEEDED FOR NAUSEA AND VOMITING 10/12 completed Not Available Not Available Not Available cefdinir 300 mg capsule TAKE 1 CAPSULE BY MOUTH TWICE DAILY DIRECTED FOR 7 DAYS 12/09 completed Not Available Not Available Not Available fluticaso ne propionat e 50 mcg/actua tion nasal spray,maih pension Inhale 2 sprays every day by intranas al route in the evening. active Not Available Not Available No t Available metformin ER 500 mg tablet,ex tended release 24 hr TAKE 1 TABLET BY MOUTH DAILY WITH DINNER 10/06 completed Not Available Not Available Not Available spironola ctone 50 mg tablet TAKE 1 TABLET BY MOUTH ONCE DAILY active Not Available Not Available No t Available Ventolin HFA 90 mcg/actua tion aerosol inhaler Inhale 2 puffs every 4-6 hours by inhalati on route as needed for 90 days. 06/07 completed Not Available Not Available Not Available tobramyci n 0.3 %-dexamet hasone 0.1 % eye drops,mahi pension active Not Available Not Available Not Available Bactrim DS 800 mg-160 mg tablet Take 1 tablet every 12 hours by oral route. 08/13 completed Not Available Not Available Not Available Restasis 0.05 % eye drops in a dropperet te Instill 1 drop twice a day by ophthalm ic route for 90 days. 08/09 completed Not Available Not Available Not Available rosuvasta tin 10 mg tablet TAKE 1 TABLET BY [...] completed Not Available Not Available Not Available nitrofura ntoin monohydra te/macroc rystals 100 mg capsule TAKE 1 CAPSULE BY MOUTH EVERY 12 HOURS FOR 7 DAYS 08/16 completed Not Available Not Available Not Available duloxetin e 20 mg capsule,d elayed release TAKE 1 CAPSULE BY MOUTH TWICE DAILY 2024 active Not Available Not Available Not Avai lable fenofibra te 160 mg tablet Take 1 tablet every [...] PRN Not Available Not Available Not Available quetiapin e 50 mg tablet TAKE 1 TABLET BY MOUTH DAILY AT BEDTIME 2024 active Not Available Not Available Not Avai lable Lantus Solostar U-100 Insulin 100 unit/mL (3 mL) subcutane ous pen INJECT 15 UNITS SUBCUTAN EOUSLY IN THE EVENING 04/20 completed Not Available Not Available Not Available Humalog KwikPen (U-100) Insulin 100 unit/mL subcutane ous INJECT 5 UNITS SUBCUTAN EOUSLY THREE TIMES DAILY 12/09 completed Not Available Not Available Not Available cetirizin e 10 mg capsule Take 1 capsule every day by oral route. 08/13 completed Not Available Not Available Not Available Vitamin D3 50 mcg (2,000 unit) capsule Take 1 capsule every day by oral route. 2024 active Not Available Not Available Not Avai lable OneTouch Verio test strips USE DIRECTED 02/02 completed Not Available Not Available Not Available ipratropi um 0.5 mg-albute rol 2.5 mg/2.5 mL solution for nebulizat ion Inhale by inhalati on route. 11/21 completed Not Available Not Available Not Available Breo Ellipta 100 mcg-25 mcg/dose powder for inhalatio n USE 1 INHALATI ON DAILY DIRECTED active Not Available Not Available No t Available potassium chloride ER 20 mEq tablet,ex tended release Take 1 tablet every day by oral route for 90 days. 2024 active Not Available Not Available Not Avai lable OneTouch Verio Flex Meter USE DIRECTED 02/02 completed Not Available Not Available Not Available Trelegy Ellipta 100 mcg-62.5 mcg-25 mcg powder for inhalatio n USE 1 INHALATI ON BY MOUTH ONCE DAILY AT THE SAME TIME EACH DAY active Not Available Not Available No t Available BD Nilsa 2nd Gen Pen Needle 32 gauge x USE DIRECTED 02/02 completed Not Available Not Available Not Available OneTouch Delica Plus Lancet 33 gauge USE DIRECTED 02/02 completed Not Available Not Available Not Available Fluad Quad 4287-4613 (65yr up)(PF) 60 mcg (15 mcg x 4)/0.5mL IM syringe ADM 0.5ML IM UTD 10/17 completed Not Available Not Available Not Available Ozempic 1 mg/dose (4 mg/3 mL) subcutane ous pen injector Inject 1 mg every week by subcutan eous route as directed for 90 days. 2024 active Not Available Not Available Not Avai lable BinaxNOW COVID-19 Ag Self Test kit Use as Directed on the Package 07/26 completed Not Available Not Available Not Available Paxlovid 300 mg (150 mg x 2)-100 mg tablets in a dose pack Use as directed 10/12 completed Not Available Not Available Not Available Ozempic 0.25 mg or 0.5 mg (2 mg/3 mL) subcutane ous pen injector 0.5 mg sc qweek 12/25 completed Not Available Not Available Not Available albuterol 90 mcg-budes onide 80 mcg/actua tion HFA aerosol inhaler Inhale by inhalati on route. active Not Available Not Available No t Available Vitals Date Recorded Body height Body mass index (BMI) Body weight Body temperature Heart rate Systolic And Diastolic Provider Name and Address Organization Details Last Updated DateTime 5 162.56 cm 31.2 kg/m2 64417.8 1 g 97.4 [degF] 84 /min 126/74 mm[Hg] VINH Gonzalez [place] [email or web address] [facility] [employer] [facility] 5 16:09:52 Date Recorded Body height Body mass index (BMI) Body weight Body temperature Heart rate Oxygen saturation Oxygen saturation in Arterial blood by Pulse oximetry Pain severity - 0-10 verbal numeric rating [Score] - Reported Systolic And Diastolic Provider Name and Address Organization Details Last Updated DateTime 5 162.56 cm 31.2 kg/m2 39080.8 1 g 98.1 [degF] 73 /min 96 % 96 % 0 144/82 mm[Hg] Angela Dickerson MA [facility] [employer] 5 16:37:15 Date Recorded Body height Body mass index (BMI) Body weight Body temperature Heart rate Oxygen saturation Oxygen saturation in Arterial blood by Pulse oximetry Pain severity - 0-10 verbal numeric rating [Score] - Reported Systolic And Diastolic Provider Name and Address Organization Details Last Updated DateTime 162.56 cm 32 kg/m2 18739.9 8 g 97 [degF] 89 /min 94 % 94 % 0 122/78 mm[Hg] Angela Dickerson MA [place] [email or web address] [facility] Blast Ramp 5 15:23:20 Social History Question Answer Notes LastModified by Organization Details LastModified Time Tobacco Smoking Status Former Smoker quit 2006 Not Available [employer] 11/18/2022 06:40:40 Do You Have An Advance Directive? Yes Information not available 03/01/2024 Are You Blind Or Do You Have Difficulty Seeing? No Information not available 03/01/2024 Is Blood Transfusion Acceptable In An Emergency? Yes [email or web address] Information not available 03/01/2024 What Is Your Level Of Caffeine Consumption? Moderate MIGRATION.0301 [id number] Information not available 11/18/2022 In The 14 Days Before Symptom Onset, Have You Had Close Contact With A Laboratory-confi rmed COVID-19 While That Case Was Ill? No MIGRATION.0301 [id number] Information not available 11/18/2022 In The 14 Days Before Symptom Onset, Have You Had Close Contact With A Person Who Is Under Investigation For COVID-19 While That Person Was Ill? No MIGRATION.0301 [id number] Information not available 11/18/2022 Are You Deaf Or Do You Have Serious Difficulty Hearing? No Information not available 03/01/2024 What Type Of Diet Are You Following? REGULAR Information not available 03/01/2024 What Is The Highest Grade Or Level Of School You Have Completed Or The Highest Degree You Have Received? [id number] [email or web address] Information not available 03/01/2024 Have There Been Any Changes To Your Family Or Social Situation? No Information not available 03/01/2024 What Is The Fluoride Status Of Your Home? Unknown [email or web address] Information not available 03/01/2024 When Did You Quit Smoking? 6-10yearssincelastc igarette Information not available 03/01/2024 Are There Any Guns Present In Your Home? Yes [email or web address] Information not available 03/01/2024 Do You Use Insect Repellent Routinely? No Information not available 03/01/2024 Where Do You Live? SingleLevelHouse Information not available 03/01/2024 Presence Of Domestic Violence No [email or web address] Information not available 03/01/2024 Guns Present In The Home? Yes Information not available 03/01/2024 Are You Able To Care For Yourself? Yes [email or web address] Information not available 03/01/2024 Are You Blind Or Do Yo Have Difficulty Seeing? No [email or web address] Information not available 03/01/2024 Are You Deaf Or Do You Have Serious Difficulty Hearing? No [email or web address] Information not available 03/01/2024 General Stress Level? Low [email or web address] Information not available 03/01/2024 Live Alone Of With Others? 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 No [email or web address] Information not available 03/01/2024 What Was The Date Of Your Most Recent Tobacco Screening? 05/02/2025 Information not available 05/02/2025 How Many Children Do You Have? 3 [email or web address] Information not available 03/01/2024 Do You Have [...] Did You Start Smoking Tobacco? 10 MIGRATION.0301 [id number] Information not available 11/18/2022 Are You Passively Exposed To Smoke? No Information not available 03/01/2024 Are There Any Smokers In Your House? No Information not available 03/01/2024 How Much Tobacco Do You Smoke? 2 PPW MIGRATION.0301 [id number] Information not available 11/18/2022 What Types Of Sporting Activities Do You Participate In? None Information not available 03/01/2024 Do You Use Sunscreen Routinely? Yes [email or web address] Information not available 03/01/2024 Have You Recently Traveled Abroad? No MIGRATION.0301 [id number] Information not available 11/18/2022 Do You Have Difficulty Walking Or Climbing Stairs? No [email or web address] Information not available 03/01/2024 Do You Have Any Dietary Restrictions? No Information not available 03/01/2024 Sex: Female Functional Status Question Answer Note LastModified by Organizat ion Details LastModified Time Do you use any illicit or recreational drugs? No Information not available 03/01/2024 Do you or have you ever used any other forms of tobacco or nicotine? No [email or web address] Information not available 03/01/2024 What is your level of alcohol consumption? None [id number] Information not available 11/18/2022 Are you currently employed? No [email or web address] Information not available 03/01/2024 Do you have transportation difficulties? No Information not available 03/01/2024 Are you able to walk independently without assistance or assistive devices? YESWOREST [email or web address] Information not available 03/01/2024 Do you have difficulty doing errands alone? No [email or web address] Information not available 03/01/2024 Are you able to care for yourself independently? Yes [email or web address] Information not available 03/01/2024 What is your occupation? Retired MIGRATION.[id number] 026 Information not available 11/18/2022 Do you have difficulty dressing, bathing, grooming, or toileting? No [email or web address] Information not available 03/01/2024 What is your exercise level? Occasional MIGRATION.[id number] 026 Information not available 11/18/2022 Mental Status Question Answer Note LastModified by Organizat ion Details LastModified Time Do you feel stressed (tense, restless, nervous, or anxious, or unable to sleep at night)? [id number] Information not available 03/01/2024 Do you have difficulty concentrating, remembering or making decisions? Yes [email or web address] Information no t available 03/01/2024 Family History Relationship Description Onset Age of this Age Resolved Age Notes LastModified by Organization Details LastModified Time Paternal Grandmother Malignant neoplasm of lung MIGRATION.844 [id number] Not available 11/18/2022 06:41:02 Mother Chronic obstructive pulmonary disease MIGRATION.986 [id number] Not available 11/18/2022 06:41:02 Father Angiosarcoma MIGRATION.0 30 [id number] Not available 11/18/2022 06:41:02 Medical History Condition Response SLEEP APNEA N MRSA N ALLERGIES/HAYFEVER Y LUNG DISEASE/DISORDER N INSOMNIA N HISTORY OF DRUG ABUSE N RADIATION / CHEMOTHERAPY N COPD Y HIGH CHOLESTEROL / HYPERLIPIDEMIA Y HYPERTHYROIDISM N BLOOD DISEASES N EAR OR HEARING PROBLEMS N HYPOTHYROIDISM N SHINGLES N FEMALE PROBLEMS / INFECTIONS Y DEPRESSION (INCLUDING POST ) N HAVE YOU BEEN HOSPITALIZED OR SEEN IN [facility] ER IN THE PAST YEAR ? Y STROKE/TIA N ULCERS N OBESITY N HISTORY WITH COMPLICATIONS WITH ANESTHES IA ? N ANEURYSM N ARTHRITIS Y USE OF BLOOD THINNERS Y DIABETES, TYPE N PARATHYROID DISEASE N ENT N SEASONAL ALLERGIES Y HEARTBURN / REFLUX N HEPATITIS / LIVER DISEASE N ASTHMA Y SEIZURES/EPILEPSY N HEADACHES/MIGRAINES N CHF N PACEMAKER N DIZZINESS N HEART DISEASE/HEART PROBLEMS Y AIDS/HIV N FRACTURES N HYPERTENSION Y CANCER: SPECIFY N TOURETTE'S N ANXIETY DISORDER Y BLOOD TRANSFUSION N ANESTHESIA COMPLICATIONS N ANEMIA/BLOOD DISORDER N CHRONIC EAR INFECTIONS N TUBERCULOSIS N [...] PF 1 completed Leatha Mckeon APRN [address], [address], [place], [address], [facility] 03/01/2024 12:45:24 Influenza, high-dose, quadrivalent, PF 3 completed Leatha Mckeon APRN [address], [address], [place], [address], [facility] 03/01/2024 12:45:24 Influenza, high-dose, quadrivalent, PF 2 completed Leatha Mckeon APRN [address], [address], [place], [address], [facility] 03/01/2024 12:45:24 Influenza, adjuvanted, quadrivalent, PF 0 completed Leatha Mckeon APRN [address], [address], [place], [address], [facility] 03/01/2024 12:45:24 COVID-19, mRNA, LNP-S, PF, 30 mcg/0.3 mL dose 1 gurmeet Mckeon APRN [address], [address], [place], [address], [facility] 03/01/2024 12:45:24 COVID-19, mRNA, LNP-S, PF, 30 mcg/0.3 mL dose 1 completed Leatha Mckeon APRN [address], [address], [place], [address], [facility] 03/01/2024 12:45:24 COVID-19, mRNA, LNP-S, PF, 30 mcg/0.3 mL dose 1 completed Leatha Mckeon APRN [address], [address], [place], [address], [facility] 03/01/2024 12:45:24 COVID-19, mRNA, LNP-S, PF, 30 mcg/0.3 mL dose, lidia-sucrose [address], [place], [address], [facility] Verified Identity Pass [facility] 03/01/2024 12:45:24 COVID-19, mRNA, LNP-S, bivalent, PF, 30 mcg/0.3 mL dose [address], [place], [address], [facility] Verified Identity Pass [facility] 03/01/2024 12:45:24 RSV, bivalent, protein subunit RSVpreF, diluent reconstituted, 0.5 mL, PF 3 [address], [place], [address], [facility] 03/01/2024 12:45:24 COVID-19, mRNA, LNP-S, PF, lidia-sucrose, 30 mcg/0.3 mL [address], [place], [address], [facility] Verified Identity Pass [facility] 03/01/2024 12:45:24 zoster recombinant 4 completed [address], [place], [address], [facility] 12/06/2024 10:56:59 Pneumococcal conjugate PCV20, polysaccharide [id number] conjugate, adjuvant, PF 4 completed [address], [place], [address], [facility] Verified Identity Pass [facility] 12/06/2024 10:56:59 COVID-19, mRNA, LNP-S, PF, lidia-sucrose, 30 mcg/0.3 mL 4 completed Leatha Mckeon APRN [address], [address], [place], [address], [facility] Verified Identity Pass [facility] 12/06/2024 10:56:59 Influenza, high-dose, trivalent, PF 4 completed Leatha Mckeon APRN [address], [place], [address], [facility] Verified Identity Pass [facility] 12/06/2024 10:56:59 Influenza, split virus, trivalent, preservative 3 completed Leatha Mckeon APRN [address], [place], [address], [facility] Verified Identity Pass [facility] 03/01/2024 12:45:24 COVID-19, mRNA, LNP-S, PF, 100 mcg/0.5mL dose or 50 mcg/0.25mL dose 1 completed Leatha Mckeon APRN [address], [address], [place], [address], [facility] Verified Identity Pass [facility] 03/01/2024 12:45:24 COVID-19, mRNA, LNP-S, PF, 100 mcg/0.5mL dose or 50 mcg/0.25mL dose 1 completed Leatha Mckeon APRN [address], [place], [address], [facility] Verified Identity Pass [facility] 03/01/2024 12:45:24 Influenza, split virus, quadrivalent, preservative 0 completed Leatha Mckeon APRN [address], [place], [address], [facility] Verified Identity Pass [facility] 03/01/2024 12:45:24 Influenza, split virus, quadrivalent, preservative 9 completed Not Available [facility] 06/22/2023 06:02:28 DT (pediatric) 9 completed Not Available [facility] 06/22/2023 06:02:28 pneumococcal conjugate PCV 7 8 completed Not Available [facility] 06/22/2023 06:02:28 Influenza, high-dose, trivalent, PF 9 completed Not Available [facility] 06/22/2023 06:02:28 Influenza, high-dose, trivalent, PF 8 completed Not Available [facility] 06/22/2023 06:02:28 Tdap 8 completed Not Available [facility] 06/22/2023 06:02:28 Influenza, high-dose, trivalent, PF 7 completed Not Available [facility] 06/22/2023 06:02:28 Influenza, high-dose, trivalent, PF 6 completed Not Available [facility] 06/22/2023 06:02:28 Influenza, high-dose, trivalent, PF 5 completed Not Available [facility] 06/22/2023 06:02:28 Influenza, high-dose, trivalent, PF 4 completed Not Available [facility] 06/22/2023 06:02:28 pneumococcal polysaccharide PPV23 4 completed Not Available [facility] 06/22/2023 06:02:28 Past Encounters Encounter ID Performer Location Encounter Start Date Encounter Closed Date Diagnosis/Indication Diagnosis SNOMED-CT Code Diagnosis ICD10 Code Diagnosis IMO Codes Diagnosis Note [id number] [facility] Emergency Department ic_Gateway [facility] Abner anderson [address] [place] [address] 01/15/2021 00:00:00 01/15/2021 13:01:32 [id number] Fabiana Sanz MD [facility] Abner anderson [address] [place] [address] 04/16/2021 00:00:00 04/16/2021 13:40:38 [id number] Fabiana Sanz MD [facility] Abner anderson [address] [place] [address] 04/21/2021 00:00:00 04/21/2021 14:57:52 [id number] Fabiana Sanz MD [facility] [place] [address] , [place] [address] 05/15/2021 00:00:00 05/15/2021 13:58:12 [id number] [facility] ic_Gateway [facility] [place] [address] [place] [address] 05/16/2021 00:00:00 05/16/2021 15:50:24 [id number] [facility] ic_[facility]way [facility] [place] [address] [place] [address] 06/27/2021 00:00:00 06/27/2021 17:03:42 [id number] Asa Soriano MD [facility] [place] [address] [place] [address] 07/15/2021 00:00:00 07/15/2021 16:13:44 [id number] [facility] ic_[facility]way [facility] [place] [address] [place] [address] 09/10/2021 00:00:00 09/10/2021 21:42:24 [id number] Fabiana Sanz MD [facility] [place] [address] [address] , [place] [address] 09/25/2021 00:00:00 09/25/2021 11:41:42 [id number] MD [facility] [place] [address] [address] , [place] [address] 10/07/2021 00:00:00 10/07/2021 14:36:20 [id number] MD [facility]RIS [facility] Abner [address] [address] , [place] [address] 12/15/2021 00:00:00 12/15/2021 16:24:54 [id number] Fabiana Sanz MD [facility] [place]har[address] [facility] y , [place] [address] 12/24/2021 00:00:00 12/24/2021 15:36:16 [id number] Yulia Schumacher [facility] [place] [address] [place] [address] 01/09/2022 00:00:00 01/09/2022 16:26:58 [id number] [facility] ic[facility]way [facility] Abner and[place] [address] [facility] [address] , [place] [address] 04/30/2022 00:00:00 04/30/2022 14:16:36 [id number] Yulia Schumacher [facility] [place] [address] [place] [address] 07/10/2022 00:00:00 07/10/2022 15:36:03 [id number] Yulia Schumacher [facility] [place] [address] [place] [address] 09/09/2022 00:00:00 09/10/2022 12:22:21 [id number] Anum Merrill MD [facility] [place] [address] [place] [address] 10/12/2022 00:00:00 10/19/2022 18:16:32 [id number] Anum Merrill MD [facility] [place] [address] [place] [address] 10/15/2022 00:00:00 10/19/2022 18:00:19 [id number] Anum Merrill MD [facility] [place] [address] [place] [address] 10/20/2022 00:00:00 10/20/2022 16:59:45 [id number] Anum Merrill MD S[facility] Primary Care [place] [address] [facility] [address] [place] [address] 11/04/2022 00:00:00 11/15/2022 15:16:10 [id number] Halina Yeung NP [facility] [address] [address] 11/21/2020 00:00:00 11/21/2020 11:59:30 [id number] Halina Yeung NP [facility] [address] [facility] [address] [address] 12/26/2020 00:00:00 12/26/2020 11:46:34 [id number] Brittney Connell NP [facility] [address] [place] [address] [address] 03/31/2021 00:00:00 03/31/2021 19:45:43 [id number] Brittney Connell NP [facility] [address] [place] [address] 04/29/2021 00:00:00 04/29/2021 17:54:38 [id number] Yulia Schumacher, [employer]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-[facility] [place] [address] [place] [address] 02/08/2023 14:49:58 02/09/2023 08:38:48 Multiple nodules of lung 891706420 R91.8 Noted to RUL, measuring up to [address] completed ep eat in one year due 06/2023 Asthma-chr onic obstructive pulmonary disease overlap syndrome 7200777149 [id number] J44.9 Continue Trelegy Ellipta 100, this is covered by her insurance and she has good benefitIns tructed on techniqueR eviewed indication s for albuterol use, continue PRNDiscuss ed reportable signs and symptomsRT C in 4-6 months Posterior rhinorrhea 693 36374 R09.82 Continue ipratropiu m Dyspnea on exertion 6084 5006 R06.09 Alpha 1 normalRAST and IGE normalQuan tiferon GOLD negativeBN P normalIGG subclass 2 slightly low [id number] Anum Merrill MD [facility] Primary Care [facility] [address] [facility] [address] [place] [address] 03/11/2023 11:54:15 03/11/2023 12:46:08 Essential hypertension 60794973 I10 [id number] Anum Merrill MD [facility] Primary Care [facility] [address] [facility] [address] [place] [address] 07/13/2023 09:09:14 07/13/2023 10:42:33 [id number] Yulia Schumacher, M[employer]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-[facility] [place] [address] [place] [address] 07/26/2023 14:42:55 07/26/2023 15:26:57 Multiple nodules of lung 226212848 R91.8 Noted to RUL, measuring up to [address] completed ep eat 06/2023 stable Asthma-chr onic obstructive pulmonary disease overlap syndrome 2669899809 7690892 J44.9 Continue Trelegy Ellipta 100, this is covered by her insurance and she has good benefitIns tructed on techniqueR eviewed indication s for albuterol use, continue PRNDiscuss ed reportable signs and symptomsAd vised vaccines this fall Posterior rhinorrhea 758 55576 R09.82 Continue ipratropiu m Dyspnea on exertion 6084 5006 R06.09 Alpha 1 normalRAST and IGE normalQuan tiferon GOLD negativeBN P normalIGG subclass 2 slightly lowIncreas e exercise, weight loss [id number] Anum Merrill MD [facility] Primary Care [facility] [address] [facility] [address] [place] [address] 08/16/2023 12:16:53 08/16/2023 13:21:16 Essential hypertension 79086022 I10 stablechec k labs Hyperlipidemia 17903296 E78.5 Z79.899 Vitamin D deficiency 347 44001 E55.9 [id number] Anum Merrill MD [facility] Primary Care [place] [address] [facility] [address] [place] [address] 09/03/2023 12:04:55 09/03/2023 12:33:39 [id number] Anum Merrill MD [facility] Primary Care [place] [address] [facility] [address] [place] [address] 10/06/2023 12:16:02 10/06/2023 12:52:10 Hypokalemia 50288249 E87.6 Diabetes mellitus 186605 09 E11.9 [id number] Anum Merrill MD [facility] Primary Care [place] [address] [facility] [address] [place] [address] 11/26/2023 13:58:59 11/26/2023 14:56:38 Transition of care 3688237477 105 Z75.8 Diabetes mellitus 070190 09 E11.9 increase lantus to 20 unitsd/c humalog after wednesday dinnerorde r freestyle meter for cgmf/u in 2 weeksplan ozempic restart in 2 weeks Essential hypertension 12533815 I10 stablechec k labs Vitamin D deficiency 347 33885 E55.9 Chronic ob structive pulmonary disease 85768466 J44.9 +wheezingp rednisone [id number] Anum Merrill MD [facility] Primary Care Geoffrey oharae [address] [facility] [address] [place] [address] 12/10/2023 08:59:56 12/10/2023 09:31:09 Diabetes mellitus 96786719 E11.9 restart ozempic 0.25 mg sc qweek and titrate up as toleratedo k to remain off humalogcon tinue lantus 20 units Essential hypertension 11712799 I10 check home readings 2x per weekf/u in 4 weeks Cellulitis of lower limb 998333292 L03.119 elevate leg when possiblece phalexin 500 mg po bid x 7 dayscall/r eturn if no improvemen t in 1-2 days or sooner if neededrevi ewed s/s that warrant urgent/malissa rgent eval in meantime Chronic ob structive pulmonary disease 79505897 J44.9 +wheezingp rednisone taper with foodf/u in 4 weeks or sooner if neededcall /return if no improvemen t in 1-2 days or sooner if neededrevi ewed s/s that warrant urgent/malissa rgent eval in meantime [id number] Anum Merrill MD [facility] Primary Care [facility] [address] [facility] [address] [place] [address] 01/10/2024 16:54:53 01/10/2024 17:38:01 Diabetes mellitus 60642721 E11.9 restart ozempic 0.25 mg sc qweek and titrate up as toleratedo k to remain off humalogcon tinue lantus 20 units 01/10/24: hold lantusincr ease ozempic to 0.5 mg sc qweekcall next week with AM fasting blood sugars [id number] Maria C de la torre MD [facility] Internal Med [address] [place] [address] 03/01/2024 10:31:21 03/01/2024 11:39:13 Adult health examination 362913221 Z00.00 Screening for disorder 649859417 Z13.9 Low back pain 697995487 M54.50 [id number] Maria C de la torre MD [facility] Internal Med [address] [place] [address] 06/07/2024 10:25:17 06/07/2024 11:13:38 Hepatitis C screening 437860683 Z11.59 Diabetes mellitus 619254 09 E11.9 Vitamin D deficiency 347 06482 E55.9 Hyperlipidemia 11593991 E78.5 Z79.268 [id number] Tristin Peck DPM [facility] Podiatry [facility] [address] [address] 06/20/2024 10:50:45 06/21/2024 11:32:35 Onychomycosis of toenails 892990525 B35.1 Pain in right foot 26804 77891 28893 M79.671 neuropathy Pain in left foot 307796 2130 91244 M79.672 neuropathy Peripheral neuropathy due to type 2 diabetes mellitus 8934342107 107 E11.42 [id number] LOUIE Hernandez [facility] Primary Care [address] [place] [address] 07/07/2024 12:21:37 07/07/2024 14:06:31 [id number] Maria C de la torre MD [facility] Internal Med [address] [facility] [place] [address] 12/06/2024 10:24:13 12/06/2024 11:19:14 Essential hypertension 38554894 I10 Renewal of prescription 668507193 Z76.0 Primary hypertriglyceridemia 675863790 E78.1 Peripheral neuropathy due to type 2 diabetes mellitus 5041879255 107 E11.42 Diabetes mellitus 177138 09 E11.9 Hyperlipidemia 89584066 E78.5 Z79.899 Vitamin D deficiency 347 65698 E55.9 Environmental allergy 42 8878875 T78.49XD [id number] Maria C de la torre MD [facility] Primary Care [address] [place] [address] 12/25/2024 15:33:54 12/25/2024 16:54:14 Screening - NAD 513867179 Z13.9 C-scope: Get this if not done, [...] his understand ing of the above Hyperlipidemia 29102520 E78.5 On rosuvastat in 10mg dailyOn fenofibrat e 160mg dailyGet labs Postmenopausal state 764 08809 Z78.0 Screening mammography 24 317200 Z12.31 Diabetes mellitus 827541 09 E11.39 Eye 12/20/2024 : Dr Kamar singh that she has done very well on this, has to see her cardiologi st also Chronic ob structive pulmonary disease 54185925 J44.9 Yulia Schumacher TEST BORER 12/06/2024 , s/p CHARLES lobectomy On albuterol HHNsOn albuterol HFAOn ipratropiu m-albutero Alicia trelegyOn zyrtec Coronary arteriosclerosis 74803529 I25.10 On diltiazem 30mg dailyOn aldactoneO n K Dr Beltrán SL 06/27/2024 Dementia 87225515 F03.90 11/01/2023 : Vicki Carl TEST BORER: Neurology: MRI to be done for Leqembi evaluation , to be on namenda and donezepil Neuropathy 861673426 G62 .9 On gabapentin 100mg daily Screening for malignant neoplasm of colon 692294371 Z12.11 Moderate r ecurrent major depression 72484564 F33.1 Hx of Alzhiemer' s dementiaOn duloxetine 20mg bidOn Qutiapine 50mg at bedtimeSta samantha that she is doing very well, as per is seeing neurologis t, not suicidal or homicidal and declined any psyciatry referrals [id number] Maria C de la torre MD [facility] Primary Care [address] [place] [address] 01/31/2025 16:25:57 01/31/2025 16:55:16 Screening - NAD [id number] Z13.9 C-scope: Get this if not done, referred Mammogram: BiRads 0Get US and Diagnostic mammogram DEXA: 01/01/2025 : Normal PAP: Does not do this, no complaints Get yearly flu shot, get tdap if not doneCan do Shingrix vaccineCan do COVID 19 boostersCa n do RSV vaccineCan do prevnar #20 vaccine RTC in 3 months, do labs, ER if worse, she and her did verbalize his understand ing of the above Hyperlipidemia 08586776 E78.5 On rosuvastat in 10mg dailyOn fenofibrat e 160mg dailyGet labs Diabetes mellitus 883735 09 E11.39 Eye MD 12/20/2024 : Dr HonasogeOn ozempicSta samantha that she has done very well on this, has to see her cardiologi st also Chronic ob structive pulmonary disease 48746553 J44.9 Yulia Schumacher TEST BORER 12/06/2024 , s/p CHARLES lobectomy On albuterol HHNsOn albuterol HFAOn ipratropiu m-albutero Alicia trelegyOn zyrtec Coronary arteriosclerosis 78937216 I25.10 On diltiazem 30mg dailyOn aldactoneO n K Dr Beltrán [facility] 06/27/2024 Dementia 49590441 F03.90 11/01/2023 : Vicki Carl TEST BORER: Neurology: MRI to be done for Leqembi evaluation , to be on namenda and donezepil Neuropathy 220734609 G62 .9 On gabapentin 100mg daily Screening for malignant neoplasm of colon 007207272 Z12.11 Moderate r ecurrent major depression 10299020 F33.1 Hx of Alzhiemer' s dementiaOn duloxetine 20mg bidOn Qutiapine 50mg at bedtimeSta samantha that she is doing very well, as per is seeing neurologis t, not suicidal or homicidal and declined any psyciatry referrals Mammography abnormal 168 180203 R92.8 34765 Chronic ki dney disease 165382844 N18.9 [id number] Maria C de la torre MD [facility] Primary Care [facility] [address] [place] [address] 04/26/2025 15:01:36 04/26/2025 15:17:37 [id number] Maria C de la torre MD [facility] Primary Care [facility] [address] [place] [address] 05/02/2025 15:14:27 05/02/2025 16:21:53 Screening - NAD [id number] Z13.9 C-scope: Get this if not done, referred Mammogram: BiRads 0Get US and Diagnostic mammogram0 02/01/2025: Neg DEXA: 01/01/2025 : Normal PAP: Does not do this, no complaints Get yearly flu shot, get tdap if not doneUTD on Shingrix vaccine as per her historyCan do COVID 19 boostersUT D on RSV vaccine as per historyCan do prevnar #20 vaccine RTC in 3 months, do labs, ER if worse, she and her did verbalize his understand ing of the above Hyperlipidemia 88151221 E78.5 On rosuvastat in 10mg dailyOn fenofibrat e 160mg dailyGet labs Diabetes mellitus 218296 09 E11.39 Eye MD 12/20/2024 : Dr Kamar ho, denies any MEN2, MCT,thyroi d or parathyroi d or pancreatic complaints , is advised to hydrate and use supplement s, notify if any surgery to be done as she will need to be off GLP-1State s that she has done very well on this, has to see her cardiologi st also [facility] in [place], [place] in 02/2025 Chronic ob structive pulmonary disease 50374940 J44.9 Yulia Schumacher TEST BORER 12/06/2024 , s/p CHARLES lobectomy On albuterol HHNsOn albuterol HFAOn ipratropiu m-albutero [facility] Coronary arteriosclerosis 87684752 I25.10 On diltiazem 30mg dailyOn aldactoneO jose K Dr Beltrán [facility] 06/27/2024 , next apt is in 06/2025 Dementia [id number] F03.90 11/01/2023 : Vicki Carl TEST BORER: Neurology: MRI to be done for Leqembi evaluation , to be on namenda and donezepil Neuropathy 090327665 G62 .9 On gabapentin 100mg daily Screening for malignant neoplasm of colon 041483692 Z12.11 Referred 05/02/2025 Moderate r ecurrent major depression 42445343 F33.1 Hx of Alzhiemer' s dementiaOn duloxetine 20mg bidOn Qutiapine 50mg at bedtimeSta samantha that she is doing very well, as per is seeing neurologis t, not suicidal or homicidal and declined any psychiatry referrals Chronic ki dney disease 709418504 N18.[id number] Lin Low back pain 542253604 M54.50 Uses this for her LBP and needs a refill for lidocaine patches [id number] Maria C de la torre MD [facility] Primary [facility] Geoffrey anderson [address] [place] [address] 06/07/2025 11:19:42 06/07/2025 11:42:17 Health Concerns Section Related Observation LastModified by Organization Detai ls LastModified Time None Recorded Concern Status LastModified by Organization Details LastModified Time None Recorded Advance Directives Directive Y: Payers Insurance Date Sequence Insurance Name Policy Number Policy Sorto Covered Member ID Sorto Member ID Guarantor Name 06/07/2025 1 [facility] (MEDICARE REPLACEMENT/A DVANTAGE - PPO) [id number] Paty Lainez [id number] Paty Lainez Notes Date Note Type Note Provider Name and Address Organization Details Recorded Time 12/25/2024 text/html OV 12/25/2024:Here to establish care Present Hx:HLDDMIICADNeuro pathyDementia Here to discuss above and to get labs, she has an apt with her appliance service representative as per her , does well now, no new labs Maria C Ku MD [address], [place], [address], [employer] 12/25/2024 17:02:40 01/31/2025 text/html OV 12/25/2024:Here to establish care Present Hx:HLDDMIICADNeuro pathyDementia Here to discuss above and to get labs, she has an apt with her appliance service representative as per her , does well now, no new labs OV 01/31/2025: Here for her f/u apt, she is here to discuss her labs as she has noted that she will need to see Dr Riley purdy prior kidney MD, does well, here with her Maria C Ku MD [address], [place], [address], [employer] 01/31/2025 18:47:40 05/02/2025 text/html OV 12/25/2024:Here to establish care Present Hx:HLDDMIICADNeuro pathyDementia Here to discuss above and to get labs, she has an apt with her appliance service representative as per her , does well now, no new labs OV 01/31/2025: Here for her f/u apt, she is here to discuss her labs as she has noted that she will need to see Dr Lin her prior kidney MD, does well, here with her OV 05/02/2025: Here for her f/u apt, she feels well today, she is here with her Maria C Ku MD [address] [place] [address], [address], [place], [address], [facility] [employer] 05/02/2025 18:17:33 OBGyn Episode No OBEpisode recorded.
--- OUTSIDE RECORDS SUMMARY | 2025-07-14 11:16 | XMS_ITS | Clinical Summary ---
Author Organization [facility] Address [address] [facility] [place] [address] Care Team Providers Care Rehanger Name Role Phone Mikayla Carl Charlene GRAY Unavailable [phone] Leatha Mckeon NP Primary Care Provider [phone] Allergies Active Allergy Reactions Criticality Noted Date [...] HFA) 90 mcg/actuation inhaler as needed Active ipratropium-albut Malorie (DUO-NEB) 0.5-2.5 mg/3 mL nebulizer solution 08/20/20 20 Active lisinopriL (PRINIVIL,ZESTRIL ) 5 mg tablet 10/17/19 21 Active rosuvastatin (CRESTOR) 10 mg tablet 10/17/[address] (CYMBALTA) 20 [...] (PRED FORTE) 1 % ophthalmic suspension Active famotidine (PEPCID) 40 mg tablet 04/05/20 22 Active Ozempic 0.25 mg or 0.5 mg (2 mg/3 mL) pen injector injectionIndicati ons:type 2 diabetes mellitus Inject 1 mg under the skin once a week 09/22/19 24 Active gabapentin (NEURONTIN) 100 mg capsule Take 1 capsule (100 mg total) by mouth title inspector before breakfast 11 10/02/19 25 Active lidocaine (LIDODERM) 5 % 01/04/20 25 Active spironolactone (ALDACTONE) 50 mg tablet Take 1 tablet (50 mg total) by mouth daily Active donepeziL (ARICEPT) 10 mg tabletIndications :Late onset Alzheimer's disease without behavioral disturbance (HCC) Take 1 tablet (10 mg total) by mouth daily 90 tablet 3 01/16/20 25 2025 Active memantine (NAMENDA) 10 mg tablet Take 1 tablet (10 mg total) by mouth 2 (two) times a day 180 tablet 3 01/16/20 25 2025 Active traZODone (DESYREL) 50 mg tablet Take 1 tablet (50 mg total) by mouth nightly as needed for sleep 30 tablet 11 06/27/20 25 2025 Active dilTIAZem (CARDIZEM) 30 mg tablet 10/17/19 21 2024 Discontinued fluticasone furoate-vilantero L (BREO ELLIPTA) 100-25 mcg/dose diskus inhaler 10/31/19 19 2024 Discontinued cholecalciferol (VITAMIN D-3) 3,000 unit tablet 08/14/20 14 2024 Discontinued cycloSPORINE (RESTASIS) 0.05 % ophthalmic emulsion Administer into both eyes 2024 Discontinued methocarbamoL (ROBAXIN) 750 mg tablet Take by mouth daily 05/02/20 19 2024 Discontinued montelukast (SINGULAIR) 10 mg tablet 05/02/20 19 2024 Discontinued triamterene-hydro CHLOROthiazide 37.5-25 mg per capsule 10/17/19 21 2024 Discontinued torsemide (DEMADEX) 20 mg tablet Take 2 tablets (40 mg total) by mouth daily 05/13/20 22 2024 Discontinued ondansetron ODT (ZOFRAN-ODT) 4 mg disintegrating tablet 2024 Discontinued Active Problems Problem Noted Date [...] Asthma-COPD overlap syndrome 03/08/2024 Assessment & Plan (07/11/2025 3:55 PM CDT): Continue Trelegy Ellipta 200 daily at the same time Albuterol 2 puffs every 4-6 hours as needed only, she is aware of indications for use. Her administers this when he notices her wheezing. I have advised she continue to avoid her grandchildren when they are sick. Avoid triggers She does not have frequent exacerbations. We have discussed vaccines. She and her are aware of signs and symptoms that would require earlier evaluation. Assessment & Plan (12/06/2024 2:34 PM CDT): [...] 11/07/2020 Assessment & Plan (11/07/2020 4:09 PM PERSONAL ASSISTANT): Patient presents with reporting a 6+ month [...] is apparently being seen by psychiatrist in [place] who is adjusting and attempting to reduce [...] Encounters Date Type Department Care Team Description 07/11/2025 9:15 AM CDT Office Visit [facility] at [address] [place] [address] Winsome, Yulia M., C[employer] PIG[employer] LOADER Asthma-COPD overlap syndrome (HCC) (Primary Dx) 07/10/2025 Telephone [facility] at [address] [place] [address] Yulia Schumacher NP 06/27/2025 1:00 PM CDT Office Visit [facility] [address] 6[address] [place] [address] [place] [id number] Marva Nguyen MD PhD Late onset Alzheimer's disease without behavioral disturbance (HCC) (Primary Dx) from Last 3 Months Surgical History Surgery Date Site/Laterality Comments SINUS SURGERY Sinus Surgery - (Added by TW Conv) MD TONSILLECTOMY PRIMARY/SECONDARY <AGE 12 Tonsillectomy - (Added by TW Conv) MD STOT/TOT HYSTERECTOMY AFT ER DELIVERY Hysterectomy - (Added by TW Conv) CATARACT EXTRACTION Cataract Extraction - (Added by TW Conv) KNEE SURGERY Knee Surgery - (Added by TW Conv) MD ARTHROPLASTY KNEE TIBIAL PLATEAU Knee Replacement - [...] Conv) Depression Hypertension High cholesterol Diabetes mellitus Asthma-COPD overlap syndrome (HCC) 03/08/2024 Family History [...] Given: Not Answered AUDIT-C Answer Date Recorded Frequency of Alcohol Consumption Not on file 07/11/2025 Q2: How many drinks containi ng alcohol do you have on a typical day when you are drinking? Patient does not drink Frequency of Binge Drinking Not on file 06/21 Comments Unknown Sex and Gender Information Value Date Recorded Sex Assigned at Not on file Legal Sex Female 9:09 AM PERSONAL ASSISTANT Gender Identity Not on file Sexual Orientation Not on file Obstetrics History Last Filed Vital Signs Vital Sign Reading Time Taken Comments Blood Pressure 138/89 07/11/2025 9:16 AM CDT Pulse 69 07/11/2025 9:16 AM CDT Temperature 36.4 C (97.5 F) 07/11/2025 9:16 AM CDT Respiratory Rate 24 07/11/2025 9:16 AM CDT Oxygen Saturation 96% 07/11/2025 9:16 AM CDT Inhaled Oxygen Concentration - - Weight 88.3 kg (194 lb 11.2 oz) 07/11/2025 9:16 AM CDT Height 162.6 cm (5' 4) 07/11/2025 9:16 AM CDT Body Mass Index 33.42 07/11/2025 9:16 AM CDT Plan of Treatment Health Maintenance [...] Read Routine (OP Routine) 08/25/2018 10:26 AM PERSONAL ASSISTANT Encounter for screening mammogram for malignant neoplasm of breast from Last 3 Months or Most Recently Relevant to Health Maintenance Results * Screening Mammogram Bilateral W Sherman (08/25/2018 10:26 AM PERSONAL ASSISTANT) Anatomical Region Laterality Modality Breast Bilateral Digital Radiogra phy Narrative 09/01/2018 1:16 PM PERSONAL ASSISTANT Mammogram Technique: Bilateral Digital Breast Tomosynthesis, Bilateral C-view 2D Screening mammogram. Views obtained: bilateral craniocaudal and bilateral mediolateral oblique. Computer Aided Detection was performed. Mammogram Findings: The present examination has been compared to prior imaging studies performed at [facility] on 03/14/2015, 06/05/2016 and [...] compared to prior imaging studies performed at [facility] on 03/14/2015, 06/05/2016 and [...] to Health Maintenance Insurance UHC MEDICARE ADVANTAGE UHC MEDICARE ADVANTAGE [facility] MEDICARE ADVANTAGE Care Teams Rehanger Relationship Specialty Start Date End Date Leatha Mckeon NP [address] [address] PCP - General Family Medicine 05/30/24 Mikayla Carl NP [facility] [address] [address] Nurse Practitioner Neurology 03/20/24
--- OUTSIDE RECORDS SUMMARY | 2025-07-14 11:16 | XMS_ITS | Patient Health Record ---
Author Organization [employer] Address 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
--- OUTSIDE RECORDS SUMMARY | 2025-07-14 11:16 | XMS_ITS | Clinical Summary ---
Author Organization [facility] Address [address] [place] [address] Phone Care Team Providers Care Sand Slinger Operator Name Role Phone Raysa [place] NP Primary Care Provider [phone] Allergies Active Allergy Reactions Criticality Noted Date [...] 11/19/2007 Insurance [employer] MEDICARE ADVANTAGE Care Teams Sand Slinger Operator Relationship Specialty Start Date End Date Raysa [place] NP [address] [address] PCP - General Internal Medicine 04/06/19
== END 2025-07-14 11:01 | disposition home or self-care (01) ==
PROVIDERS: PCP Internal Medicine
DX: H30.93 Unspecified chorioretinal inflammation, bilateral (principal)
CPT/HCPCS: 71046